=== PATIENT | female | born 1995 | race African-American/Black ===

== ENCOUNTER 2017-06-11 | Emergency (ER) | payer SELFPAY ==
--- NOTE | 2017-06-11 11:08 | ER ---
Nurse's Notes [facility] Name: Shanique Avelar Age: 21 yrs Sex: Female : 1995 Arrival Date: 06/11/2017 Time: 10:45 Bed 13 Private MD: Diagnosis: Acute suppurative otitis media;Otitis externa Presentation: 06/11 10:50 Presenting complaint: Patient states: RIGHT ear pain x 1 week, yellow drainage x 3 hb days. Transition of care: patient was not received from another setting of care. Onset of symptoms is unknown. Care prior to arrival: None. 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 - Social history:: Smoking status: Patient/guardian denies using tobacco. Screenin:55 Abuse screen: Denies threats or abuse. Nutritional screening: No deficits noted. rb1 Tuberculosis screening: No symptoms or risk factors identified. Fall Risk None identified. Assessment: 10:55 General: Appears in no apparent distress. comfortable, obese, Behavior is calm, rb1 cooperative. Pain: Complains of pain in right ear. 10:55 General: Denies fever. Neuro: Level of Consciousness is awake, alert, obeys commands, rb1 Oriented to person, place, time, situation. Cardiovascular: Capillary refill < 3 seconds is brisk in bilateral fingers. Respiratory: Airway is patent Respiratory effort is even, unlabored, Respiratory pattern is regular, symmetrical. GI: No signs and/or symptoms were reported involving the gastrointestinal system. : No signs and/or symptoms were reported regarding the genitourinary system. EENT: Reports pain in right ear since x 1 week. Derm: Skin is dry, Skin is normal, Skin temperature is warm. Vital Signs: 10:50 BP 130 / 99; Pulse 85; Resp 16; Temp 98.9; Pulse Ox 100% on R/A; Weight 104.33 kg; hb Height 5 ft. 7 in. (170.18 cm); Pain 10/; 10:50 Body Mass Index 36.02 (104.33 kg, 170.18 cm) hb ED Course: 10:45 Patient arrived in ED. as 10:50 Triage completed. hb 10:50 Arm band placed on right wrist. hb 10:52 Nitish Red PA is PHCP. jr8 10:53 Gatito Anguiano MD is Attending Physician. jr8 10:53 Mely Licona, RN is Primary Nurse. rb1 10:55 Patient has correct armband on for positive identification. Bed in low position. Call rb1 light in reach. Side rails up X 1. Pulse ox on. NIBP on. 11:23 No provider procedures requiring assistance completed. Patient did not have IV access rb1 during this emergency room visit. Administered Medications: No medications were administered Outcome: 11:08 Discharge ordered by . jr8 11:23 Discharged to home ambulatory, with family. rb1 11:23 Condition: stable 11:23 Discharge instructions given to patient, Instructed on discharge instructions, follow up and referral plans. medication usage, Demonstrated understanding of instructions, follow-up care, medications, Prescriptions given X 2. 11:24 Patient left the ED. rb1 Signatures: Ana Rosa Salas as Nitish Red PA PA jr8 Mely Licona, RN RN rb1 Ting Sims RN RN hb
--- NOTE | 2017-06-11 11:08 | EDPHYS ---
Physician Documentation [facility] Name: Shanique Avelar Age: 21 yrs Sex: Female : 1995 Arrival Date: 06/11/2017 Time: 10:45 Bed 13 Private MD: ED Physician Gatito Anguiano HPI: 06/11 16:31 This 21 yrs old Black Female presents to ER via Ambulatory with complaints of Ear Pain. jr8 16:31 The patient presents with pain. The complaints affect the right ear. Onset: The jr8 symptoms/episode began/occurred acutely, yesterday. Modifying factors: The symptoms are alleviated by nothing, the symptoms are aggravated by touching. Associated signs and symptoms: The patient has no apparent associated signs or symptoms. Severity of symptoms: At their worst the symptoms were moderate in the emergency department the symptoms are unchanged. The patient has not experienced similar symptoms in the past. The patient has not recently seen a physician. 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 - Social history:: Smoking status: Patient/guardian denies using tobacco. ROS: 16:31 Eyes: Negative for injury, pain, redness, and discharge, Neck: Negative for injury, jr8 pain, and swelling, Cardiovascular: Negative for chest pain, palpitations, and edema, Respiratory: Negative for shortness of breath, cough, wheezing, and pleuritic chest pain, Abdomen/GI: Negative for abdominal pain, nausea, vomiting, diarrhea, and constipation, Back: Negative for injury and pain, MS/Extremity: Negative for injury and deformity, Skin: Negative for injury, rash, and discoloration, Neuro: Negative for headache, weakness, numbness, tingling, and seizure. 16:31 ENT: Positive for drainage from ear(s), ear pain, Negative for tinnitus, nasal discharge, rhinorrhea, sinus congestion, sinus pain, sore throat. Exam: 16:31 Eyes: Pupils equal round and reactive to light, extra-ocular motions intact. Lids and jr8 lashes normal. Conjunctiva and sclera are non-icteric and not injected. Cornea within normal limits. Periorbital areas with no swelling, redness, or edema. Neck: Trachea midline, no thyromegaly or masses palpated, and no cervical lymphadenopathy. Supple, full range of motion without nuchal rigidity, or vertebral point tenderness. No Meningismus. Cardiovascular: Regular rate and rhythm with a normal S1 and S2. No gallops, murmurs, or rubs. Normal PMI, no JVD. No pulse deficits. Respiratory: Lungs have equal breath sounds bilaterally, clear to auscultation and percussion. No rales, rhonchi or wheezes noted. No increased work of breathing, no retractions or nasal flaring. Abdomen/GI: Soft, non-tender, with normal bowel sounds. No distension or tympany. No guarding or rebound. No evidence of tenderness throughout. Back: No spinal tenderness. No costovertebral tenderness. Full range of motion. Skin: Warm, dry with normal turgor. Normal color with no rashes, no lesions, and no evidence of cellulitis. MS/ Extremity: Pulses equal, no cyanosis. Neurovascular intact. Full, normal range of motion. Neuro: Awake and alert, GCS 15, oriented to person, place, time, and situation. Cranial nerves II-XII grossly intact. Motor strength 5/5 in all extremities. Sensory grossly intact. Cerebellar exam normal. Normal gait. 16:31 ENT: Exam is negative for nasal discharge, sinus tenderness, enlarged tonsils, peritonsillar abscess pharyngitis, dysphagia, dental infection, abnormal voice, External ear(s): are unremarkable, Ear canal(s): erythema, that is moderate, of the right canal, TM's: dullness, on the right, erythema, that is mild, on the right, fluid levels, on the right. Vital Signs: 10:50 BP 130 / 99; Pulse 85; Resp 16; Temp 98.9; Pulse Ox 100% on R/A; Weight 104.33 kg; hb Height 5 ft. 7 in. (170.18 cm); Pain 10/10; 10:50 Body Mass Index 36.02 (104.33 kg, 170.18 cm) hb MDM: 10:53 Patient medically screened. jr8 11:06 Data reviewed: vital signs, nurses notes, and as a result, I will discharge patient. jr8 Data interpreted: Pulse oximetry: on room air is 100 %. Interpretation: normal. Counseling: I had a detailed discussion with the patient and/or guardian regarding: the historical points, exam findings, and any diagnostic results supporting the discharge/admit diagnosis, the need for outpatient follow up, a family practitioner, to return to the emergency department if symptoms worsen or persist or if there are any questions or concerns that arise at home. Administered Medications: No medications were administered Disposition: 06/11/17 11:08 Discharged to Home. Impression: Acute suppurative otitis media, Otitis externa. - Condition is Stable. - Discharge Instructions: Otitis Media, Adult, Otitis Externa. - Prescriptions for Cortisporin 3.5- 10,000-1 mg/mL-unit/mL-% Otic solution - instill 4 drop by OTIC route every 6 hours for 7 days; 1 bottle. Amoxicillin 875 mg Oral Tablet - take 1 tablet by ORAL route every 12 hours for 10 days; 20 tablet. - Medication Reconciliation Form, Thank You Letter, Antibiotic Education, Prescription Opioid Use form. - Follow up: Private Physician; When: 7 - 10 days; Reason: Recheck today's complaints, Continuance of care, Re-evaluation by your physician. - Problem is new. - Symptoms have improved. Addendum: 06/13/2017 08:05 Co-signature as Attending Physician, Gatito Anguiano MD I agree with the assessment and c pope plan of care. Signatures: Gatito Anguiano MD MD cha Roszak, Josh, PA PA jr8 Mely Licona, RN RN [facility] Ting Sims RN RN
== END 2017-06-11 11:24 | disposition home or self-care (01) ==
CPT/HCPCS: 99283

== ENCOUNTER 2018-08-07 08:59 | Emergency (ER) | payer SELFPAY ==
[2018-08-07] MEDS ORDERED: METOCLOPRAMIDE 10 MG/2mL INJ ONE (09:53)
[2018-08-07] MEDS ORDERED: DEXAMETHASONE 10 MG/ML VIAL ONE (09:53)
[2018-08-07] MEDS ORDERED: DIPHENHYDRAMINE 50 MG/ML VIAL ONE (09:53)
--- NOTE | 2018-08-07 09:56 | RAD REPORT ---
EXAM DESCRIPTION: CT - Head Brain Wo Cont - 08/07/2018 9:51 am CLINICAL HISTORY: Persistent headache COMPARISON: CT head January 2017 TECHNIQUE: Axial 5 mm thick images of the head were obtained without IV contrast. All CT scans are performed using dose optimization technique as appropriate and may include automated exposure control or mA/KV adjustment according to patient size. FINDINGS: No intracranial hemorrhage, mass, edema or shift of mid-line structures. No acute infarcti on changes seen. No abnormal extra-axial fluid collections. Ventricles are normal. Mastoid air cells and visualized portions of the paranasal sinuses are clear. No acute bony findings. No significant change from comparison. IMPRESSION: Negative non-contrast CT head examination.
[2018-08-07 10:34] LABS: Urine Blood NEGATIVE (NEG); Urine Glucose NEGATIVE (NEG); Urine Protein NEGATIVE (NEG)
[2018-08-07 11:20] LABS: Absolute Lymphocytes (CBC) 2.1 K/uL (0.7-4.9); Absolute Monocytes 0.4 K/uL (0.1-1.3); Basophils % 0.3 % (0-1.3); Hematocrit 29.3 % (36.0-45.0); Lymphocytes % 36.3 % (15.3-44.8); MPV 7.8 fL (7.6-11.3); Monocytes % 6.9 % (3.3-12.3); RBC Red Blood Cell Count 3.53 M/uL (3.86-4.86)
[2018-08-07 11:33] LABS: BUN Blood Urea Nitrogen 9 mg/dL (7-18); Bicarbonate 28 mmol/L (21-32); Glucose Level 98 mg/dL (74-106); Potassium 3.8 mmol/L (3.5-5.1); Sodium Level 143 mmol/L (136-145)
--- NOTE | 2018-08-07 11:40 | RAD REPORT ---
EXAM DESCRIPTION: RAD - Abdomen 1 View (KUB) - 08/07/2018 11:27 am CLINICAL HISTORY: Abdomen pain. FINDINGS: The bowel gas pattern is unremarkable. Large amount of stool is present throughout the colon. Calcifications in the pelvis probably represen t phleboliths Opacity overlies the left rectus muscle within the l abdomen. This may be confluence of normal struct ures or a subtle mass. It is recommended that patient have a CT scan of the abdomen with IV and oral contrast for further evaluation
--- NOTE | 2018-08-07 12:26 | EDPHYS ---
Physician Documentation [facility] Name: Shanique Avelar Age: 22 yrs Sex: Female : 1995 Arrival Date: 08/07/2018 Time: 09:01 Bed 8 Private MD: ED Physician Geremias Shepherd HPI: 08/07 09:39 This 22 yrs old Black Female presents to ER via Ambulatory with complaints of Headache, jr8 Back Pain, constipation. 09:39 The patient complains of pain to the left occipital area and right occipital area. The jr8 patient describes the headache as pounding. Onset: The symptoms/episode began/occurred gradually, 2 day(s) ago. Associated signs and symptoms: The patient has no apparent associated signs or symptoms. Severity of symptoms: At its worst the pain was moderate, in the emergency department the pain is unchanged. Headache History: Denies prior headaches. The symptoms are alleviated by nothing. the symptoms are aggravated by movement, noise, stress. It is unknown whether or not the patient has had similar symptoms in the past. The patient has not recently seen a physician. Patient stated that she has had headache for past couple of days with back pain and also has been constipated. Stated that she has not had a bowel movement in two and a half months. Taking laxatives over the counter. Has had one other headache before and had meningitis ruled out. Historical: - Allergies: 09:10 No Known Allergies; sg - PMHx: 09:10 Anemia; Asthma; Heart Murmur; Hypertension; sg - PSHx: 09:10 None; sg - Immunization history:: Adult Immunizations up to date. - Social history:: Smoking status: Patient/guardian denies using tobacco. - Ebola Screening: : Patient negative for fever greater than or equal to 101.5 degrees Fahrenheit, and additional compatible Ebola Virus Disease symptoms Patient denies exposure to infectious person Patient denies travel to an Ebola-affected area in the 21 days before illness onset No symptoms or risks identified at this time. ROS: 09:39 Constitutional: Negative for fever, chills, and weight loss. jr8 09:39 Abdomen/GI: Positive for abdominal cramps, Negative for abdominal pain, nausea, vomiting, and diarrhea, abdominal distension, anorexia, dysphagia, hematemesis, black/tarry stool, rectal pain, rectal bleeding, bowel incontinence, flatulence. 09:39 Back: Positive for pain at rest, pain with movement, of the left scapular area, left subscapular area and left mid back. 09:39 Neuro: Positive for headache, Negative for altered mental status, dizziness, gait disturbance, hearing loss, loss of consciousness, numbness, seizure activity, speech changes, syncope, near syncope, tingling, tinnitus, tremor, visual changes, weakness. 09:39 All other systems are negative. Exam: 09:39 Eyes: Pupils equal round and reactive to light, extra-ocular motions intact. Lids and jr8 lashes normal. Conjunctiva and sclera are non-icteric and not injected. Cornea within normal limits. Periorbital areas with no swelling, redness, or edema. ENT: Nares patent. No nasal discharge, no septal abnormalities noted. Tympanic membranes are normal and external auditory canals are clear. Oropharynx with no redness, swelling, or masses, exudates, or evidence of obstruction, uvula midline. Mucous membranes moist. Neck: Trachea midline, no thyromegaly or masses palpated, and no cervical lymphadenopathy. Supple, full range of motion without nuchal rigidity, or vertebral point tenderness. No Meningismus. Cardiovascular: Regular rate and rhythm with a normal S1 and S2. No gallops, murmurs, or rubs. Normal PMI, no JVD. No pulse deficits. Respiratory: Lungs have equal breath sounds bilaterally, clear to auscultation and percussion. No rales, rhonchi or wheezes noted. No increased work of breathing, no retractions or nasal flaring. Abdomen/GI: Soft, non-tender, with normal bowel sounds. No distension or tympany. No guarding or rebound. No evidence of tenderness throughout. Back: No spinal tenderness. No costovertebral tenderness. Full range of motion. Skin: Warm, dry with normal turgor. Normal color with no rashes, no lesions, and no evidence of cellulitis. MS/ Extremity: Pulses equal, no cyanosis. Neurovascular intact. Full, normal range of motion. Neuro: Awake and alert, GCS 15, oriented to person, place, time, and situation. Cranial nerves II-XII grossly intact. Motor strength 5/5 in all extremities. Sensory grossly intact. Cerebellar exam normal. Normal gait. Vital Signs: 09:11 BP 128 / 89; Pulse 73; Resp 17; Pulse Ox 100% ; sg 09:15 Temp 97.2; sg 09:44 BP 114 / 72; Pulse 77; Resp 16; Pulse Ox 100% on R/A; sg 10:40 BP 118 / 70; Pulse 74; Resp 16; Pulse Ox 100% on R/A; sg 12:00 BP 125 / 77; Pulse 78; Resp 18; Pulse Ox 100% on R/A; sg MDM: 09:16 Patient medically screened. [facility] 12:22 Data reviewed: vital signs, nurses notes, lab test result(s), radiologic studies, CT [facility] scan, plain films. Data interpreted: Pulse oximetry: on room air is 100 %. Interpretation: normal. Counseling: I had a detailed discussion with the patient and/or guardian regarding: the historical points, exam findings, and any diagnostic results supporting the discharge/admit diagnosis, lab results, radiology results, the need for outpatient follow up, a family practitioner, a education adviser, to return to the emergency department if symptoms worsen or persist or if there are any questions or concerns that arise at home. Response to treatment: the patient's symptoms have markedly improved after treatment. ED course: Discussed with patient that she has moderate constipation present throughout colon. 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 Needs to f/u with GI. If worse to come back . 08/07 09:36 Order name: CBC with Diff; Complete Time: 11:38 [facility] 08/07 09:36 Order name: Basic Metabolic Panel; Complete Time: 11:38 [facility] 08/07 09:36 Order name: CT Head Brain wo Cont 08/07 09:36 Order name: XRAY KUB [facility] 08/07 10:17 Order name: Urine Dipstick--Ancillary (enter results); Complete Time: 10:48 08/07 10:17 Order name: Urine --Ancillary (enter results); Complete Time: 10:48 08/07 09:35 Order name: IV; Complete Time: 11:09 [facility] 08/07 09:36 Order name: Urine Test (obtain specimen); Complete Time: 11:07 [facility] 08/07 09:36 Order name: Urine Dipstick-Ancillary (obtain specimen); Complete Time: 11: [facility] Administered Medications: 10:55 Drug: Benadryl 25 mg Route: IVP; Site: right antecubital; sg 11:45 Follow up: Response: No adverse reaction sg 10:58 Drug: Reglan 10 mg Route: IVP; Site: right antecubital; sg 11:30 Follow up: Response: No adverse reaction sg 11:00 Drug: Decadron - Dexamethasone 10 mg Route: IVP; Site: right antecubital; sg 12:30 Follow up: Response: No adverse reaction; Pain is decreased sg Disposition: 17:20 Co-signature as Attending Physician, Geremias Shepherd MD. rn Disposition: 08/07/18 12:25 Discharged to Home. Impression: Migraine, Constipation. - Condition is Stable. - Discharge Instructions: Constipation, Adult, Migraine Headache. - Prescriptions for Lactulose 10 gram/15 mL Oral Solution - take 30 milliliters by ORAL route 2 times per day for 2 days; 120 milliliter. - Work release form, Medication Reconciliation Form, Thank You Letter, Antibiotic Education, Prescription Opioid Use form. - Follow up: Jorge Richardson MD; When: 2 - 3 days; Reason: Recheck today's complaints, Continuance of care, Re-evaluation by your physician. - Problem is new. - Symptoms have improved. Signatures: Dispatcher [employer] EDNoah Gonzalez RN RN sg Nieto, Roman, MD MD rn Roszak, Josh, PA PA jr8 Corrections: (The following items were deleted from the chart) 12:38 12:25 08/07/2018 12:25 Discharged to Home. Impression: Migraine; Constipation. sg Condition is Stable. Forms are Work release form, Medication Reconciliation Form, Thank You Letter, Antibiotic Education, Prescription Opioid Use. Follow up: Jorge Richardson; When: 2 - 3 days; Reason: Recheck today's complaints, Continuance of care, Re-evaluation by your physician. Problem is new. Symptoms have improved. jr8
--- NOTE | 2018-08-07 12:26 | ER ---
Nurse's Notes [facility] Name: Shanique Avelar Age: 22 yrs Sex: Female : 1995 Arrival Date: 08/07/2018 Time: 09:01 Bed 8 Private MD: Diagnosis: Migraine;Constipation Presentation: 08/07 09:12 Presenting complaint: Headache and back pain x 2 days, constipation x 3 months. Pt hb stated "I have not pooped at all in two months.". Transition of care: patient was not received from another setting of care. Onset of symptoms is unknown. Risk Assessment: Do you want to hurt yourself or someone else? Patient reports no desire to harm self or others. Care prior to arrival: None. 09:12 Method Of Arrival: Ambulatory hb 09:12 Acuity: KYLEE 3 hb 09:30 Initial Sepsis Screen: Does the patient meet any 2 criteria? No. Patient's initial sg sepsis screen is negative. Does the patient have a suspected source of infection? No. Patient's initial sepsis screen is negative. Historical: - Allergies: 09:10 No Known Allergies; sg - PMHx: 09:10 Anemia; Asthma; Heart Murmur; Hypertension; sg - PSHx: 09:10 None; sg - Immunization history:: Adult Immunizations up to date. - Social history:: Smoking status: Patient/guardian denies using tobacco. - Ebola Screening: : Patient negative for fever greater than or equal to 101.5 degrees Fahrenheit, and additional compatible Ebola Virus Disease symptoms Patient denies exposure to infectious person Patient denies travel to an Ebola-affected area in the 21 days before illness onset No symptoms or risks identified at this time. Screenin:14 Abuse screen: Denies threats or abuse. Denies injuries from another. Nutritional hb screening: No deficits noted. Tuberculosis screening: No symptoms or risk factors identified. Fall Risk None identified. Assessment: 09:20 General: Appears in no apparent distress. uncomfortable, well groomed, well developed, sg well nourished, Behavior is calm, cooperative, appropriate for age. Pain: Complains of pain in left mid back and right occipital area and left occipital area Quality of pain is described as aching, throbbing. Neuro: Level of Consciousness is awake, alert, obeys commands, Oriented to person, place, time, situation, Gas Worker are equal bilaterally Moves all extremities. Full function Gait is steady, Speech is normal, Facial symmetry appears normal, Reports headache in entire occipital area. Cardiovascular: Capillary refill is brisk in bilateral fingers Patient's skin is warm and dry. Chest pain is denied. Respiratory: Airway is patent Respiratory effort is even, unlabored, Respiratory pattern is regular, symmetrical. GI: Abdomen is round non-distended. : No signs and/or symptoms were reported regarding the genitourinary system. EENT: No signs and/or symptoms were reported regarding the EENT system. Derm: Skin is pink, warm \\T\\ dry. Musculoskeletal: No signs and/or symptoms reported regarding the musculoskeletal system. Vital Signs: 09:11 BP 128 / 89; Pulse 73; Resp 17; Pulse Ox 100% ; sg 09:15 Temp 97.2; sg 09:44 BP 114 / 72; Pulse 77; Resp 16; Pulse Ox 100% on R/A; sg 10:40 BP 118 / 70; Pulse 74; Resp 16; Pulse Ox 100% on R/A; sg 12:00 BP 125 / 77; Pulse 78; Resp 18; Pulse Ox 100% on R/A; sg ED Course: 09:01 Patient arrived in ED. as 09:09 Noah Freire, RN is Primary Nurse. sg 09:09 Arm band placed on. sg 09:14 Triage completed. hb 09:15 Patient has correct armband on for positive identification. Bed in low position. Call sg light in reach. Side rails up X2. weekend caregiver on. Pulse ox on. NIBP on. Warm blanket given. Head of bed. 09:16 Nitish Red PA is PHCP. jr8 09:16 Geremias Shepherd MD is Attending Physician. jr8 09:[address] via wheelchair. Patient moved to radiology. sg 09:46 CT completed. Patient tolerated procedure well. Patient moved to CT via wheelchair. kw1 09:47 No provider procedures requiring assistance completed. sg 09:50 CT Head Brain wo Cont In Process Unspecified. EDMS 10:31 Missed attempt(s): 24 gauge in right wrist. Bleeding controlled, band aid applied, hb catheter tip intact. 10:34 Missed attempt(s): 22 gauge in left antecubital area. Bleeding controlled, band aid hb applied, catheter tip intact. 10:45 Radiology exam delayed due to IV insertion attempt and/or patient not having mh1 appropriate IV at this time. 10:50 Accessed peripheral vein via ultrasound, utilizing dynamic ultrasound technique using sg 18G Sureflo IV catheter ,sterile technique, per hospital protocol. Clean \\T\\ dry. Dressing intact. Good blood return. 11:15 X-ray completed. Patient tolerated procedure well. Patient moved back from radiology. 11:27 XRAY KUB In Process Unspecified. EDMS 12:25 Jorge Richardson MD is Referral Physician. jr8 12:30 IV discontinued, intact, bleeding controlled, No redness/swelling at site. sg Administered Medications: 10:55 Drug: Benadryl 25 mg Route: IVP; Site: right antecubital; sg 11:45 Follow up: Response: No adverse reaction sg 10:58 Drug: Reglan 10 mg Route: IVP; Site: right antecubital; sg 11:30 Follow up: Response: No adverse reaction sg 11:00 Drug: Decadron - Dexamethasone 10 mg Route: IVP; Site: right antecubital; sg 12:30 Follow up: Response: No adverse reaction; Pain is decreased sg Outcome: 12:25 Discharge ordered by . jr8 12:30 Discharged to home ambulatory. sg 12:30 Condition: stable 12:30 Discharge instructions given to patient, Instructed on discharge instructions, follow up and referral plans. medication usage, Demonstrated understanding of instructions, follow-up care, medications. 12:38 Patient left the ED. sg Signatures: Dispatcher [employer] EDMS Noah Freire RN RN Christina Barrow [facility] Ana Rosa Salas Josh, PA PA jrDiana Kowalski Ting Sims RN RN Blanca Reynaga kw1 Corrections: (The following items were deleted from the chart) 09:14 09:12 Acuity: KYLEE 3 hb hb 10:18 09:44 BP 114 / 7; Pulse 77bpm; Resp 16bpm; Pulse Ox 100% RA; sg sg 10:47 09:12 Acuity: KYLEE 4 hb hb
[2018-08-07 12:46] VITALS: O2SAT 100
[2018-08-07 12:47] VITALS: TEMP 97.2
[2018-08-07 12:51] VITALS: BP 125/77
== END 2018-08-07 12:38 | disposition home or self-care (01) ==
LOC: ER 08:59
DX: G43.909 Migraine, unspecified, not intractable, without status migrainosus (principal); K59.00 Constipation, unspecified; D64.9 Anemia, unspecified; J45.909 Unspecified asthma, uncomplicated; I10 Essential (primary) hypertension
CPT/HCPCS: 36415; 70450; 74018; 80048; 81003; 81025; 85025; 96374; 96375; 99285; J1100; J2765

== ENCOUNTER 2018-08-12 21:25 | Emergency (ER) | payer SELFPAY ==
[2018-08-13] MEDS ORDERED: FENTANYL CITR 100 MCG/2 ML ONE (00:41)
[2018-08-13] MEDS ORDERED: ONDANSETRON 4 MG/2 ML VIAL ONE (00:41)
[2018-08-13] MEDS ORDERED: NA CHLORIDE 0.9% 1,000 ML ONE (00:41)
[2018-08-13 00:50] LABS: Absolute Lymphocytes (CBC) 3.6 K/uL (0.7-4.9); Absolute Monocytes 0.7 K/uL (0.1-1.3); Absolute Neutrophil 6.3 K/uL (1.8-8.0); Basophils % 0.9 % (0-1.3); Eosinophils % 2.3 % (0-4.4); Hematocrit 33.2 % (36.0-45.0); Lymphocytes % 32.5 % (15.3-44.8); Monocytes % 6.9 % (3.3-12.3); RBC Red Blood Cell Count 4.04 M/uL (3.86-4.86)
[2018-08-13 01:25] LABS: ALT/SGPT 17 U/L (12-78); AST/SGOT 22 U/L (15-37); Albumin 3.8 g/dL (3.4-5.0); Alkaline Phosphatase 75 U/L (45-117); BUN Blood Urea Nitrogen 11 mg/dL (7-18); Bicarbonate 25 mmol/L (21-32); Bilirubin Direct < 0.1 mg/dL (0-0.2); Bilirubin Total 0.3 mg/dL (0.2-1.0); Glucose Level 97 mg/dL (74-106); Lipase 138 U/L (73-393); Potassium 4.2 mmol/L (3.5-5.1); Protein, Total 8.3 g/dL (6.4-8.2); Sodium Level 140 mmol/L (136-145)
[2018-08-13 03:10] LABS: Urine Blood NEGATIVE (NEG); Urine Glucose NEGATIVE (NEG); Urine Protein NEGATIVE (NEG); Urine pH 6.5 (5.0-7.0)
--- NOTE | 2018-08-13 03:37 | ER ---
Nurse's Notes [facility] Name: Shanique Avelar Age: 22 yrs Sex: Female : 1995 Arrival Date: 08/12/2018 Time: 21:36 Bed 14 Private MD: Diagnosis: Unspecified abdominal pain Presentation: 08/12 21:54 Presenting complaint: Patient states: I have not had a BM for 2.5 months, was here a la1 while back and they gave me some stuff and its not helping. Transition of care: patient was not received from another setting of care. Onset of symptoms was August 12, 2018. Risk Assessment: Do you want to hurt yourself or someone else? Patient reports no desire to harm self or others. Initial Sepsis Screen: Does the patient meet any 2 criteria? No. Patient's initial sepsis screen is negative. Does the patient have a suspected source of infection? No. Patient's initial sepsis screen is negative. Care prior to arrival: None. 21:54 Method Of Arrival: Ambulatory la1 21:54 Acuity: KYLEE 3 la1 Historical: - Allergies: 21:55 No Known Allergies; la1 - PMHx: 21:55 Anemia; Asthma; Heart Murmur; Hypertension; la1 - Immunization history:: Adult Immunizations up to date. - Social history:: Smoking status: Patient/guardian denies using tobacco. - Ebola Screening: : No symptoms or risks identified at this time. Screenin:14 Abuse screen: Denies threats or abuse. Nutritional screening: No deficits noted. tl2 Tuberculosis screening: No symptoms or risk factors identified. Fall Risk None identified. Assessment: 23:14 Reassessment: pt reports being seen here 2 days ago, blood work was negative but xray tl2 revealed constipation. Given laxatives and magnesium drink but did not relieve constipation. Pt reports using enema without relief. General: Appears in no apparent distress. uncomfortable, Behavior is cooperative, appropriate for age, anxious, restless. Pain: Complains of pain in back and abdomen. Neuro: Level of Consciousness is awake, alert, obeys commands, Oriented to person, place, time, situation. Cardiovascular: Denies chest pain. Respiratory: Airway is patent Respiratory effort is even, unlabored, Respiratory pattern is regular, symmetrical. GI: Abdomen is non-distended, Abd is soft and non tender Reports lower abdominal pain, upper abdominal pain, constipation. : No signs and/or symptoms were reported regarding the genitourinary system. Derm: Skin is pink, warm \T\ dry. 08/13 00:56 Reassessment: Charge nurse at bedside to place midline. tl2 01:27 Reassessment: Patient appears in no apparent distress at this time. Patient and/or tl2 family updated on plan of care and expected duration. Pain level reassessed. Patient is alert, oriented x 3, equal unlabored respirations, skin warm/dry/pink. Patient is alert/active/playful, equal unlabored respirations, skin warm/dry/pink. awaiting lab results and CT scan. 02:38 Reassessment: Patient appears in no apparent distress at this time. Patient and/or tl2 family updated on plan of care and expected duration. Pain level reassessed. Patient is alert, oriented x 3, equal unlabored respirations, skin warm/dry/pink. Patient states feeling better. 04:24 Reassessment: Patient appears in no apparent distress at this time. Patient and/or tl2 family updated on plan of care and expected duration. Pain level reassessed. Patient is alert, oriented x 3, equal unlabored respirations, skin warm/dry/pink. pt verbalized understanding of discharge instructions, need for follow up and prescription usage. Vital Signs: 08/12 21:55 BP 116 / 78; Pulse 101; Resp 19; Temp 98.4; Pulse Ox 98% on R/A; Weight 108.86 kg; la1 Height 5 ft. 7 in. (170.18 cm); 23:14 BP 124 / 108; Pulse 105; Resp 22; Pulse Ox 97% on R/A; tl2 08/13 01:27 BP 101 / 75; Pulse 84; Resp 18; Pulse Ox 97% on R/A; tl2 02:38 BP 111 / 68; Pulse 75; Resp 20; Pulse Ox 99% on R/A; tl2 04:02 BP 145 / 55; Pulse 77; Resp 18; Pulse Ox 100% on R/A; tl2 08/12 21:55 Body Mass Index 37.59 (108.86 kg, 170.18 cm) la1 ED Course: 08/12 21:36 Patient arrived in ED. es 21:55 Triage completed. la1 21:55 Arm band placed on left wrist. la1 23:14 Patient has correct armband on for positive identification. Bed in low position. Call tl2 light in reach. Side rails up X 1. 23:56 Gatito Courtney PA is PHCP. cp 23:56 Sandro Song MD is Attending Physician. cp 08/13 00:46 Missed attempt(s): 18 gauge in right antecubital area. US guided, Pt C/O pain in middle la1 of procedure so IV D/Cd. . 01:27 Gabrielle Merino, RN is Primary Nurse. tl2 02:32 CT Abd/Pelvis - W/Contrast: give oral contrast In Process Unspecified. EDMS 03:35 Mau Soto MD is Referral Physician. cp 04:24 No provider procedures requiring assistance completed. IV discontinued, intact, tl2 bleeding controlled, No redness/swelling at site. Pressure dressing applied. Administered Medications: 01:28 Drug: NS 0.9% 1000 ml Route: IV; Rate: 1 bolus; Site: right upper arm; tl2 03:00 Follow up: IV Status: Completed infusion; IV Intake: 1000ml tl2 01:29 Drug: Zofran 4 mg Route: IVP; Site: right upper arm; tl2 02:00 Follow up: Response: No adverse reaction tl2 01:29 Drug: fentaNYL (PF) 25 mcg Route: IVP; Site: right upper arm; tl2 02:00 Follow up: Response: No adverse reaction; Pain is decreased tl2 03:40 Drug: TORadol - Ketorolac 15 mg Route: IVP; Site: right upper arm; tl2 04:15 Follow up: Response: No adverse reaction; Medication administered at discharge. tl2 04:14 Drug: Bentyl 20 mg Route: PO; tl2 04:27 Follow up: Response: No adverse reaction; Medication administered at discharge. tl2 Intake: 03:00 IV: 1000ml; Total: 1000ml. tl2 Outcome: 03:36 Discharge ordered by . cp 04:24 Discharged to home ambulatory, with family. tl2 04:24 Condition: stable 04:24 Discharge instructions given to patient, Instructed on discharge instructions, follow up and referral plans. medication usage, Demonstrated understanding of instructions, follow-up care, medications, Prescriptions given X 3. 04:28 Patient left the ED. tl2 Signatures: Dispatcher [employer] Maria Elena Monaco Lee RN RN la1 Gatito Courtney PA PA cp Knox, Taylor, JEANNIE RN tl2 Corrections: (The following items were deleted from the chart) 04:02 02:38 Pulse 75bpm; Resp 20bpm; Pulse Ox 99% RA; tl2 tl2
--- NOTE | 2018-08-13 03:37 | EDPHYS ---
Physician Documentation [facility] Name: Shanique Avelar Age: 22 yrs Sex: Female : 1995 Arrival Date: 08/12/2018 Time: 21:36 Bed 14 Private MD: ED Physician Sandro Song HPI: 08/13 00:26 This 22 yrs old Black Female presents to ER via Ambulatory with complaints of cp Constipation. 00:30 The patient presents with abdominal pain that is diffuse, constipation. cp 00:30 Onset: The symptoms/episode began/occurred 2.5 month(s) ago. Associated signs and cp symptoms: Pertinent negatives: blood in stools, chest pain, diarrhea, dysuria, fever, shortness of breath, vomiting. Severity of pain: in the emergency department the pain is unchanged despite home interventions. 00:30 The patient has been recently seen at the [facility] Emergency cp Department, for similar complaints labs were performed, X-rays were performed. Historical: - Allergies: 08/12 21:55 No Known Allergies; la1 - PMHx: 21:55 Anemia; Asthma; Heart Murmur; Hypertension; la1 - Immunization history:: Adult Immunizations up to date. - Social history:: Smoking status: Patient/guardian denies using tobacco. - Ebola Screening: : No symptoms or risks identified at this time. ROS: 08/13 00:35 Constitutional: Negative for body aches, chills, fever, poor PO intake. cp 00:35 Eyes: Negative for injury, pain, redness, and discharge. cp 00:35 ENT: Negative for drainage from ear(s), ear pain, sore throat, difficulty swallowing, difficulty handling secretions. 00:35 Cardiovascular: Negative for chest pain, edema, palpitations. 00:35 Respiratory: Negative for cough, shortness of breath, wheezing. 00:35 Abdomen/GI: Positive for abdominal pain, constipation, Negative for vomiting, diarrhea, anorexia, black/tarry stool, rectal bleeding. 00:35 Back: Negative for pain at rest, pain with movement. 00:35 : Negative for urinary symptoms, vaginal bleeding, vaginal discharge. 00:35 Skin: Negative for rash. 00:35 Neuro: Negative for altered mental status, headache, weakness. 00:35 All other systems are negative. Exam: 00:42 Constitutional: The patient appears in no acute distress, alert, awake, non-toxic, well cp developed, well nourished. 00:42 Head/Face: Normocephalic, atraumatic. cp 00:42 Eyes: Periorbital structures: appear normal, Conjunctiva: normal, no exudate, no injection, Sclera: no appreciated abnormality, Lids and lashes: appear normal, bilaterally. 00:42 ENT: External ear(s): are unremarkable, Nose: is normal, Mouth: Lips: moist, Oral mucosa: moist, Posterior pharynx: is normal, airway is patent, no erythema, no exudate. 00:42 Chest/axilla: Inspection: normal, Palpation: is normal, no crepitus, no tenderness. 00:42 Cardiovascular: Rate: tachycardic, Rhythm: regular. 00:42 Respiratory: the patient does not display signs of respiratory distress, Respirations: normal, no use of accessory muscles, no retractions, no splinting, no tachypnea, labored breathing, is not present, Breath sounds: are clear throughout, no decreased breath sounds, no stridor, no wheezing. 00:42 Abdomen/GI: Inspection: abdomen appears normal, Bowel sounds: active, all quadrants, Palpation: soft, in all quadrants, moderate abdominal tenderness, in all quadrants, rebound tenderness, is not appreciated, voluntary guarding, is elicited in all quadrants, involuntary guarding, is not appreciated. 00:42 Back: pain, is absent, ROM is normal. 00:42 Skin: no rash present. Vital Signs: 08/12 21:55 BP 116 / 78; Pulse 101; Resp 19; Temp 98.4; Pulse Ox 98% on R/A; Weight 108.86 kg; la1 Height 5 ft. 7 in. (170.18 cm); 23:14 BP 124 / 108; Pulse 105; Resp 22; Pulse Ox 97% on R/A; tl2 08/13 01:27 BP 101 / 75; Pulse 84; Resp 18; Pulse Ox 97% on R/A; tl2 02:38 BP 111 / 68; Pulse 75; Resp 20; Pulse Ox 99% on R/A; tl2 04:02 BP 145 / 55; Pulse 77; Resp 18; Pulse Ox 100% on R/A; tl2 05/25 21:55 Body Mass Index 37.59 (108.86 kg, 170.18 cm) la1 MDM: 00:01 Patient medically screened. 03:35 Data reviewed: vital signs, nurses notes, old medical records, lab test result(s), cp radiologic studies, CT scan. 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 Special discussion: Based on the patient's Hx, exam, and Dx evaluation, there is no indication for emergent surgery or inpatient Tx. It is understood by the patient/guardian that if the Sx's persist or worsen they need to return immediately for re-evaluation. ED course: VSS. CT abdomen negative for obstruction. Will discharge to home for continued monitoring. 08/13 00:14 Order name: Basic Metabolic Panel 08/13 00:14 Order name: CBC with Diff; Complete Time: 03:25 cp 08/13 03:25 Interpretation: Normal except: HGB 10.4; HCT 33.2; MCH 25.8; MCHC 31.5; PLT 111; RDW cp 16.4; MPV 9.0. 08/13 00:14 Order name: Creatinine for Radiology; Complete Time: 03:25 cp 08/13 00:14 Order name: Hepatic Function; Complete Time: 03:25 08/13 03:26 Interpretation: TP 8.3; GLOB 4.5; A/G 0.8. cp 08/13 00:14 Order name: Lipase; Complete Time: 03:25 cp 08/13 00:16 Order name: Basic Metabolic Panel; Complete Time: 03:25 EDMS 08/13 03:26 Interpretation: Normal except: CL 108; GFR 84. 08/13 00:14 Order name: CT Abd/Pelvis - W/Contrast: give oral contrast 08/13 02:45 Order name: Urine Dipstick--Ancillary (enter results) ag4 08/13 02:45 Order name: Urine --Ancillary (enter results) ag4 08/13 00:14 Order name: IV Saline Lock; Complete Time: 01:28 cp 08/13 00:14 Order name: Labs collected and sent; Complete Time: : cp 08/13 00:14 Order name: Urine Dipstick-Ancillary (obtain specimen); Complete Time: cp 08/13 00:14 Order name: Urine Test (obtain specimen); Complete Time: : cp Administered Medications: Drug: NS 0.9% 1000 ml Route: IV; Rate: 1 bolus; Site: right upper arm; tl2 03:00 Follow up: IV Status: Completed infusion; IV Intake: 1000ml tl2 :29 Drug: Zofran 4 mg Route: IVP; Site: right upper arm; tl2 02:00 Follow up: Response: No adverse reaction tl2 :29 Drug: fentaNYL (PF) 25 mcg Route: IVP; Site: right upper arm; tl2 02:00 Follow up: Response: No adverse reaction; Pain is decreased tl2 03:40 Drug: TORadol - Ketorolac 15 mg Route: IVP; Site: right upper arm; tl2 04:15 Follow up: Response: No adverse reaction; Medication administered at discharge. tl2 04:14 Drug: Bentyl 20 mg Route: PO; tl2 04:27 Follow up: Response: No adverse reaction; Medication administered at discharge. tl2 Disposition: 06:30 Co-signature as Attending Physician, Sandro Song MD. [email or web address] Disposition: 08/13/18 03:36 Discharged to Home. Impression: Unspecified abdominal pain. - Condition is Stable. - Discharge Instructions: Abdominal Pain, Adult, Constipation, Adult. - Prescriptions for Bentyl 20 mg Oral Tablet - take 2 tablet by ORAL route every 6 hours As needed; 40 tablet. Zofran 4 mg Oral Tablet - take 1 tablet by ORAL route every 12 hours As needed; 20 tablet. Miralax 17 gram/dose Oral - take 1 packet by ORAL route once daily As needed dilute powder in 8 ounces of water or juice; 20 packet. - Medication Reconciliation Form, Thank You Letter, Antibiotic Education, Prescription Opioid Use form. - Follow up: Mau Soto MD; When: 2 - 3 days; Reason: Recheck today's complaints. - Problem is an ongoing problem. - Symptoms have improved. Signatures: Dispatcher [employer] EDMS Song, Pin, MD Oscar Norman RN RN la1 Gatito Courtney PA PA cp Knox, Taylor, RN RN tl2 Corrections: (The following items were deleted from the chart) 08/12 00:40 Constitutional: The patient appears in no acute distress, alert, awake, cp non-toxic, well developed, well nourished, cp 08/13 02:08/12 00:40 Head/Face: Normocephalic, atraumatic. cp cp 08/13 02:08/12 00:40 Eyes: Periorbital structures: appear normal, Conjunctiva: normal, Sclera: cp no appreciated abnormality, Lids and lashes: appear normal, bilaterally, cp 08/13 02:08/12 00:40 ENT: External ear(s): are unremarkable, Nose: is normal, Mouth: Lips: cp moist, Oral mucosa: moist, Posterior pharynx: is normal, airway is patent, no erythema, no exudate, cp 08/13 03:08/12 00:40 Chest/axilla: Inspection: normal, Palpation: is normal, no crepitus, no cp tenderness, cp 08/13 02:08/12 00:40 Cardiovascular: Rate: tachycardic, Rhythm: regular, Edema: is not cp appreciated, JVD: is not appreciated, cp 08/13 02:08/12 00:40 Respiratory: the patient does not display signs of respiratory distress, cp Respirations: normal, no use of accessory muscles, no retractions, no splinting, no tachypnea, labored breathing, is not present, Breath sounds: are clear throughout, no decreased breath sounds, no stridor, no wheezing, cp 08/13 02:08/12 00:40 Abdomen/GI: Inspection: abdomen appears normal, Bowel sounds: active, all cp quadrants, Palpation: soft, in all quadrants, moderate abdominal tenderness, in all quadrants, rebound tenderness, is not appreciated, involuntary guarding, is not appreciated, cp 08/13 02:08/12 00:40 Back: pain, is absent, ROM is normal, cp 08/13 04:28 03:36 08/13/2018 03:36 Discharged to Home. Impression: Unspecified abdominal pain. tl2 Condition is Stable. Forms are Medication Reconciliation Form, Thank You Letter, Antibiotic Education, Prescription Opioid Use. Follow up: Mau Soto; When: 2 - 3 days; Reason: Recheck today's complaints. Problem is an ongoing problem. Symptoms have improved. cp
[2018-08-13] MEDS ORDERED: KETOROLAC 30 MG/ML INJ ONE (03:41)
[2018-08-13] MEDS ORDERED: DICYCLOMINE HCL 10 MG CAP ONE (04:20)
[2018-08-13 04:40] VITALS: TEMP 98.4
[2018-08-13 04:45] VITALS: BP 145/55; O2SAT 100
--- NOTE | 2018-08-15 10:58 | RAD REPORT ---
EXAM DESCRIPTION: CT - Abdomen Pelvis W Contrast - 08/13/2018 2:31 am CLINICAL HISTORY: Abd pain;Constipation COMPARISON: None. TECHNIQUE: CT ABDOMEN PELVIS WITH IV CONTRAST on 08/13/2018 12:14 AM CDT This exam was performed according to our departmental dose-optimization program, which includes autom ated exposure control, adjustment of the mA and/or kV according to patient size and/or use of iterati ve reconstruction technique. FINDINGS: Lower lungs are clear. Abdomen: The liver is normal in appearance. There is no biliary dilatation. Gallbladder is decompress ed. The pancreas and spleen are normal in appearance. The adrenal glands and kidneys are unremarkable . Abdominal aorta is normal in course and caliber without aneurysm. There is no free air. There is no r etroperitoneal adenopathy. Pelvis: There is no bowel obstruction. Urinary bladder is unremarkable. There is no free fluid. Uteru s is normal in size. Appendix is normal. Skeleton: There are no acute osseous findings. No suspicious bony lesions. IMPRESSION: Inflammatory process. No renal or ureteral calculi. Electronically signed by: Irineo Winters MD 08/13/2018 2:41 AM CDT Due to temporary technical issues with the PACS/Fluency reporting system, reports are being signed by the in house radiologist as a courtesy to ensure prompt reporting. The interpreting radiologist is jae lieberman responsible for the content of the report.
== END 2018-08-13 04:28 | disposition home or self-care (01) ==
LOC: ER 21:25
DX: R10.9 Unspecified abdominal pain (principal); K59.00 Constipation, unspecified; I10 Essential (primary) hypertension
CPT/HCPCS: 36415; 74177; 80048; 80076; 81003; 81025; 83690; 85025; 96361; 96374; 96375; 99283; J2405; J3010; J7030; Q9967

== ENCOUNTER 2018-09-06 12:06 | Emergency (ER) | payer SELFPAY ==
[2018-09-06] MEDS ORDERED: HYDROCODONE/APAP 5/325 MG TAB ONE (12:51)
--- NOTE | 2018-09-06 13:06 | RAD REPORT ---
EXAM DESCRIPTION: RAD - Foot Left 3 View - 09/06/2018 12:58 pm CLINICAL HISTORY: PAIN COMPARISON: <Comparisons> FINDINGS: Soft tissue swelling is seen affecting the great toe. No acute fractures demonstrated.
[2018-09-06] MEDS ORDERED: LIDOCAINE 1% MPF 30 ML VIAL ONE (14:21)
--- NOTE | 2018-09-06 15:57 | ER ---
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 Transition of care: patient was not received from another setting of care. Onset of symptoms was September 06, 2018. Risk Assessment: Do you want to hurt yourself or someone else? Patient reports no desire to harm self or others. Initial Sepsis Screen: Does the patient meet any 2 criteria? No. Patient's initial sepsis screen is negative. Does the patient have a suspected source of infection? No. Patient's initial sepsis screen is negative. Care prior to arrival: None. 12:14 Method Of Arrival: Ambulatory ss 12:14 Acuity: KYLEE 4 ss Triage Assessment: 12:15 General: Appears uncomfortable. Pain: Complains of pain in left first toe Pain ls4 currently is 10 out of 10 on a pain scale. Quality of pain is described as tender, throbbing, Pain began suddenly, Is continuous. Neuro: No deficits noted. Cardiovascular: No deficits noted. Respiratory: No deficits noted. GI: No deficits noted. : No deficits noted. Derm: Wound noted left first toe Wound is 1st toe nail detached from nail bed. no bleeding. Musculoskeletal: Circulation, motion, and sensation intact. Capillary refill < 3 seconds, Range of motion: intact in all extremities. 14:07 General: Behavior is calm, cooperative. ls4 FLAG SIGNALER: 14:01 LMP N/A - control method ls4 Historical: - Allergies: 12:16 No Known Allergies; ss - Home Meds: 12:16 None [Active]; ss - PMHx: 12:16 Anemia; Asthma; Heart Murmur; Hypertension; ss - PSHx: 12:16 Tonsillectomy; ss - Immunization history:: Adult Immunizations up to date. - Social history:: Smoking status: Patient/guardian denies using tobacco. - Ebola Screening: : Patient denies exposure to infectious person Patient denies travel to an Ebola-affected area in the 21 days before illness onset. Screenin:16 Abuse screen: Denies threats or abuse. Denies injuries from another. Nutritional ls4 screening: No deficits noted. Tuberculosis screening: No symptoms or risk factors identified. Fall Risk None identified. Assessment: 13:00 Reassessment: Patient and/or family updated on plan of care and expected duration. Pain ls4 level reassessed. Patient is alert, oriented x 3, equal unlabored respirations, skin warm/dry/pink. Vital Signs: 12:16 Pulse 89; Resp 16; Temp 97.8(TE); Pulse Ox 99% on R/A; Weight 104.33 kg; Height 5 ft. 7 ss in. (170.18 cm); Pain 10/10; 13:02 BP 100 / 66; Pulse 72; Resp 14; Temp 98.2(O); Pulse Ox 100% on R/A; Pain 5/10; ls4 13:02 BP 106 / 78; Pulse 77; Resp 14; Pulse Ox 99% on R/A; Pain 5/10; ls4 14:00 BP 112 / 78; Pulse 74; Resp 14; Pulse Ox 99% on R/A; Pain 5/10; ls4 15:00 BP 108 / 74; Pulse 74; Resp 14; Pulse Ox 99% on R/A; Pain 5/10; ls4 12:16 Body Mass Index 36.02 (104.33 kg, 170.18 cm) ss ED Course: 12:08 Patient arrived in ED. as 12:11 Tristen Rene NP is PHCP. pm1 12:11 Ori Rodrigez MD is Attending Physician. pm1 12:15 Triage completed. ss 12:16 Arm band placed on right wrist. ss 12:16 Patient has correct armband on for positive identification. Bed in low position. Call ls4 light in reach. Side rails up X 1. Pulse ox on. NIBP on. Verbal reassurance given. 12:16 Patient did not have IV access during this emergency room visit. ls4 12:20 No provider procedures requiring assistance completed. ls4 12:30 Kaila Feldman RN is Primary Nurse. ls4 13:00 Foot Left 3 View XRAY In Process Unspecified. EDMS Administered Medications: 12:40 Drug: [place] 5 mg-325 mg 1 tabs Route: PO; ls4 13:10 Follow up: Response: No adverse reaction; Marked relief of symptoms ls4 15:59 CANCELLED (error order ): TORadol - Ketorolac 15 mg IVP once ls4 Outcome: 16:14 Eloped from patient exam room, after seeing physician Time discovered patient gone: ls4 September 06, 2018 at 15:45 Pt stated she had a court date. I told her I would give her an excuse and also speak with them over the phone if she wished. left pat and when I went back she was no longer in room 16:14 Condition: stable 16:14 Discharge instructions given to eloped 16:15 Patient left the ED. ls4 Signatures: Dispatcher [employer] EDMS Ana Rosa Salas Shelby, RN RN ss Tristen Rene, JULIÁN GRAFFITI CLEANER pm1 Kaila Feldman RN RN ls4 Corrections: (The following items were deleted from the chart) 15:59 15:05 TORadol - Ketorolac 15 mg IVP in left antecubital ls4 ls4
--- NOTE | 2018-09-06 15:57 | EDPHYS ---
Physician Documentation [facility] Name: Shanique Avelar Age: 22 yrs Sex: Female : 1995 Arrival Date: 09/06/2018 Time: 12:08 Bed 13 Private MD: ED Physician Ori Rodrigez HPI: 09/06 12:31 This 22 yrs old Black Female presents to ER via Ambulatory with complaints of Toenail pm1 Problem. 12:31 The patient presents with pain, that is acute. Context: resulted from toe was run over pm1 by wheelchair and left great toe nail almost removed, the patient can fully bear weight, the patient is able to ambulate. Onset: The symptoms/episode began/occurred today. Associated signs and symptoms: Pertinent negatives: calf tenderness, fever, nausea, vomiting. Severity of symptoms: in the emergency department the symptoms are unchanged. The patient has not experienced similar symptoms in the past. The patient has not recently seen a physician. Patient's left great toe nail was run over by wheelchair and her left great toe nail almost fell off. She attempted to pull off her nail but she was not able to do it. HEALTHCARE INTERPRETER: 14:01 LMP N/A - control method ls4 Historical: - Allergies: 12:16 No Known Allergies; ss - Home Meds: 12:16 None [Active]; ss - PMHx: 12:16 Anemia; Asthma; Heart Murmur; Hypertension; ss - PSHx: 12:16 Tonsillectomy; ss - Immunization history:: Adult Immunizations up to date. - Social history:: Smoking status: Patient/guardian denies using tobacco. - Ebola Screening: : Patient denies exposure to infectious person Patient denies travel to an Ebola-affected area in the 21 days before illness onset. ROS: 12:31 MS/extremity: Positive for pain, of the left first toe, Negative for decreased range of pm1 motion. 12:31 Constitutional: Negative for fever, chills, and weight loss, Eyes: Negative for injury, pain, redness, and discharge, ENT: Negative for injury, pain, and discharge, Neck: Negative for injury, pain, and swelling, Cardiovascular: Negative for chest pain, palpitations, and edema, Respiratory: Negative for shortness of breath, cough, wheezing, and pleuritic chest pain, Abdomen/GI: Negative for abdominal pain, nausea, vomiting, diarrhea, and constipation, Back: Negative for injury and pain, Skin: Negative for injury, rash, and discoloration, Neuro: Negative for headache, weakness, numbness, tingling, and seizure. Exam: 12:31 Constitutional: This is a well developed, well nourished patient who is awake, alert, pm1 and in no acute distress. Head/Face: Normocephalic, atraumatic. Eyes: Pupils equal round and reactive to light, extra-ocular motions intact. Lids and lashes normal. Conjunctiva and sclera are non-icteric and not injected. Cornea within normal limits. Periorbital areas with no swelling, redness, or edema. ENT: Nares patent. No nasal discharge, no septal abnormalities noted. Tympanic membranes are normal and external auditory canals are clear. Oropharynx with no redness, swelling, or masses, exudates, or evidence of obstruction, uvula midline. Mucous membranes moist. Neck: Trachea midline, no thyromegaly or masses palpated, and no cervical lymphadenopathy. Supple, full range of motion without nuchal rigidity, or vertebral point tenderness. No Meningismus. Chest/axilla: Normal chest wall appearance and motion. Nontender with no deformity. No lesions are appreciated. Cardiovascular: Regular rate and rhythm with a normal S1 and S2. No gallops, murmurs, or rubs. Normal PMI, no JVD. No pulse deficits. Respiratory: Lungs have equal breath sounds bilaterally, clear to auscultation and percussion. No rales, rhonchi or wheezes noted. No increased work of breathing, no retractions or nasal flaring. Abdomen/GI: Soft, non-tender, with normal bowel sounds. No distension or tympany. No guarding or rebound. No evidence of tenderness throughout. Back: No spinal tenderness. No costovertebral tenderness. Full range of motion. Skin: Warm, dry with normal turgor. Normal color with no rashes, no lesions, and no evidence of cellulitis. 12:31 Musculoskeletal/extremity: Extremities: grossly normal except: left first toenail avulsion, nail bed laceration. 12:31 Neuro: Orientation: is normal, Motor: is normal, moves all fours. Vital Signs: 12:16 Pulse 89; Resp 16; Temp 97.8(TE); Pulse Ox 99% on R/A; Weight 104.33 kg; Height 5 ft. 7 ss in. (170.18 cm); Pain 10/10; 13:02 BP 100 / 66; Pulse 72; Resp 14; Temp 98.2(O); Pulse Ox 100% on R/A; Pain 5/10; ls4 13:02 BP 106 / 78; Pulse 77; Resp 14; Pulse Ox 99% on R/A; Pain 5/10; ls4 14:00 BP 112 / 78; Pulse 74; Resp 14; Pulse Ox 99% on R/A; Pain 5/10; ls4 15:00 BP 108 / 74; Pulse 74; Resp 14; Pulse Ox 99% on R/A; Pain 5/10; ls4 12:16 Body Mass Index 36.02 (104.33 kg, 170.18 cm) ss MDM: 12:16 Patient medically screened. pm1 15:52 Data reviewed: vital signs. Data interpreted: Pulse oximetry: on room air is 99 %. pm1 Interpretation: normal. 09/06 12:19 Order name: Foot Left 3 View XRAY; Complete Time: 13:26 pm1 Administered Medications: 12:40 Drug: [place] 5 mg-325 mg 1 tabs Route: PO; ls4 13:10 Follow up: Response: No adverse reaction; Marked relief of symptoms ls4 15:59 CANCELLED (error order ): TORadol - Ketorolac 15 mg IVP once ls4 Disposition: 16:18 Co-signature as Attending Physician, Kaila Feldman RN I agree with the assessment and kdr plan of care. Disposition: 09/06/18 15:57 Patient left the facility after being seen by provider. Preliminary diagnosis are Avulsion injury of left great toe nail, Contusion of great toe with damage to nail. - Patient left due to unknown. - Condition is Undetermined. - Problem is new. - Symptoms are unchanged. Signatures: Dispatcher [employer] EDMS Ori Rodrigez MD MD [facility] Simran Stone RN RN Tristen Rene, JULIÁN RETAIL [employer]S PROFESSIONAL pm1 Kaila Feldman RN RN ls4 Corrections: (The following items were deleted from the chart) 15:59 15:07 TORadol - Ketorolac 15 mg IVP once ordered. ls4 ls4 15:59 15:07 TORadol - Ketorolac 15 mg IVP once given. ls4 ls4 15:59 15:59 TORadol - Ketorolac 15 mg IVP once ordered. ls4 ls4 16:15 15:57 09/06/2018 15:57 Patient left the facility after being seen by provider. ls4 Preliminary diagnosis is Avulsion injury of left great toe nail; Contusion of great toe with damage to nail. Reason stated they are leaving due to unknown. Condition is Undetermined. Problem is new. Symptoms are unchanged. pm1
[2018-09-06 18:01] VITALS: O2SAT 99
[2018-09-06 18:04] VITALS: TEMP 98.2
[2018-09-06 18:07] VITALS: BP 108/74
== END 2018-09-06 16:15 | disposition left against medical advice (07) ==
LOC: ER 12:06
DX: S91.202A Unspecified open wound of left great toe with damage to nail, initial encounter (principal); S90.212A Contusion of left great toe with damage to nail, initial encounter; W23.0XXA Caught, crushed, jammed, or pinched between moving objects, initial encounter; D64.9 Anemia, unspecified; I10 Essential (primary) hypertension; J45.909 Unspecified asthma, uncomplicated
CPT/HCPCS: 99284

== ENCOUNTER 2018-09-06 16:58 | Emergency (ER) | payer SELFPAY ==
[2018-09-06] MEDS ORDERED: LIDOCAINE 1% MPF 5 ML VIAL ONE (17:53)
--- NOTE | 2018-09-06 18:01 | ER ---
Nurse's Notes [facility] Name: Shanique Avelar Age: 22 yrs Sex: Female : 1995 Arrival Date: 09/06/2018 Time: 17:01 Bed 6 Private MD: Diagnosis: Contusion of left great toe with damage to nail;Nail avulsion injury to left great toe Presentation: 09/06 17:05 Presenting complaint: Patient states: Partial removal of left great toenail this AM aj after being run over by a wheelchair. Care prior to arrival: None. 17:05 Method Of Arrival: Ambulatory aj 17:05 Acuity: KYLEE 4 aj 17:30 Transition of care: patient was not received from another setting of care. Onset of ph symptoms was September 06, 2018. Risk Assessment: Do you want to hurt yourself or someone else? Patient reports no desire to harm self or others. Initial Sepsis Screen: Does the patient meet any 2 criteria? No. Patient's initial sepsis screen is negative. Does the patient have a suspected source of infection? No. Patient's initial sepsis screen is negative. Triage Assessment: 17:06 General: Appears in no apparent distress. comfortable, Behavior is calm, cooperative, aj appropriate for age. Pain: Complains of pain in Left first toenail. Neuro: Level of Consciousness is awake, alert, obeys commands, Oriented to person, place, time, situation, Appropriate for age. Respiratory: Airway is patent Respiratory effort is even, unlabored, Respiratory pattern is regular, symmetrical. Derm: Skin is intact, is healthy with good turgor, Skin is pink, warm \T\ dry. normal. Historical: - Allergies: 17:06 No Known Allergies; aj - Immunization history:: Adult Immunizations unknown. - Social history:: Smoking status: unknown. - Ebola Screening: : No symptoms or risks identified at this time. Screenin:30 Abuse screen: Denies threats or abuse. Denies injuries from another. Nutritional ph screening: No deficits noted. Tuberculosis screening: No symptoms or risk factors identified. Fall Risk None identified. Assessment: 17:30 General: Appears in no apparent distress. comfortable, Behavior is calm, cooperative, ph appropriate for age. Pain: Complains of pain in Left first toenail. Neuro: Level of Consciousness is awake, alert, obeys commands, Oriented to person, place, time, situation. Cardiovascular: Capillary refill < 3 seconds in bilateral fingers Patient's skin is warm and dry. Respiratory: Airway is patent Respiratory effort is even, unlabored. Derm: Skin is healthy with good turgor, Skin is pink, warm \T\ dry. Musculoskeletal: Circulation, motion, and sensation intact. Range of motion: intact in all extremities. Injury Description: Avulsion sustained to Left first toenail is partial. Vital Signs: 17:06 BP 102 / 59; Pulse 75; Resp 16; Temp 97.4; Pulse Ox 100% on R/A; Weight 104.33 kg; aj Height 5 ft. 7 in. (170.18 cm); 17:06 Body Mass Index 36.02 (104.33 kg, 170.18 cm) aj ED Course: 17:01 Patient arrived in ED. as 17:05 Triage completed. aj 17:06 Arm band placed on left wrist. Patient placed in waiting room, Patient notified of wait aj time. 17:24 Tristen Rene NP is PHCP. pm1 17:24 Ori Rodrigez MD is Attending Physician. pm1 17:30 Patient has correct armband on for positive identification. Bed in low position. Call ph light in reach. 18:15 Assist provider with nail repair of avulsion of left great toe using nail sutured back ph to nail bed Set up for procedure. Performed by Tristen Rene LABOR ECONOMICS PROFESSOR Dressed with band aid, Patient tolerated well. Patient did not have IV access during this emergency room visit. Administered Medications: 17:45 Drug: Lidocaine (1 %) 5 ml Volume: 5 ml; Route: Infiltration; ph 18:15 Follow up: Response: No adverse reaction ph Outcome: 18:00 Discharge ordered by . pm1 18:44 Patient left the ED. ph 18:44 Discharged to home ambulatory. ph 18:44 Condition: improved 18:44 Discharge instructions given to patient, Instructed on discharge instructions, follow up and referral plans. medication usage, wound care, Demonstrated understanding of instructions, follow-up care, medications, wound care, Prescriptions given X 2. Signatures: Antionette Tolentino RN RN aj Martinez, Amelia as Hall, Patricia, RN RN ph Marinas, Patrick, NP LABOR ECONOMICS PROFESSOR pm1
--- NOTE | 2018-09-06 18:01 | EDPHYS ---
Physician Documentation [facility] Name: Shanique Avelar Age: 22 yrs Sex: Female : 1995 Arrival Date: 09/06/2018 Time: 17:01 Bed 6 Private MD: ED Physician Ori Rodrigez HPI: 09/06 18:03 This 22 yrs old Black Female presents to ER via Ambulatory with complaints of Toenail pm1 Problem. 18:03 Onset: The symptoms/episode began/occurred today. Associated signs and symptoms: The pm1 patient has no apparent associated signs or symptoms, Pertinent negatives: fever. 18:03 The patient presents with pain, that is acute, toe was run over by wheelchair and left pm1 great toe nail almost removed. Associated signs and symptoms: Pertinent negatives: calf tenderness, fever, nausea, vomiting. Severity of symptoms: in the emergency department the symptoms are unchanged. The patient has not experienced similar symptoms in the past. The patient has been recently seen at the [facility] Emergency Department, for similar complaints by me but eloped because she had to appear at court. Patient's left great toe was run over by wheelchair and her left great toe nail almost fell off. She attempted to pull off her nail but she was not able to do it . Historical: - Allergies: 17:06 No Known Allergies; aj - Immunization history:: Adult Immunizations unknown. - Social history:: Smoking status: unknown. - Ebola Screening: : No symptoms or risks identified at this time. ROS: 18:03 MS/extremity: Positive for pain, of the Left first toenail, Negative for decreased pm1 range of motion. 18:03 Constitutional: Negative for fever, chills, and weight loss, Eyes: Negative for injury, pain, redness, and discharge, ENT: Negative for injury, pain, and discharge, Neck: Negative for injury, pain, and swelling, Cardiovascular: Negative for chest pain, palpitations, and edema, Respiratory: Negative for shortness of breath, cough, wheezing, and pleuritic chest pain, Abdomen/GI: Negative for abdominal pain, nausea, vomiting, diarrhea, and constipation, Back: Negative for injury and pain, Skin: Negative for injury, rash, and discoloration, Neuro: Negative for headache, weakness, numbness, tingling, and seizure. Exam: 18:03 Constitutional: This is a well developed, well nourished patient who is awake, alert, pm1 and in no acute distress. Head/Face: Normocephalic, atraumatic. Eyes: Pupils equal round and reactive to light, extra-ocular motions intact. Lids and lashes normal. Conjunctiva and sclera are non-icteric and not injected. Cornea within normal limits. Periorbital areas with no swelling, redness, or edema. ENT: Nares patent. No nasal discharge, no septal abnormalities noted. Tympanic membranes are normal and external auditory canals are clear. Oropharynx with no redness, swelling, or masses, exudates, or evidence of obstruction, uvula midline. Mucous membranes moist. Neck: Trachea midline, no thyromegaly or masses palpated, and no cervical lymphadenopathy. Supple, full range of motion without nuchal rigidity, or vertebral point tenderness. No Meningismus. Chest/axilla: Normal chest wall appearance and motion. Nontender with no deformity. No lesions are appreciated. Cardiovascular: Regular rate and rhythm with a normal S1 and S2. No gallops, murmurs, or rubs. Normal PMI, no JVD. No pulse deficits. Respiratory: Lungs have equal breath sounds bilaterally, clear to auscultation and percussion. No rales, rhonchi or wheezes noted. No increased work of breathing, no retractions or nasal flaring. Abdomen/GI: Soft, non-tender, with normal bowel sounds. No distension or tympany. No guarding or rebound. No evidence of tenderness throughout. Back: No spinal tenderness. No costovertebral tenderness. Full range of motion. Skin: Warm, dry with normal turgor. Normal color with no rashes, no lesions, and no evidence of cellulitis. 18:03 Musculoskeletal/extremity: Extremities: grossly normal except: noted in the Left first toenail: avulsion, nail bed laceration. 18:03 Neuro: Orientation: is normal, Motor: is normal, moves all fours, Sensation: is normal, no obvious gross deficits. Vital Signs: 17:06 BP 102 / 59; Pulse 75; Resp 16; Temp 97.4; Pulse Ox 100% on R/A; Weight 104.33 kg; aj Height 5 ft. 7 in. (170.18 cm); 17:06 Body Mass Index 36.02 (104.33 kg, 170.18 cm) aj Laceration: 18:03 Wound Repair of 2cm ( 0.8in ) subcutaneous laceration to Left first toenail. Left great pm1 toe nail almost completely removed from great toe. Distal neuro/vascular/tendon intact. Anesthesia: Digital block administered with 3 mls of 1% lidocaine. Wound prep: Extensive cleansing with betadine by me, Wound irrigation with saline by me, Wound explored extensively, Copious irrigation. Skin closed with 1 4-0 Prolene using medial aspect of nail bed reduced under the cuticle and a figure 8 suture placed to secure in place. Dressed with 4x4's. Patient tolerated well. MDM: 17:24 Patient medically screened. pm1 17:59 Data reviewed: vital signs. Data interpreted: Pulse oximetry: on room air is 100 %. pm1 Interpretation: normal. Counseling: I had a detailed discussion with the patient and/or guardian regarding: the historical points, exam findings, and any diagnostic results supporting the discharge/admit diagnosis, the need for outpatient follow up, to return to the emergency department if symptoms worsen or persist or if there are any questions or concerns that arise at home. 09/06 17:29 Order name: Prolene, Sutures; Complete Time: 17:42 pm1 09/06 17:29 Order name: Dressing - Wound; Complete Time: 17:42 pm1 09/06 17:29 Order name: Gloves, Sterile; Complete Time: 17:42 pm1 09/06 17:29 Order name: Setup Suture Tray; Complete Time: 17:42 pm1 09/06 18:06 Order name: Post-op Orthopedic Shoe; Complete Time: 18:30 pm1 Administered Medications: 17:45 Drug: Lidocaine (1 %) 5 ml Volume: 5 ml; Route: Infiltration; ph 18:15 Follow up: Response: No adverse reaction ph Disposition: 09/07 07:25 Co-signature as Attending Physician, Ori Rodrigez MD I agree with the assessment and kdr plan of care. Disposition: 09/06/18 18:00 Discharged to Home. Impression: Nail avulsion injury to left great toe, Contusion of left great toe with damage to nail. - Condition is Stable. - Discharge Instructions: Nail Bed Injury, Nail Bed Laceration. - Prescriptions for Keflex 500 mg Oral Capsule - take 1 capsule by ORAL route every 12 hours for 10 days; 20 capsule. Tylenol- Codeine #3 300-30 mg Oral Tablet - take 2 tablets by ORAL route every 6 hours As needed; 20 tablet. - Work release form, Medication Reconciliation Form, Thank You Letter, Antibiotic Education, Prescription Opioid Use form. - Follow up: Emergency Department; When: As needed; Reason: Worsening of condition. Follow up: Private Physician; When: 2 - 3 days; Reason: Wound Recheck, Recheck today's complaints, Continuance of care, Re-evaluation by your physician. - Problem is new. - Symptoms have improved. Signatures: Antionette Tolentino RN RN Ori Gama MD MD kdr Hall, Patricia, RN RN ph Tristen Rene NP CONTRACT NEGOTIATION MANAGER pm1 Corrections: (The following items were deleted from the chart) 09/06 18:02 18:00 09/06/2018 18:00 Discharged to Home. Impression: Laceration with foreign body of pm1 left great toe with damage to nail. Condition is Stable. Forms are Medication Reconciliation Form, Thank You Letter, Antibiotic Education, Prescription Opioid Use. Follow up: Emergency Department; When: As needed; Reason: Worsening of condition. Follow up: Private Physician; When: 2 - 3 days; Reason: Wound Recheck, Recheck today's complaints, Continuance of care, Re-evaluation by your physician. Problem is new. Symptoms have improved. pm1 18:44 18:02 09/06/2018 18:00 Discharged to Home. Impression: Nail avulsion injury to left ph great toe; Contusion of left great toe with damage to nail. Condition is Stable. Forms are Medication Reconciliation Form, Thank You Letter, Antibiotic Education, Prescription Opioid Use. Follow up: Emergency Department; When: As needed; Reason: Worsening of condition. Follow up: Private Physician; When: 2 - 3 days; Reason: Wound Recheck, Recheck today's complaints, Continuance of care, Re-evaluation by your physician. Problem is new. Symptoms have improved. pm1
[2018-09-06 20:33] VITALS: BP 102/59; TEMP 97.4; O2SAT 100
== END 2018-09-06 18:44 | disposition home or self-care (01) ==
LOC: ER 16:58
PROC: 0JQR0ZZ Repair Left Foot Subcutaneous Tissue and Fascia, Open Approach (ICD-10-PCS; principal; 2018-09-06)
DX: S91.202A Unspecified open wound of left great toe with damage to nail, initial encounter (principal); S90.212A Contusion of left great toe with damage to nail, initial encounter; W23.0XXA Caught, crushed, jammed, or pinched between moving objects, initial encounter
CPT/HCPCS: 99283

== ENCOUNTER 2018-12-24 11:25 | Emergency (ER) | payer SELFPAY ==
--- NOTE | 2018-12-24 12:49 | RAD REPORT ---
EXAM DESCRIPTION: CT - Head C Spine Cap Wo Con - 12/24/2018 12:21 pm CLINICAL HISTORY: Fall down a flight of stairs, head, neck, chest and abdomen pain COMPARISON: None. TECHNIQUE: Axial [address] head images were obtained. Axial [address] cervical spine images were obtain ed with sagittal and coronal reconstruction images reviewed. Axial 5 mm images of the chest, abdomen and pelvis were obtained. All CT scans are performed using dose optimization technique as appropriate and may include automated exposure control or mA/KV adjustment according to patient size. FINDINGS: No intracranial hemorrhage, mass or edema. No midline shift or abnormal fluid collection. Mastoid air cells and paranasal sinuses are clear. No skull fracture. Cervical bodies are normal in height and alignment. No fracture or acute bone finding.No disk space n arrowing.No prevertebral soft tissue thickening or paraspinal mass.Central canal detail is inherently limited on CT imaging. CT chest shows no pneumothorax, pulmonary contusion or pleural fluid collection. No mediastinal hem atoma and the aorta and pulmonary arteries are unremarkable. No chest will mass or abnormal axillary finding. No displaced rib fracture or other significant bony finding. CT abdomen and pelvis show no injury to solid abdominal viscera. Gallbladder and biliary tree are unr emarkable. No bowel injury or significant finding. No free air, free fluid or abnormal stranding. No hernia, mass or bulky lymphadenopathy. No urinary bladder abnormality. No significant bony finding. IMPRESSION: No significant CT Head finding. No significant CT cervical spine finding. No significant CT Chest finding. No significant CT Abdomen and Pelvis finding.
--- NOTE | 2018-12-24 12:58 | ER ---
Nurse's Notes [facility] Name: Shanique Avelar Age: 23 yrs Sex: Female : 1995 Arrival Date: 12/24/2018 Time: 11:36 Bed 2 Private MD: Diagnosis: Superficial injury of head;Contusion of back wall of thorax;Contusion of lower back and pelvis Presentation: 12/24 11:46 Presenting complaint: Patient states: Patient states she fell down about 15 steps of ae4 stairs the previous day, denies LOC, c/o back pain "all over", posterior neck pain, abd pain. Care prior to arrival: v/s 110s over 70s. Mechanism of Injury: Fall. 11:46 Acuity: KYLEE 3 ae4 11:46 Method Of Arrival: EMS: [facility] ae4 13:10 Transition of care: patient was not received from another setting of care. Onset of ae4 symptoms was December 23, 2018 at 09:00. Risk Assessment: Do you want to hurt yourself or someone else? Patient reports no desire to harm self or others. Initial Sepsis Screen: Does the patient meet any 2 criteria? No. Patient's initial sepsis screen is negative. Does the patient have a suspected source of infection? No. Patient's initial sepsis screen is negative. 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 - Social history:: Smoking status: Patient/guardian denies using tobacco. - Family history:: not pertinent. - Ebola Screening: : Patient negative for fever greater than or equal to 101.5 degrees Fahrenheit, and additional compatible Ebola Virus Disease symptoms Patient denies exposure to infectious person Patient denies travel to an Ebola-affected area in the 21 days before illness onset No symptoms or risks identified at this time. - Hospitalizations: : No recent hospitalization is reported. Screenin:48 Abuse screen: Denies threats or abuse. Nutritional screening: No deficits noted. ae4 Tuberculosis screening: No symptoms or risk factors identified. Fall Risk Fall in past 12 months (25 points). No secondary diagnosis (0 pts). IV access (20 points). Ambulatory Aid- None/Bed Rest/Nurse Assist (0 pts). Gait- Normal/Bed Rest/Wheelchair (0 pts) Mental Status- Oriented to own ability (0 pts). Primary Survey: 11:49 NO uncontrolled hemorrhage observed. Breathing/Chest: Respiratory pattern: regular, ae4 Respiratory effort: spontaneous. Circulation:. 11:59 Disability Alert. Exposure/Environment: There is no evidence of uncontrolled external ae4 bleeding. No obvious injuries are noted at this time. A warming method has been applied: A warm blanket has been provided to the patient. Reassessment Breathing/Chest Respiratory pattern Regular Respiratory effort Spontaneous Unlabored Disability Alert. Assessment: 11:48 General: Appears uncomfortable, Behavior is cooperative, anxious, crying. Pain: ae4 Complains of pain in back, abdomen, right posterior aspect of neck and left posterior aspect of neck Pain currently is 10 out of 10 on a pain scale. Neuro: Level of Consciousness is awake, alert, obeys commands, Oriented to person, place, time, situation, Appropriate for age. Respiratory: Airway is patent Respiratory effort is even, unlabored, Respiratory pattern is regular, symmetrical. 12:07 Reassessment: Patient appears in no apparent distress at this time. Patient and/or ae4 family updated on plan of care and expected duration. Pain level reassessed. Cardiovascular: Heart tones S1 S2 present Patient's skin is warm and dry. GI: Abdomen is round obese. EENT: No signs and/or symptoms were reported regarding the EENT system. 12:30 Reassessment: Patient appears in no apparent distress at this time. Patient and/or ae4 family updated on plan of care and expected duration. Pain level reassessed. Vital Signs: 11:45 BP 108 / 75; Pulse 79; Resp 18; Temp 98.1; Pulse Ox 98% on R/A; Weight 122.47 kg (R); ae4 Pain 10/10; 12:05 BP 106 / 66; Pulse 85; Resp 18; Pulse Ox 98% on R/A; ae4 Victoria Coma Score: 11:45 Eye Response: spontaneous(4). Verbal Response: oriented(5). Motor Response: obeys ae4 commands(6). Total: 15. Trauma Score (Adult): 11:45 Eye Response: spontaneous(1); Verbal Response: oriented(1); Motor Response: obeys ae4 commands(2); Systolic BP: > 89 mm Hg(4); Respiratory Rate: 10 to 29 per min(4); [place] Score: 15; Trauma Score: 12 ED Course: 11:36 Patient arrived in ED. ae4 11:42 Geremias Shepherd MD is Attending Physician. rn 11:45 Kevin Parra RN is Primary Nurse. ae4 11:48 Triage completed. ae4 11:54 Radiology exam delayed due to test not completed at this time. mw3 12:00 Placed in gown. Bed in low position. Call light in reach. Side rails up X2. Cardiac ae4 monitor on. Pulse ox on. NIBP on. Warm blanket given. 12:00 Patient maintains SpO2 saturation greater than 95% on room air. ae4 12:20 CT completed. Patient tolerated procedure well. Patient moved back from CT. mw3 12:20 Arm band placed on right wrist. ae4 12:22 CT Traumagram (Head C Spine CAP wo con) In Process Unspecified. EDMS 13:10 Thermoregulation: warm blanket given to patient. ae4 13:11 Patient did not have IV access during this emergency room visit. ae4 13:11 No provider procedures requiring assistance completed. ae4 Administered Medications: No medications were administered Output: 11:45 Urine: 100ml (Voided); Total: 100ml. ae4 Outcome: 12:00 Patient's length of stay was not longer than 2 hours. ae4 12:58 Discharge ordered by . rn 13:09 Discharged to home ambulatory. ae4 13:09 Condition: stable 13:09 Discharge instructions given to patient, Instructed on discharge instructions, follow up and referral plans. medication usage, Demonstrated understanding of instructions, Prescriptions given X 1. 13:11 Patient left the ED. ae4 Signatures: Dispatcher [employer] EDMS Shepherd, Geremias, MD MD rn Mathew, Amy mw3 Kevin Parra RN RN ae4
--- NOTE | 2018-12-24 12:58 | EDPHYS ---
Physician Documentation [facility] Name: Shanique Avelar Age: 23 yrs Sex: Female : 1995 Arrival Date: 12/24/2018 Time: 11:36 Bed 2 Private MD: ED Physician Geremias Shepherd HPI: 12/24 11:55 This 23 yrs old Black Female presents to ER via EMS with complaints of Fall Injury. rn 11:55 Details of fall: The patient fell from a height, down approximately 15 stairs. Onset: rn The symptoms/episode began/occurred yesterday. Associated injuries: The patient sustained injury to the head, neck injury, upper back injury, injury to the low back, injury to the abdomen. Severity of symptoms: At their worst the symptoms were mild, in the emergency department the symptoms are unchanged. The patient has not experienced similar symptoms in the past. The patient has not recently seen a physician. Reports was feeling dizzy, fell down stairs yesterday morning, denies LOC, not on blood thinners. Reports hurt head/neck/"entire spine"/abdomen. No vomiting/blood in stool/hematuria. NO sob. . 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 - Social history:: Smoking status: Patient/guardian denies using tobacco. - Family history:: not pertinent. - Ebola Screening: : Patient negative for fever greater than or equal to 101.5 degrees Fahrenheit, and additional compatible Ebola Virus Disease symptoms Patient denies exposure to infectious person Patient denies travel to an Ebola-affected area in the 21 days before illness onset No symptoms or risks identified at this time. - Hospitalizations: : No recent hospitalization is reported. ROS: 11:55 Constitutional: Negative for fever, chills, and weight loss, Eyes: Negative for injury, rn pain, redness, and discharge, ENT: Negative for injury, pain, and discharge, Neck: + neck pain Cardiovascular: Negative for chest pain, palpitations, and edema, Respiratory: Negative for shortness of breath, cough, wheezing, and pleuritic chest pain, Abdomen/GI: + abdominal pain Back: + spinal pain MS/Extremity: Negative for injury and deformity, Skin: Negative for injury, rash, and discoloration, Neuro: Negative for weakness, numbness, tingling, and seizure. Exam: 11:55 Constitutional: This is a well developed, well nourished patient who is awake, alert, rn and in no acute distress. Using speakerphone function and seems comfortable laying in bed partially reclined. Head/Face: Normocephalic, atraumatic. Eyes: Pupils equal round and reactive to light, extra-ocular motions intact. Lids and lashes normal. Conjunctiva and sclera are non-icteric and not injected. Cornea within normal limits. Periorbital areas with no swelling, redness, or edema. ENT: No oral trauma Neck: Trachea midline, no thyromegaly or masses palpated, and no cervical lymphadenopathy. Supple, full range of motion without nuchal rigidity, or vertebral point tenderness. No Meningismus. Chest/axilla: Nontender with no deformity. Cardiovascular: Regular rate and rhythm. No pulse deficits. Respiratory: Lungs have equal breath sounds bilaterally, clear to auscultation. No increased work of breathing, no retractions or nasal flaring. Abdomen/GI: soft, mild right sided abd tenderness without ecchymosis. Back: Reports tenderness along entire length of spine MS/ Extremity: Pulses equal, no cyanosis. Neurovascular intact. Full, normal range of motion. Equal circumference. Neuro: Awake and alert, GCS 15, oriented to person, place, time, and situation. Cranial nerves II-XII grossly intact. Motor strength 5/5 in all extremities. Sensory grossly intact. Cerebellar exam normal. Vital Signs: 11:45 BP 108 / 75; Pulse 79; Resp 18; Temp 98.1; Pulse Ox 98% on R/A; Weight 122.47 kg (R); ae4 Pain 10/10; 12:05 BP 106 / 66; Pulse 85; Resp 18; Pulse Ox 98% on R/A; ae4 [place] Coma Score: 11:45 Eye Response: spontaneous(4). Verbal Response: oriented(5). Motor Response: obeys ae4 commands(6). Total: 15. Trauma Score (Adult): 11:45 Eye Response: spontaneous(1); Verbal Response: oriented(1); Motor Response: obeys ae4 commands(2); Systolic BP: > 89 mm Hg(4); Respiratory Rate: 10 to 29 per min(4); [place] Score: 15; Trauma Score: 12 MDM: 11:42 Patient medically screened. rn 12:57 Differential diagnosis: closed head injury, contusion, fracture, multiple trauma, rn sprain, strain. Data reviewed: vital signs, nurses notes, lab test result(s), radiologic studies, CT scan, and as a result, I will discharge patient. Counseling: I had a detailed discussion with the patient and/or guardian regarding: the historical points, exam findings, and any diagnostic results supporting the discharge/admit diagnosis, radiology results, the need for outpatient follow up, to return to the emergency department if symptoms worsen or persist or if there are any questions or concerns that arise at home. Special discussion: Based on the patient's history, exam and DX evaluation, there is no indication for emergent intervention or inpatient TX. It is understood by the patient/guardian that if the SXs persist or worsen they need to return immediately for re-evaluation. I discussed with the patient/guardian in detail that at this point there is no indication for admission to the hospital. It is understood, however, that if the symptoms persist or worsen the patient needs to return immediately for re-evaluation. 12/24 11:59 Order name: Urine Dipstick--Ancillary (enter results) 12/24 11:59 Order name: Urine --Ancillary (enter results) 12/24 11:49 Order name: CT Traumagram (Head C Spine CAP wo con); Complete Time: 12:57 rn 12/24 11:49 Order name: Urine Test (obtain specimen); Complete Time: 11:54 rn 12/24 11:49 Order name: Urine Dipstick-Ancillary (obtain specimen); Complete Time: 11:54 rn Administered Medications: No medications were administered Disposition: 12/24/18 12:58 Discharged to Home. Impression: Superficial injury of head, Contusion of back wall of thorax, Contusion of lower back and pelvis. - Condition is Stable. - Discharge Instructions: Contusion, Head Injury, Adult. - Prescriptions for Cyclobenzaprine 10 mg Oral Tablet - take 1 tablet by ORAL route every 8 hours As needed; 15 tablet. - Medication Reconciliation Form, Thank You Letter, Antibiotic Education, Prescription Opioid Use, Work release form form. - Follow up: Private Physician; When: As needed; Reason: Recheck today's complaints, Re-evaluation by your physician. - Problem is new. - Symptoms have improved. Signatures: Dispatcher [employer] EDMS Geremias Shepherd MD MD rn Elliott, Andrea, RN RN ae4 Corrections: (The following items were deleted from the chart) 13:11 12:58 12/24/2018 12:58 Discharged to Home. Impression: Superficial injury of head; ae4 Contusion of back wall of thorax; Contusion of lower back and pelvis. Condition is Stable. Forms are Medication Reconciliation Form, Thank You Letter, Antibiotic Education, Prescription Opioid Use. Follow up: Private Physician; When: As needed; Reason: Recheck today's complaints, Re-evaluation by your physician. Problem is new. Symptoms have improved. rn
[2018-12-24 13:07] LABS: Urine Blood NEGATIVE (NEG); Urine Glucose NEGATIVE (NEG); Urine Protein NEGATIVE (NEG); Urine Specific Gravity 1.025 (1.005-1.030)
[2018-12-24 13:46] VITALS: BP 106/66; O2SAT 98
[2018-12-24 13:48] VITALS: TEMP 98.1
== END 2018-12-24 13:11 | disposition home or self-care (01) ==
LOC: ER 11:25
DX: S00.90XA Unspecified superficial injury of unspecified part of head, initial encounter (principal); S20.229A Contusion of unspecified back wall of thorax, initial encounter; S30.0XXA Contusion of lower back and pelvis, initial encounter; W10.9XXA Fall (on) (from) unspecified stairs and steps, initial encounter; Y93.89 Activity, other specified; Y92.9 Unspecified place or not applicable; I10 Essential (primary) hypertension
CPT/HCPCS: 70450; 71250; 72125; 81003; 81025; 99285

== ENCOUNTER 2019-04-27 13:05 | Emergency (ER) | payer SELFPAY ==
--- OUTSIDE RECORDS SUMMARY | 2019-04-27 13:06 | XMS REPORT ---
:1995 Author Organization [facility] Address [address] [place] [address] Care Team Providers Name Role Phone Unavailable Unavailable Unavailable Problems This patient has no known problems. Allergies, Adverse Reactions, Alerts This patient has no known allergies or adverse reactions. Medications This patient has no known medications.
[2019-04-27] MEDS ORDERED: KETOROLAC 30 MG/ML INJ ONE (13:40)
[2019-04-27 14:03] LABS: Absolute Lymphocytes (CBC) 1.8 K/uL (0.7-4.9); Basophils % 0.9 % (0-1.3); Hematocrit 29.9 % (36.0-45.0); Lymphocytes % 22.3 % (15.3-44.8); MPV 7.8 fL (7.6-11.3); RBC Red Blood Cell Count 3.86 M/uL (3.86-4.86)
[2019-04-27 14:09] LABS: Protime INR 1.16
--- NOTE | 2019-04-27 14:18 | RAD REPORT ---
EXAM DESCRIPTION: RAD - Chest Single View - 04/27/2019 2:04 pm CLINICAL HISTORY: CONGESTION COMPARISON: Chest Single View dated 05/09/2017 TECHNIQUE: AP portable chest image was obtained 04/27/2019 2:04 pm . FINDINGS: Lungs are clear. Heart and vasculature are normal. No measurable pleural effusion and no p neumothorax. No acute bony abnormality seen. No acute aortic findings suspected. IMPRESSION: No acute cardiopulmonary process.
[2019-04-27 14:25] LABS: ALT/SGPT 13 U/L (12-78); AST/SGOT 10 U/L (15-37); Albumin 3.2 g/dL (3.4-5.0); Alkaline Phosphatase 76 U/L (45-117); BUN Blood Urea Nitrogen 8 mg/dL (7-18); Bicarbonate 27 mmol/L (21-32); Bilirubin Direct < 0.1 mg/dL (0-0.2); Bilirubin Total 0.2 mg/dL (0.2-1.0); Glucose Level 89 mg/dL (74-106); Magnesium 1.9 mg/dL (1.8-2.4); NT PRO-BNP 20 pg/mL (<125); Potassium 3.9 mmol/L (3.5-5.1); Protein, Total 7.1 g/dL (6.4-8.2); Sodium Level 141 mmol/L (136-145); Troponin (Emerg Dept Use Only) < 0.02 ng/mL (0.0-0.045)
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
--- NOTE | 2019-04-27 14:33 | EDPHYS ---
Physician Documentation [facility] Name: Shanique Avelar Age: 23 yrs Sex: Female : 1995 Arrival Date: 04/27/2019 Time: 13:06 Bed 8 Private MD: ED Physician Aylin Delarosa HPI: 04/27 14:30 This 23 yrs old Black Female presents to ER via EMS with complaints of Chest Pain. ma2 14:30 The patient or guardian reports chest pain that is located primarily in the substernal ma2 area. Associated signs and symptoms: Pertinent negatives: cough, dizziness, lower extremity swelling, lightheadedness, shortness of breath. Associated signs and symptoms: Pertinent positives: cough, shortness of breath. The chest pain is described as aching. Duration: The patient or guardian reports a single episode, that is now resolved. Severity of pain: At its worst the pain was very mild in the emergency department the pain is unchanged has resolved. The patient has experienced similar episodes in the past. CHANNEL DIRECTOR: 13:12 LMP N/A - . tw2 Historical: - Allergies: 13:14 No Known Allergies; tw2 - Home Meds: 13:14 None [Active]; tw2 - PMHx: 13:11 Anemia; Asthma; Heart Murmur; Hypertension; tw2 15:02 cervical cancer; tw2 - Immunization history:: Adult Immunizations. - Coronavirus screen:: The patient has NOT traveled to [place], [place], or [place] in the past 14 days. - Social history:: Patient/guardian denies using alcohol, street drugs, The patient lives with family, Smoking status: . - Family history:: not pertinent. - Ebola Screening: : Patient denies travel to an Ebola-affected area in the 21 days before illness onset. ROS: 14:30 Constitutional: Negative for fever, chills, and weight loss. ma2 14:30 All other systems are negative. Exam: 14:30 Constitutional: This is a well developed, well nourished patient who is awake, alert, ma2 and in no acute distress. Head/Face: Normocephalic, atraumatic. Eyes: Pupils equal round and reactive to light, extra-ocular motions intact. Lids and lashes normal. Conjunctiva and sclera are non-icteric and not injected. Cornea within normal limits. Periorbital areas with no swelling, redness, or edema. ENT: Nares patent. No nasal discharge, no septal abnormalities noted. Tympanic membranes are normal and external auditory canals are clear. Oropharynx with no redness, swelling, or masses, exudates, or evidence of obstruction, uvula midline. Mucous membranes moist. Neck: Trachea midline, no thyromegaly or masses palpated, and no cervical lymphadenopathy. Supple, full range of motion without nuchal rigidity, or vertebral point tenderness. No Meningismus. Chest/axilla: Normal chest wall appearance and motion. Nontender with no deformity. No lesions are appreciated. Cardiovascular: Regular rate and rhythm with a normal S1 and S2. No gallops, murmurs, or rubs. Normal PMI, no JVD. No pulse deficits. Respiratory: Lungs have equal breath sounds bilaterally, clear to auscultation and percussion. No rales, rhonchi or wheezes noted. No increased work of breathing, no retractions or nasal flaring. Abdomen/GI: Soft, non-tender, with normal bowel sounds. No distension or tympany. No guarding or rebound. No evidence of tenderness throughout. Back: No spinal tenderness. No costovertebral tenderness. Full range of motion. Skin: Warm, dry with normal turgor. Normal color with no rashes, no lesions, and no evidence of cellulitis. MS/ Extremity: Pulses equal, no cyanosis. Neurovascular intact. Full, normal range of motion. Neuro: Awake and alert, GCS 15, oriented to person, place, time, and situation. Cranial nerves II-XII grossly intact. Motor strength 5/5 in all extremities. Sensory grossly intact. Cerebellar exam normal. Normal gait. Vital Signs: 13:09 BP 108 / 78; Pulse 95; Resp 18; Temp 97.9(TE); Pulse Ox 98% ; tw2 13:15 Weight 113.4 kg (R); Height 5 ft. 7 in. (170.18 cm); Pain 10/10; tw2 14:10 BP 93 / 66; Pulse 77; Resp 19; Pulse Ox 99% ; sv 14:41 BP 97 / 65; Pulse 73; Resp 14; Pulse Ox 99% on R/A; Pain 6/10; tw2 13:15 Body Mass Index 39.16 (113.40 kg, 170.18 cm) tw2 MDM: 13:14 Patient medically screened. ma2 14:30 Differential diagnosis: gastroesophageal reflux disease (GERD), pericarditis, pleurisy, ma2 pneumonia. REED Risk Score: not applicable. Data reviewed: vital signs, nurses notes. Counseling: I had a detailed discussion with the patient and/or guardian regarding: the historical points, exam findings, and any diagnostic results supporting the discharge/admit diagnosis, the presence of at least one elevated blood pressure reading (>120/80) during this emergency department visit, the need for outpatient follow up. 04/27 13:30 Order name: Basic Metabolic Panel; Complete Time: 14:30 ma2 04/27 13:30 Order name: CBC with Diff; Complete Time: 14:10 ma2 04/27 13:30 Order name: LFT's; Complete Time: 14:30 ma2 04/27 13:30 Order name: Magnesium; Complete Time: 14:30 ma2 04/27 13:30 Order name: NT PRO-BNP; Complete Time: 14:30 ma2 04/27 13:30 Order name: PT-INR ms2 04/27 13:17 Order name: EKG - Nurse/Tech; Complete Time: 13:20 ma2 04/27 13:20 Order name: EKG; Complete Time: 13:22 1 04/27 13:30 Order name: Chest Single View XRAY; Complete Time: 14:30 ma2 04/27 13:30 Order name: Troponin (emerg Dept Use Only); Complete Time: 14:30 ma2 04/27 13:30 Order name: Cardiac monitoring; Complete Time: 13:30 ma2 04/27 13:30 Order name: IV Saline Lock; Complete Time: 13:55 ma2 04/27 13:30 Order name: Labs collected and sent; Complete Time: 13:55 ma2 04/27 13:30 Order name: O2 Per Protocol; Complete Time: 13:30 ma2 04/27 13:30 Order name: O2 Sat Monitoring; Complete Time: 13:30 ma2 Administered Medications: 13:41 Drug: TORadol 60 mg Route: IM; Site: right deltoid; tw2 14:42 Follow up: Response: No adverse reaction; Pain is decreased tw2 Disposition: 04/27/19 14:31 Discharged to Home. Impression: Acute bronchitis. - Condition is Stable. - Discharge Instructions: Acute Bronchitis, Adult. - Prescriptions for Tessalon Perles 100 mg Oral Capsule - take 1 capsule by ORAL route every 8 hours As needed; 15 capsule. Zithromax Z- Malcolm 250 mg Oral Tablet - take 1 tablet by ORAL route as directed for 5 days Day 1 - take two (2) tablets one time. Day 2, 3, 4 , 5 take one (1) tablet once daily.; 6 tablet. Medrol (Malcolm) 4 mg Oral Tablets, Dose Pack - take 1 tablet by ORAL route as directed - follow package instructions; 1 packet. - Medication Reconciliation Form, Thank You Letter, Antibiotic Education, Prescription Opioid Use form. - Follow up: Private Physician; When: Tomorrow; Reason: Recheck today's complaints, Continuance of care. Signatures: Dispatcher [employer] Kirstie Maldonado RN RN tw2 Aylin Delarosa MD MD ma2 Corrections: (The following items were deleted from the chart) 15:03 14:31 04/27/2019 14:31 Discharged to Home. Impression: Acute bronchitis. Condition is tw2 Stable. Discharge Instructions: Acute Bronchitis, Adult. Prescriptions for Tessalon Perles 100 mg Oral Capsule - take 1 capsule by ORAL route every 8 hours As needed; 15 capsule, Zithromax Z-Malcolm 250 mg Oral Tablet - take 1 tablet by ORAL route as directed for 5 days Day 1 - take two (2) tablets one time. Day 2, 3, 4 , 5 take one (1) tablet once daily.; 6 tablet, Medrol (Malcolm) 4 mg Oral Tablets, Dose Pack - take 1 tablet by ORAL route as directed - follow package instructions; 1 packet. and Forms are Medication Reconciliation Form, Thank You Letter, Antibiotic Education, Prescription Opioid Use. Follow up: Private Physician; When: Tomorrow; Reason: Recheck today's complaints, Continuance of care. ma2
--- NOTE | 2019-04-27 15:07 | EKG ---
Test Date: 2019-04-27 Test Time: 13:20:04 Equities Trader: BRYCE MEASUREMENT RESULTS: Intervals: Rate: 91 MD: 196 QRSD: 88 QT: 344 QTc: 423 [place]: P: 37 MD: 196 QRS: 10 T: 16 INTERPRETIVE STATEMENTS: Normal sinus rhythm Nonspecific T wave abnormality Abnormal ECG Compared to ECG 05/09/2017 20:31:50 T-wave abnormality now present Electronically Signed On 04-27-19 15:06:32 ZOOLOGY PROFESSOR by Cooper Andres
[2019-04-27 15:09] VITALS: TEMP 97.9
[2019-04-27 15:12] VITALS: O2SAT 99
[2019-04-27 15:13] VITALS: BP 97/65
== END 2019-04-27 15:03 | disposition home or self-care (01) ==
LOC: ER 13:05
DX: J20.9 Acute bronchitis, unspecified (principal)
CPT/HCPCS: 36415; 71045; 80048; 80076; 83735; 83880; 84484; 85025; 85610; 93005; 96372; 99285

== ENCOUNTER 2020-05-16 10:16 | Emergency (ER) | payer OTHER, SELFPAY ==
--- OUTSIDE RECORDS SUMMARY | 2020-05-16 10:19 | XMS REPORT | Continuity of Care Document ---
:1995 Author Organization [facility] t Address [address] [place] [address] Care Team Providers Name Role Phone Manny Giraldo Attending Clinician Problems This patient has no known problems. Allergies, Adverse Reactions, Alerts This patient has no known allergies or adverse reactions. Medications This patient has no known medications. Procedures This patient has no known procedures. Encounters Start End Encounter Admission Attending Care Care Encounter Source Date/Time Date/Time Type Type Clinicians Facility Department ID 2019-05-01 2019-05-01 Emergency Robert, TRAUMA [id number] 11:18:37 12:17:00 [facility] [id number] Manny [id number] Results This patient has no known results.
[2020-05-16] MEDS ORDERED: ONDANSETRON 4 MG (ODT) TAB ONE (11:32)
[2020-05-16] MEDS ORDERED: MORPHINE 4 MG/ML SYR ONE ×3 (11:32→15:04)
[2020-05-16 11:45] LABS: Absolute Lymphocytes (CBC) 1.8 K/uL (0.7-4.9); Basophils % 0.9 % (0-1.3); Hematocrit 40.4 % (36.0-45.0); Lymphocytes % 28.2 % (15.3-44.8); MPV 7.9 fL (7.6-11.3); RBC Red Blood Cell Count 4.54 M/uL (3.86-4.86)
[2020-05-16 11:46] LABS: Protime INR 1.21
--- NOTE | 2020-05-16 11:56 | RAD REPORT ---
EXAM DESCRIPTION: RAD - Chest Single View - 05/16/2020 11:11 am CLINICAL HISTORY: CHEST PAIN COMPARISON: Portable April 2019 TECHNIQUE: AP portable chest image was obtained 05/16/2020 11:11 am . FINDINGS: Lung volumes are low. No peripheral mass or consolidation. No failure or volume overload f indings. Heart and vasculature are normal. No measurable pleural effusion and no pneumothorax. No acu te bony abnormality seen. No acute aortic findings suspected. IMPRESSION: No acute cardiopulmonary process. No significant change from comparison.
[2020-05-16 11:57] LABS: ALT/SGPT 27 U/L (12-78); AST/SGOT 10 U/L (15-37); Albumin 3.9 g/dL (3.4-5.0); Alkaline Phosphatase 92 U/L (45-117); BUN Blood Urea Nitrogen 8 mg/dL (7-18); Bicarbonate 25 mmol/L (21-32); Bilirubin Direct < 0.1 mg/dL (0-0.2); Bilirubin Total 0.3 mg/dL (0.2-1.0); Glucose Level 91 mg/dL (74-106); Magnesium 2.2 mg/dL (1.8-2.4); Potassium 3.8 mmol/L (3.5-5.1); Sodium Level 141 mmol/L (136-145); Troponin (Emerg Dept Use Only) < 0.02 ng/mL (0.0-0.045)
[2020-05-16 12:02] LABS: NT PRO-BNP < 5 pg/mL (<125)
[2020-05-16] MEDS ORDERED: ONDANSETRON 4 MG/2 ML VIAL ONE (13:35)
[2020-05-16] MEDS ORDERED: NA CHLORIDE 0.9% 1,000 ML ONE (14:11)
--- NOTE | 2020-05-16 14:24 | RAD REPORT ---
EXAM DESCRIPTION: CT - Chest Abd Pelvis Wo Con - 05/16/2020 2:14 pm CLINICAL HISTORY: Chest and abdomen pain. chest, abdomen and pelvis COMPARISON: Chest For Pe Angio dated 05/09/2017; Chest Single View dated 05/16/2020 TECHNIQUE: A limited noncontrast study was submitted. All CT scans are performed using dose optimization technique as appropriate and may include automated exposure control or mA/KV adjustment according to patient size. FINDINGS: The lungs are clear.No pleural or pericardial effusion.No intrathoracic adenopathy. The liver, spleen, pancreas, adrenal glands and kidneys are within normal limits for limited noncontr ast assessment. No bowel obstruction, free air, free fluid or abscess. Normal appendix. No pathologic lymphadenopath y in the abdomen or pelvis. No worrisome osseous finding. IMPRESSION: No acute abnormality is detected.
--- NOTE | 2020-05-16 15:22 | EDPHYS ---
Physician Documentation [facility] Name: Shanique Avelar Age: 24 yrs Sex: Female : 1995 Arrival Date: 05/16/2020 Time: 10:17 Bed 23 Private MD: ED Physician Ori Rodrigez HPI: 05/16 10:31 This 24 yrs old Black Female presents to ER via EMS with complaints of pain all over kdr including Chest Pain. 10:32 The patient states that she has been hurting all over since the of this month. kdr States her initial pain started in her chest and back but now she hurts all over and is writhing in pain. Onset: The symptoms/episode began/occurred gradually, 05/05, and became worse and became persistent. Severity of symptoms: At their worst the symptoms were moderate severe incapacitating in the emergency department the symptoms are unchanged. The patient has not experienced similar symptoms in the past. The patient has not recently seen a physician. Historical: - Allergies: 10:22 No Known Allergies; ec1 - PMHx: 10:22 Anemia; Asthma; cervical cancer; Hypertension; Heart Murmur; ec1 - Immunization history:: Adult Immunizations unknown. - Social history:: Smoking status: Patient denies any tobacco usage or history of. ROS: 10:32 Constitutional: Negative for weight loss - she did have fever to 102 two days ago Eyes: kdr Negative for injury, pain, redness, and discharge, ENT: Negative for injury, pain, and discharge, Neck: Negative for injury, pain, and swelling, Respiratory: Negative for shortness of breath, cough, wheezing, and pleuritic chest pain, Abdomen/GI: Negative for abdominal pain, nausea, vomiting, diarrhea, and constipation, Back: Negative for injury and pain, : Negative for injury, bleeding, discharge, and swelling, MS/Extremity: Negative for injury and deformity, Skin: Negative for injury, rash, and discoloration, Neuro: Negative for headache, weakness, numbness, tingling, and seizure activity. Psych: Negative for depression, anxiety, suicide ideation, homicidal ideation, and hallucinations, Allergy/Immunology: Negative for hives, rash, and allergies, Endocrine: Negative for neck swelling, polydipsia, polyuria, polyphagia, and marked weight changes, Hematologic/Lymphatic: Negative for swollen nodes, abnormal bleeding, and unusual bruising. 10:32 Cardiovascular: Positive for chest pain, Negative for edema, orthopnea, palpitations, paroxysmal nocturnal dyspnea, acute changes. Exam: 10:32 Constitutional: This is a well developed, well nourished patient who is awake, alert, kdr and in moderate distress. Head/Face: Normocephalic, atraumatic. Eyes: Pupils equal round and reactive to light, extra-ocular motions intact. Lids and lashes normal. Conjunctiva and sclera are non-icteric and not injected. Cornea within normal limits. Periorbital areas with no swelling, redness, or edema. Neck: Trachea midline, no thyromegaly or masses palpated, and no cervical lymphadenopathy. Supple, full range of motion without nuchal rigidity, or vertebral point tenderness. No Meningismus. Chest/axilla: Normal chest wall appearance and motion. Nontender with no deformity. No lesions are appreciated. Cardiovascular: Regular rate and rhythm with a normal S1 and S2. No gallops, murmurs, or rubs. Normal PMI, no JVD. No pulse deficits. Respiratory: Lungs have equal breath sounds bilaterally, clear to auscultation and percussion. No rales, rhonchi or wheezes noted. No increased work of breathing, no retractions or nasal flaring. Abdomen/GI: Soft, non-tender, with normal bowel sounds. No distension or tympany. No guarding or rebound. No evidence of tenderness throughout. Back: No spinal tenderness. No costovertebral tenderness. Full range of motion. Skin: Warm, dry with normal turgor. Normal color with no rashes, no lesions, and no evidence of cellulitis. MS/ Extremity: Pulses equal, no cyanosis. Neurovascular intact. Full, normal range of motion. Neuro: Awake and alert, GCS 15, oriented to person, place, time, and situation. Cranial nerves II-XII grossly intact. Motor strength 5/5 in all extremities. Sensory grossly intact. Cerebellar exam normal. Normal gait. Psych: Awake, alert, with orientation to person, place and time. Behavior, mood, and affect are within normal limits. 18:58 ECG was reviewed by the Attending Physician. kdr Vital Signs: 10:17 BP 117 / 84; Pulse 88; Resp 18 S; Temp 98.8(O); Pulse Ox 99% on R/A; Pain 10/10; ec1 11:30 BP 120 / 94; Pulse 80; Resp 16 S; Pulse Ox 97% on R/A; ec1 12:45 BP 118 / 75; Pulse 78; Resp 16; Pulse Ox 98% on R/A; vg1 14:48 BP 121 / 83; Pulse 74; Resp 16 S; Pulse Ox 97% on R/A; ec1 15:57 BP 101 / 65; Pulse 86; Resp 16 S; Pulse Ox 99% on R/A; Pain 7/10; ec1 MDM: 10:32 Data reviewed: vital signs, nurses notes, lab test result(s), EKG, radiologic studies. kdr Counseling: I had a detailed discussion with the patient and/or guardian regarding: the historical points, exam findings, and any diagnostic results supporting the discharge/admit diagnosis, lab results, radiology results. 15:22 Patient medically screened. [facility] 05/16 10:21 Order name: Basic Metabolic Panel; Complete Time: 13: [facility] 05/16 10:21 Order name: CBC with Diff; Complete Time: [facility] 05/16 10:21 Order name: LFT's; Complete Time: : [facility] 05/16 10:21 Order name: Magnesium; Complete Time: : [facility] 05/16 10:21 Order name: NT PRO-BNP; Complete Time: [facility] 05/16 10:21 Order name: PT-INR; Complete Time: : [facility] 05/16 10:21 Order name: Troponin (emerg Dept Use Only); Complete Time: : [facility] 05/16 10:21 Order name: XRAY Chest (1 view); Complete Time: 13: [facility] 05/16 11:21 Order name: COVID-19 : Document "Date of Symptom Onset" if Symptomatic. [facility] 05/16 12:17 Order name: SARS-COV-2 RT PCR; Complete Time: 13:31 EDMS 05/16 14:13 Order name: Chest Abd Pelvis Wo Con; Complete Time: 15:20 EDMS 05/16 10:21 Order name: EKG; Complete Time: 10:21 [facility] 05/16 10:21 Order name: Cardiac monitoring; Complete Time: 10:38 [facility] 05/16 10:21 Order name: EKG - Nurse/Tech; Complete Time: 10:49 kdr 05/16 10:21 Order name: IV Saline Lock; Complete Time: 11:39 kdr 05/16 10:21 Order name: Labs collected and sent; Complete Time: 11:39 kdr 05/16 10:21 Order name: O2 Per Protocol; Complete Time: 10:38 kdr 05/16 10:21 Order name: O2 Sat Monitoring; Complete Time: 10:38 kdr EC:58 Rate is 78 beats/min. Rhythm is regular, Normal Sinus Rhythm with No ectopy. QRS [place] kdr is Normal. AL interval is normal. QRS interval is normal. QT interval is normal. Clinical impression: Normal ECG. Administered Medications: 11:17 Drug: morphine 4 mg Route: IM; Site: right deltoid; ec1 13:16 Follow up: Response: No adverse reaction; Pain is decreased vg1 11:17 Drug: Ondansetron (Zofran) 4 mg Route: PO; ec1 13:16 Follow up: Response: No adverse reaction vg1 13:22 Drug: Zofran (Ondansetron) 4 mg Route: IVP; Site: Other; vg1 14:28 Follow up: Response: No adverse reaction ec1 13:23 Drug: morphine 4 mg {Note: rass1.} Route: IVP; Site: Other; vg1 14:28 Follow up: Response: Pain is unchanged, physician notified ec1 14:55 Drug: morphine 4 mg Route: IVP; Site: Other; ec1 16:01 Follow up: Response: Pain is decreased ec1 Disposition: 05/16/20 15:22 Discharged to Home. Impression: Chest pain, unspecified, Abdominal and pelvic pain. - Condition is Stable. - Discharge Instructions: Pain Without a Known Cause, Abdominal Pain, Adult, [id number], Nonspecific Chest Pain, [id number], Generalized Anxiety Disorder. - Prescriptions for Zofran 4 mg Oral Tablet - take 1 tablet by ORAL route every 12 hours As needed; 6 tablet. Tramadol 50 mg Oral Tablet - take 1 tablet by ORAL route every 8 hours as needed; 16 tablet. Pepcid 20 mg Oral Tablet - take 1 tablet by ORAL route once daily; 20 tablet. - Medication Reconciliation Form, Thank You Letter, Prescription Opioid Use form. - Follow up: Private Physician; When: 2 - 3 days; Reason: If symptoms return, Further diagnostic work-up, Recheck today's complaints, Continuance of care, Re-evaluation by your physician. - Problem is new. - Symptoms have improved. Signatures: Dispatcher [employer] [facility] Ori Rodrigez MD MD kdr Keily Chavez, RN RN vg1 Ceci Funez, RN RN ec1 Corrections: (The following items were deleted from the chart) 11:39 11:21 CORONAVIRUS ordered. [facility] 14:13 13:44 Chest Abdomen Pelvis W Con+CT.RAD.BRZ ordered. [facility] 16:02 15:22 05/16/2020 15:22 Discharged to Home. Impression: Chest pain, unspecified; ec1 Abdominal and pelvic pain. Condition is Stable. Forms are Medication Reconciliation Form, Thank You Letter, Antibiotic Education, Prescription Opioid Use. Follow up: Private Physician; When: 2 - 3 days; Reason: If symptoms return, Further diagnostic work-up, Recheck today's complaints, Continuance of care, Re-evaluation by your physician. Problem is new. Symptoms have improved. kdr
--- NOTE | 2020-05-16 15:22 | ER ---
Nurse's Notes [facility] Name: Shanique Avelar Age: 24 yrs Sex: Female : 1995 Arrival Date: 05/16/2020 Time: 10:17 Bed 23 Private MD: Diagnosis: Chest pain, unspecified;Abdominal and pelvic pain Presentation: 05/16 10:17 Chief complaint: EMS states: Pt has been feeling ill since may 05. She reports ec1 nausea, vomiting, diarreha, and chest pain. She has a history of HTN and a heart murmur. Her EKG was normal. We were unable to get an IV. Coronavirus screen: Client denies travel out of the [place] in the last 14 days. At this time, the client does not indicate any symptoms associated with coronavirus-19. Ebola Screen: Patient negative for fever greater than or equal to 101.5 degrees Fahrenheit, and additional compatible Ebola Virus Disease symptoms Patient denies exposure to infectious person. Patient denies travel to an Ebola-affected area in the 21 days before illness onset. Initial Sepsis Screen: Does the patient meet any 2 criteria? No. Patient's initial sepsis screen is negative. Does the patient have a suspected source of infection? No. Patient's initial sepsis screen is negative. Risk Assessment: Do you want to hurt yourself or someone else? Patient reports no desire to harm self or others. Onset of symptoms was May 05, 2020. 10:17 Method Of Arrival: EMS: [facility] ec1 10:17 Acuity: KYLEE 3 ec1 Triage Assessment: 10:22 General: Appears uncomfortable, ill, Behavior is cooperative. Pain: Complains of pain ec1 in whole body, chest. Historical: - Allergies: 10:22 No Known Allergies; ec1 - PMHx: 10:22 Anemia; Asthma; cervical cancer; Hypertension; Heart Murmur; ec1 - Immunization history:: Adult Immunizations unknown. - Social history:: Smoking status: Patient denies any tobacco usage or history of. Screenin:49 Abuse screen: Denies threats or abuse. Denies injuries from another. Nutritional ec1 screening: No deficits noted. Tuberculosis screening: No symptoms or risk factors identified. Fall Risk None identified. Assessment: 10:49 General: Appears uncomfortable, Behavior is cooperative. Pain: Complains of pain in ec1 chest, whole body Pain does not radiate. Pain began 11 days ago. Neuro: Level of Consciousness is awake, alert, obeys commands. Cardiovascular: Heart tones S1 S2 Rhythm is sinus rhythm. Respiratory: Airway is patent Respiratory effort is even, unlabored, Breath sounds are diminished bilaterally. GI: Abdomen is round obese, Reports diarrhea, vomiting. : No signs and/or symptoms were reported regarding the genitourinary system. EENT: No signs and/or symptoms were reported regarding the EENT system. Derm: No signs and/or symptoms reported regarding the dermatologic system. 13:05 Reassessment: Patient appears in no apparent distress at this time. Patient and/or vg1 family updated on plan of care and expected duration. Pain level reassessed. Patient is alert, oriented x 3, equal unlabored respirations, skin warm/dry/pink. Patient states have all over body pain. Rates pain 10/10. Provider notified. 13:13 Reassessment: Received VO from Dr Sanders to administer Zofran 4mg IVP x1 and Morphine vg1 4mg IVP x1. 14:55 Reassessment: Patient appears in no apparent distress at this time. No changes from ec1 previously documented assessment. Patient and/or family updated on plan of care and expected duration. Pain level reassessed. Patient is alert, oriented x 3, equal unlabored respirations, skin warm/dry/pink. Vital Signs: 10:17 BP 117 / 84; Pulse 88; Resp 18 S; Temp 98.8(O); Pulse Ox 99% on R/A; Pain 10/10; ec1 11:30 BP 120 / 94; Pulse 80; Resp 16 S; Pulse Ox 97% on R/A; ec1 12:45 BP 118 / 75; Pulse 78; Resp 16; Pulse Ox 98% on R/A; vg1 14:48 BP 121 / 83; Pulse 74; Resp 16 S; Pulse Ox 97% on R/A; ec1 15:57 BP 101 / 65; Pulse 86; Resp 16 S; Pulse Ox 99% on R/A; Pain 7/10; ec1 ED Course: 10:17 Patient arrived in ED. ec1 10:20 Ori Rodrigez MD is Attending Physician. kdr 10:21 Triage completed. ec1 10:27 Ceci Funez, RN is Primary Nurse. ec1 10:49 Bed in low position. Side rails up X2. stewarding supervisor on. Pulse ox on. NIBP on. ec1 10:49 Missed attempt(s): 20 gauge in left antecubital area. ec1 11:11 XRAY Chest (1 view) In Process Unspecified. EDMS 11:26 Arm band placed on right wrist. ec1 11:26 Inserted saline lock: 24 gauge in left ,using aseptic technique. foot, Blood collected. ec1 11:26 Patient maintains SpO2 saturation greater than 95% on room air. ec1 14:14 Chest Abd Pelvis Wo Con In Process Unspecified. EDMS 14:18 Patient taken to an exam room. ec1 15:58 IV discontinued, intact, bleeding controlled. ec1 16:00 No provider procedures requiring assistance completed. ec1 Administered Medications: 11:17 Drug: morphine 4 mg Route: IM; Site: right deltoid; ec1 13:16 Follow up: Response: No adverse reaction; Pain is decreased vg1 11:17 Drug: Ondansetron (Zofran) 4 mg Route: PO; ec1 13:16 Follow up: Response: No adverse reaction vg1 13:22 Drug: Zofran (Ondansetron) 4 mg Route: IVP; Site: Other; vg1 14:28 Follow up: Response: No adverse reaction ec1 13:23 Drug: morphine 4 mg {Note: rass1.} Route: IVP; Site: Other; vg1 14:28 Follow up: Response: Pain is unchanged, physician notified ec1 14:55 Drug: morphine 4 mg Route: IVP; Site: Other; ec1 16:01 Follow up: Response: Pain is decreased ec1 Outcome: 15:22 Discharge ordered by . kdr 16:00 Discharged to home ambulatory. ec1 16:00 Condition: good 16:00 Discharge instructions given to patient, Instructed on discharge instructions, follow up and referral plans. Demonstrated understanding of instructions, follow-up care, medications, Prescriptions given X 3. 16:02 Patient left the ED. ec1 Signatures: Dispatcher [employer] EDMS Ori Rodrigez MD MD kdr Garcia, Victoria, RN RN vg1 Ceci Funez, RN RN ec1 Corrections: (The following items were deleted from the chart) 10:37 10:17 BP 117 / 84; Pulse 88bpm; Resp 18bpm; Spontaneous; Temp 98.8F Oral; Pain 12/28; ec1 ec1
[2020-05-16 16:34] VITALS: TEMP 98.8
[2020-05-16 16:40] VITALS: BP 101/65; O2SAT 99
--- NOTE | 2020-05-19 17:16 | EKG ---
Test Date: 2020-05-16 Test Time: 10:46:02 Cloth Bleaching Range Back Tender: JA MEASUREMENT RESULTS: Intervals: Rate: 78 AL: 186 QRSD: 94 QT: 380 QTc: 433 [place]: P: 64 AL: 186 QRS: 13 T: 36 INTERPRETIVE STATEMENTS: Normal sinus rhythm Normal ECG Compared to ECG 04/27/2019 13:20:04 T-wave abnormality no longer present Electronically Signed On 05-19-20 17:07:04 WOOD MODEL [employer]KER by Michele Seaman
== END 2020-05-16 16:02 | disposition home or self-care (01) ==
LOC: ER 10:16
DX: R07.9 Chest pain, unspecified (principal); R10.2 Pelvic and perineal pain; Z20.822 Contact with and (suspected) exposure to COVID-19
CPT/HCPCS: 36415; 71045; 71250; 74176; 80048; 80076; 83735; 83880; 84484; 85025; 85610; 93005; 96372; 96374; 96375; 99285; J2405; J7030; U0003

== ENCOUNTER 2020-05-28 03:05 | Emergency (ER) | payer SELFPAY ==
--- OUTSIDE RECORDS SUMMARY | 2020-05-28 03:08 | XMS REPORT | Continuity of Care Document ---
:1995 Author Organization [facility] t Address [address] [place] [address] Care Team Providers Name Role Phone Manny [...] Department ID 2019-05-01 2019-05-01 Emergency Robert, TRAUMA [id number] 1992 11:18:37 12:17:00 [facility] [id number] Manny [id number] [id number] Results This patient has no known results.
[2020-05-28] MEDS ORDERED: ONDANSETRON 4 MG/2 ML VIAL ONE (04:08)
[2020-05-28] MEDS ORDERED: MORPHINE 4 MG/ML SYR ONE (04:08)
[2020-05-28 04:23] LABS: Absolute Lymphocytes (CBC) 1.6 K/uL (0.7-4.9); Basophils % 0.6 % (0-1.3); Hematocrit 42.9 % (36.0-45.0); Lymphocytes % 22.6 % (15.3-44.8); MPV 7.9 fL (7.6-11.3)
[2020-05-28 04:27] LABS: Protime INR 1.21
[2020-05-28 04:35] LABS: ALT/SGPT 18 U/L (12-78); AST/SGOT 10 U/L (15-37); Alkaline Phosphatase 95 U/L (45-117); BUN Blood Urea Nitrogen 9 mg/dL (7-18); Bicarbonate 25 mmol/L (21-32); Bilirubin Direct 0.1 mg/dL (0-0.2); Bilirubin Total 0.3 mg/dL (0.2-1.0); Glucose Level 106 mg/dL (74-106); Magnesium 2.2 mg/dL (1.8-2.4); NT PRO-BNP 6 pg/mL (<125); Protein, Total 8.3 g/dL (6.4-8.2); Sodium Level 141 mmol/L (136-145); Troponin (Emerg Dept Use Only) < 0.02 ng/mL (0.0-0.045)
[2020-05-28 05:37] LABS: Urine Blood 3+ (NEG); Urine Glucose NEGATIVE (NEG); Urine Protein 2+ (NEG); Urine Specific Gravity >1.030 (1.005-1.030)
[2020-05-28 05:38] LABS: Barbiturates NEGATIVE (NEGATIVE); Benzodiazepines NEGATIVE (NEGATIVE); Cocaine NEGATIVE (NEGATIVE); METHAMPHETAM NEGATIVE (NEGATIVE); Methadone NEGATIVE (NEGATIVE); Opiates POSITIVE (NEGATIVE); Phencyclidine NEGATIVE (NEGATIVE); THC Cannibis NEGATIVE (NEGATIVE)
[2020-05-28 05:54] LABS: Urine Specific Gravity >1.030 (1.005-1.030)
[2020-05-28] MEDS ORDERED: KETOROLAC 30 MG/ML INJ ONE (06:43)
--- NOTE | 2020-05-28 09:06 | RAD REPORT ---
EXAM DESCRIPTION: CT - Chest Abd Pelvis Wo Con - 05/28/2020 8:50 am CLINICAL HISTORY: Chest and abdomen pain. abd pain;Chest pain COMPARISON: Chest Abd Pelvis Wo Con dated 05/16/2020 TECHNIQUE: A limited noncontrast study was performed. All CT scans are performed using dose optimization technique as appropriate and may include automated exposure control or mA/KV adjustment according to patient size. FINDINGS: The lungs are clear.No pleural or pericardial effusion.No intrathoracic adenopathy. The liver, spleen, pancreas, adrenal glands are within normal limits. No acute or aggressive renal ab normality suspected. No hydronephrosis. No bowel obstruction, free air, free fluid or abscess. Normal appendix. No pathologic lymphadenopath y in the abdomen or pelvis. No worrisome osseous finding. IMPRESSION: No acute process is identified.
[2020-05-28] MEDS ORDERED: MORPHINE 2 MG/ML SYR ONE (09:14)
--- NOTE | 2020-05-28 09:14 | EDPHYS ---
Physician Documentation [facility] Name: Shanique Avelar Age: 24 yrs Sex: Female : 1995 Arrival Date: 05/28/2020 Time: 03:09 Bed 8 Private MD: ED Physician Geremias Shepherd HPI: 05/28 04:06 This 24 yrs old Black Female presents to ER via EMS with complaints of Chest Pain. mh7 04:06 The patient or guardian reports chest pain that is located primarily in the anterior mh7 chest wall, bilaterally. The pain does not radiate. 04:06 Associated signs and symptoms: Pertinent positives: abdominal pain, Pertinent mh7 negatives: cough, diaphoresis, dizziness, headache, lower extremity pain, lower extremity swelling, lightheadedness, nausea, near syncope, palpitations, recent travel, shortness of breath, syncope, vomiting. 04:07 The chest pain is described as sharp. Duration: The patient or guardian reports mh7 multiple episodes, that are intermittent, that wax and wane, with no pattern. Modifying factors: The symptoms are alleviated by nothing. the symptoms are aggravated by nothing. Severity of pain: At its worst the pain was moderate today, in the emergency department the pain is unchanged. EMS care prior to arrival includes: aspirin. 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 - Social history:: Smoking status: Patient denies any tobacco usage or history of. ROS: 04:07 Constitutional: Negative for fever, chills, and weight loss, Eyes: Negative for injury, mh7 pain, redness, and discharge, ENT: Negative for injury, pain, and discharge, Neck: Negative for injury, pain, and swelling, Respiratory: Negative for shortness of breath, cough, wheezing, and pleuritic chest pain, Back: Negative for injury and pain, : Negative for injury, bleeding, discharge, and swelling, MS/Extremity: Negative for injury and deformity, Skin: Negative for injury, rash, and discoloration, Neuro: Negative for headache, weakness, numbness, tingling, and seizure, Psych: Negative for depression, anxiety, suicide ideation, homicidal ideation, and hallucinations, Allergy/Immunology: Negative for hives, rash, and allergies, Endocrine: Negative for neck swelling, polydipsia, polyuria, polyphagia, and marked weight changes, Hematologic/Lymphatic: Negative for swollen nodes, abnormal bleeding, and unusual bruising. Exam: 04:07 Constitutional: This is a well developed, well nourished patient who is awake, alert, mh7 and in no acute distress. Head/Face: Normocephalic, atraumatic. Eyes: Pupils equal round and reactive to light, extra-ocular motions intact. Lids and lashes normal. Conjunctiva and sclera are non-icteric and not injected. Cornea within normal limits. Periorbital areas with no swelling, redness, or edema. Neck: Trachea midline, no thyromegaly or masses palpated, and no cervical lymphadenopathy. Supple, full range of motion without nuchal rigidity, or vertebral point tenderness. No Meningismus. Chest/axilla: Normal chest wall appearance and motion. Nontender with no deformity. No lesions are appreciated. Cardiovascular: Regular rate and rhythm with a normal S1 and S2. No gallops, murmurs, or rubs. Normal PMI, no JVD. No pulse deficits. Respiratory: Lungs have equal breath sounds bilaterally, clear to auscultation and percussion. No rales, rhonchi or wheezes noted. No increased work of breathing, no retractions or nasal flaring. Abdomen/GI: Soft, non-tender, with normal bowel sounds. No distension or tympany. No guarding or rebound. No evidence of tenderness throughout. Back: No spinal tenderness. No costovertebral tenderness. Full range of motion. Skin: Warm, dry with normal turgor. Normal color with no rashes, no lesions, and no evidence of cellulitis. MS/ Extremity: Pulses equal, no cyanosis. Neurovascular intact. Full, normal range of motion. Neuro: Awake and alert, GCS 15, oriented to person, place, time, and situation. Cranial nerves II-XII grossly intact. Motor strength 5/5 in all extremities. Sensory grossly intact. Cerebellar exam normal. Normal gait. Psych: Awake, alert, with orientation to person, place and time. Behavior, mood, and affect are within normal limits. Vital Signs: 03:09 Weight 104.33 kg; Height 5 ft. 7 in. (170.18 cm); mg2 03:10 BP 105 / 69; Pulse 94; Resp 15; Temp 97.5; Pulse Ox 100% on R/A; ms1 06:22 Pulse 90; Resp 18; Pulse Ox 100% on R/A; mg2 08:09 BP 125 / 64; Pulse 93; Resp 18 S; Pulse Ox 95% on R/A; jd3 09:04 BP 127 / 67; Pulse 80; Resp 18 S; Pulse Ox 97% on R/A; jd3 03:09 Body Mass Index 36.02 (104.33 kg, 170.18 cm) mg2 MDM: 07:07 Patient medically screened. rn 07:07 ED course: Signed out to me by Dr. Talley, pending CT angio and abdomen, reports plan rn to dc home if negative.. 09:11 Differential diagnosis: acute pericarditis, anxiety, chest wall pain, costochondritis, rn esophagitis, gastritis, gastroesophageal reflux disease (GERD), pleurisy, pneumothorax. Data reviewed: vital signs, nurses notes, lab test result(s), EKG, radiologic studies, CT scan, plain films. Data interpreted: staff development coordinator rn: rate is 80 beats/min, rhythm is normal sinus rhythm, regular, with no ectopy, Interpretation: normal rate, normal rhythm, Pulse oximetry: on room air is 97 %. Interpretation: normal. Counseling: I had a detailed discussion with the patient and/or guardian regarding: the historical points, exam findings, and any diagnostic results supporting the discharge/admit diagnosis, lab results. Special discussion: Based on the patient's history, exam, and Dx evaluation, there is no indication for emergent intervention or inpatient Tx. It is understood by the patient/guardian that if the Sx's persist or worsen they need to return immediately for re-evaluation. Based on the patient's Hx, exam, and Dx evaluation, there is no indication for emergent surgery or inpatient Tx. It is understood by the patient/guardian that if the Sx's persist or worsen they need to return immediately for re-evaluation. I discussed with the patient/guardian in detail that at this point there is no indication for admission to the hospital. It is understood, however, that if the symptoms persist or worsen the patient needs to return immediately for re-evaluation. 05/28 03:16 Order name: Basic Metabolic Panel; Complete Time: 05:01 mg2 05/28 03:16 Order name: CBC with Diff; Complete Time: 05:01 mg2 05/28 03:16 Order name: LFT's; Complete Time: 05:01 mg2 05/28 03:16 Order name: Magnesium; Complete Time: 05:01 mg2 05/28 03:16 Order name: NT PRO-BNP; Complete Time: 05:01 mg2 05/28 03:16 Order name: PT-INR; Complete Time: 05:01 mg2 05/28 03:16 Order name: Troponin (emerg Dept Use Only); Complete Time: 05:01 mg2 05/28 03:16 Order name: XRAY Chest (1 view) mg2 05/28 03:40 Order name: UDS; Complete Time: 08:37 mh7 05/28 05:35 Order name: Urine Dipstick--Ancillary (enter results); Complete Time: 08:37 mw2 05/28 05:37 Order name: Urine --Ancillary (enter results) mw2 05/28 05:38 Order name: Urine --Ancillary; Complete Time: 08:37 EDMS 05/28 03:16 Order name: EKG; Complete Time: 03:17 mg2 05/28 03:16 Order name: Cardiac monitoring; Complete Time: 03:45 mg2 05/28 03:16 Order name: EKG - Nurse/Tech; Complete Time: 03:46 mg2 05/28 03:16 Order name: IV Saline Lock; Complete Time: 03:46 mg2 05/28 03:16 Order name: Labs collected and sent; Complete Time: 04:09 mg2 05/28 03:16 Order name: O2 Per Protocol; Complete Time: 03:46 mg2 05/28 03:16 Order name: O2 Sat Monitoring; Complete Time: 03:46 mg2 05/28 03:40 Order name: Urine Dipstick-Ancillary (obtain specimen); Complete Time: 05:33 mh7 05/28 03:40 Order name: Urine Test (obtain specimen); Complete Time: 05:33 mh7 05/28 08:42 Order name: CT Chest Abdomen Pelvis W/O Contrast; Complete Time: 09:13 rn Administered Medications: 06:58 Drug: TORadol 30 mg Route: IVP; Site: right antecubital; mg2 07:50 Follow up: Response: No adverse reaction jd3 09:03 Drug: morphine 2 mg Route: IVP; Site: right wrist; jd3 09:48 Follow up: Response: No adverse reaction; RASS: Alert and Calm (0) jd3 Disposition: 05/28/20 09:13 Discharged to Home. Impression: Chest pain, unspecified, Unspecified abdominal pain. - Condition is Stable. - Discharge Instructions: Abdominal Pain, Adult, Nonspecific Chest Pain, Pain Without a Known Cause. - Medication Reconciliation Form, Thank You Letter, Antibiotic Education, Prescription Opioid Use form. - Follow up: Private Physician; When: As needed; Reason: Recheck today's complaints, Re-evaluation by your physician. - Problem is an ongoing problem. - Symptoms have improved. Signatures: Dispatcher [employer] EDMS Geremias Shepherd MD MD rn Davies, Jonathon, RN RN jd3 Zbigniew Deleon RN RN mg2 Carlos Talley MD MD mh7 Corrections: (The following items were deleted from the chart) 08:47 05:27 Chest For PE Angio+CT.RAD.BRZ ordered. EDTX EDMS 08:48 05:27 Abdomen Pelvis W Con+CT.RAD.BRZ ordered. EDTX EDMS 09:48 09:13 05/28/2020 09:13 Discharged to Home. Impression: Chest pain, unspecified; jd3 Unspecified abdominal pain. Condition is Stable. Forms are Medication Reconciliation Form, Thank You Letter, Antibiotic Education, Prescription Opioid Use. Follow up: Private Physician; When: As needed; Reason: Recheck today's complaints, Re-evaluation by your physician. Problem is an ongoing problem. Symptoms have improved. rn
--- NOTE | 2020-05-28 09:14 | ER ---
Nurse's Notes [facility] Name: Shanique Avelar Age: 24 yrs Sex: Female : 1995 Arrival Date: 05/28/2020 Time: 03:09 Bed 8 Private MD: Diagnosis: Chest pain, unspecified;Unspecified abdominal pain Presentation: 05/28 03:09 Chief complaint: EMS states: she was having chest pain and upper abdominal pain with mg2 n/v, constipation. she was here last week for chest pain. she is 4 months post . Aspirin 324 mg enroute. Coronavirus screen: Client denies travel out of the [place] in the last 14 days. Ebola Screen: No symptoms or risks identified at this time. Initial Sepsis Screen: Does the patient meet any 2 criteria? No. Patient's initial sepsis screen is negative. Does the patient have a suspected source of infection? No. Patient's initial sepsis screen is negative. Risk Assessment: Do you want to hurt yourself or someone else? Patient reports no desire to harm self or others. 03:09 Method Of Arrival: EMS: [facility] mg2 03:09 Acuity: KYLEE 3 mg2 09:47 Onset of symptoms is unknown. 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 - Social history:: Smoking status: Patient denies any tobacco usage or history of. Screenin:11 Abuse screen: Denies threats or abuse. Denies injuries from another. Nutritional mg2 screening: No deficits noted. Tuberculosis screening: No symptoms or risk factors identified. Fall Risk IV access (20 points). Assessment: 04:10 General: Appears in no apparent distress. comfortable, Behavior is calm, cooperative. mg2 Pain: Complains of pain in chest and abdomen Pain currently is 8 out of 10 on a pain scale. Quality of pain is described as aching, Pain began gradually. Neuro: Level of Consciousness is awake, alert, obeys commands, Oriented to person, place, time, situation. Cardiovascular: Capillary refill < 3 seconds Patient's skin is warm and dry. Respiratory: Airway is patent Respiratory effort is even, unlabored, Respiratory pattern is regular, symmetrical. GI: Reports constipation, nausea, vomiting. : No signs and/or symptoms were reported regarding the genitourinary system. EENT: No signs and/or symptoms were reported regarding the EENT system. Derm: Skin is intact, is healthy with good turgor, Skin is pink, warm \T\ dry. normal. Musculoskeletal: Circulation, motion, and sensation intact. Capillary refill < 3 seconds. 05:17 Reassessment: Patient appears in no apparent distress at this time. Patient and/or mg2 family updated on plan of care and expected duration. Pain level reassessed. Patient is alert, oriented x 3, equal unlabored respirations, skin warm/dry/pink. 06:28 General: Appears in no apparent distress. in pain, provioder informed and ordered for [facility] pain medicine. 07:20 General: Appears in no apparent distress. uncomfortable, Behavior is calm, cooperative, jd3 appropriate for age. Pain: Complains of pain in chest and abdomen Quality of pain is described as aching, Pain began gradually, Is intermittent. Neuro: Level of Consciousness is awake, alert, obeys commands, Oriented to person, place, time, situation. Cardiovascular: Denies chest pain, Capillary refill < 3 seconds Patient's skin is warm and dry. Respiratory: Airway is patent Respiratory effort is even, unlabored, Respiratory pattern is regular, symmetrical, Denies cough, shortness of breath. GI: Reports upper abdominal pain, constipation, nausea. : No signs and/or symptoms were reported regarding the genitourinary system. EENT: No signs and/or symptoms were reported regarding the EENT system. Derm: Skin is intact, Skin is dry, Skin is normal, Skin temperature is warm. Musculoskeletal: Circulation, motion, and sensation intact. Range of motion: intact in all extremities. 08:09 Reassessment: No changes from previously documented assessment. Patient and/or family jd3 updated on plan of care and expected duration. Pain level reassessed. Patient is alert, oriented x 3, equal unlabored respirations, skin warm/dry/pink. 09:04 Reassessment: Patient appears in no apparent distress at this time. No changes from jd3 previously documented assessment. Patient and/or family updated on plan of care and expected duration. Pain level reassessed. Patient is alert, oriented x 3, equal unlabored respirations, skin warm/dry/pink. continues to report pain, provider notified. 09:45 Reassessment: Patient appears in no apparent distress at this time. Patient and/or jd3 family updated on plan of care and expected duration. Pain level reassessed. Patient is alert, oriented x 3, equal unlabored respirations, skin warm/dry/pink. reported understanding of discharge instructions. even and steady gait to front of ER to call ride. Vital Signs: 03:09 Weight 104.33 kg; Height 5 ft. 7 in. (170.18 cm); mg2 03:10 BP 105 / 69; Pulse 94; Resp 15; Temp 97.5; Pulse Ox 100% on R/A; ms1 06:22 Pulse 90; Resp 18; Pulse Ox 100% on R/A; mg2 08:09 BP 125 / 64; Pulse 93; Resp 18 S; Pulse Ox 95% on R/A; jd3 09:04 BP 127 / 67; Pulse 80; Resp 18 S; Pulse Ox 97% on R/A; jd3 03:09 Body Mass Index 36.02 (104.33 kg, 170.18 cm) mg2 ED Course: 03:09 Patient arrived in ED. mg2 03:09 Carlos Talley MD is Attending Physician. [facility] 03:15 Triage completed. mg2 03:16 Arm band placed on. mg2 03:45 Zbigniew Deleon, JEANNIE is Primary Nurse. mg2 03:46 No provider procedures requiring assistance completed. mg2 04:04 XRAY Chest (1 view) In Process Unspecified. EDMS 04:11 Patient has correct armband on for positive identification. mg2 04:11 Door closed. Warm blanket given. mg2 04:12 Inserted saline lock: 22 gauge in right antecubital area, using aseptic technique. mg2 Blood collected. 06:00 IV discontinued, intact, bleeding controlled, No redness/swelling at site. Pressure mg2 dressing applied. 06:23 Inserted saline lock: 24 gauge in right wrist, using aseptic technique. mg2 07:07 Attending Physician role handed off by Carlos Talley MD rn 07:07 Geremias Shepherd MD is Attending Physician. rn 07:25 Missed attempt(s): 20 gauge in left antecubital area. Bleeding controlled, band aid jd3 applied, catheter tip intact. 07:35 Missed attempt(s): 20 gauge in left antecubital area. Bleeding controlled, band aid jd3 applied, catheter tip intact. 08:10 Primary Nurse role handed off by Zbigniew Deleon RN bd 08:50 Dwaine Brown, RN is Primary Nurse. jd3 08:50 CT Chest Abdomen Pelvis W/O Contrast In Process Unspecified. EDMS Administered Medications: 06:58 Drug: TORadol 30 mg Route: IVP; Site: right antecubital; mg2 07:50 Follow up: Response: No adverse reaction jd3 09:03 Drug: morphine 2 mg Route: IVP; Site: right wrist; jd3 09:48 Follow up: Response: No adverse reaction; RASS: Alert and Calm (0) jd3 Outcome: 09:13 Discharge ordered by . rn 09:46 Discharged to home ambulatory, with family. jd3 09:46 Condition: stable 09:46 Discharge instructions given to patient, Instructed on discharge instructions, follow up and referral plans. Demonstrated understanding of instructions, follow-up care. 09:48 Patient left the ED. jd3 Signatures: Dispatcher [employer] EDMS Talya Walker Roman, MD MD rn Davies, Jonathon, RN RN jZbigniew Dias RN RN mg2 Ronald Rizzo ms1 Carlos Talley MD MD mh7 Corrections: (The following items were deleted from the chart) 04:12 03:46 Inserted saline lock: 22 gauge in right antecubital area, using aseptic mg2 technique. Blood collected. mg2 09:48 09:30 Response: No adverse reaction jd3 jd3
--- NOTE | 2020-05-28 10:12 | RAD REPORT ---
EXAM DESCRIPTION: Chest Radiography COMPARISON: None. CLINICAL HISTORY: [facility] MAIN CHEST PAIN FINDINGS: A single AP view of the chest demonstrates a normal cardiomediastinal silhouette. No pneumothorax or pleural effusion. Faint bilateral opacities are present. Osseous structures are intact. IMPRESSION: Faint bilateral opacities are favored to be due to tissue superimposition artifact and l ess likely pulmonary edema or multifocal infection. Electronically signed by: Isaac Houston MD 05/28/2020 4:18 AM TICKET WORKER Due to temporary technical issues with the PACS/Fluency reporting system, reports are being signed by the in house radiologist without review as a courtesy to ensure prompt reporting. The interpreting r adiologist is fully responsible for the content of the report.
--- NOTE | 2020-05-29 05:14 | EKG ---
Test Date: 2020-05-28 Test Time: 03:28:04 Breaker Operator: THIAGO MEASUREMENT RESULTS: Intervals: Rate: 85 HI: 182 QRSD: 92 QT: 366 QTc: 435 [place]: P: 41 HI: 182 QRS: 27 T: 1 INTERPRETIVE STATEMENTS: Normal sinus rhythm Nonspecific T wave abnormality Abnormal ECG Compared to ECG 05/16/2020 10:46:02 T-wave abnormality now present Electronically Signed On 05-29-20 05:11:32 CONTRACT NEGOTIATOR by Michele Seaman
== END 2020-05-28 09:48 | disposition home or self-care (01) ==
LOC: ER 03:05
DX: R10.9 Unspecified abdominal pain (principal); I10 Essential (primary) hypertension
CPT/HCPCS: 36415; 71045; 71250; 74176; 80048; 80076; 80307; 81003; 81025; 83735; 83880; 84484; 85025; 85610; 93005; 99284; J2270; J2405

== ENCOUNTER 2020-09-08 17:09 | Emergency (ER) | payer OTHER, SELFPAY ==
--- OUTSIDE RECORDS SUMMARY | 2020-09-08 17:13 | XMS REPORT | Continuity of Care Document ---
:[address] [facility] t Address [address] [place] [address] Care Team Providers Name Role Phone Monica Fried Attending Clinician Manny Giraldo Attending Clinician Problems This patient has no known problems. Allergies, Adverse Reactions, Alerts This patient has no known allergies or adverse reactions. Medications This patient has no known medications. Procedures This patient has no known procedures. Encounters Start End Encounter Admission Attending Care Care Encounter Source Date/Time Date/Time Type Type Clinicians Facility Department ID 2020-05-28 2020-05-28 Emergency FranciscoEnedelia [facility] [id number] 15:59:00 20:37:00 Monica Laurent [id number] [place] [id number] [place] [id number] 2019-05-01 2019-05-01 Emergency Robert, TRAUMA [id number] 11:18:37 12:17:00 [facility] [id number] Manny [id number] Results This patient has no known results.
[2020-09-08 20:38] LABS: Urine Blood 3+ (Negative); Urine Glucose Negative (Negative); Urine Protein Negative (Negative); Urine Specific Gravity >=1.030 (1.005-1.030); Urine pH 6.5 (5.0-7.0)
[2020-09-08 21:11] LABS: Urine Specific Gravity/Preg >1.030 (1.005-1.030)
[2020-09-08 21:17] LABS: Absolute Lymphocytes (CBC) 2.7 K/uL (0.7-4.9); Basophils % 0.9 % (0-1.3); Lymphocytes % 38.1 % (15.3-44.8); RBC Red Blood Cell Count 3.62 M/uL (3.86-4.86)
[2020-09-08 21:28] LABS: BUN Blood Urea Nitrogen 9 mg/dL (7-18); Bicarbonate 26 mmol/L (21-32); Glucose Level 82 mg/dL (74-106); Potassium 3.7 mmol/L (3.5-5.1); Sodium Level 142 mmol/L (136-145)
--- NOTE | 2020-09-08 22:21 | ER ---
Nurse's Notes [facility] Name: Shanique Avelar Age: 24 yrs Sex: Female : 1995 Arrival Date: 09/08/2020 Time: 17:25 Bed 5 Private MD: Diagnosis: Irregular menstruation, unspecified Presentation: 09/08 17:49 Chief complaint: Patient states: Abdominal and pelvic pain for 3 days. No fever. ll1 Coronavirus screen: Client denies travel out of the [place] in the last 14 days. At this time, the client does not indicate any symptoms associated with coronavirus-19. Ebola Screen: Patient denies travel to an Ebola-affected area in the 21 days before illness onset. Initial Sepsis Screen: Does the patient meet any 2 criteria? No. Patient's initial sepsis screen is negative. Does the patient have a suspected source of infection? Yes: Acute abdominal pain. Risk Assessment: Do you want to hurt yourself or someone else? Patient reports no desire to harm self or others. Onset of symptoms was September 06, 2020. 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 - Social history:: Smoking status: Patient denies any tobacco usage or history of. Screenin:07 Abuse screen: Denies threats or abuse. Denies injuries from another. Nutritional ad5 screening: No deficits noted. Tuberculosis screening: No symptoms or risk factors identified. Fall Risk None identified. Assessment: 20:06 General: Appears in no apparent distress. Behavior is calm, cooperative, appropriate ad5 for age. Neuro: Level of Consciousness is awake, alert, obeys commands, Oriented to person, place, time, situation, Appropriate for age. Cardiovascular: No deficits noted. Capillary refill < 3 seconds Patient's skin is warm and dry. Respiratory: No deficits noted. Airway is patent Respiratory effort is even, unlabored, Respiratory pattern is regular, symmetrical. GI: Bowel sounds present X 4 quads. Abd is soft and non tender Reports lower abdominal pain. : No deficits noted. No signs and/or symptoms were reported regarding the genitourinary system. Derm: Skin is pink, warm \T\ dry. 20:50 Reassessment: lab at bedside for lab draw. ea 22:25 Reassessment: Patient and/or family updated on plan of care and expected duration. Pain ea level reassessed. Patient is alert, oriented x 3, equal unlabored respirations, skin warm/dry/pink. Pt refused CT. Reported she was ready to go home. 22:33 Reassessment: Patient and/or family updated on plan of care and expected duration. Pain ea level reassessed. Patient is alert, oriented x 3, equal unlabored respirations, skin warm/dry/pink. Discharge instruction given to patient verbalized the understanding of instruction. Pt left ED ambulatory tolerating well. Vital Signs: 17:49 Pulse 86; Resp 18; Temp 97.9; Pulse Ox 100% ; Height 5 ft. 7 in. (170.18 cm); Pain ll1 10/10; 17:51 BP 122 / 89; ll1 17:51 BP 122 / 89; Weight 122.92 kg; ll1 20:42 BP 128 / 96; Pulse 78; Resp 18; Pulse Ox 99% ; ea 22:15 BP 121 / 78; Pulse 70; Resp 18; Temp 98; Pulse Ox 98% ; ea 17:51 Body Mass Index 42.44 (122.92 kg, 170.18 cm) ll1 ED Course: 17:25 Patient arrived in ED. as 17:50 Triage completed. ll1 17:51 Arm band placed on. ll1 19:18 [facility]C [facility]. kb 19:18 Sandro Song MD is Attending Physician. kb 19:31 Mariah Gibbs RN is Primary Nurse. ea 20:07 Patient has correct armband on for positive identification. Bed in low position. Call ad5 light in reach. Side rails up X 1. 20:44 Missed attempt(s): 20 gauge in right antecubital area. Bleeding controlled, band aid ea applied, catheter tip intact. 21:55 US Transvaginal Study (Probe) Sent. ea 22:07 US Transvaginal Study (Probe) In Process Unspecified. EDMS 22:34 No provider procedures requiring assistance completed. Patient did not have IV access ea during this emergency room visit. Administered Medications: 22:18 CANCELLED (Physician Discretion): TORadol - (ketorolac) 15 mg IVP once kb 22:29 Drug: [place] (HYDROcodone-acetaminophen) 10 mg-325 mg 1 tabs Route: PO; ea Outcome: 22:21 Discharge ordered by . felton 22:34 Discharged to home ambulatory, with family. ea 22:34 Condition: stable 22:34 Discharge instructions given to patient, Instructed on discharge instructions, follow up and referral plans. Demonstrated understanding of instructions, follow-up care. 22:35 Patient left the ED. ea Signatures: Dispatcher [employer] EDMS Wendie Carpio, JADON JAIMES-Ana Rosa Diaz Elena, RN RN Milton Cervantes RN RN ll1 Kevin Christian ad5
--- NOTE | 2020-09-08 22:22 | EDPHYS ---
Physician Documentation [facility] Name: Shanique Avelar Age: 24 yrs Sex: Female : 1995 Arrival Date: 09/08/2020 Time: 17:25 Bed 5 Private MD: ED Physician Sandro Song HPI: 09/09 00:36 This 24 yrs old Black Female presents to ER via Ambulatory with complaints of Abdominal kb Pain, Back Pain. 00:36 The patient has not recently seen a physician. kb 00:36 The patient presents with abdominal pain right lower quadrant. Onset: The kb symptoms/episode began/occurred 3 day(s) ago. The symptoms do not radiate. Associated signs and symptoms: Pertinent positives: nausea, vaginal bleeding, Pertinent negatives: fever. The symptoms are described as constant. Modifying factors: The symptoms are alleviated by nothing, the symptoms are aggravated by nothing. Severity of pain: At its worst the pain was moderate in the emergency department the pain is unchanged. The patient has not experienced similar symptoms in the past. Pt reports RLQ/pelvic pain that started 3 days ago with vaginal bleeding. States she had the nexplanon removed about 2.5 months ago, had a normal period the month after then missed her period last month. . 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 - Social history:: Smoking status: Patient denies any tobacco usage or history of. ROS: 09/09 00:34 Constitutional: Negative for fever, chills, and weight loss. kb Abdomen/GI: Positive for abdominal pain, nausea, Negative for vomiting, diarrhea. : Positive for vaginal bleeding. All other systems are negative. Exam: 00:34 Constitutional: This is a well developed, well nourished patient who is awake, alert, kb and in no acute distress. Head/Face: Normocephalic, atraumatic. ENT: Moist Mucous membranes Cardiovascular: Regular rate and rhythm with a normal S1 and S2. No gallops, murmurs, or rubs. No pulse deficits. Respiratory: Respirations even and unlabored. No increased work of breathing, no retractions or nasal flaring. Skin: Warm, dry with normal turgor. Normal color. MS/ Extremity: Pulses equal, no cyanosis. Neurovascular intact. Full, normal range of motion. Neuro: Awake and alert, GCS 15, oriented to person, place, time, and situation. Moves all extremities. Normal gait. Psych: Awake, alert, with orientation to person, place and time. Behavior, mood, and affect are within normal limits. 00:34 Abdomen/GI: Inspection: abdomen appears normal, Bowel sounds: normal, in all quadrants, Palpation: soft, in all quadrants, mild abdominal tenderness, in the right lower quadrant. Vital Signs: 09/08 17:49 Pulse 86; Resp 18; Temp 97.9; Pulse Ox 100% ; Height 5 ft. 7 in. (170.18 cm); Pain ll1 10/10; 17:51 BP 122 / 89; ll1 17:51 BP 122 / 89; Weight 122.92 kg; ll1 20:42 BP 128 / 96; Pulse 78; Resp 18; Pulse Ox 99% ; ea 22:15 BP 121 / 78; Pulse 70; Resp 18; Temp 98; Pulse Ox 98% ; ea 17:51 Body Mass Index 42.44 (122.92 kg, 170.18 cm) ll1 MDM: 19:28 Patient medically screened. kb 22:19 Data reviewed: vital signs, nurses notes. Data interpreted: Pulse oximetry: on room air kb is 99 %. Interpretation: normal. Counseling: I had a detailed discussion with the patient and/or guardian regarding: the historical points, exam findings, and any diagnostic results supporting the discharge/admit diagnosis, lab results, radiology results, the need for outpatient follow up, an OB/Gyne specialist, to return to the emergency department if symptoms worsen or persist or if there are any questions or concerns that arise at home. ED course: Pt does not want CT at this time and wants to go home now. States her brother is waiting for her and she just wants to leave. Preliminary US results from biomedical instrument technician shows flow to both ovaries and no abnormal findings. Pt does not want to wait for radiologist report. . 09/08 20:26 Order name: Basic Metabolic Panel kb 09/08 20:26 Order name: CBC with Diff kb 09/08 20:27 Order name: Basic Metabolic Panel; Complete Time: 21:28 EDMS 09/08 20:27 Order name: CBC with Automated Diff; Complete Time: 21:18 EDMS 09/08 20:37 Order name: Urine Dipstick-Ancillary; Complete Time: 20:39 EDMS 09/08 20:38 Order name: Urine --Ancillary (enter results); Complete Time: 21:18 mw2 09/08 19:18 Order name: Urine Dipstick-Ancillary (obtain specimen); Complete Time: 20:38 kb 09/08 19:18 Order name: Urine Test (obtain specimen); Complete Time: 20:38 kb 09/08 20:26 Order name: Labs collected and sent; Complete Time: 20:58 kb 09/08 20:40 Order name: US Transvaginal Study (Probe) kb Administered Medications: 22:18 CANCELLED (Physician Discretion): TORadol - (ketorolac) 15 mg IVP once kb 22:29 Drug: [place] (HYDROcodone-acetaminophen) 10 mg-325 mg 1 tabs Route: PO; ea Disposition: 09/09 02:02 Co-signature as Attending Physician, Sandro Song MD. pklev Disposition: 09/08/20 22:21 Discharged to Home. Impression: Irregular menstruation, unspecified. - Condition is Stable. - Discharge Instructions: Abnormal Uterine Bleeding, [id number]. - Work release form, Medication Reconciliation Form, Thank You Letter, Antibiotic Education, Prescription Opioid Use form. - Follow up: Emergency Department; When: As needed; Reason: Worsening of condition. Follow up: Private Physician; When: 2 - 3 days; Reason: Recheck today's complaints, Continuance of care, Re-evaluation by your physician. Signatures: Dispatcher [employer] [facility] Wendie Carpio, Sandro Gonzalez MD MD pkl Mariah Gibbs RN RN ea Lewis, Lynsay, RN RN ll1 Corrections: (The following items were deleted from the chart) 09/08 22:18 22:16 TORadol - (ketorolac) 15 mg IVP once ordered. kb kb 22:35 22:21 09/08/2020 22:21 Discharged to Home. Impression: Irregular menstruation, ea unspecified. Condition is Stable. Forms are Medication Reconciliation Form, Thank You Letter, Antibiotic Education, Prescription Opioid Use. Follow up: Emergency Department; When: As needed; Reason: Worsening of condition. Follow up: Private Physician; When: 2 - 3 days; Reason: Recheck today's complaints, Continuance of care, Re-evaluation by your physician. kb
[2020-09-08] MEDS ORDERED: HYDROCODONE/APAP 10/325 TAB ONE (22:48)
[2020-09-08 23:23] VITALS: TEMP 97.9
[2020-09-08 23:25] VITALS: BP 128/96; O2SAT 99
--- NOTE | 2020-09-09 07:15 | RAD REPORT ---
EXAM DESCRIPTION: US - Transvaginal Study Probe - 09/08/2020 10:07 pm CLINICAL HISTORY: Pelvic pain COMPARISON: none FINDINGS: The uterus measures 8 x 5 x 5cm. A fibroid is not seen. Endometrial stripe measures 3 mill imeters The ovaries are normal in size and echotexture. Right and left adnexa unremarkable No significant free fluid is seen. IMPRESSION: Unremarkable pelvic ultrasound
== END 2020-09-08 22:35 | disposition home or self-care (01) ==
LOC: ER 17:09
DX: N92.6 Irregular menstruation, unspecified (principal); I10 Essential (primary) hypertension; Z85.41 Personal history of malignant neoplasm of cervix uteri; J45.909 Unspecified asthma, uncomplicated; D64.9 Anemia, unspecified
CPT/HCPCS: 36415; 76830; 80048; 81003; 81025; 85025; 99283

== ENCOUNTER 2020-09-24 15:03 | Emergency (ER) | payer SELFPAY ==
--- OUTSIDE RECORDS SUMMARY | 2020-09-24 15:31 | XMS REPORT | Continuity of Care Document ---
:1995 Author Organization [facility] t Address [address] [place] [address] Care Team Providers Name Role Phone Monica [...] Facility Department ID 2020-05-28 2020-05-28 Emergency FranciscoEnedelia [facility] [id number] 15:59:00 20:37:00 Monica Laurent [id number] [place] [id number] [place] [id number] [id number] 2019-05-01 2019-05-01 Emergency Robert, TRAUMA [id number] 1991 11:18:37 12:17:00 [facility] [id number] Manny [id number] [id number] Results This patient has no known results.
[2020-09-24] MEDS ORDERED: HYDROCODONE/APAP 10/325 TAB ONE (16:46)
[2020-09-24 17:00] LABS: Absolute Lymphocytes (CBC) 2.3 K/uL (0.7-4.9); Basophils % 0.7 % (0-1.3); Hematocrit 32.7 % (36.0-45.0); Lymphocytes % 34.4 % (15.3-44.8); MPV 7.8 fL (7.6-11.3); RBC Red Blood Cell Count 3.91 M/uL (3.86-4.86)
[2020-09-24 17:08] LABS: BUN Blood Urea Nitrogen 8 mg/dL (7-18); Bicarbonate 31 mmol/L (21-32); Glucose Level 86 mg/dL (74-106); Potassium 3.4 mmol/L (3.5-5.1); Sodium Level 143 mmol/L (136-145)
--- NOTE | 2020-09-24 17:50 | RAD REPORT ---
EXAM DESCRIPTION: CT - Head Brain Wo Cont - 09/24/2020 5:40 pm CLINICAL HISTORY: Alteration of awareness/confusion COMPARISON: None TECHNIQUE: Computed axial tomography of the head was obtained. IV contrast was not requested. All CT scans are performed using dose optimization technique as appropriate and may include automated exposure control or mA/KV adjustment according to patient size. FINDINGS: An intracranial bleed is not seen . The ventricles are normal in caliber. No extra-axial fluid collection is noted. Fluid within the sinuses/ mastoids is not seen. IMPRESSION: No acute intracranial abnormality is seen. If patient's symptoms persist MRI of the bra in would be recommended.
--- NOTE | 2020-09-24 17:58 | RAD REPORT ---
EXAM DESCRIPTION: CT - Soft Tissue Neck W/Contr - 09/24/2020 5:40 pm CLINICAL HISTORY: Neck pain/right neck swelling COMPARISON: None. TECHNIQUE: Computed axial tomography of the neck was obtained. 50 cc Isovue 300 was administered in travenously. Coronal and sagittal reconstruction was performed. All CT scans are performed using dose optimization technique as appropriate and may include automated exposure control or mA/KV adjustment according to patient size. FINDINGS: The pharynx, tongue base, larynx and subglottic trachea appear unremarkable The parotid, submandibular and thyroid glands appear unremarkable. Several 1 centimeter lymph nodes are present within the neck bilaterally. Tongue ring in place IMPRESSION: Several 1 centimeter lymph nodes within the neck bilaterally are nonspecific but most li raul reactive in nature. Follow up ultrasound in 3 months recommended to assess stability/resolution
--- NOTE | 2020-09-24 18:03 | RAD REPORT ---
EXAM DESCRIPTION: CTFacial Bones W Con Mpr09/24/2020 5:40 pm CLINICAL HISTORY: facial pain and swelling COMPARISON: None. TECHNIQUE: Computed axial tomography of the face obtained with coronal and sagittal reconstruction. 50 cc Isovue-[address] scans are performed using dose optimization technique as appropriate and may include automated exposure control or mA/KV adjustment according to patient size. FINDINGS: Globes are intact. Periorbital fat is clear. The parotid and submandibular glands appear unremarkable. The parapharyngeal fat is clear. Fluid within the sinuses is not noted. Mild mucoperiosteal thickening right maxillary sinus Several 1 centimeter lymph nodes within the neck IMPRESSION: Several 1 centimeter lymph nodes within the neck are nonspecific but probably reactive i n nature. Follow up ultrasound 3 months recommended to assess stability/resolution nodes
--- NOTE | 2020-09-24 19:26 | ER ---
Nurse's Notes [facility] Name: Shanique Avelar Age: 24 yrs Sex: Female : 1995 Arrival Date: 09/24/2020 Time: 15:06 Bed 2 Private MD: Diagnosis: Acute maxillary sinusitis Presentation: 09/24 15:25 Chief complaint: Patient states: Feels like R side of face is numb, painful behind R ll1 eye. R sided tingling feeling also. No fever. No N/V/D. Coronavirus screen: Client denies travel out of the [place] in the last 14 days. At this time, the client does not indicate any symptoms associated with coronavirus-19. Ebola Screen: Patient denies travel to an Ebola-affected area in the 21 days before illness onset. Initial Sepsis Screen: Does the patient meet any 2 criteria? No. Patient's initial sepsis screen is negative. Does the patient have a suspected source of infection? No. Patient's initial sepsis screen is negative. Risk Assessment: Do you want to hurt yourself or someone else? Patient reports no desire to harm self or others. Onset of symptoms was September 23, 2020. 15:25 Method Of Arrival: Ambulatory ll1 15:25 Acuity: KYLEE 3 ll1 Historical: - Allergies: 15:28 No Known Allergies; ll1 - PMHx: 15:28 Anemia; Asthma; cervical cancer; Heart Murmur; Hypertension; ll1 - PSHx: 15:28 Tonsillectomy; ll1 - Immunization history:: Flu vaccine is not up to date. - Social history:: Smoking status: Patient denies any tobacco usage or history of. Screenin:32 Abuse screen: Denies threats or abuse. Nutritional screening: No deficits noted. jd3 Tuberculosis screening: No symptoms or risk factors identified. VAN Screening: Arm Drift: Patient shows no arm weakness. Patient is VAN negative. Fall Risk Ambulatory Aid- None/Bed Rest/Nurse Assist (0 pts). Gait- Normal/Bed Rest/Wheelchair (0 pts) Mental Status- Oriented to own ability (0 pts). Total Figueroa Fall Scale indicates No Risk (0-24 pts). Assessment: 15:48 General: Appears in no apparent distress. uncomfortable, Behavior is calm, cooperative, jd3 appropriate for age. Pain: Complains of pain in left side of face Quality of pain is described as sharp, numb. Neuro: Level of Consciousness is awake, alert, obeys commands, Oriented to person, place, time, situation, Reports numbness in left side of face since last night. Cardiovascular: Denies chest pain, Capillary refill < 3 seconds Patient's skin is warm and dry. Respiratory: Airway is patent Respiratory effort is even, unlabored, Respiratory pattern is regular, symmetrical, Denies cough, shortness of breath. GI: No signs and/or symptoms were reported involving the gastrointestinal system. : No signs and/or symptoms were reported regarding the genitourinary system. EENT: No signs and/or symptoms were reported regarding the EENT system. Derm: Skin is intact, Skin is dry, Skin is normal, Skin temperature is warm. Musculoskeletal: Circulation, motion, and sensation intact. Range of motion: intact in all extremities. 16:30 Reassessment: Patient appears in no apparent distress at this time. No changes from jd3 previously documented assessment. Patient and/or family updated on plan of care and expected duration. Pain level reassessed. Patient is alert, oriented x 3, equal unlabored respirations, skin warm/dry/pink. 17:30 Reassessment: Patient appears in no apparent distress at this time. No changes from jd3 previously documented assessment. Patient and/or family updated on plan of care and expected duration. Pain level reassessed. Patient is alert, oriented x 3, equal unlabored respirations, skin warm/dry/pink. 18:30 Reassessment: Patient appears in no apparent distress at this time. No changes from jd3 previously documented assessment. Patient and/or family updated on plan of care and expected duration. Pain level reassessed. Patient is alert, oriented x 3, equal unlabored respirations, skin warm/dry/pink. 19:30 Reassessment: Patient appears in no apparent distress at this time. Patient and/or ad5 family updated on plan of care and expected duration. Pain level reassessed. Pt reports continued dental pain. Denies new or worsening s/s. Request for work note, to be provided with discharge instructions. Vital Signs: 15:25 BP 132 / 89; Pulse 89; Resp 17; Temp 98.0; Pulse Ox 100% ; Weight 122.02 kg; Height 5 ll1 ft. 7 in. (170.18 cm); Pain 10/10; 19:35 Pulse 84; Resp 16 S; Pulse Ox 100% on R/A; ad5 15:25 Body Mass Index 42.13 (122.02 kg, 170.18 cm) ll1 ED Course: 15:06 Patient arrived in ED. wm 15:28 Triage completed. ll1 15:29 Arm band placed on Patient placed in an exam room, on a stretcher. ll1 15:31 Dawine Brown RN is Primary Nurse. jd3 15:32 Patient has correct armband on for positive identification. Bed in low position. Call jd3 light in reach. Side rails up X 1. Pulse ox on. NIBP on. 15:55 Ori Rodrigez MD is Attending Physician. kdr 16:57 Accessed peripheral vein via ultrasound, utilizing dynamic ultrasound technique using jd3 20G Nexia IV catheter ,sterile technique, per hospital protocol. Clean \T\ dry. Dressing intact. Good blood return. Flushes easily. 17:40 CT Soft Tissue Neck W/contr In Process Unspecified. EDMS 17:40 CT Facial Bones W/ Con \T\ Mpr In Process Unspecified. EDMS 17:40 CT Head Brain wo Cont In Process Unspecified. EDMS 19:11 Primary Nurse role handed off by Dwaine Brown RN eb 19:24 Kevin Christian is Primary Nurse. ad5 19:35 No provider procedures requiring assistance completed. IV discontinued, intact, ad5 bleeding controlled, No redness/swelling at site. Pressure dressing applied. Administered Medications: 16:57 Drug: [place] (HYDROcodone-acetaminophen) 10 mg-325 mg 1 tabs Route: PO; jd3 17:50 Follow up: Response: No adverse reaction jd3 19:30 Drug: Augmentin (Amoxicillin-Clavulanate) 875 mg Route: PO; ad5 19:35 Follow up: Response: No adverse reaction ad5 Outcome: 19:25 Discharge ordered by . kdr 19:36 Discharged to home ambulatory, with family. ad5 19:36 Condition: stable 19:36 Discharge instructions given to patient, Instructed on discharge instructions, follow up and referral plans. medication usage, Demonstrated understanding of instructions, follow-up care, medications, Prescriptions given X 2. 19:36 Patient left the ED. ad5 Signatures: Dispatcher [employer] EDMS Ori Rodrigez MD MD kdr Davies, Jonathon, RN RN jd3 Jyoti Falcon Lynsay, RN RN ll1 Kevin Christian ad5 Maxine Rivas Corrections: (The following items were deleted from the chart) 19:31 19:30 Reassessment: Patient appears in no apparent distress at this time. Patient ad5 and/or family updated on plan of care and expected duration. Pain level reassessed. Patient is alert, oriented x 3, equal unlabored respirations, skin warm/dry/pink. ad5
--- NOTE | 2020-09-24 19:26 | EDPHYS ---
Physician Documentation [facility] Name: Shanique Avelar Age: 24 yrs Sex: Female : 1995 Arrival Date: 09/24/2020 Time: 15:06 Bed 2 Private MD: ED Physician Ori Rodrigez HPI: 09/25 11:43 This 24 yrs old Black Female presents to ER via Ambulatory with complaints of Numbness kdr Of Face. 11:43 The patient's problem is reported as Pain to right face. kdr 11:45 Onset: The symptoms/episode began/occurred acutely, 2 day(s) ago. Duration: The episode kdr is continuous, the symptoms became persistent. Context: occurred at home, occurred while the patient was at rest. The symptoms are alleviated by nothing. The symptoms are aggravated by moving head, Touching the area. Associated signs and symptoms: The patient has no apparent associated signs or symptoms. Severity of symptoms: At their worst the symptoms were moderate severe just prior to arrival, in the emergency department the symptoms are unchanged. Patient's baseline: Neuro: alert and fully oriented, Motor: no deficits, Ambulation: walks without assistance, Speech: normal. The patient has not experienced similar symptoms in the past. Historical: - Allergies: 09/24 15:28 No Known Allergies; ll1 - PMHx: 15:28 Anemia; Asthma; cervical cancer; Heart Murmur; Hypertension; ll1 - PSHx: 15:28 Tonsillectomy; ll1 - Immunization history:: Flu vaccine is not up to date. - Social history:: Smoking status: Patient denies any tobacco usage or history of. ROS: 09/25 11:45 Constitutional: Negative for fever, chills, and weight loss, Eyes: Negative for injury, kdr pain, redness, and discharge, Neck: Negative for injury, pain, and swelling, Cardiovascular: Negative for chest pain, palpitations, and edema, Respiratory: Negative for shortness of breath, cough, wheezing, and pleuritic chest pain, Abdomen/GI: Negative for abdominal pain, nausea, vomiting, diarrhea, and constipation, Back: Negative for injury and pain, MS/Extremity: Negative for injury and deformity, Skin: Negative for injury, rash, and discoloration, Psych: Negative for depression, anxiety, suicide ideation, homicidal ideation, and hallucinations, Allergy/Immunology: Negative for hives, rash, and allergies, Endocrine: Negative for neck swelling, polydipsia, polyuria, polyphagia, and marked weight changes, Hematologic/Lymphatic: Negative for swollen nodes, abnormal bleeding, and unusual bruising. Neuro: Positive for pain to right face, head and neck - seems to be worse around/under her right eye. No change in vision and no orbit pain.. Exam: 11:45 Radiologist reports: Negative head, face and neck kdr 11:45 Constitutional: This is a well developed, well nourished patient who is awake, alert, and in no acute distress. Head/Face: Normocephalic, atraumatic. Eyes: Pupils equal round and reactive to light, extra-ocular motions intact. Lids and lashes normal. Conjunctiva and sclera are non-icteric and not injected. Cornea within normal limits. Periorbital areas with no swelling, redness, or edema. Neck: Trachea midline, no thyromegaly or masses palpated, and no cervical lymphadenopathy. Supple, full range of motion without nuchal rigidity, or vertebral point tenderness. No Meningismus. Chest/axilla: Normal chest wall appearance and motion. Nontender with no deformity. No lesions are appreciated. Cardiovascular: Regular rate and rhythm with a normal S1 and S2. No gallops, murmurs, or rubs. Normal PMI, no JVD. No pulse deficits. Respiratory: Lungs have equal breath sounds bilaterally, clear to auscultation and percussion. No rales, rhonchi or wheezes noted. No increased work of breathing, no retractions or nasal flaring. Abdomen/GI: Soft, non-tender, with normal bowel sounds. No distension or tympany. No guarding or rebound. No evidence of tenderness throughout. Back: No spinal tenderness. No costovertebral tenderness. Full range of motion. Skin: Warm, dry with normal turgor. Normal color with no rashes, no lesions, and no evidence of cellulitis. MS/ Extremity: Pulses equal, no cyanosis. Neurovascular intact. Full, normal range of motion. Neuro: Awake and alert, GCS 15, oriented to person, place, time, and situation. Cranial nerves II-XII grossly intact. Motor strength 5/5 in all extremities. Sensory grossly intact. Cerebellar exam normal. Normal gait. Psych: Awake, alert, with orientation to person, place and time. Behavior, mood, and affect are within normal limits. 11:45 Eyes: Periorbital structures: appear normal, Pupils: equal, round, and reactive to light and accomodation, Extraocular movements: intact throughout, Lids and lashes: appear normal. Vital Signs: 09/24 15:25 BP 132 / 89; Pulse 89; Resp 17; Temp 98.0; Pulse Ox 100% ; Weight 122.02 kg; Height 5 ll1 ft. 7 in. (170.18 cm); Pain 10/10; 19:35 Pulse 84; Resp 16 S; Pulse Ox 100% on R/A; ad5 15:25 Body Mass Index 42.13 (122.02 kg, 170.18 cm) ll1 MDM: 19:25 Patient medically screened. kdr 09/25 11:51 Data reviewed: vital signs, nurses notes, lab test result(s), radiologic studies. kdr Counseling: I had a detailed discussion with the patient and/or guardian regarding: the historical points, exam findings, and any diagnostic results supporting the discharge/admit diagnosis, lab results, radiology results, the need for outpatient follow up. Response to treatment: the patient's symptoms have mildly improved after treatment, While the patient's pain had improved there was still mild to moderate discomfort. Special discussion: I discussed with the patient/guardian in detail that at this point there is no indication for admission to the hospital. It is understood, however, that if the symptoms persist or worsen the patient needs to return immediately for re-evaluation. 11:53 ED course: Made follow-up call at this time but the number left was not kdr valid/non-working. 09/24 16:20 Order name: CBC with Diff kdr 09/24 16:20 Order name: Chem 7 kdr 09/24 16:20 Order name: CT Head Brain wo Cont; Complete Time: 18:30 kdr 09/24 16:20 Order name: CT Soft Tissue Neck W/contr; Complete Time: 18:30 kdr 09/24 16:21 Order name: CBC with Automated Diff; Complete Time: 18:30 EDMS 09/24 16:21 Order name: Basic Metabolic Panel; Complete Time: 17:17 EDMS 09/24 16:20 Order name: CT Facial Bones W/ Con \T\ Mpr; Complete Time: 18:30 kdr Administered Medications: 09/24 16:57 Drug: Aneta (HYDROcodone-acetaminophen) 10 mg-325 mg 1 tabs Route: PO; jd3 17:50 Follow up: Response: No adverse reaction jd3 19:30 Drug: Augmentin (Amoxicillin-Clavulanate) 875 mg Route: PO; ad5 19:35 Follow up: Response: No adverse reaction ad5 Disposition Summary: 09/24/20 19:25 Discharge Ordered Location: Home kdr Problem: new kdr Symptoms: have improved kdr Condition: Stable kdr Diagnosis - Acute maxillary sinusitis kdr Followup: kdr - With: Private Physician - When: 2 - 3 days - Reason: If symptoms return, Further diagnostic work-up, Recheck today's complaints, Continuance of care, Re-evaluation by your physician Discharge Instructions: - Discharge Summary Sheet kdr - Sinusitis, Adult, [id number] kdr - Sinus Headache, [id number] kdr Forms: - Medication Reconciliation Form kdr - Thank You Letter kdr - Antibiotic Education kdr - Prescription Opioid Use kdr - Work release form ad5 Prescriptions: - Augmentin 500-125 mg Oral Tablet - take 1 tablet by ORAL route every 8 hours for 10 days; 30 tablet; Refills: 0, kdr Product Selection Permitted - Tramadol 50 mg Oral Tablet - take 1 tablet by ORAL route every 8 hours as needed; 12 tablet; Refills: 0, kdr Product Selection Permitted Signatures: Dispatcher [employer] Ori Correia MD MD kdr Davies, Jonathon, RN RN jd3 Milton Giang RN RN ll1 Kevin Christian ad5
[2020-09-24 19:43] VITALS: BP 132/89; TEMP 98; O2SAT 100
[2020-09-24] MEDS ORDERED: AMOX/K CLAV 875 MG TAB ONE (19:48)
== END 2020-09-24 19:36 | disposition home or self-care (01) ==
LOC: ER 15:03
DX: J01.00 Acute maxillary sinusitis, unspecified (principal); I10 Essential (primary) hypertension
CPT/HCPCS: 36415; 70450; 70487; 70491; 76377; 80048; 85025; 99284; Q9967

== ENCOUNTER 2021-02-02 13:39 | Emergency (ER) | payer SELFPAY ==
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
[2021-02-02 16:06] LABS: SARS-COV-2 RT PCR NEGATIVE (NEGATIVE)
--- NOTE | 2021-02-02 16:18 | EDPHYS ---
Physician Documentation [facility] Name: Shanique Avelar Age: 25 yrs Sex: Female : 1995 Arrival Date: 02/02/2021 Time: 13:41 Bed 10 Private MD: ED Physician Geremias Shepherd HPI: 02/02 13:56 This 25 yrs old Black Female presents to ER via Ambulatory with complaints of Cough. [facility] 13:56 The patient or guardian reports cough. Onset: The symptoms/episode began/occurred jmm gradually, 3 day(s) ago. Modifying factors: The symptoms are alleviated by nothing, the symptoms are aggravated by nothing. Associated signs and symptoms: Pertinent positives: sore throat. This is a 25-year-old female with history of hypertension, asthma the presents emerged part with complaints of cough, sore throat, congestion beginning 3 days. . RN CLINICAL: 13:57 LMP N/A - tw2 Historical: - Allergies: 13:56 No Known Allergies; tw2 - Home Meds: 13:56 None [Active]; tw2 - PMHx: 13:56 Hypertension; Heart Murmur; cervical cancer; Asthma; Anemia; tw2 - PSHx: 13:56 Tonsillectomy; tw2 - Social history:: Smoking status: . ROS: 13:56 Abdomen/GI: Negative for abdominal pain, nausea, vomiting, diarrhea, and constipation, jmm Back: Negative for injury and pain, Neuro: Negative for headache, weakness, numbness, tingling, and seizure. 13:56 Constitutional: Positive for body aches, chills. 13:56 ENT: Positive for sore throat. 13:56 Respiratory: Positive for cough. 13:56 All other systems are negative. Exam: 13:56 Constitutional: This is a well developed, well nourished patient who is awake, alert, jmm and in no acute distress. Head/Face: atraumatic. Eyes: EOMI, no conjunctival erythema appreciated ENT: Moist Mucus Membranes Neck: Trachea midline, Supple Chest/axilla: Normal chest wall appearance and motion. Cardiovascular: Regular rate and rhythm. No edema appreciated Respiratory: Normal respirations, no respiratory distress appreciated Abdomen/GI: Non distended, soft Back: Normal ROM Skin: General appearance color normal MS/ Extremity: Moves all extremities, no obvious deformities appreciated, no edema noted to the lower extremities Neuro: Awake and alert, normal gait Psych: Behavior is normal, Mood is normal, Patient is cooperative and pleasant Vital Signs: 13:50 BP 129 / 103; Pulse 97; Resp 17; Temp 97.5(TE); Pulse Ox 100% on R/A; tw2 16:26 BP 106 / 88; Pulse 94; Resp 18; Pulse Ox 99% on R/A; tw2 MDM: 16:12 Patient medically screened. [facility] 16:16 Data reviewed: vital signs, nurses notes. Counseling: I had a detailed discussion with gerry the patient and/or guardian regarding: the historical points, exam findings, and any diagnostic results supporting the discharge/admit diagnosis, lab results, the need for outpatient follow up, to return to the emergency department if symptoms worsen or persist or if there are any questions or concerns that arise at home. 02/02 13:55 Order name: Flu [facility] 02/02 13:55 Order name: Strep [facility] 02/02 13:55 Order name: SARS-COV-2 RT PCR (Document "Date of Onset" if Symptomatic) [facility] 02/02 13:56 Order name: Group A Streptococcus Rapid Sc; Complete Time: 15:50 EDAZ 02/02 14:31 Order name: Throat Culture [facility] 02/02 15:22 Order name: COVID-19/FLU A+B; Complete Time: 16:12 EDMS Administered Medications: No medications were administered Disposition: 17:14 Co-signature as Attending Physician, Geremias Shepherd MD I agree with the assessment and rn plan of care. Attestation: The patient's history, exam findings, diagnostics, and a summary of any interventions or procedures was reviewed in detail with Ash HULL. Disposition Summary: 02/02/21 16:17 Discharge Ordered Location: Home [facility] Condition: Stable [facility] Diagnosis - Acute pharyngitis, unspecified jmm - Acute upper respiratory infection, unspecified [facility] Followup: [facility] - With: Private Physician - When: 2 - 3 days - Reason: Recheck today's complaints, Continuance of care, Re-evaluation by your physician Discharge Instructions: - Pharyngitis jmm - Upper Respiratory Infection, Adult [facility] - Discharge Summary Sheet tw2 Forms: - Medication Reconciliation Form [facility] - Work release form tw2 - Thank You Letter jmm - Antibiotic Education jmm - Prescription Opioid Use [facility] Prescriptions: - Zithromax Z-Malcolm 250 mg Oral Tablet - take 1 tablet by ORAL route as directed for 5 days Day 1 - take two (2) tablets jmm one time. 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 EDMS EDMS 15:23 13:56 Influenza Screen (A ordered. EDAZ EDMS
--- NOTE | 2021-02-02 16:18 | ER ---
Nurse's Notes [facility] Name: Shanique Avelar Age: 25 yrs Sex: Female : 1995 Arrival Date: 02/02/2021 Time: 13:41 Bed 10 Private MD: Diagnosis: Acute pharyngitis, unspecified;Acute upper respiratory infection, unspecified Presentation: 02/02 13:50 Chief complaint: Patient states: i have been coughing and my nose was running. and my tw2 boss wanted me to get tested. it started like 3 or 4 days ago. my throat hurts now. Coronavirus screen: congestion, cough unrelated to allergies, sore throat, Client presents with at least one sign or symptom that may indicate coronavirus-19. Standard/surgical mask placed on the client. Provider contacted for isolation considerations. Ebola Screen: Patient denies travel to an Ebola-affected area in the 21 days before illness onset. Initial Sepsis Screen: Does the patient meet any 2 criteria? No. Patient's initial sepsis screen is negative. Does the patient have a suspected source of infection? No. Patient's initial sepsis screen is negative. Risk Assessment: Do you want to hurt yourself or someone else? Patient reports no desire to harm self or others. Note provider DELLA Hopkins in triage room performing assessment. Onset of symptoms was February 02, 2021. 13:50 Method Of Arrival: Ambulatory tw2 13:50 Acuity: KYLEE 4 tw2 Triage Assessment: 13:50 General: Appears in no apparent distress. obese, well groomed, Behavior is calm, tw2 cooperative, appropriate for age. Pain: Complains of pain in uvula, left aspect of posterior pharynx and right aspect of posterior pharynx. Respiratory: Reports cough that is non-productive, persistent. 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 Screenin:57 Abuse screen: Denies threats or abuse. Nutritional screening: No deficits noted. tw2 Tuberculosis screening: No symptoms or risk factors identified. Fall Risk None identified. Assessment: 13:56 Reassessment: pt swabbed in triage. Pain: Complains of pain in uvula, left aspect of tw2 posterior pharynx and right aspect of posterior pharynx. 13:57 Reassessment: pt to wait in main lobby for results. tw2 16:26 Reassessment: Patient appears in no apparent distress at this time. No changes from tw2 previously documented assessment. Patient and/or family updated on plan of care and expected duration. Pain level reassessed. Patient is alert, oriented x 3, equal unlabored respirations, skin warm/dry/pink. Vital Signs: 13:50 BP 129 / 103; Pulse 97; Resp 17; Temp 97.5(TE); Pulse Ox 100% on R/A; tw2 16:26 BP 106 / 88; Pulse 94; Resp 18; Pulse Ox 99% on R/A; tw2 ED Course: 13:41 Patient arrived in ED. as 13:48 Ash Marcum [facility] 13:48 Geremias Shepherd MD is Attending Physician. [facility] 13:56 Triage completed. tw2 13:56 Arm band placed on. tw2 13:57 pt returned to main lobby with a mask to wait for results. tw2 14:21 SARS-COV-2 RT PCR (Document "Date of Onset" if Symptomatic) Sent. 5 14:21 Strep Sent. 5 14:21 Flu Sent. [facility] 16:26 Kirstie Black RN is Primary Nurse. tw2 16:26 No provider procedures requiring assistance completed. Patient did not have IV access tw2 during this emergency room visit. Administered Medications: No medications were administered Outcome: 16:17 Discharge ordered by . [facility] 16:26 Discharged to home ambulatory. tw2 16:26 Condition: stable 16:26 Discharge instructions given to patient, Instructed on discharge instructions, follow up and referral plans. medication usage, Demonstrated understanding of instructions, follow-up care, medications, Prescriptions given X 2. 16:27 Patient left the ED. tw2 Signatures: Ash Marcum PA PA Ana Rosa Ball Tara, RN RN tw2 Carolyn Salas [place]
[2021-02-02 16:54] VITALS: TEMP 97.5
[2021-02-02 16:56] VITALS: BP 106/88; O2SAT 99
== END 2021-02-02 16:27 | disposition home or self-care (01) ==
LOC: ER 13:39
DX: J06.9 Acute upper respiratory infection, unspecified (principal); I10 Essential (primary) hypertension; Z20.822 Contact with and (suspected) exposure to COVID-19
CPT/HCPCS: 0240U; 87070; 87081; 99283

== ENCOUNTER 2021-03-19 11:57 | Emergency (ER) | payer SELFPAY ==
--- OUTSIDE RECORDS SUMMARY | 2021-03-19 12:01 | XMS REPORT | Continuity of Care Document ---
:1995 Author Organization [facility] t Address 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 CC: chest pain, vomiting, and dehydrati on. Dx: Hyperemes is Gravidaru m ECG- sinus rhythm with frequent PVC complexes . Otherwise normal ECG. Rx given Zofran 4mg. H/H- 12.1/37.2 . Beta hcg- 024921. B positive. Potassium - 3.3 (low)Ches t X-ray: Impressio n: no acute or new cardiopul monary abnormali ties. 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 Excess Excess Disease Active Univers weight weight 6-11 ity of gain in gain in 00:00: [place] 00 [facility] Placenta Placenta Disease Active Overview: Un ivelisse previa previa -18 16 weeks ity of 00:00: [place]-07/27/19 [place] 00 14 usg: [facility] Previa Branch resolved Maternal Maternal Disease Active Unive rs varicella, varicella, 06-25 it y of non-immune [place]immune [place] [facility] Rubella Rubella Disease Active Univers immune immune 06-25 ity of 00:00: [place] [address] [facility] Maternal Maternal Disease Active Overview: Un ivelisse syphilis, syphilis, 06-25 RPR= it y of antepartum antepartum 00:[place]16. [place] [facility] Branch Constipati Constipati Disease Active U nivers on on 06-22 ity of 00:00: [place] 00 [facility] Branch Uterine Uterine Disease Active Overview: Univ [...] Univers obesity obesity 4-04 ity of 00:00: [place] 00 [facility] Branch Allergies, Adverse Reactions, Alerts Allergy Allergy Status Severity Reaction(s) Onset Inactive Treating Comm ents Source Name Type Date Date Clinician NO KNOWN Drug Active Univers ALLERGIE Class ity of S [facility] Social History Social Habit Start Date Stop Date Quantity Comments Source Exposure to Yes [facility] SARS-CoV-2 [facility] (event) Branch Alcohol intake 2018-12-29 2018-12-29 Current University of 00:00:00 00:00:00 non-drinker of [facility] alcohol [place] (finding) Tobacco use and 2018-12-29 2018-12-29 Never used Universit y of exposure 00:00:00 00:00:00 [facility] Sex Ass[birth year] Universit y of 00:00:00 00:00:00 [facility] Smoking Status Start Date Stop Date Source Never smoker [facility] Medications Ordered Filled Start Stop Current Ordering Indication Dosage Frequency Signature Comments Components Source Medication Medication Date Date Medication? Clinician (SIG) Name Name ondansetron 2020- No 4mg 4 mg, Slow Univers (ZOFRAN 05-29 IV Push, ity of (PF)) 03:15: 02:08 ONCE, 1 [place] injection 4 00 :00 dose, Wed Med ical mg 05/28/20 at Branch 2115, JADA morpHINE 2020- No 4mg 4 mg, Slow Un ivelisse injection 4 05-29 IV Push, ity of mg 03:15: 02:08 ONCE, 1 [place] 00 :00 dose, Wed Medical 05/28/20 at Branch 2115, STAT iohexol 2020- No [id number] 100mL 100 mL, U nivers (OMNIPAQUE 05-29 [...] Restricted medication : Enedelia NAIK ibuprofen Yes [id number] 600mg Take 1 Univers 600 mg 3-10 tablet by ity of tablet 00:00: mouth [place] 00 every 6 Medical (six) Branch hours as needed for Pain (scale 4-6). traMADol 2018-03 Yes [id number] 50mg Take 1 Uni vers (ULTRAM) 50 0-11 tablet by ity of mg tablet 00:00: mouth [place] 00 every 8 Medical (eight) Branch hours as needed for Pain (scale 4-6). cyclobenzap 2018-03 Yes [id number] 5mg Take 1 Univers rine 5 mg 0-11 tablet by ity o f tablet 00:00: mouth 3 [place] 00 (three) Medical times Branch daily. traMADol 2018-03 Yes [id number] 50mg Take 1 Uni vers (ULTRAM) 50 0-11 tablet by ity of mg tablet 00:00: mouth [place] 00 every 8 Medical (eight) Branch hours as needed for Pain (scale 4-6). cyclobenzap 2018-03 Yes [id number] 5mg Take 1 Univers rine 5 mg 0-11 tablet by ity o f tablet 00:00: mouth 3 [place] 00 (three) Medical times Branch daily. ONDANSETRON Yes Take by Un ivelisse HCL (ZOFRAN 5-02 mouth. ity of ORAL) 18:36: [address] ONDANSETRON Yes Take by Un ivelisse HCL (ZOFRAN 5-02 mouth. ity of ORAL) 18:36: [address] Immunizations Ordered Filled Immunization Date Status Comments [facility] e Immunization Name Name Td 2013-09-26 Completed [facility] 00:00:00 [facility] TD 2013-09-26 Completed [facility] 00:00:00 [facility] Tdap 2009-10-22 Completed University 00:00:00 [place] [facility] TDAP 2009-10-22 Completed University 00:00:00 [facility] Vital Signs Vital Name Observation Time Observation Value Comments Source Systolic blood 2020-05-29 01:00:00 139 mm[Hg] Univer sity of pressure [place] [facility] Diastolic blood 2020-05-29 01:00:00 89 mm[Hg] Unive rsity of pressure [place] [facility] Heart rate 2020-05-29 01:00:00 94 /min Universi ty of [place] [facility] Body temperature 2020-05-29 01:00:00 37 Mayra Univ ersity of [place] [facility] Respiratory rate 2020-05-29 01:00:00 11 /min Univ ersity of [place] [facility] Oxygen saturation in 2020-05-29 01:00:00 98 /min University of Arterial blood by [facility] Pulse oximetry Branch Body weight 2020-05-28 22:05:00 104.327 kg Universi ty of [place] [facility] BMI 2020-05-28 22:05:00 36.02 kg/m2 Universi ty of [place] [facility] Systolic blood 2020-05-29 01:00:00 139 mm[Hg] Univer sity of pressure [place] [facility] Diastolic blood 2020-05-29 01:00:00 89 mm[Hg] Unive rsity of pressure [place] [facility] Heart rate 2020-05-29 01:00:00 94 /min Universi ty of [place] [facility] Body temperature 2020-05-29 01:00:00 37 Mayra Univ ersity of [place] [facility] Respiratory rate 2020-05-29 01:00:00 11 /min Univ ersity of [place] [facility] Oxygen saturation in 2020-05-29 01:00:00 98 /min University of Arterial blood by [facility] klarissa Pulse oximetry Branch Body weight 2020-05-28 22:05:00 104.327 kg Universi ty of [place] [facility] BMI 2020-05-28 22:05:00 36.02 kg/m2 Universi ty of [place] [facility] Systolic blood 2019-05-01 17:18:00 122 mm[Hg] Univer sity of pressure [place] [facility] Diastolic blood 2019-05-01 17:18:00 86 mm[Hg] Unive rsity of pressure [place] [facility] Heart rate 2019-05-01 17:18:00 87 /min Universi ty of [place] [facility] [place] Body temperature 2019-05-01 17:18:00 36.39 Mayra Univ ersity of [place] [facility] [place] Respiratory rate 2019-05-01 17:18:00 18 /min Univ ersity of [place] [facility] [place] Body weight 2019-05-01 17:18:00 107.1 kg Universi ty of [place] [facility] [place] BMI 2019-05-01 17:18:00 36.98 kg/m2 Universi ty of [facility] Oxygen saturation in 2019-05-01 17:18:00 99 /min University of Arterial blood by [facility] Pulse oximetry Branch Systolic blood 2019-05-01 17:18:00 122 mm[Hg] Univer sity of [facility] Diastolic blood 2019-05-01 17:18:00 86 mm[Hg] [facility] Heart rate 2019-05-01 17:18:00 87 /min Universi ty of [facility] Body temperature 2019-05-01 17:18:00 36.39 Mayra [facility] ersity [facility] [place] [facility] Respiratory rate 2019-05-01 17:18:00 18 /min [facility] ersity [facility] [place] [facility] Body weight 2019-05-01 17:18:00 107.1 kg Universi ty of [facility] BMI 2019-05-01 17:18:00 36.98 kg/m2 Universi ty of [place] [facility] [place] Oxygen saturation in 2019-05-01 17:18:00 99 /min University of Arterial blood by [facility] Pulse oximetry Branch Procedures Procedure Date / Time Performed Performing Clinician [facility] e CT CHEST PULMONARY 2020-05-29 02:01:37 Enedelia Naik [facility] ANGIOGRAM Medical Branch LIPASE 2020-05-28 23:29:00 Enedelia Naik [facility] MAGNESIUM 2020-05-28 23:29:00 Enedelia Naik [facility] TROPONIN I 2020-05-28 23:29:00 Enedelia Naik [facility] COMP. METABOLIC PANEL 2020-05-28 23:29:00 Enedelia Naik [facility] ([id number]) [facility] CBC WITH DIFF 2020-05-28 23:29:00 Enedelia Naik [facility] D-DIMER 2020-05-28 23:29:00 Enedelia Naik Monica [facility] N-TERMINAL PRO-BNP 2020-05-28 23:29:[address] [facility] y [facility] [place] [facility] COVID-19 (ID NOW RAPID 2020-05-28 23:07:00 Enedelia Naik [facility] TESTING) Medical Branch POCT GLUCOSE(AGE 2020-05-28 22:43:00 Enedelia Naik Monica [facility] >30DAYS) Medical Branch POCT GLUCOSE 2020-05-28 22:39:00 Enedelia Naik Monica [facility] (AUTOMATED) Medical Branch URINALYSIS 2020-05-28 22:26:00 Enedelia Naik Monica [facility] POCT TEST 2020-05-28 22:26:[address] [facility] ADC / LCC - DRUG 2020-05-28 22:26:00 Enedelia Naik Monica [facility] SCREEN TRIAGE [facility] NOTICE OF PRIVACY 2020-05-28 21:56:54 Doctor Unassigned, No Univ [facility] PRACTICES Name [facility] CONSENT/REFUSAL FOR 2020-05-28 21:56:35 [facility], [facility] Name [facility] TREATMENT Encounters Start End Encounter Admission Attending Care Care Encounter Source Date/Time Date/Time Type Type Clinicians Facility Department ID 2020-05-28 2020-05-28 Emergency Francisco Enedelia [facility] [id number] 15:59:00 20:37:00 Monica Laurent [id number] [place] [id number] [place] [id number] 2020-05-28 2020-05-28 Emergency Francisco Enedelia [facility] [id number] [facility] 15:59:00 20:37:00 Monica Laurent [id number] i ty of [place] 4.2.7.2.686 [facility] [id number] [place] [address] Branch 2020-05-28 2020-05-28 Emergency X [facility] ERT [id number] Univers 15:59:00 15:59:00 ity of [facility] 2019-05-01 2019-05-01 Emergency Christine, TRAU[place] [id number] 1991 11:18:37 12:17:00 [facility] [id number] [place] 4.2.7.2.686 [id number] 2019-05-01 2019-05-01 Emergency X CHRISTINE [facility] ERT [id number] Univers 11:18:37 12:17:00 [facility] millicent o f [facility] 2019-05-01 2019-05-01 Emergency Christine, TRAUMA [id number] 1992 Univers 11:18:37 12:17:00 [facility] [id number] i ty of [place] 4.2.7.2.686 Mica stallworth [id number] [address] Results Test Description Test Time Test Comments Results Result Comments Source TROPONIN I 2020-05-28 23:58:52 Test Item Value Reference Range Interpretation Comme nts TROPONIN I (test code = <0.012 See_Comment [Au tomated message] The 0881415397) system which ge nerated this result tra [...] ? Lab Interpretation (test Normal code = 52601-3) [facility] [id number] 23:56:28 Test Item Value Reference Range Interpretation Comments NT-proBNP (test code <11 See_Comment [Autom ated = 5322940616) message] The system which generated this result transmitted reference range : <=125 pg/mL. Th e reference range was not used to interpret this result as normal/abnormal . BRENDA (test code = BRENDA) Biotin has been reported to cause a negative bias, interpret results relative to patient's use of biotin. Lab Interpretation Normal (test code = 84919-5) [facility] ([id number])2020-05-28 23:47:53 Test Item Value Reference Range Interpretation Comments NA (test code = 138 mmol/L 135-145 2080434897) K (test code = 4.0 mmol/L 3.5-5.0 6222750843) CL (test code = 103 mmol/L 98-108 2406557571) CO2 TOTAL (test code = 26 mmol/L 23-31 5771108979) AGAP (test code = 2-16 7380955243) BUN (test code = 11 mg/dL 7-23 5013651907) GLUCOSE (test code = 106 mg/dL 70-110 7142558563) CREATININE (test code 0.90 mg/dL 0.50-1.04 = 1663175190) TOTAL BILI (test code 0.5 mg/dL 0.1-1.1 = 0623128482) CALCIUM (test code = 9.5 mg/dL 8.6-10.6 3884526458) T PROTEIN (test code = 7.9 g/dL 6.3-8.2 3725232853) ALBUMIN (test code = 4.6 g/dL 3.5-5.0 1307543023) ALK PHOS (test code = 92 U/L 34-122 8788545344) ALTv (test code = 11 U/L 5-35 1742-6) AST(SGOT) (test code = 16 U/L 13-40 4156270876) eGFR Calculation mL/min/1.73m2 (Non-) (test code = 7940257762) eGFR Calculation mL/min/1.73m2 () (test code = 9017471340) BRENDA (test code = BRENDA) Association of [...] or urine or abnormalities in imaging tests). [facility]2021-[facility]-10 23:47:53 Test Item Value Reference Range Interpretation Comments MAGNESIUM (test code = 9870077987) 1.9 mg/dL 1.7-2.4 Lab Interpretation (test code = Normal 68474-3) [facility]21-[facility]10 23:47:32 Test Item Value Reference Range Interpretation Comments LIPASE (test code = 2175804557) 74 U/L 0-220 Lab Interpretation (test code = Normal 98270-5) [id number] 23:44:49 Test Item Value Reference Interpretation Comments Range D-DIMER (test code = See_Comment H [Autom ated 0837173489) message] The system which generated this result [...] diagnosis. Lab Interpretation Abnormal (test code = 11550-5) [facility] WITH [id number] 23:37:15 Test Item Value Reference Range Interpretation Comments WBC (test code = See_Comment [Automated 3390-2) message] The sy stem which generated this result transmitted reference range : 4.30 - 11.10 10*3/?L. The reference range was not used to interpret this result as normal/abnormal . RBC (test code = See_Comment [Automated 029-8) message] The sy stem which generated this [...] (test code = 38.7 fL 39.0-49.9 L 92335-4) RDW-CV (test code = 11.9 % 12.0-15.5 L 788-0) PLT (test code = See_Comment [Automated 777-3) message] The sy stem which generated this result transmitted reference range : 166 - 358 10*3/ ?L. The reference r daryl was not used to interpret this result as normal/abnormal . MPV (test code = 9.2 fL 9.5-12.9 L 75744-9) NRBC/100 WBC (test See_Comment [Automat ed code = 5760318369) message] The system which generated this result transmitted reference range : 0.0 - 10.0 /100 WBCs. The refer ence range was not u sed to interpret th is result as normal/abnormal . NRBC x10^3 (test code <0.01 See_Comment [Auto mated = 6144056087) message] The s ystem which generated this result transmitted reference range : 10*3/?L. The reference range was not used to interpret this result as normal/abnormal . GRAN MAT (NEUT) % 74.8 % (test code = 770-8) IMM GRAN % (test code 0.40 % = 6120341316) LYMPH % (test code = 17.2 % 736-9) MONO % (test code = 6.4 % 5905-5) EOS % (test code = 0.9 % 713-8) BASO % (test code = 0.3 % 706-2) GRAN MAT x10^3(ANC) 7.12 10*3/uL 1.88-7.09 H (test code = 6711162747) IMM GRAN x10^3 (test 0.04 10*3/uL 0.00-0.06 code = 8079001508) LYMPH x10^3 (test code 1.64 10*3/uL 1.32-3.29 = 731-0) MONO x10^3 (test code 0.61 10*3/uL 0.33-0.92 = 742-7) EOS x10^3 (test code = 0.09 10*3/uL 0.03-0.39 711-2) BASO x10^3 (test code 0.03 10*3/uL 0.01-0.07 = 704-7) Lab Interpretation Abnormal (test code = 11058-3) [facility]OVID[facility] (ID NOW RAPID TESTING)2020-05-28 23:34:26 Test Item Value Reference Range Interpretation Comments SARS-CoV-2 Rapid ID NOW Not Detected Not Detected (test code = 96553-6) BRENDA (test code = BRENDA) ID NOW COVID-19 Assay is an isothermal nucleic acid amplification test intended for the qualitative detection of nucleic acid from SARS-CoV-2 viral RNA in nasopharyngeal (BASTING PULLER) specimens. It is used under Emergency Use [...] indicated. Lab Interpretation Normal (test code = 98559-0) [facility]IS2021-03-10 23:01:22 Test Item Value Reference Range Interpretation Comments APPEARANCE (test code = Cloudy Clear A 1886781601) COLOR (test code = Yellow Yellow 6559088405) PH (test code = 4.8-8.0 0648567620) SP GRAVITY (test code = 1.003-1.030 9280350989) GLU U QUAL (test code = Negative Negative 2067772867) BLOOD (test code = Large Negative A 5523806611) KETONES (test code = Trace Negative A 5099478569) PROTEIN (test code = 100 mg/dL Negative A 2887-8) UROBILIN (test code = 0.2 mg/dL See_Comment [Auto mated message] 4750982476) The system [employer] generated this result transmit ciara reference range : 0-1.0 mg/dL. Th e reference range was not used to interpret this result as normal/abnormal . BILIRUBIN (test code = Small Negative A 5221017564) NITRITE (test code = Negative Negative 7931914904) LEUK CARMENZA (test code = Negative Negative 2357975761) RBC/HPF (test code = >182 See_Comment H [Autom ated message] 8064130525) The system [employer] generated this result transmit ciara reference range : 0 - 3 HPF. The refe rence range was not u sed to interpret th is result as normal/abnormal . WBC/HPF (test code = See_Comment [Autom ated message] 8920679247) The system [employer] generated this result transmit ciara reference range : 0 - 5 HPF. The refe rence range was not u sed to interpret th is result as normal/abnormal . BACTERIA (test code = Few Negative A 7060436015) AMORPHOUS (test code = Moderate Rare HPF A 9948696368) Ictotest (test code = Negative 4987963759) Lab Interpretation (test Abnormal code = 54483-9) [facility] - DRUG SCREEN [id number] 22:58:05 Test Item Value Reference Range Interpretation Comments BENZO U (test code = Negative Negative 0722996530) STEVE U (test code = Negative Negative 3902860302) AMPHET (test code = Negative Negative 5251379583) THC (test code = Negative Negative 9927018559) METHADONE (test code = Negative Negative 8868873579) Meth U (test code = Negative Negative 8124722482) OPIATES (test code = Presumptive Positive Negative A 3392824481) Cocaine Metabolite (test Negative Negative code = 3644675025) PROPOXY (test code = Negative Negative 7609795052) Tric U (test code = Negative Negative 5193838158) PCP (test code = Negative Negative 9427581304) OXYCOD (test code = Negative Negative 8185448362) BRENDA (test code = BRENDA) Urine Drug [...] testing). Lab Interpretation (test Abnormal code = 03387-9) [facility] GLUCOSE (AUTOMATED)2020-05-28 22:43:55 Test Item Value Reference Range Interpretation Comments POCT GLU (test code = 8918788662) 96 mg/dL 70-110 Lab Interpretation (test code = Normal 80707-2) [facility] GLUCOSE(AGE >30DAYS)2020-05-28 22:43:00 Test Item Value Reference Range Interpretation Comments POCT Glu (age>30days) (test code = 96 mg/dL 70-110 3342) Lab Interpretation (test code = Normal 81295-8) [facility] [id number] 22:26:00 Test Item Value Reference Range Interpretation Comments POCT PREG (test code = 1605) negative On board controls acceptable with present C Line (test code = 3574) POCT PREG LOT # (test code = [id number]) POCT PREG TEST DATE (test 12-18-2021 code = 3576) Lab Interpretation (test code = Normal 69403-8) [facility]
--- NOTE | 2021-03-19 18:12 | ER ---
Nurse's Notes [facility] Name: Shanique Avelar Age: 25 yrs Sex: Female : 1995 Arrival Date: 03/19/2021 Time: 11:58 Bed Waiting Private MD: Diagnosis: Presentation: 03/19 12:16 Chief complaint: Patient states: generalize body aches x5 days N/V. Coronavirus screen: pope Vaccine status: Patient reports being unvaccinated. Ebola Screen: Patient denies travel to an Ebola-affected area in the 21 days before illness onset. Initial Sepsis Screen: Does the patient meet any 2 criteria? No. Patient's initial sepsis screen is negative. Does the patient have a suspected source of infection? No. Patient's initial sepsis screen is negative. Risk Assessment: Do you want to hurt yourself or someone else? Patient reports no desire to harm self or others. Onset of symptoms was March 14, 2021. 12:16 Method Of Arrival: EMS: [facility] pope 12:16 Acuity: KYLEE 3 pope Triage Assessment: 12:19 General: Appears uncomfortable, Behavior is cooperative. pope Historical: - Allergies: 12:19 No Known Allergies; pope - Home Meds: 12:19 lisinopril 1 mg/mL Oral soln 10 mL once daily [Active]; pope - Immunization history:: Adult Immunizations up to date. - Social history:: Smoking status: Patient denies any tobacco usage or history of. Vital Signs: 12:16 BP 125 / 87; Pulse 88; Resp 18; Temp 98.3(O); Pulse Ox 98% ; Weight 113.4 kg; Height 5 pope ft. 7 in. (170.18 cm); 12:16 Body Mass Index 39.16 (113.40 kg, 170.18 cm) pope ED Course: 11:58 Patient arrived in ED. am2 12:17 Gatito Courtney PA is PHCP. cp 12:17 Gatito Anguiano MD is Attending Physician. cp 12:19 Triage completed. pope 12:19 Arm band placed on right wrist. pope Administered Medications: No medications were administered Outcome: 18:11 Patient left the ED. pope Signatures: Gatito Courtney PA PA cp Moreno, Amanda am2 Au-Stager, Ting, RN RN pope Corrections: (The following items were deleted from the chart) 12: 12:19 PMHx: Anemia; pope pope 12: PMHx: Asthma; pope pope 12: PMHx: Hypertension; pope pope 12: PMHx: Heart Murmur; pope pope 12:19 PMHx: cervical cancer; pope pope 12:19 PSHx: Tonsillectomy; pope pope 14:31 12:16 BP 125 / 87; Pulse 88bpm; Resp 98bpm; Pulse Ox 98%; Temp 98.3F Oral; 113.4 kg; pope Height 5 ft. 7 in.; BMI: 39.1; pope
--- NOTE | 2021-03-19 18:12 | EDPHYS ---
Physician Documentation [facility] Name: Shanique Avelar Age: 25 yrs Sex: Female : 1995 Arrival Date: 03/19/2021 Time: 11:58 Bed Waiting Private MD: ED Physician Gatito Anguiano HPI: 03/19 12:25 This 25 yrs old Black Female presents to ER via EMS with complaints of bodyaches. cp 12:25 The patient presents to the emergency department with nausea, that is moderate, cp vomiting, that is intermittent, abdominal pain. Onset: The symptoms/episode began/occurred 5 day(s) ago. Associated signs and symptoms: Pertinent positives: body aches, Pertinent negatives: constipation, diarrhea, fever. 12:25 Severity of symptoms: in the emergency department the symptoms are unchanged despite cp home interventions. Historical: - Allergies: 12:19 No Known Allergies; pope - Home Meds: 12:19 lisinopril 1 mg/mL Oral soln 10 mL once daily [Active]; pope - Immunization history:: Adult Immunizations up to date. - Social history:: Smoking status: Patient denies any tobacco usage or history of. ROS: 12:30 Constitutional: Positive for body aches, Negative for fever, poor PO intake. cp 12:30 Eyes: Negative for injury, pain, redness, and discharge. cp 12:30 ENT: Negative for drainage from ear(s), ear pain, sore throat, difficulty swallowing, difficulty handling secretions. 12:30 Cardiovascular: Negative for chest pain, palpitations. 12:30 Respiratory: Negative for cough, shortness of breath, wheezing. 12:30 Abdomen/GI: Positive for abdominal pain, nausea and vomiting, Negative for diarrhea, hematemesis, black/tarry stool, rectal bleeding. 12:30 Back: Positive for pain at rest, pain with movement. 12:30 Neuro: Negative for altered mental status, headache, weakness. 12:30 All other systems are negative. Exam: 12:33 Constitutional: The patient appears in no acute distress, alert, awake, non-toxic, well cp developed, well nourished, uncomfortable. 12:33 Head/Face: Normocephalic, atraumatic. cp 12:33 Eyes: Periorbital structures: appear normal, Conjunctiva: normal, no exudate, no injection, Sclera: no appreciated abnormality. 12:33 ENT: External ear(s): are unremarkable, Nose: is normal, Mouth: Lips: moist, Oral mucosa: moist, Posterior pharynx: Airway: no evidence of obstruction, patent, swelling, is not appreciated, erythema, is not appreciated, exudate, is not appreciated. 12:33 Chest/axilla: Inspection: normal. 12:33 Cardiovascular: Rate: normal. 12:33 Respiratory: the patient does not display signs of respiratory distress, Respirations: normal, no use of accessory muscles, no retractions, labored breathing, is not present, Breath sounds: are clear throughout, no decreased breath sounds, no stridor, no wheezing. 12:33 Abdomen/GI: Inspection: abdomen appears normal, Palpation: abdomen is soft and non-tender, in all quadrants, rebound tenderness, is not appreciated, voluntary guarding, is not appreciated, involuntary guarding, is not appreciated. 12:33 Back: pain, that is moderate, diffuse. 12:33 Neuro: Orientation: to person, place \\T\\ time. Mentation: is normal, Motor: moves all fours, strength is normal, Sensation: is normal. Vital Signs: 12:16 BP 125 / 87; Pulse 88; Resp 18; Temp 98.3(O); Pulse Ox 98% ; Weight 113.4 kg; Height 5 pope ft. 7 in. (170.18 cm); 12:16 Body Mass Index 39.16 (113.40 kg, 170.18 cm) pope MDM: 12:25 Differential diagnosis: Nonspecific abd pain, gastritis, cholecystitis, pancreatitis, cp appendicitis, viral gastroenteritis, gastroenteritis. 12:30 Data reviewed: vital signs, nurses notes. 03/19 12:19 Order name: COVID-19 (Coronavirus) Document "Date of Onset" if Symptomatic cp 03/19 12:19 Order name: IV Saline Lock cp 03/19 12:19 Order name: Labs collected and sent 03/19 12:19 Order name: Urine Dipstick-Ancillary (obtain specimen) cp 03/19 12:19 Order name: Urine Test (obtain specimen) cp Administered Medications: No medications were administered Disposition Summary: 03/19/21 18:11 Eloped Disposition: post triage evaluation and consult pope Reason: wait time pope Addendum: 03/21/2021 09:05 Co-signature as Attending Physician, Gatito Anguiano MD I agree with the assessment and c poep plan of care. Signatures: Dispatcher [employer] Gatito Tabares MD MD cha Page, Corey, PA Ting Duncan cp, RN RN pope Corrections: (The following items were deleted from the chart) 03/19 12:20 12:19 PMHx: Anemia; pope pope 12: 12:19 PMHx: Asthma; pope pope : 12:19 PMHx: Hypertension; pope pope 12: 12:19 PMHx: Heart Murmur; pope pope 12: 12:19 PMHx: cervical cancer; pope pope 12: 12:19 PSHx: Tonsillectomy; pope pope
[2021-03-19 18:28] VITALS: BP 125/87; TEMP 98.3; O2SAT 98
== END 2021-03-19 18:11 | disposition left against medical advice (07) ==
LOC: ER 11:57
DX: Z53.21 Procedure and treatment not carried out due to patient leaving prior to being seen by health care provider (principal)
CPT/HCPCS: 99282

== ENCOUNTER 2021-03-21 10:57 | Emergency (ER) | payer SELFPAY ==
[2021-03-21 12:23] LABS: SARS-COV-2 RT PCR NEGATIVE (NEGATIVE)
[2021-03-21] MEDS ORDERED: AZITHROMYCIN 250 MG TAB ONE (13:08)
--- NOTE | 2021-03-21 13:13 | ER ---
Nurse's Notes [facility] Name: Shanique Avelar Age: 25 yrs Sex: Female : 1995 Arrival Date: 03/21/2021 Time: 11:03 Bed 10 Private MD: Diagnosis: Acute upper respiratory infection, unspecified;Cough Presentation: 03/21 11:14 Acuity: KYLEE 4 iw 11:27 Chief complaint: Patient states: mild cough, vomiting, diarrhea, body aches, chest iw pressure when she exerts herself, was possibly exposed to COVID. Coronavirus screen: Ebola Screen: Patient negative for fever greater than or equal to 101.5 degrees Fahrenheit, and additional compatible Ebola Virus Disease symptoms Patient denies exposure to infectious person. Patient denies travel to an Ebola-affected area in the 21 days before illness onset. No symptoms or risks identified at this time. Risk Assessment: Do you want to hurt yourself or someone else? Patient reports no desire to harm self or others. Onset of symptoms was March 19, 2021. 11:27 Method Of Arrival: Ambulatory iw 11:30 Initial Sepsis Screen: Does the patient meet any 2 criteria? No. Patient's initial iw sepsis screen is negative. Does the patient have a suspected source of infection? No. Patient's initial sepsis screen is negative. Historical: - Allergies: 12:52 No Known Allergies; iw Screenin:52 Abuse screen: Denies threats or abuse. Denies injuries from another. Nutritional iw screening: No deficits noted. Tuberculosis screening: No symptoms or risk factors identified. Fall Risk None identified. Assessment: 12:52 General: Appears in no apparent distress. Behavior is calm, cooperative. Pain:. Neuro: iw Level of Consciousness is awake, alert, obeys commands, Oriented to person, place, time, situation, Moves all extremities. Full function. Vital Signs: 12:56 BP 116 / 95 LA Sitting (auto/reg); Pulse 70; Resp 16 S; Temp 98.2(O); Pulse Ox 100% on mb4 R/A; ED Course: 11:03 Patient arrived in ED. mr 11:14 Triage completed. iw 11:54 X-ray completed. Portable x-ray completed in exam room. ls3 11:58 Chest Single View XRAY In Process Unspecified. EDMS 12:41 Loyda Ashton, RN is Primary Nurse. iw 12:43 Gatito Anguiano MD is Attending Physician. [facility] 12:52 Patient has correct armband on for positive identification. iw 13:00 Arm band placed on. iw 13:38 No provider procedures requiring assistance completed. Patient did not have IV access iw during this emergency room visit. Administered Medications: 13:10 Drug: Zithromax (azithromycin) 500 mg Route: PO; iw 13:15 Follow up: Response: No adverse reaction iw Outcome: 13:13 Discharge ordered by . [facility] 13:38 Discharged to home ambulatory, with family. iw 13:38 Condition: good 13:38 Discharge instructions given to patient, Instructed on discharge instructions, follow up and referral plans. medication usage, Demonstrated understanding of instructions, follow-up care, medications, Prescriptions given X 1. 13:39 Patient left the ED. iw Signatures: Dispatcher [employer] EDAZ Gatito Anguiano MD MD cha Rivera, Mary mr Loyda Ashton, JEANNIE RN Lisa Sims mb4 Murali Gooden ls3
--- NOTE | 2021-03-21 13:13 | EDPHYS ---
Physician Documentation [facility] Name: Shanique Avelar Age: 25 yrs Sex: Female : 1995 Arrival Date: 03/21/2021 Time: 11:03 Bed 10 Private MD: ED Physician Gatito Anguiano HPI: 03/21 13:07 This 25 yrs old Black Female presents to ER via Ambulatory with complaints of Covid keith Symptoms. 13:07 The patient or guardian reports airway noise, cough, flu symptoms, arthralgias, keith low-grade fever, myalgias. Onset: The symptoms/episode began/occurred 3 day(s) ago. Modifying factors: The symptoms are alleviated by nothing. the symptoms are aggravated by nothing. Associated signs and symptoms: The patient has no apparent associated signs or symptoms. Severity of symptoms: At their worst the symptoms were mild in the emergency department the symptoms are unchanged. The patient has not experienced similar symptoms in the past. Historical: - Allergies: 12:52 No Known Allergies; iw ROS: 13:07 Constitutional: Negative for fever, chills, and weight loss, Eyes: Negative for injury, keith pain, redness, and discharge, ENT: Negative for injury, pain, and discharge, Neck: Negative for injury, pain, and swelling, Respiratory: Negative for shortness of breath, cough, wheezing, and pleuritic chest pain, Abdomen/GI: Negative for abdominal pain, nausea, vomiting, diarrhea, and constipation, Back: Negative for injury and pain, : Negative for injury, bleeding, discharge, and swelling, MS/Extremity: Negative for injury and deformity, Skin: Negative for injury, rash, and discoloration, Neuro: Negative for headache, weakness, numbness, tingling, and seizure, Psych: Negative for depression, anxiety, suicide ideation, homicidal ideation, and hallucinations, Allergy/Immunology: Negative for hives, rash, and allergies, Endocrine: Negative for neck swelling, polydipsia, polyuria, polyphagia, and marked weight changes, Hematologic/Lymphatic: Negative for swollen nodes, abnormal bleeding, and unusual bruising. 13:07 Cardiovascular: Positive for palpitations. Exam: 13:07 Constitutional: This is a well developed, well nourished patient who is awake, alert, keith and in no acute distress. Head/Face: Normocephalic, atraumatic. Eyes: Pupils equal round and reactive to light, extra-ocular motions intact. Lids and lashes normal. Conjunctiva and sclera are non-icteric and not injected. Cornea within normal limits. Periorbital areas with no swelling, redness, or edema. ENT: Nares patent. No nasal discharge, no septal abnormalities noted. Tympanic membranes are normal and external auditory canals are clear. Oropharynx with no redness, swelling, or masses, exudates, or evidence of obstruction, uvula midline. Mucous membranes moist. Neck: Trachea midline, no thyromegaly or masses palpated, and no cervical lymphadenopathy. Supple, full range of motion without nuchal rigidity, or vertebral point tenderness. No Meningismus. Chest/axilla: Normal chest wall appearance and motion. Nontender with no deformity. No lesions are appreciated. Cardiovascular: Regular rate and rhythm with a normal S1 and S2. No gallops, murmurs, or rubs. Normal PMI, no JVD. No pulse deficits. Abdomen/GI: Soft, non-tender, with normal bowel sounds. No distension or tympany. No guarding or rebound. No evidence of tenderness throughout. Back: No spinal tenderness. No costovertebral tenderness. Full range of motion. Skin: Warm, dry with normal turgor. Normal color with no rashes, no lesions, and no evidence of cellulitis. MS/ Extremity: Pulses equal, no cyanosis. Neurovascular intact. Full, normal range of motion. Neuro: Awake and alert, GCS 15, oriented to person, place, time, and situation. Cranial nerves II-XII grossly intact. Motor strength 5/5 in all extremities. Sensory grossly intact. Cerebellar exam normal. Normal gait. Psych: Awake, alert, with orientation to person, place and time. Behavior, mood, and affect are within normal limits. 13:07 Respiratory: mild respiratory distress is noted, Respirations: normal, no acute changes, is not noted, Breath sounds: bronchial sounds, that are mild, are scattered, rhonchi, that are mild, are scattered, stridor, is not appreciated, + upper airway congestion. Respiratory rate: 16 Vital Signs: 12:56 BP 116 / 95 LA Sitting (auto/reg); Pulse 70; Resp 16 S; Temp 98.2(O); Pulse Ox 100% on mb4 R/A; MDM: 12:43 Patient medically screened. [facility] 13:09 Differential diagnosis: bronchitis, flu, URI, viral Infection, bacterial infection, keith URI, bronchitis, pneumonia UTI, gastroenteritis. Antibiotic administration: The patient is discharged and will get outpatient antibiotics, Zithromax. Data reviewed: vital signs, nurses notes, lab test result(s), Flu:. 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 Counseling: I had a detailed discussion with the patient and/or guardian regarding: the historical points, exam findings, and any diagnostic results supporting the discharge/admit diagnosis, lab results, radiology results. 03/21 11:10 Order name: COVID-19/FLU A+B (Document "Date of Onset" if Symptomatic); Complete Time: iw 12:44 03/21 11:13 Order name: Chest Single View XRAY iw Administered Medications: 13:10 Drug: Zithromax (azithromycin) 500 mg Route: PO; iw 13:15 Follow up: Response: No adverse reaction iw Disposition Summary: 03/21/21 13:13 Discharge Ordered Location: Home keith Problem: new keith Symptoms: have improved keith Condition: Stable keith Diagnosis - Acute upper respiratory infection, unspecified keith - Cough keith Followup: keith - With: Private Physician - When: 2 - 3 days - Reason: Recheck today's complaints, Continuance of care, Re-evaluation by your physician Discharge Instructions: - Discharge Summary Sheet keith - Upper Respiratory Infection, Adult keith - Cool Mist Vaporizer keith - Upper Respiratory Infection, Adult, [id number] keith - Cough, Adult, [id number] keith - Cough, Adult keith Forms: - Medication Reconciliation Form keith - Thank You Letter keith - Antibiotic Education keith - Prescription Opioid Use keith - Work release form iw Prescriptions: - Zithromax Z-Malcolm 250 mg Oral Tablet - take 1 tablet by ORAL route as directed for 5 days Day 1 - take two (2) tablets keith one time. Day 2, 3, 4 , 5 take one (1) tablet once daily.; 6 tablet; Refills: 0, Product Selection Permitted Signatures: Dispatcher [employer] Gatito Tabares MD MD cha Williams, Irene, RN RN iw
[2021-03-21 13:43] VITALS: BP 116/95; TEMP 98.2; O2SAT 100
--- NOTE | 2021-03-21 14:05 | RAD REPORT ---
EXAM DESCRIPTION: RAD - Chest Single View - 03/21/2021 11:58 am CLINICAL HISTORY: COUGH COMPARISON: May 28 TECHNIQUE: AP portable chest image was obtained 03/21/2021 11:58 am . FINDINGS: Lung volumes are very low accentuating the interstitial pattern. No peripheral mass or con solidation. Significant failure or volume overload are not suspected. Heart and vasculature are mary anne l. No measurable pleural effusion and no pneumothorax. No acute bony abnormality seen. No acute aorti c findings suspected. IMPRESSION: No acute cardiopulmonary process. Exam is limited by shallow inspiration.
== END 2021-03-21 13:39 | disposition home or self-care (01) ==
LOC: ER 10:57
DX: J06.9 Acute upper respiratory infection, unspecified (principal); Z20.822 Contact with and (suspected) exposure to COVID-19
CPT/HCPCS: 0240U; 71045; 99283

== ENCOUNTER 2021-04-04 13:30 | Emergency (ER) | payer SELFPAY ==
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
[2021-04-04 14:30] LABS: Urine Blood Negative (Negative); Urine Glucose Negative (Negative); Urine Protein Negative (Negative); Urine Specific Gravity 1.025 (1.005-1.030)
[2021-04-04 15:06] LABS: Urine Specific Gravity/Preg 1.025 (1.005-1.030)
--- NOTE | 2021-04-04 15:29 | RAD REPORT ---
EXAM DESCRIPTION: RAD - Abdomen 1 View (KUB) - 04/04/2021 3:09 pm CLINICAL HISTORY: CONSTIPATION COMPARISON: Abdomen 1 View (KUB) dated 08/07/2018 FINDINGS: Nonobstructive bowel gas pattern. No acute osseous abnormality.Visualized lungs are unrema rkable.No abnormal calcifications. IMPRESSION: Nonobstructive bowel gas pattern.
--- NOTE | 2021-04-04 15:41 | EDPHYS ---
Physician Documentation [facility] Name: Shanique Avelar Age: 25 yrs Sex: Female : 1995 Arrival Date: 04/04/2021 Time: 13:41 Bed 16 Private MD: ED Physician Gatito Anguiano HPI: 04/04 15:26 This 25 yrs old Black Female presents to ER via Ambulatory with complaints of pm1 Constipation, Vomiting. 15:26 The patient presents to the emergency department with constipation and vomiting. Onset: pm1 The symptoms/episode began/occurred 6 month(s) ago, patient reports a single pebble of excrement daily. Possible causes: unknown. The symptoms are aggravated by nothing. The symptoms are alleviated by nothing. Associated signs and symptoms: Pertinent positives: abdominal pain, Pertinent negatives: dysuria, fever. Severity of symptoms: in the emergency department the symptoms are unchanged. The patient has not recently seen a physician. 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 - Social history:: Smoking status: Patient denies any tobacco usage or history of. ROS: 15:26 Constitutional: Negative for fever, chills, and weight loss, Cardiovascular: Negative pm1 for chest pain, palpitations, and edema, Respiratory: Negative for shortness of breath, cough, wheezing, and pleuritic chest pain. 15:26 Back: Negative for injury and pain, : Negative for injury, bleeding, discharge, and swelling, MS/Extremity: Negative for injury and deformity, Skin: Negative for injury, rash, and discoloration, Neuro: Negative for headache, weakness, numbness, tingling, and seizure. 15:26 Abdomen/GI: Positive for abdominal pain, vomiting, constipation. 15:26 All other systems are negative. Exam: 15:26 Constitutional: This is a well developed, well nourished patient who is awake, alert, pm1 and in no acute distress. Head/Face: Normocephalic, atraumatic. 15:26 Skin: Warm, dry with normal turgor. Normal color with no rashes, no lesions, and no evidence of cellulitis. MS/ Extremity: Pulses equal, no cyanosis. Neurovascular intact. Full, normal range of motion. 15:26 Eyes: Exam is negative for acute changes, Extraocular movements: no acute changes, Conjunctiva: no acute changes, no injection. 15:26 ENT: Exam is negative for acute changes, Mouth: Lips: normal, Oral mucosa: normal, pink and intact, moist. 15:26 Cardiovascular: Exam negative for acute changes, Rate: normal, Rhythm: regular, Pulses: no pulse deficits are appreciated. 15:26 Respiratory: Exam negative for acute changes, respiratory distress, shortness of breath. 15:26 Abdomen/GI: Inspection: obese Palpation: abdomen is soft and non-tender, in all quadrants. 15:26 Neuro: Exam negative for acute changes, Orientation: is normal, Mentation: is normal, Motor: is normal, moves all fours. Vital Signs: 13:41 BP 152 / 101; Pulse 80; Resp 17; Temp 97.3(TE); Pulse Ox 98% on R/A; Weight 113.4 kg; tw2 Height 5 ft. 7 in. (170.18 cm) (R); Pain 10/10; 13:41 Body Mass Index 39.16 (113.40 kg, 170.18 cm) tw2 MDM: 13:54 Patient medically screened. [facility] 15:40 Data reviewed: vital signs. Data interpreted: Pulse oximetry: on room air is 98 %. pm1 Interpretation: normal. Counseling: I had a detailed discussion with the patient and/or guardian regarding: the historical points, exam findings, and any diagnostic results supporting the discharge/admit diagnosis, radiology results, the need for outpatient follow up, to return to the emergency department if symptoms worsen or persist or if there are any questions or concerns that arise at home. 15:51 ED course: Patient is requesting a CT scan for constipation of 6 months. pm1 04/04 14:30 Order name: Urine Dipstick-Ancillary; Complete Time: 14:33 EDMS 04/04 14:35 Order name: Urine --Ancillary (enter results); Complete Time: 15:22 eb 04/04 15:52 Order name: CBC with Diff; Complete Time: 16:39 pm1 04/04 15:52 Order name: BMP; Complete Time: 16:53 pm1 04/04 15:53 Order name: Hepatic Function; Complete Time: 16:53 pm1 04/04 15:53 Order name: Lipase; Complete Time: 16:53 pm1 04/04 14:10 Order name: XRAY Abdomen 1 View (KUB); Complete Time: 15:33 pm1 04/04 14:10 Order name: Urine Dipstick-Ancillary (obtain specimen); Complete Time: 14:41 pm1 04/04 14:10 Order name: Urine Test (obtain specimen); Complete Time: 14:41 pm1 04/04 15:52 Order name: CT Abd/Pelvis - IV Contrast Only; Complete Time: 17:08 pm1 Administered Medications: 15:45 Drug: Bentyl (dicyclomine) 20 mg Route: PO; jd3 15:45 Drug: Magnesium Citrate Liquid 300 ml Route: PO; jd3 Disposition: 04/05 18:43 Co-signature as Attending Physician, Gatito Anguiano MD I agree with the assessment and keith plan of care. Disposition Summary: 04/04/21 17:10 Discharge Ordered Location: Home(04/04/21 17:10) pm1 Problem: new(04/04/21 17:10) pm1 Symptoms: have improved(04/04/21 17:10) pm1 Condition: Stable(04/04/21 17:10) pm1 Diagnosis - Constipation, unspecified(04/04/21 17:10) pm1 - Abdominal pain, unspecified pm1 Followup: pm1 - With: Emergency Department - When: As needed - Reason: Worsening of condition Followup: pm1 - With: Private Physician - When: 2 - 3 days - Reason: Recheck today's complaints, Continuance of care, Re-evaluation by your physician Discharge Instructions: - Discharge Summary Sheet pm1 - Abdominal Pain, Adult pm1 - Constipation, Adult pm1 Forms: - Medication Reconciliation Form pm1 - Thank You Letter pm1 - Antibiotic Education pm1 - Work release form pm1 - Prescription Opioid Use pm1 Prescriptions: - dicyclomine 20 mg Oral tablet - take 1 tablet by ORAL route every 6 hours As needed; 20 tablet; Refills: 0, pm1 Product Selection Permitted - ondansetron 4 mg Oral tablet,disintegrating - place 1 tablet by TRANSLINGUAL route every 8 hours As needed; 12 tablet; pm1 Refills: 0, Product Selection Permitted - Pepcid 20 mg Oral Tablet - take 1 tablet by ORAL route every 12 hours for 10 days; 20 tablet; Refills: 0, pm1 Product Selection Permitted - Miralax 17 gram/dose Oral powder - take 17 gram by ORAL route once daily As needed; 7 packet; Refills: 0, Product pm1 Selection Permitted Signatures: Dispatcher [employer] EDGatito Marks MD MD cha Marinas, Patrick, NP BUILDING APPRAISER pm1 Kirstie Black RN RN tw2 Dwaine Brown RN RN jd3 Corrections: (The following items were deleted from the chart) 04/04 15:52 15:41 Home pm1 pm1 15:52 15:41 new pm1 pm1 15:52 15:41 have improved pm1 pm1 15:52 15:41 Stable pm1 pm1 15:52 15:41 Constipation, unspecified pm1 pm1
--- NOTE | 2021-04-04 15:41 | ER ---
Nurse's Notes [facility] Name: Shanique Avelar Age: 25 yrs Sex: Female : 1995 Arrival Date: 04/04/2021 Time: 13:41 Bed 16 Private MD: Diagnosis: Constipation, unspecified;Abdominal pain, unspecified Presentation: 04/04 13:41 Chief complaint: Patient states: started yesterday i started with nauseous and tw2 vomiting. i havent had a BM in like 6 months. i took castor oil yesterday trying to be able to go. i am in just so much pain. it comes in waves. last night i took 5 little orange laxatives and nothing happened. Coronavirus screen: nausea, vomiting. Client presents with at least one sign or symptom that may indicate coronavirus-19. Standard/surgical mask placed on the client. Provider contacted for isolation considerations. Ebola Screen: Patient denies travel to an Ebola-affected area in the 21 days before illness onset. Initial Sepsis Screen: Does the patient meet any 2 criteria? No. Patient's initial sepsis screen is negative. Does the patient have a suspected source of infection? No. Patient's initial sepsis screen is negative. Risk Assessment: Do you want to hurt yourself or someone else? Patient reports no desire to harm self or others. Onset of symptoms was April 04, 2021. 13:41 Method Of Arrival: Ambulatory tw2 13:41 Acuity: KYLEE 2 tw2 Triage Assessment: 13:43 General: Appears uncomfortable, Behavior is calm, cooperative, appropriate for age. tw2 Pain: Complains of pain in abdomen. GI: Reports constipation, nausea, vomiting. 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 - Social history:: Smoking status: Patient denies any tobacco usage or history of. Screenin:23 Abuse screen: Denies threats or abuse. Nutritional screening: No deficits noted. jd3 Tuberculosis screening: No symptoms or risk factors identified. Fall Risk Ambulatory Aid- None/Bed Rest/Nurse Assist (0 pts). Gait- Normal/Bed Rest/Wheelchair (0 pts) Mental Status- Oriented to own ability (0 pts). Total Figueroa Fall Scale indicates No Risk (0-24 pts). Assessment: 14:21 General: Appears in no apparent distress. uncomfortable, Behavior is calm, cooperative, jd3 appropriate for age. Pain: Complains of pain in abdomen. Neuro: Level of Consciousness is awake, alert, obeys commands, Oriented to person, place, time, situation. GI: Abdomen is round Abdomen is tender to palpation X 4 quads. Reports lower abdominal pain, upper abdominal pain, constipation. 16:00 Reassessment: Patient appears in no apparent distress at this time. No changes from jd3 previously documented assessment. Patient and/or family updated on plan of care and expected duration. Pain level reassessed. Patient is alert, oriented x 3, equal unlabored respirations, skin warm/dry/pink. provider at bedside discussing plan of care. Vital Signs: 13:41 BP 152 / 101; Pulse 80; Resp 17; Temp 97.3(TE); Pulse Ox 98% on R/A; Weight 113.4 kg; tw2 Height 5 ft. 7 in. (170.18 cm) (R); Pain 10/10; 13:41 Body Mass Index 39.16 (113.40 kg, 170.18 cm) tw2 ED Course: 13:41 Patient arrived in ED. ds1 13:43 Triage completed. tw2 13:45 Arm band placed on. tw2 13:51 Tristen Rene NP is PHCP. pm1 13:51 Gatito Anguiano MD is Attending Physician. pm1 14:21 Anitha Holm, JEANNIE is Primary Nurse. 6 14:24 Placed in gown. Bed in low position. Call light in reach. jh6 14:24 Patient has correct armband on for positive identification. Bed in low position. Call jd3 light in reach. Side rails up X2. Adult w/ patient. Pulse ox on. NIBP on. 14:24 Urine collected: clean catch specimen, clear. jh6 15:09 XRAY Abdomen 1 View (KUB) In Process Unspecified. EDMS 16:07 Missed attempt(s): 20 gauge in left antecubital area. Bleeding controlled, band aid jd3 applied, catheter tip intact. 16:[address] jh6 16:45 CT Abd/Pelvis - IV Contrast Only In Process Unspecified. EDMS 16:[address]. jh6 Administered Medications: 15:45 Drug: Bentyl (dicyclomine) 20 mg Route: PO; jd3 15:45 Drug: Magnesium Citrate Liquid 300 ml Route: PO; jd3 Outcome: 15:41 Discharge ordered by MD. pm1 17:10 Discharge ordered by MD. pm1 20:57 Patient left the ED. lp1 Signatures: Dispatcher [employer] EDMN VillagomezGertrude red ds1 Sabrina Ramos, RN RN lp1 Tristen Rene, JULIÁN FOOT DRILL OPERATOR pm1 Kirstie Black RN RN tw2 Dwaine Brown RN RN jd3 Anitha Holm RN RN jh6
[2021-04-04] MEDS ORDERED: DICYCLOMINE HCL 10 MG CAP ONE (15:42)
[2021-04-04] MEDS ORDERED: MAGNESIUM CITRATE 300 ML BOT ONE (15:42)
[2021-04-04 16:33] LABS: Absolute Lymphocytes (CBC) 2.2 K/uL (0.7-4.9); Hematocrit 35.7 % (36.0-45.0); Lymphocytes % 27.6 % (15.3-44.8); MPV 7.6 fL (7.6-11.3); RBC Red Blood Cell Count 4.34 M/uL (3.86-4.86)
[2021-04-04 16:51] LABS: ALT/SGPT 19 U/L (12-78); AST/SGOT 10 U/L (15-37); Albumin 3.4 g/dL (3.4-5.0); Alkaline Phosphatase 100 U/L (45-117); BUN Blood Urea Nitrogen 8 mg/dL (7-18); Bicarbonate 27 mmol/L (21-32); Bilirubin Direct < 0.1 mg/dL (0-0.2); Bilirubin Total 0.3 mg/dL (0.2-1.0); Glucose Level 89 mg/dL (74-106); Lipase 92 U/L (73-393); Potassium 3.5 mmol/L (3.5-5.1); Protein, Total 7.8 g/dL (6.4-8.2); Sodium Level 141 mmol/L (136-145)
--- NOTE | 2021-04-04 16:56 | RAD REPORT ---
EXAM DESCRIPTION: CTAbdomen Pelvis W Contrast - 04/04/2021 4:46 pm CLINICAL HISTORY: Abd pain;Constipation COMPARISON: Abdomen Pelvis W Contrast dated 08/13/2018 TECHNIQUE: CT of the abdomen and pelvis was performed. All CT scans are performed using dose optimization technique as appropriate and may include automated exposure control or mA/KV adjustment according to patient size. FINDINGS: Lower chest: Circumferential thickening of the distal esophagus suggesting esophagitis. Liver: No acute abnormality or suspicious lesions. Biliary: No biliary ductal dilatation. Stomach: No significant focal abnormality. Duodenum: Stranding is present around the duodenum. Small outpouching noted as seen on image 28, seri es 501. Pancreas: No significant abnormality. Spleen: No significant abnormality. Adrenal: No suspicious lesions. Kidney/ureter: No hydronephrosis. No renal calculi. Retroperitoneum: No retroperitoneal adenopathy. Vascular: No aneurysm. Bowel: No significant focal abnormality. No appendicitis. Peritoneum: No ascites or free air. Ventral abdominal wall laxity. Bladder: Grossly unremarkable. Reproductive: No adnexal masses. Bones: No acute fracture. Other: n/a IMPRESSION: 1. Findings are suspicious for a duodenal ulcer with inflammatory changes but no perfora tion/free air. This could be confirmed with endoscopy. 2. Distal esophageal wall thickening suggesting gastroesophageal reflux disease.
[2021-04-04 23:35] VITALS: BP 152/101; TEMP 97.3; O2SAT 98
== END 2021-04-04 20:57 | disposition home or self-care (01) ==
LOC: ER 13:30
DX: K59.00 Constipation, unspecified (principal); R10.9 Unspecified abdominal pain; I10 Essential (primary) hypertension; J45.909 Unspecified asthma, uncomplicated
CPT/HCPCS: 36415; 74018; 74177; 80048; 80076; 81003; 81025; 82565; 83690; 85025; 99284; Q9967

== ENCOUNTER 2021-04-09 15:30 | Emergency (ER) | payer SELFPAY ==
--- OUTSIDE RECORDS SUMMARY | 2021-04-09 15:34 | XMS REPORT | Continuity of Care Document ---
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 mmol/L 3.5-5.0 6554239485) CL (test code = 103 mmol/L 98-108 1130872019) CO2 TOTAL (test code = 26 mmol/L 23-31 3788790535) AGAP (test code = 2-16 2225967372) BUN (test code = 11 mg/dL 7-23 9632892169) GLUCOSE (test code = 106 mg/dL 70-110 9321171509) CREATININE (test code 0.90 mg/dL 0.50-1.04 = 3538143855) TOTAL BILI (test code 0.5 mg/dL 0.1-1.1 = 7895035871) CALCIUM (test code = 9.5 mg/dL 8.6-10.6 6290847668) T PROTEIN (test code = 7.9 g/dL 6.3-8.2 8942125795) ALBUMIN (test code = 4.6 g/dL 3.5-5.0 6901056002) ALK PHOS (test code = 92 U/L 34-122 2504580467) ALTv (test code = 11 U/L 5-35 1742-6) AST(SGOT) (test code = 16 U/L 13-40 2441874981) eGFR Calculation mL/min/1.73m2 (Non-) (test code = 3041368353) eGFR Calculation mL/min/1.73m2 () (test code = 2577938068) BRENDA (test code = BRENDA) Association of [...] or urine or abnormalities in imaging tests). [facility] Test Item Value Reference Range Interpretation Comments MAGNESIUM (test code = 7851114585) 1.9 mg/dL 1.7-2.4 Lab Interpretation (test code = Normal 08646-8) [facility]21[facility]10 23:47:32 Test Item Value Reference Range Interpretation Comments LIPASE (test code = 7330809934) 74 U/L 0-220 Lab Interpretation (test code = Normal 94964-4) [facility]wallD-[id number] 23:44:49 Test Item Value Reference Interpretation Comments Range D-DIMER (test code = See_Comment H [Autom ated 7775597695) message] The system which generated this result [...] diagnosis. Lab Interpretation Abnormal (test code = 24281-2) [facility] WITH [id number] 23:37:15 Test Item Value Reference Range Interpretation Comments WBC (test code = See_Comment [Automated 7719-2) message] The sy stem which generated this result transmitted reference range : 4.30 - 11.10 10*3/?L. The reference range was not used to interpret this result as normal/abnormal . RBC (test code = See_Comment [Automated 181-8) message] The sy stem which generated this [...] (test code = 38.7 fL 39.0-49.9 L 89342-5) RDW-CV (test code = 11.9 % 12.0-15.5 L 788-0) PLT (test code = See_Comment [Automated 777-3) message] The sy stem which generated this result transmitted reference range : 166 - 358 10*3/ ?L. The reference r daryl was not used to interpret this result as normal/abnormal . MPV (test code = 9.2 fL 9.5-12.9 L 42038-5) NRBC/100 WBC (test See_Comment [Automat ed code = 1541022748) message] The system which generated this result transmitted reference range : 0.0 - 10.0 /100 WBCs. The refer ence range was not u sed to interpret th is result as normal/abnormal . NRBC x10^3 (test code <0.01 See_Comment [Auto mated = 5237267684) message] The s ystem which generated this result transmitted reference range : 10*3/?L. The reference range was not used to interpret this result as normal/abnormal . GRAN MAT (NEUT) % 74.8 % (test code = 770-8) IMM GRAN % (test code 0.40 % = 8751500695) LYMPH % (test code = 17.2 % 736-9) MONO % (test code = 6.4 % 5905-5) EOS % (test code = 0.9 % 713-8) BASO % (test code = 0.3 % 706-2) GRAN MAT x10^3(ANC) 7.12 10*3/uL 1.88-7.09 H (test code = 3172258203) IMM GRAN x10^3 (test 0.04 10*3/uL 0.00-0.06 code = 1389849041) LYMPH x10^3 (test code 1.64 10*3/uL 1.32-3.29 = 731-0) MONO x10^3 (test code 0.61 10*3/uL 0.33-0.92 = 742-7) EOS x10^3 (test code = 0.09 10*3/uL 0.03-0.39 711-2) BASO x10^3 (test code 0.03 10*3/uL 0.01-0.07 = 704-7) Lab Interpretation Abnormal (test code = 25199-5) [facility] (ID NOW RAPID TESTING)2020-05-28 23:34:26 Test Item Value Reference Range Interpretation Comments SARS-CoV-2 Rapid ID NOW Not Detected Not Detected (test code = 16953-3) BRENDA (test code = BRENDA) ID NOW COVID-19 Assay is an isothermal nucleic acid amplification test intended for the qualitative detection of nucleic acid from SARS-CoV-2 viral RNA in nasopharyngeal ([employer]) specimens. It is used under Emergency Use [...] indicated. Lab Interpretation Normal (test code = 85701-9) [facility]-10 23:01:22 Test Item Value Reference Range Interpretation Comments APPEARANCE (test code = Cloudy Clear A 8668332204) COLOR (test code = Yellow Yellow 9919518658) PH (test code = 4.8-8.0 5611598765) SP GRAVITY (test code = 1.003-1.030 1024030593) GLU U QUAL (test code = Negative Negative 8509900274) BLOOD (test code = Large Negative A 0147692484) KETONES (test code = Trace Negative A 1054851305) PROTEIN (test code = 100 mg/dL Negative A 2887-8) UROBILIN (test code = 0.2 mg/dL See_Comment [Auto mated message] 0572919482) The system [email or web address] generated this result transmit ciara reference range : 0-1.0 mg/dL. Th e reference range was not used to interpret this result as normal/abnormal . BILIRUBIN (test code = Small Negative A 8468979439) NITRITE (test code = Negative Negative 7390043735) LEUK CARMENZA (test code = Negative Negative 5166158574) RBC/HPF (test code = >182 See_Comment H [Autom ated message] 6814936072) The system [email or web address] generated this result transmit ciara reference range : 0 - 3 HPF. The refe rence range was not u sed to interpret th is result as normal/abnormal . WBC/HPF (test code = See_Comment [Autom ated message] 9438034611) The system [email or web address] generated this result transmit ciara reference range : 0 - 5 HPF. The refe rence range was not u sed to interpret th is result as normal/abnormal . BACTERIA (test code = Few Negative A 6004754620) AMORPHOUS (test code = Moderate Rare HPF A 8123109623) Ictotest (test code = Negative 5366318787) Lab Interpretation (test Abnormal code = 68625-1) [facility] - DRUG SCREEN [id number] 22:58:05 Test Item Value Reference Range Interpretation Comments BENZO U (test code = Negative Negative 5951714585) STEVE U (test code = Negative Negative 5831998926) AMPHET (test code = Negative Negative 3639229200) THC (test code = Negative Negative 8468539471) METHADONE (test code = Negative Negative 4676791570) Meth U (test code = Negative Negative 8412879505) OPIATES (test code = Presumptive Positive Negative A 8996111799) Cocaine Metabolite (test Negative Negative code = 8635266610) PROPOXY (test code = Negative Negative 8618778484) Tric U (test code = Negative Negative 4343735802) PCP (test code = Negative Negative 6805106502) OXYCOD (test code = Negative Negative 3609382452) BRENDA (test code = BRENDA) Urine Drug [...] testing). Lab Interpretation (test Abnormal code = 12177-3) [facility] GLUCOSE (AUTOMATED)2020-05-28 22:43:55 Test Item Value Reference Range Interpretation Comments POCT GLU (test code = 4374876432) 96 mg/dL 70-110 Lab Interpretation (test code = Normal 77402-1) [facility] GLUCOSE(AGE >30DAYS)2020-05-28 22:43:00 Test Item Value Reference Range Interpretation Comments POCT Glu (age>30days) (test code = 96 mg/dL 70-110 3342) Lab Interpretation (test code = Normal 72108-9) [facility] [id number] 22:26:00 Test Item Value Reference Range Interpretation Comments POCT PREG (test code = 1605) negative On board controls acceptable with present C Line (test code = 3574) POCT PREG LOT # (test code = [id number]) POCT PREG TEST DATE (test 12-18-2021 code = 3576) Lab Interpretation (test code = Normal 52311-9) [facility]
[2021-04-09] MEDS ORDERED: ONDANSETRON 4 MG/2 ML VIAL ONE ×3 (16:11→18:34)
[2021-04-09] MEDS ORDERED: NA CHLORIDE 0.9% 1,000 ML ONE ×2 (16:11→17:55)
[2021-04-09] MEDS ORDERED: MORPHINE 4 MG/ML SYR ONE (16:11)
[2021-04-09 16:17] LABS: Absolute Lymphocytes (CBC) 1.9 K/uL (0.7-4.9); Hematocrit 37.7 % (36.0-45.0); MPV 7.1 fL (7.6-11.3); RBC Red Blood Cell Count 4.56 M/uL (3.86-4.86)
--- NOTE | 2021-04-09 16:23 | RAD REPORT ---
EXAM DESCRIPTION: CT - Head Brain Wo Cont - 04/09/2021 4:18 pm CLINICAL HISTORY: head injury, syncope Syncope, trauma, head injury COMPARISON: Head Brain Wo Cont dated 09/24/2020; Facial Bones W Con Mpr dated 09/24/2020 TECHNIQUE: All CT scans are performed using dose optimization technique as appropriate and may inclu de automated exposure control or mA/KV adjustment according to patient size. FINDINGS: No intracranial hemorrhage, hydrocephalus or extra-axial fluid collection.No areas of brai n edema or evidence of midline shift. The paranasal sinuses and mastoids are clear. The calvarium is intact. IMPRESSION: No acute intracranial abnormality.
[2021-04-09 16:34] LABS: Urine Blood 3+ (Negative); Urine Glucose Negative (Negative); Urine Protein 1+ (Negative); Urine Specific Gravity 1.025 (1.005-1.030)
[2021-04-09 16:35] LABS: ALT/SGPT 20 U/L (12-78); AST/SGOT 12 U/L (15-37); Albumin 3.6 g/dL (3.4-5.0); Alkaline Phosphatase 103 U/L (45-117); BUN Blood Urea Nitrogen 8 mg/dL (7-18); Bicarbonate 27 mmol/L (21-32); Bilirubin Direct < 0.1 mg/dL (0-0.2); Bilirubin Total 0.3 mg/dL (0.2-1.0); Glucose Level 95 mg/dL (74-106); Lipase 89 U/L (73-393); Potassium 3.5 mmol/L (3.5-5.1); Protein, Total 8.3 g/dL (6.4-8.2); Sodium Level 139 mmol/L (136-145)
[2021-04-09 17:07] LABS: Urine Specific Gravity/Preg 1.025 (1.005-1.030)
[2021-04-09 17:38] LABS: SARS-COV-2 RT PCR NEGATIVE (NEGATIVE)
--- NOTE | 2021-04-09 20:53 | RAD REPORT ---
EXAM DESCRIPTION: CT - Abdomen Pelvis Wo Contrast - 04/09/2021 8:33 pm CLINICAL HISTORY: Abdominal pain. ABD PAIN COMPARISON: Abdomen Pelvis W Contrast dated 04/04/2021 TECHNIQUE: CT imaging of the abdomen and pelvis was performed without contrast. Solid organ and vasc ular assessment is limited due to lack of IV contrast. All CT scans are performed using dose optimization technique as appropriate and may include automated exposure control or mA/KV adjustment according to patient size. FINDINGS: The lower lung keith are clear.Small hiatal hernia. Prominent thickening of the soft tissues in the small bowel loops is present with a small a defect pr esent. This is suspicious for a duodenal ulcer disease. Perforation is not seen. The liver, spleen, pancreas, adrenal glands and kidneys are within normal limits for a limited non-co ntrast examination. No bowel obstruction, free air, free fluid or abscess. The appendix is normal. The osseous structures are within normal limits. IMPRESSION: Findings suspicious for a duodenal ulcer disease present. No free air or perforation see n. Upper endoscopy would be recommended for followup assessment. A limited non-contrast examination was performed as detailed.
[2021-04-09] MEDS ORDERED: MAGNES/ALUMIN/SIMET 30ML UCUP ONE (21:57)
[2021-04-09] MEDS ORDERED: PANTOPRAZOLE 40 MG INJ ONE (21:57)
[2021-04-09] MEDS ORDERED: LIDOCAINE VISCOUS 2% SOLN 15 ML UDC ONE (21:57)
--- NOTE | 2021-04-09 22:15 | EDPHYS ---
Physician Documentation [facility] Name: Shanique Avelar Age: 25 yrs Sex: Female : 1995 Arrival Date: 04/09/2021 Time: 15:33 Bed 6 Private MD: ED Physician Gatito Anguiano HPI: 04/09 15:41 This 25 yrs old Black Female presents to ER via Wheelchair with complaints of Passed jmm Out Prior To Arrival, Hit Head. 15:41 The patient has experienced syncope, collapsed. Onset: The symptoms/episode jmm began/occurred acutely. This is a 25-year-old female with history of asthma, hypertension, anemia, that presents emergency department with complaints of 3 and half days of vomiting. Patient states she was recently seen in the ED for constipation given medications but did not fill them. Patient states that over the past 3 and half days she has been unable to keep fluids down by mouth. Patient states that yesterday she became so weak she passed out and hit her head. Patient complains of a left-sided headache since. Patient also complains of worsening generalized abdominal pain.. 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 - Social history:: Smoking status: Patient denies any tobacco usage or history of. ROS: 15:41 Constitutional: Negative for fever, chills, and weight loss, Cardiovascular: Negative jmm for chest pain, palpitations, and edema, Respiratory: Negative for shortness of breath, cough, wheezing, and pleuritic chest pain. 15:41 Abdomen/GI: Positive for abdominal pain. 15:41 Neuro: Positive for syncope. 15:41 All other systems are negative. Exam: 15:41 Constitutional: This is a well developed, well nourished patient who is awake, alert, jmm and in no acute distress. Head/Face: atraumatic. Eyes: EOMI, no conjunctival erythema appreciated ENT: Moist Mucus Membranes Neck: Trachea midline, Supple Chest/axilla: Normal chest wall appearance and motion. Cardiovascular: Regular rate and rhythm. No edema appreciated Respiratory: Normal respirations, no respiratory distress appreciated Abdomen/GI: Non distended, soft Back: Normal ROM Skin: General appearance color normal MS/ Extremity: Moves all extremities, no obvious deformities appreciated, no edema noted to the lower extremities Neuro: Awake and alert, normal gait Psych: Behavior is normal, Mood is normal, Patient is cooperative and pleasant 15:41 Constitutional: The patient appears alert, awake, uncomfortable. Vital Signs: 15:40 Weight 113.4 kg; Height 5 ft. 7 in. (170.18 cm); Pain 10/10; ll1 16:02 BP 130 / 93; Pulse 77; Resp 19; Temp 98.4; Pulse Ox 98% ; vg1 19:35 BP 131 / 91; Pulse 64; Resp 19; Pulse Ox 100% on R/A; sm5 20:30 BP 130 / 89; Pulse 68; Resp 17; Pulse Ox 99% ; sm5 22:30 BP 133 / 90; Pulse 63; Resp 18; Pulse Ox 100% ; sm5 15:40 Body Mass Index 39.16 (113.40 kg, 170.18 cm) ll1 MDM: 15:41 Patient medically screened. keith 17:51 Transition of care: After a detail discussion of the patient's case, care is [facility] transferred to Gatito HULL. 22:13 Data reviewed: vital signs, nurses notes, lab test result(s), radiologic studies, CT cp scan. 22:13 Counseling: I had a detailed discussion with the patient and/or guardian regarding: the cp historical points, exam findings, and any diagnostic results supporting the discharge/admit diagnosis, lab results, radiology results, the need for outpatient follow up, for definitive care, a gun fertilizer. Response to treatment: the patient's symptoms have markedly improved after treatment. ED course: Nausea and pain markedly improved. Discussed results of CT that showed concern for duodenal ulcer. Will discharge to home for continued monitoring and recommend GI f/u to discuss endoscopy and test for h.pylori. RX given for Protonix to take bid. 04/09 15:55 Order name: Basic Metabolic Panel; Complete Time: 16:38 [facility] 04/09 15:55 Order name: CBC with Diff; Complete Time: 16:28 [facility] 04/09 21:47 Interpretation: Normal except: MCH 26.3; MCHC 31.8; RDW 16.5; MPV 7.1. cp 04/09 15:55 Order name: Hepatic Function; Complete Time: 16:38 [facility] 04/09 15:55 Order name: Lipase; Complete Time: 16:38 [facility] 04/09 15:55 Order name: COVID-19/FLU A+B (Document "Date of Onset" if Symptomatic); Complete Time: [facility] 17:39 04/09 16:34 Order name: Urine Dipstick-Ancillary; Complete Time: 16:38 [facility] 04/09 15:55 Order name: CT Head Brain wo Cont; Complete Time: 16:28 [facility] 04/09 16:35 Order name: Urine --Ancillary (enter results); Complete Time: 17:23 bd 04/09 17:36 Order name: Troponin High Sensitivity; Complete Time: 21:47 [facility] 04/09 17:56 Order name: Abdomen ; Complete Time: 21:47 [facility] 04/09 15:55 Order name: IV Saline Lock; Complete Time: 16:07 [facility] 04/09 15:55 Order name: Labs collected and sent; Complete Time: 16:07 [facility] 04/09 15:55 Order name: Urine Test (obtain specimen); Complete Time: 17:18 [facility] Administered Medications: 18:06 Drug: NS 0.9% 1000 ml Route: IV; Rate: 1 bolus; Site: left jugular; 6 18:06 Drug: Zofran (Ondansetron) 4 mg Route: IVP; Site: left jugular; 6 18:31 Follow up: Response: No adverse reaction vg1 18:06 Drug: morphine 4 mg Route: IVP; Site: left jugular; 6 18:31 Follow up: Response: No adverse reaction vg1 18:36 Drug: Zofran (Ondansetron) 4 mg Route: IVP; Site: left jugular; 1 19:21 Follow up: Response: No adverse reaction; Marked relief of symptoms vg1 22:07 Drug: ProTONIX (pantoprazole) 40 mg Route: IVP; Site: left jugular; [facility] 22:07 Drug: GI Cocktail without - (Maalox Suspension 30 ml, Lidocaine Liquid 2 % 15 sm5 ml) Route: PO; Disposition: 04/10 08:32 Co-signature as Attending Physician, Gatito Anguiano MD I agree with the assessment and keith plan of care. Disposition Summary: 04/09/21 22:14 Discharge Ordered Location: Home cp Problem: new cp Symptoms: have improved cp Condition: Stable cp Diagnosis - Duodenal ulcer, unspecified as acute or chronic, without hemorrhage or perforation cp - Nausea with vomiting, unspecified cp - Headache cp Followup: cp - With: Mau Soto MD - When: 1 week - Reason: Recheck today's complaints Discharge Instructions: - Discharge Summary Sheet cp - General Headache Without Cause cp - Nausea and Vomiting, Adult cp - Peptic Ulcer cp - Upper Endoscopy, Adult cp - Peptic Ulcer Eating Plan cp Forms: - Medication Reconciliation Form cp - Thank You Letter cp - Antibiotic Education cp - Prescription Opioid Use cp - Work release form sm5 Prescriptions: - Protonix 40 mg Oral tablet,delayed release (DR/EC) - take 1 tablet by ORAL route every 12 hours; 60 tablet; Refills: 0, Product cp Selection Permitted - Zofran 4 mg Oral Tablet - take 1 tablet by ORAL route every 12 hours As needed; 20 tablet; Refills: 0, cp Product Selection Permitted Signatures: Dispatcher [employer] EDMS Gatito Anguiano MD MD cha Mickail, Joel, PA PA jmm Page, Corey, PA PA cp Garcia, Victoria, RN RN vg1 Milton Giang, RN RN ll1 Anitha Holm RN RN jh6 Erum Espinal RN RN sm5 Corrections: (The following items were deleted from the chart) 04/09 16:56 16:39 Chest For PE Angio+CT.RAD.BRZ ordered. EDMS EDMS 17:56 17:52 Abdomen Pelvis W Con+CT.RAD.BRZ ordered. EDMS EDMS 22:15 22:14 Peptic ulcer, site unspecified, unspecified as acute or chronic, without cp hemorrhage or perforation cp
--- NOTE | 2021-04-09 22:15 | ER ---
Nurse's Notes [facility] Name: Shanqiue Avelar Age: 25 yrs Sex: Female : 1995 Arrival Date: 04/09/2021 Time: 15:33 Bed 6 Private MD: Diagnosis: Duodenal ulcer, unspecified as acute or chronic, without hemorrhage or perforation;Nausea with vomiting, unspecified;Headache Presentation: 04/09 15:40 Chief complaint: Patient states: Has been feeling weak and fatigued for 3 days. Today, ll1 she passed out while getting ready for work around noon. Hit L side of head. Coronavirus screen: Vaccine status: Patient reports receiving the 2nd dose of the covid vaccine. Client denies travel out of the [place] in the last 14 days. At this time, the client does not indicate any symptoms associated with coronavirus-19. Ebola Screen: Patient denies travel to an Ebola-affected area in the 21 days before illness onset. Initial Sepsis Screen: Does the patient meet any 2 criteria? No. Patient's initial sepsis screen is negative. Does the patient have a suspected source of infection? No. Patient's initial sepsis screen is negative. Risk Assessment: Do you want to hurt yourself or someone else? Patient reports no desire to harm self or others. Onset of symptoms was April 07, 2021. 15:40 Method Of Arrival: Wheelchair ll1 15:40 Acuity: KYLEE 3 ll1 RN INTERNSHIP: 16:02 LMP 04/08/2021 vg1 Historical: - Allergies: 15:41 No Known Allergies; ll1 - Home Meds: 22:43 albuterol sulfate inhalation Inhl [Active]; lisinopril Oral [Active]; sm5 - PMHx: 15:41 Asthma; Hypertensive disorder; Anemia; Heart murmur; ll1 - PSHx: 15:41 Tonsillectomy; ll1 - Immunization history:: Client reports receiving the 1st dose of the Covid vaccine. - Social history:: Smoking status: Patient denies any tobacco usage or history of. Screenin:03 Abuse screen: Denies threats or abuse. Nutritional screening: No deficits noted. vg1 Tuberculosis screening: No symptoms or risk factors identified. Fall Risk Fall in past 12 months (25 points). No secondary diagnosis (0 pts). IV access (20 points). Ambulatory Aid- None/Bed Rest/Nurse Assist (0 pts). Gait- Weak (10 pts.). Mental Status- Oriented to own ability (0 pts). Total Figueroa Fall Scale indicates High Risk Score (45 or more points). Fall prevention measures have been instituted. Side Rails Up X 2 Placed Close to Nursing Station Family Present and informed to notify staff if the need to leave the bedside. Assessment: 16:03 General: Appears uncomfortable, Behavior is cooperative, crying. Pain: Complains of vg1 pain in abdomen and head Pain currently is 10 out of 10 on a pain scale. Pain began 2-3 days ago. Neuro: Level of Consciousness is awake, alert, obeys commands, Oriented to person, place, time, situation, Reports dizziness, headache. Cardiovascular: Patient's skin is warm and dry. Respiratory: Airway is patent Respiratory effort is even, unlabored. GI: Abdomen is round non-distended, obese, Reports nausea, vomiting, since 04/06/21 Patient currently denies diarrhea. : Reports vaginal bleeding that is with clots, heavy flow since 04/08/21. EENT: No signs and/or symptoms were reported regarding the EENT system. Derm: Skin is intact, is healthy with good turgor. Musculoskeletal: Circulation, motion, and sensation intact. 17:24 Reassessment: Patient appears in no apparent distress at this time. No changes from vg1 previously documented assessment. Patient and/or family updated on plan of care and expected duration. Pain level reassessed. Patient is alert, oriented x 3, equal unlabored respirations, skin warm/dry/pink. 17:47 General: Appears uncomfortable, attempted multiple time for iv via u/s. unsuccessful. jh6 advised . 19:35 Neuro: Level of Consciousness is awake, alert, Oriented to person, place, time, sm5 situation. GI: Abdomen is round obese, Reports indigestion, nausea. 20:37 Reassessment: No changes from previously documented assessment. sm5 21:30 Reassessment: Patient appears in no apparent distress at this time. No changes from sm5 previously documented assessment. 22:32 Reassessment: No changes from previously documented assessment. sm5 Vital Signs: 15:40 Weight 113.4 kg; Height 5 ft. 7 in. (170.18 cm); Pain 10/10; ll1 16:02 BP 130 / 93; Pulse 77; Resp 19; Temp 98.4; Pulse Ox 98% ; vg1 19:35 BP 131 / 91; Pulse 64; Resp 19; Pulse Ox 100% on R/A; sm5 20:30 BP 130 / 89; Pulse 68; Resp 17; Pulse Ox 99% ; sm5 22:30 BP 133 / 90; Pulse 63; Resp 18; Pulse Ox 100% ; sm5 15:40 Body Mass Index 39.16 (113.40 kg, 170.18 cm) ll1 ED Course: 15:33 Patient arrived in ED. ds1 15:38 Ash Marcum PA is PHCP. jmm 15:38 Gatito Anguiano MD is Attending Physician. m 15:39 Arm band placed on Patient placed in an exam room, on a stretcher. ll1 15:41 Triage completed. ll1 16:02 Keily Chavez RN is Primary Nurse. vg1 16:03 Inserted saline lock: 22 gauge in left antecubital area, using aseptic technique. Blood tp1 collected. 16:04 Bed in low position. Call light in reach. Side rails up X2. tp1 16:04 EKG done, by ED staff. tp1 16:18 CT Head Brain wo Cont In Process Unspecified. EDMS 18:06 Inserted saline lock: 20 gauge in left EJ, using aseptic technique. ,using aseptic jh6 technique. placed by dr guzman. 18:29 PHCP role handed off by Ash Marcum PA cp 18:29 Gatito Courtney PA is PHCP. cp 19:53 Primary Nurse role handed off by Keily Chavez, RN mw2 20:32 Abdomen In Process Unspecified. EDMS 22:14 Mau Soto MD is Referral Physician. cp 22:34 No provider procedures requiring assistance completed. sm5 22:44 IV discontinued, intact, bleeding controlled, No redness/swelling at site. Pressure sm5 dressing applied. Administered Medications: 18:06 Drug: NS 0.9% 1000 ml Route: IV; Rate: 1 bolus; Site: left jugular; jh6 18:06 Drug: Zofran (Ondansetron) 4 mg Route: IVP; Site: left jugular; jh6 18:31 Follow up: Response: No adverse reaction vg1 18:06 Drug: morphine 4 mg Route: IVP; Site: left jugular; jh6 18:31 Follow up: Response: No adverse reaction vg1 18:36 Drug: Zofran (Ondansetron) 4 mg Route: IVP; Site: left jugular; vg1 19:21 Follow up: Response: No adverse reaction; Marked relief of symptoms vg1 22:07 Drug: ProTONIX (pantoprazole) 40 mg Route: IVP; Site: left jugular; 5 22:07 Drug: GI Cocktail without - (Maalox Suspension 30 ml, Lidocaine Liquid 2 % 15 sm5 ml) Route: PO; Outcome: 22:14 Discharge ordered by MD. mario 22:44 Discharged to home ambulatory. [facility] 22:44 Condition: good 22:44 Discharge instructions given to patient, Instructed on discharge instructions, follow up and referral plans. medication usage, Demonstrated understanding of instructions, follow-up care, medications, Prescriptions given X 2. 22:45 Patient left the ED. [facility] Signatures: Dispatcher [employer] EDMS Ash Marcum PA PA jmm Sanford, Demi ds1 Gatito Courtney PA PA cp [place], MyKena mw2 Keily Chavez RN RN vg1 Milton Giang RN RN ll1 Anitha Holm, JEANNIE RN jh6 Fatmata Bojorquez tp1 Erum Espinal RN RN sm5
[2021-04-09 23:41] VITALS: TEMP 98.4
[2021-04-09 23:45] VITALS: BP 133/90; O2SAT 100
--- NOTE | 2021-04-11 15:18 | EKG ---
Test Date: 2021-04-09 Test Time: 15:45:57 Tile Molder Hand: ANJALI MEASUREMENT RESULTS: Intervals: Rate: 71 MI: 210 QRSD: 92 QT: 382 QTc: 415 [place]: P: 58 MI: 210 QRS: 65 T: 24 INTERPRETIVE STATEMENTS: Sinus rhythm with 1st degree AV block Otherwise normal ECG Compared to ECG 05/28/2020 03:28:04 First degree AV block now present T-wave abnormality no longer present Electronically Signed On 04-11-21 15:14:58 SPECIAL EFFECTS TECHNICIAN by Michele Seaman
== END 2021-04-09 22:45 | disposition home or self-care (01) ==
LOC: ER 15:30
DX: K26.9 Duodenal ulcer, unspecified as acute or chronic, without hemorrhage or perforation (principal); R51.9 Headache, unspecified; I10 Essential (primary) hypertension; J45.909 Unspecified asthma, uncomplicated; Z20.822 Contact with and (suspected) exposure to COVID-19
CPT/HCPCS: 0240U; 36415; 70450; 74176; 80048; 80076; 81003; 81025; 83690; 84484; 85025; 93005; 96374; 96375; 99284; C9113; J2405; J7030

== ENCOUNTER 2021-06-15 13:35 | Emergency (ER) | payer SELFPAY ==
--- OUTSIDE RECORDS SUMMARY | 2021-06-15 13:39 | XMS REPORT | Continuity of Care Document ---
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 TEST DATE (test 05/18/2022 code = 3576) Lab Interpretation (test code = Normal 96640-4) [facility]landsTROPONIN [id number] 23:58:52 Test Item Value Reference Range Interpretation Comments TROPONIN I (test <0.012 See_Comment [Automated code = 6573003934) message] The system which generated this result [...] ? Lab Interpretation Normal (test code = 85764-6) [facility]landsN-TERMINAL [id number] 23:56:28 Test Item Value Reference Range Interpretation Comments NT-proBNP (test code <11 See_Comment [Autom ated = 6007577339) message] The system which generated this result transmitted reference range : <=125 pg/mL. Th e reference range was not used to interpret this result as normal/abnormal . BRENDA (test code = BRENDA) Biotin has been reported to cause a negative bias, interpret results relative to patient's use of biotin. Lab Interpretation Normal (test code = 78868-1) [facility]landsCOMP. METABOLIC PANEL (62682)2020-05-28 23:47:53 Test Item Value Reference Range Interpretation Comments NA (test code = 138 mmol/L 135-145 0820520633) K (test code = 4.0 mmol/L 3.5-5.0 3427421247) CL (test code = 103 mmol/L 98-108 3016919152) CO2 TOTAL (test code = 26 mmol/L 23-31 7939186308) AGAP (test code = 2-16 7361761565) BUN (test code = 11 mg/dL 7-23 0429896889) GLUCOSE (test code = 106 mg/dL 70-110 8248452142) CREATININE (test code 0.90 mg/dL 0.50-1.04 = 1018266509) TOTAL BILI (test code 0.5 mg/dL 0.1-1.1 = 8546465641) CALCIUM (test code = 9.5 mg/dL 8.6-10.6 5210696625) T PROTEIN (test code = 7.9 g/dL 6.3-8.2 2153096230) ALBUMIN (test code = 4.6 g/dL 3.5-5.0 7282525242) ALK PHOS (test code = 92 U/L 34-122 2842842919) ALTv (test code = 11 U/L 5-35 1742-6) AST(SGOT) (test code = 16 U/L 13-40 5209337958) eGFR Calculation mL/min/1.73m2 (Non-) (test code = 4293855705) eGFR Calculation mL/min/1.73m2 () (test code = 6187238650) BRENDA (test code = BRENDA) Association of [...] urine or abnormalities in imaging tests). [facility]MAGNESIUM2021-03-10 23:47:53 Test Item Value Reference Range Interpretation Comments MAGNESIUM (test code = 4093186288) 1.9 mg/dL 1.7-2.4 Lab Interpretation (test code = Normal 25969-0) [facility]2021-[facility]-10 23:47:32 Test Item Value Reference Range Interpretation Comments LIPASE (test code = 9545514046) 74 U/L 0-220 Lab Interpretation (test code = Normal 19334-6) [facility]landsD-[id number] 23:44:49 Test Item Value Reference Interpretation Comments Range D-DIMER (test code = See_Comment H [Autom ated 7394259541) message] The system which generated this result [...] diagnosis. Lab Interpretation Abnormal (test code = 67731-6) [facility] WITH [id number] 23:37:15 Test Item Value Reference Range Interpretation [...] (test code = 38.7 fL 39.0-49.9 L 95672-9) RDW-CV (test code = 11.9 % 12.0-15.5 L 788-0) PLT (test code = See_Comment [Automated 777-3) message] The sy stem which generated this result transmitted reference range : 166 - 358 10*3/ ?L. The reference r daryl was not used to interpret this result as normal/abnormal . MPV (test code = 9.2 fL 9.5-12.9 L 12530-3) NRBC/100 WBC (test See_Comment [Automat ed code = 9819638142) message] The system which generated this result transmitted reference range : 0.0 - 10.0 /100 WBCs. The refer ence range was not u sed to interpret th is result as normal/abnormal . NRBC x10^3 (test code <0.01 See_Comment [Auto mated = 2049054159) message] The s ystem which generated this result transmitted reference range : 10*3/?L. The reference range was not used to interpret this result as normal/abnormal . GRAN MAT (NEUT) % 74.8 % (test code = 770-8) IMM GRAN % (test code 0.40 % = 3817411809) LYMPH % (test code = 17.2 % 736-9) MONO % (test code = 6.4 % 5905-5) EOS % (test code = 0.9 % 713-8) BASO % (test code = 0.3 % 706-2) GRAN MAT x10^3(ANC) 7.12 10*3/uL 1.88-7.09 H (test code = 7703041642) IMM GRAN x10^3 (test 0.04 10*3/uL 0.00-0.06 code = 9019313865) LYMPH x10^3 (test code 1.64 10*3/uL 1.32-3.29 = 731-0) MONO x10^3 (test code 0.61 10*3/uL 0.33-0.92 = 742-7) EOS x10^3 (test code = 0.09 10*3/uL 0.03-0.39 711-2) BASO x10^3 (test code 0.03 10*3/uL 0.01-0.07 = 704-7) Lab Interpretation Abnormal (test code = 08218-1) [facility]landsCOVID-19 (ID NOW RAPID TESTING)2020-05-28 23:34:26 Test Item Value Reference Range Interpretation Comments SARS-CoV-2 Rapid ID NOW Not Detected Not Detected (test code = 03078-8) BRENDA (test code = BRENDA) ID NOW COVID-19 Assay is an isothermal nucleic acid amplification test intended for the qualitative detection of nucleic acid from SARS-CoV-2 viral RNA in nasopharyngeal (BIBLE WORKER) specimens. It is used under Emergency [...] indicated. Lab Interpretation Normal (test code = 31511-1) [facility]INALYSIS2021-03-10 23:01:22 Test Item Value Reference Range Interpretation Comments APPEARANCE (test code = Cloudy Clear A 1350323694) COLOR (test code = Yellow Yellow 8040171037) PH (test code = 4.8-8.0 8750991965) SP GRAVITY (test code = 1.003-1.030 8681999392) GLU U QUAL (test code = Negative Negative 4962198168) BLOOD (test code = Large Negative A 5151146190) KETONES (test code = Trace Negative A 9126510940) PROTEIN (test code = 100 mg/dL Negative A 2887-8) UROBILIN (test code = 0.2 mg/dL See_Comment [Auto mated message] 1074212477) The system [employer] generated this result transmit ciara reference range : 0-1.0 mg/dL. Th e reference range was not used to interpret this result as normal/abnormal . BILIRUBIN (test code = Small Negative A 6833084033) NITRITE (test code = Negative Negative 4576108194) LEUK CARMENZA (test code = Negative Negative 1989827387) RBC/HPF (test code = >182 See_Comment H [Autom ated message] 8945745170) The system [employer] generated this result transmit ciara reference range : 0 - 3 HPF. The refe rence range was not u sed to interpret th is result as normal/abnormal . WBC/HPF (test code = See_Comment [Autom ated message] 0253174618) The system [employer] generated this result transmit ciara reference range : 0 - 5 HPF. The refe rence range was not u sed to interpret th is result as normal/abnormal . BACTERIA (test code = Few Negative A 5219473436) AMORPHOUS (test code = Moderate Rare HPF A 2260097624) Ictotest (test code = Negative 8857591235) Lab Interpretation (test Abnormal code = 96322-0) [facility] / [facility] - DRUG SCREEN [id number] 22:58:05 Test Item Value Reference Range Interpretation Comments BENZO U (test code = Negative Negative 1764575950) STEVE U (test code = Negative Negative 7310183449) AMPHET (test code = Negative Negative 5348174996) THC (test code = Negative Negative 5477895774) METHADONE (test code = Negative Negative 7717467595) Meth U (test code = Negative Negative 1522347606) OPIATES (test code = Presumptive Positive Negative A 7387893282) Cocaine Metabolite (test Negative Negative code = 3549444707) PROPOXY (test code = Negative Negative 9760219095) Tric U (test code = Negative Negative 8567940820) PCP (test code = Negative Negative 6789563917) OXYCOD (test code = Negative Negative 1643706513) BRENDA (test code = BRENDA) Urine Drug [...] testing). Lab Interpretation (test Abnormal code = 59279-0) [facility] GLUCOSE (AUTOMATED)2020-05-28 22:43:55 Test Item Value Reference Range Interpretation Comments POCT GLU (test code = 1363250748) 96 mg/dL 70-110 Lab Interpretation (test code = Normal 40312-8) [facility] GLUCOSE(AGE >30DAYS)2020-05-28 22:43:00 Test Item Value Reference Range Interpretation Comments POCT Glu (age>30days) (test code = 96 mg/dL 70-110 3342) Lab Interpretation (test code = Normal 36889-8) [facility] [id number] 22:26:00 Test Item Value Reference Range Interpretation Comments POCT PREG (test code = 1605) negative On board controls acceptable with present C Line (test code = 3574) POCT PREG LOT # (test code = [id number]) POCT PREG TEST DATE (test 12-18-2021 code = 3576) Lab Interpretation (test code = Normal 74460-5) [facility]
[2021-06-15 15:34] LABS: SARS-COV-2 RT PCR NEGATIVE (NEGATIVE)
--- NOTE | 2021-06-15 16:06 | EDPHYS ---
Physician Documentation [facility] Name: Shanique Avelar Age: 25 yrs Sex: Female : 1995 Arrival Date: 06/15/2021 Time: 13:42 Bed Waiting Private MD: ED Physician Gatito Anguiano HPI: 06/15 15:01 This 25 yrs old Black Female presents to ER via Ambulatory with complaints of Fever, kb Cough. 15:01 The patient or guardian reports cough, that is intermittent, described as mild, flu kb symptoms, low-grade fever. Onset: The symptoms/episode began/occurred 1 week(s) ago. Severity of symptoms: At their worst the symptoms were moderate, in the emergency department the symptoms are unchanged. Modifying factors: The symptoms are alleviated by nothing, the symptoms are aggravated by nothing. Associated signs and symptoms: Pertinent positives: diarrhea, fever, vomiting, Pertinent negatives: chest pain, ear ache, nausea, rhinorrhea, sore throat. The patient has not experienced similar symptoms in the past. The patient has not recently seen a physician. Pt reports fever, cough, n/v/d, malaise and weakness. 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 - Social history:: Smoking status: Patient denies any tobacco usage or history of. ROS: 15:01 Cardiovascular: Negative for chest pain, palpitations, and edema. kb 15:01 Constitutional: Positive for fatigue, fever, malaise. 15:01 Respiratory: Positive for cough, Negative for dyspnea on exertion, hemoptysis, orthopnea, pleurisy, shortness of breath, sputum production, wheezing. 15:01 Abdomen/GI: Positive for nausea, vomiting, and diarrhea. 15:01 Neuro: Positive for weakness. 15:01 All other systems are negative. Exam: 15:01 Constitutional: This is a well developed, well nourished patient who is awake, alert, kb and in no acute distress. Head/Face: Normocephalic, atraumatic. ENT: Moist Mucous membranes Cardiovascular: Regular rate and rhythm with a normal S1 and S2. No gallops, murmurs, or rubs. No pulse deficits. Respiratory: Respirations even and unlabored. No increased work of breathing. Talking in full sentences Abdomen/GI: Soft, non-tender. No distention Skin: Warm, dry with normal turgor. Normal color. MS/ Extremity: Pulses equal, no cyanosis. Neurovascular intact. Full, normal range of motion. Neuro: Awake and alert, GCS 15, oriented to person, place, time, and situation. Moves all extremities. Normal gait. Psych: Awake, alert, with orientation to person, place and time. Behavior, mood, and affect are within normal limits. Vital Signs: 14:06 Weight 114.31 kg (M); tw2 14:08 Pulse 91; Resp 17; Temp 97.9(TE); Pulse Ox 100% on R/A; tw2 14:44 BP 103 / 98; tw2 MDM: 14:13 Patient medically screened. kb 15:00 Data reviewed: vital signs, nurses notes. Data interpreted: Pulse oximetry: on room air kb is 100 %. Interpretation: normal. 15:03 Counseling: I had a detailed discussion with the patient and/or guardian regarding: the kb historical points, exam findings, and any diagnostic results supporting the discharge/admit diagnosis, lab results, the need for outpatient follow up, a family practitioner, to return to the emergency department if symptoms worsen or persist or if there are any questions or concerns that arise at home. 06/15 13:47 Order name: COVID-19/FLU A+B/RSV (Document "Date of Onset" if Symptomatic); Complete kb Time: 16:05 Administered Medications: No medications were administered Disposition Summary: 06/15/21 16:06 Discharge Ordered Location: Home kb Condition: Stable kb Diagnosis - Influenza due to identified novel influenza A virus kb Followup: kb - With: Emergency Department - When: As needed - Reason: Worsening of condition Followup: kb - With: Private Physician - When: 2 - 3 days - Reason: Recheck today's complaints, Continuance of care, Re-evaluation by your physician Discharge Instructions: - Influenza, Adult, [id number]-[id number] kb - Discharge Summary Sheet tw2 Forms: - Medication Reconciliation Form kb - Thank You Letter kb - Antibiotic Education kb - Prescription Opioid Use kb - Work release form tw2 Addendum: 06/18/2021 06:30 Co-signature as Attending Physician, Gatito Anguiano MD I agree with the assessment and c pope plan of care. Signatures: Dispatcher [employer] EDWendie Christianson, NEW CAR DRIVER-C NEW CAR DRIVER-Gatito Jaimes MD MD cha Wise, Tara, RN RN tw2
--- NOTE | 2021-06-15 16:06 | ER ---
Nurse's Notes [facility] Name: Shanique Avelar Age: 25 yrs Sex: Female : 1995 Arrival Date: 06/15/2021 Time: 13:42 Bed Waiting Private MD: Diagnosis: Influenza due to identified novel influenza A virus Presentation: 06/15 14:06 Chief complaint: Patient states: + FLU, fever cough, i feel like crap. +VD. Coronavirus tw2 screen: diarrhea, vomiting. Client presents with at least one sign or symptom that may indicate coronavirus-19. Standard/surgical mask placed on the client. Provider contacted for isolation considerations. Ebola Screen: Patient denies travel to an Ebola-affected area in the 21 days before illness onset. Initial Sepsis Screen: Does the patient meet any 2 criteria? No. Patient's initial sepsis screen is negative. Does the patient have a suspected source of infection? No. Patient's initial sepsis screen is negative. Risk Assessment: Do you want to hurt yourself or someone else? Patient reports no desire to harm self or others. Onset of symptoms was June 15, 2021. 14:06 Method Of Arrival: Ambulatory tw2 14:06 Acuity: KYLEE 4 tw2 14:08 Note pt seen \T\ swabbed in triage. tw2 Triage Assessment: 14:07 General: Appears in no apparent distress. obese, Behavior is calm, cooperative, tw2 appropriate for age. Pain: Complains of pain in body aches. 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 - Social history:: Smoking status: Patient denies any tobacco usage or history of. Screenin:09 Abuse screen: Denies threats or abuse. Nutritional screening: No deficits noted. tw2 Tuberculosis screening: No symptoms or risk factors identified. Fall Risk None identified. Assessment: 14:45 Reassessment: pt seen in triage by provider and swabbed. [facility] tw[facility] pending results. 16:37 Reassessment: Patient appears in no apparent distress at this time. Patient and/or tw2 family updated on plan of care and expected duration. Pain level reassessed. Patient is alert, oriented x 3, equal unlabored respirations, skin warm/dry/pink. Vital Signs: 14:06 Weight 114.31 kg (M); tw2 14:08 Pulse 91; Resp 17; Temp 97.9(TE); Pulse Ox 100% on R/A; tw2 14:44 BP 103 / 98; tw2 ED Course: 13:42 Patient arrived in ED. as 13:45 Wendie Carpio FNP-C [facility]. kb 13:45 Gatito Anguiano MD is Attending Physician. kb 14:07 Triage completed. tw2 14:07 Arm band placed on. tw2 14:09 pt [facility] to [facility]. tw2 15:04 No provider procedures requiring assistance completed. Patient did not have IV access tw2 during this emergency room visit. Administered Medications: No medications were administered Outcome: 16:06 Discharge ordered by MD. kb 16:37 Discharged to home ambulatory, with family. tw2 16:37 Condition: stable 16:37 Discharge instructions given to patient, Instructed on discharge instructions, follow up and referral plans. Demonstrated understanding of instructions, follow-up care. 16:37 Patient left the ED. tw2 Signatures: Wendie Carpio FNP-C FNP-Ckb Martinez, Amelia as Wise, Tara, RN RN tw2
[2021-06-15 17:45] VITALS: TEMP 97.9; O2SAT 100
[2021-06-15 17:46] VITALS: BP 103/98
== END 2021-06-15 16:37 | disposition home or self-care (01) ==
LOC: ER 13:35
DX: J10.1 Influenza due to other identified influenza virus with other respiratory manifestations (principal); Z20.822 Contact with and (suspected) exposure to COVID-19; I10 Essential (primary) hypertension
CPT/HCPCS: 0241U; 99281

== ENCOUNTER 2021-07-08 17:43 | Emergency (ER) | payer SELFPAY ==
--- OUTSIDE RECORDS SUMMARY | 2021-07-08 17:47 | XMS REPORT | Continuity of Care Document ---
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 METABOLIC PANEL (70785)2021-04-06 01:09:52 Test Item Value Reference Range Interpretation Comments NA (test code = 135 mmol/L 135-145 5427078916) K (test code = 4.5 mmol/L 3.5-5.0 7984273923) CL (test code = 103 mmol/L 98-108 1848347964) CO2 TOTAL (test code 26 mmol/L 23-31 = 1876253020) AGAP (test code = 2-16 4002741322) BUN (test code = 9 mg/dL 7-23 2199778115) GLUCOSE (test code = 89 mg/dL 70-110 7813179242) CREATININE (test code 0.68 mg/dL 0.50-1.04 = 3024930020) TOTAL BILI (test code 0.6 mg/dL 0.1-1.1 = 9541560234) CALCIUM (test code = 8.8 mg/dL 8.6-10.6 9779846810) T PROTEIN (test code 8.0 g/dL 6.3-8.2 = 9682114176) ALBUMIN (test code = 4.4 g/dL 3.5-5.0 1612622310) ALK PHOS (test code = 99 U/L 34-122 5633981585) ALTv (test code = 14 U/L 5-35 2-6) AST(SGOT) (test code 25 U/L 13-40 = 1966022898) eGFR (test code = mL/min/1.73m2 9878990692) BRENDA (test code = BRENDA) Association of [...] or urine or abnormalities in imaging tests). [facility] 01:09:12 Test Item Value Reference Range Interpretation Comments LIPASE (test code = 4198019621) 113 U/L 0-220 Lab Interpretation (test code = Normal 66387-6) [facility] WITH [id number] 00:57:34 Test Item Value Reference Range Interpretation Comments WBC (test code = See_Comment [Automated 90-2) message] The sy stem which generated this [...] RDW-SD (test code = 46.0 fL 39.0-49.9 11636-2) RDW-CV (test code = 14.8 % 12.0-15.5 788-0) PLT (test code = See_Comment [Automated 777-3) message] The sy stem which generated this result transmitted reference range : 166 - 358 10*3/ ?L. The reference r daryl was not used to interpret this result as normal/abnormal . MPV (test code = 9.9 fL 9.5-12.9 91568-4) NRBC/100 WBC (test See_Comment [Automat ed code = 4027415614) message] The system which generated this result transmitted reference range : 0.0 - 10.0 /100 WBCs. The refer ence range was not u sed to interpret th is result as normal/abnormal . NRBC x10^3 (test code <0.01 See_Comment [Auto mated = 0909578472) message] The s ystem which generated this result transmitted reference range : 10*3/?L. The reference range was not used to interpret this result as normal/abnormal . GRAN MAT (NEUT) % 57.2 % (test code = 770-8) IMM GRAN % (test code 0.20 % = 9286185613) LYMPH % (test code = 33.8 % 736-9) MONO % (test code = 6.2 % 5905-5) EOS % (test code = 2.2 % 713-8) BASO % (test code = 0.4 % 706-2) GRAN MAT x10^3(ANC) 4.57 10*3/uL 1.88-7.09 (test code = 8197304745) IMM GRAN x10^3 (test <0.03 0.00-0.06 code = 4059305005) LYMPH x10^3 (test code 2.71 10*3/uL 1.32-3.29 = 731-0) MONO x10^3 (test code 0.50 10*3/uL 0.33-0.92 = 742-7) EOS x10^3 (test code = 0.18 10*3/uL 0.03-0.39 711-2) BASO x10^3 (test code 0.03 10*3/uL 0.01-0.07 = 704-7) Lab Interpretation Abnormal (test code = 26284-2) [facility] [id number] 00:27:00 Test Item Value Reference Range Interpretation Comments POCT PREG (test code = 1605) NEGATIVE On board controls acceptable with NEGATIVE C Line (test code = 3574) POCT PREG LOT # (test code = 3575) [id number] POCT PREG TEST DATE (test 05/18/2022 code = 3576) Lab Interpretation (test code = Normal 44921-3) [facility] TaylorTROPONIN [id number] 23:58:52 Test Item Value Reference Range Interpretation Comments TROPONIN I (test <0.012 See_Comment [Automated code = 7958070772) message] The system which generated this result [...] ? Lab Interpretation Normal (test code = 71492-0) [facility] TaylorN-TERMINAL [id number] 23:56:28 Test Item Value Reference Range Interpretation Comments NT-proBNP (test code <11 See_Comment [Autom ated = 7132880210) message] The system which generated this result transmitted reference range : <=125 pg/mL. Th e reference range was not used to interpret this result as normal/abnormal . BRENDA (test code = BRENDA) Biotin has been reported to cause a negative bias, interpret results relative to patient's use of biotin. Lab Interpretation Normal (test code = 83774-0) [facility] (60059)2020-05-28 23:47:53 Test Item Value Reference Range Interpretation Comments NA (test code = 138 mmol/L 135-145 7266076949) K (test code = 4.0 mmol/L 3.5-5.0 3691801772) CL (test code = 103 mmol/L 98-108 1308904159) CO2 TOTAL (test code = 26 mmol/L 23-31 9311854134) AGAP (test code = 2-16 8828879381) BUN (test code = 11 mg/dL 7-23 6738196344) GLUCOSE (test code = 106 mg/dL 70-110 1601046972) CREATININE (test code 0.90 mg/dL 0.50-1.04 = 7339554799) TOTAL BILI (test code 0.5 mg/dL 0.1-1.1 = 8978740008) CALCIUM (test code = 9.5 mg/dL 8.6-10.6 9071439342) T PROTEIN (test code = 7.9 g/dL 6.3-8.2 3478612951) ALBUMIN (test code = 4.6 g/dL 3.5-5.0 7700570489) ALK PHOS (test code = 92 U/L 34-122 8578037528) ALTv (test code = 11 U/L 5-35 1742-6) AST(SGOT) (test code = 16 U/L 13-40 7108408113) eGFR Calculation mL/min/1.73m2 (Non-) (test code = 9146561578) eGFR Calculation mL/min/1.73m2 () (test code = 6787820197) BRENDA (test code = BRENDA) Association of [...] or urine or abnormalities in imaging tests). [facility]2021-03-10 23:47:53 Test Item Value Reference Range Interpretation Comments MAGNESIUM (test code = 2678550668) 1.9 mg/dL 1.7-2.4 Lab Interpretation (test code = Normal 47359-6) [facility]2021-03-10 23:47:32 Test Item Value Reference Range Interpretation Comments LIPASE (test code = 2796922364) 74 U/L 0-220 Lab Interpretation (test code = Normal 90848-9) [facility] [id number] 23:44:49 Test Item Value Reference Interpretation Comments Range D-DIMER (test code = See_Comment H [Autom ated 7604842237) message] The system which generated this result [...] diagnosis. Lab Interpretation Abnormal (test code = 93223-8) [facility] WITH [id number] 23:37:15 Test Item Value Reference Range Interpretation [...] (test code = 38.7 fL 39.0-49.9 L 32981-0) RDW-CV (test code = 11.9 % 12.0-15.5 L 788-0) PLT (test code = See_Comment [Automated 777-3) message] The sy stem which generated this result transmitted reference range : 166 - 358 10*3/ ?L. The reference r daryl was not used to interpret this result as normal/abnormal . MPV (test code = 9.2 fL 9.5-12.9 L 30750-3) NRBC/100 WBC (test See_Comment [Automat ed code = 3384561261) message] The system which generated this result transmitted reference range : 0.0 - 10.0 /100 WBCs. The refer ence range was not u sed to interpret th is result as normal/abnormal . NRBC x10^3 (test code <0.01 See_Comment [Auto mated = 0923674569) message] The s ystem which generated this result transmitted reference range : 10*3/?L. The reference range was not used to interpret this result as normal/abnormal . GRAN MAT (NEUT) % 74.8 % (test code = 770-8) IMM GRAN % (test code 0.40 % = 7678332387) LYMPH % (test code = 17.2 % 736-9) MONO % (test code = 6.4 % 5905-5) EOS % (test code = 0.9 % 713-8) BASO % (test code = 0.3 % 706-2) GRAN MAT x10^3(ANC) 7.12 10*3/uL 1.88-7.09 H (test code = 7539245159) IMM GRAN x10^3 (test 0.04 10*3/uL 0.00-0.06 code = 0765904294) LYMPH x10^3 (test code 1.64 10*3/uL 1.32-3.29 = 731-0) MONO x10^3 (test code 0.61 10*3/uL 0.33-0.92 = 742-7) EOS x10^3 (test code = 0.09 10*3/uL 0.03-0.39 711-2) BASO x10^3 (test code 0.03 10*3/uL 0.01-0.07 = 704-7) Lab Interpretation Abnormal (test code = 66747-3) [facility]OVID-[facility] (ID NOW RAPID TESTING)2020-05-28 23:34:26 Test Item Value Reference Range Interpretation Comments SARS-CoV-2 Rapid ID NOW Not Detected Not Detected (test code = 49763-3) BRENDA (test code = BRENDA) ID NOW COVID-19 Assay is an isothermal nucleic acid amplification test intended for the qualitative detection of nucleic acid from SARS-CoV-2 viral RNA in nasopharyngeal (COMMUNICATIONS TOWER TECHNICIAN) specimens. It is used under Emergency Use [...] indicated. Lab Interpretation Normal (test code = 11096-7) [facility] Taylor[facility]IN[facility]YSIS2021-03-10 23:01:22 Test Item Value Reference Range Interpretation Comments APPEARANCE (test code = Cloudy Clear A 3805100562) COLOR (test code = Yellow Yellow 4203563314) PH (test code = 4.8-8.0 2307989040) SP GRAVITY (test code = 1.003-1.030 7200761534) GLU U QUAL (test code = Negative Negative 0310292498) BLOOD (test code = Large Negative A 2773412797) KETONES (test code = Trace Negative A 7448726628) PROTEIN (test code = 100 mg/dL Negative A 2887-8) UROBILIN (test code = 0.2 mg/dL See_Comment [Auto mated message] 8897504945) The system [employer] generated this result transmit ciara reference range : 0-1.0 mg/dL. Th e reference range was not used to interpret this result as normal/abnormal . BILIRUBIN (test code = Small Negative A 3486036056) NITRITE (test code = Negative Negative 6385828450) LEUK CARMENZA (test code = Negative Negative 4575451482) RBC/HPF (test code = >182 See_Comment H [Autom ated message] 2440023610) The system [employer] generated this result transmit ciara reference range : 0 - 3 HPF. The refe rence range was not u sed to interpret th is result as normal/abnormal . WBC/HPF (test code = See_Comment [Autom ated message] 4399428529) The system [employer] generated this result transmit ciara reference range : 0 - 5 HPF. The refe rence range was not u sed to interpret th is result as normal/abnormal . BACTERIA (test code = Few Negative A 6768969371) AMORPHOUS (test code = Moderate Rare HPF A 2360405358) Ictotest (test code = Negative 3571497619) Lab Interpretation (test Abnormal code = 29975-7) [facility] - [facility] S[facility] [id number] 22:58:05 Test Item Value Reference Range Interpretation Comments BENZO U (test code = Negative Negative 9694189960) STEVE U (test code = Negative Negative 0565534574) AMPHET (test code = Negative Negative 2507186752) THC (test code = Negative Negative 8198307971) METHADONE (test code = Negative Negative 3223165902) Meth U (test code = Negative Negative 5325679055) OPIATES (test code = Presumptive Positive Negative A 3743583019) Cocaine Metabolite (test Negative Negative code = 4497655117) PROPOXY (test code = Negative Negative 7058126644) Tric U (test code = Negative Negative 0195739532) PCP (test code = Negative Negative 1677321258) OXYCOD (test code = Negative Negative 3941068831) BRENDA (test code = BRENDA) Urine Drug [...] testing). Lab Interpretation (test Abnormal code = 17028-6) [facility] GLU[facility]SE (AUTOMATED)2020-05-28 22:43:55 Test Item Value Reference Range Interpretation Comments POCT GLU (test code = 7289230396) 96 mg/dL 70-110 Lab Interpretation (test code = Normal 21818-5) [facility] GLUCOSE(AGE >30DAYS)2020-05-28 22:43:00 Test Item Value Reference Range Interpretation Comments POCT Glu (age>30days) (test code = 96 mg/dL 70-110 3342) Lab Interpretation (test code = Normal 71452-9) [facility] [id number] 22:26:00 Test Item Value Reference Range Interpretation Comments POCT PREG (test code = 1605) negative On board controls acceptable with present C Line (test code = 3574) POCT PREG LOT # (test code = [id number]) POCT PREG TEST DATE (test 12-18-2021 code = 3576) Lab Interpretation (test code = Normal 34322-8) [facility]
[2021-07-08] MEDS ORDERED: AMOX/K CLAV 875 MG TAB ONE (18:50)
[2021-07-08] MEDS ORDERED: HYDROCODONE/APAP 7.5/325 MG TAB ONE (18:51)
--- NOTE | 2021-07-08 19:00 | EDPHYS ---
Physician Documentation [facility] Name: Shanique Avelar Age: 25 yrs Sex: Female : 1995 Arrival Date: 07/08/2021 Time: 17:48 Bed 11 Private MD: ED Physician Gatito Anguiano HPI: 07/08 18:56 This 25 yrs old Black Female presents to ER via Ambulatory with complaints of Headache, la1 Toothache, Abscess. 18:56 The patient complains of pain to the forehead. The patient describes the headache as a la1 pressure. Onset: The symptoms/episode began/occurred today. Associated signs and symptoms: The patient has no apparent associated signs or symptoms. Severity of symptoms: At its worst the pain was moderate, in the emergency department the pain is unchanged. Headache History: Denies prior headaches. The patient has not experienced similar symptoms in the past. Patient with complaints of left low jaw/dental pain as well as headache, reports she has no dental issues and is waiting to see a dentist but has not been able to at this time due to financial reasons.. Historical: - Allergies: 18:20 No Known Allergies; iw - PMHx: 18:20 Anemia; Asthma; Heart Murmur; Hypertensive disorder; iw - PSHx: 18:20 Tonsillectomy; iw - Immunization history:: Adult Immunizations up to date. - Social history:: Smoking status: Patient denies any tobacco usage or history of. ROS: 18:57 Constitutional: Negative for fever, chills, and weight loss, Eyes: Negative for injury, la1 pain, redness, and discharge. 18:57 Cardiovascular: Negative for chest pain, palpitations, and edema, Respiratory: Negative for shortness of breath, cough, wheezing, and pleuritic chest pain, Abdomen/GI: Negative for abdominal pain, nausea, vomiting, diarrhea, and constipation, Back: Negative for injury and pain, MS/Extremity: Negative for injury and deformity, Skin: Negative for injury, rash, and discoloration, Neuro: Negative for headache, weakness, numbness, tingling, and seizure. 18:57 ENT: Positive for dental pain, Gum pain Exam: 18:57 Constitutional: This is a well developed, well nourished patient who is awake, alert, la1 and in no acute distress. Head/Face: Normocephalic, atraumatic. Eyes: Pupils equal round and reactive to light, extra-ocular motions intact. 18:57 Chest/axilla: Normal chest wall appearance and motion. Nontender with no deformity. No lesions are appreciated. Cardiovascular: Regular rate and rhythm with a normal S1 and S2. No gallops, murmurs, or rubs. Normal PMI, no JVD. No pulse deficits. Respiratory: Lungs have equal breath sounds bilaterally, Abdomen/GI: Soft, non-tender, with normal bowel sounds. MS/ Extremity: Pulses equal, no cyanosis. Neurovascular intact. Full, normal range of motion. Neuro: Awake and alert, GCS 15, oriented to person, place, time, and situation 18:57 ENT: Mouth: Posterior pharynx: is normal, no acute changes, Airway: patent, Uvula: normal, midline, Dental exam: abscess, that is mild, specifically in the lower left third molar (#17) and lower left second molar (#18), Voice: is normal. Vital Signs: 18:19 BP 111 / 76; Pulse 98; Resp 18; Temp 97.5; Pulse Ox 98% on R/A; Weight 111.13 kg; iw Height 5 ft. 7 in. (170.18 cm); Pain 10/10; 18:19 Body Mass Index 38.37 (111.13 kg, 170.18 cm) iw MDM: 18:19 Patient medically screened. la1 18:58 Data reviewed: vital signs, nurses notes, and as a result, I will discharge patient. la1 Data interpreted: Pulse oximetry: on room air is 98 %. Interpretation: normal. Counseling: I had a detailed discussion with the patient and/or guardian regarding: the historical points, exam findings, and any diagnostic results supporting the discharge/admit diagnosis, the need for outpatient follow up, a dentist, to return to the emergency department if symptoms worsen or persist or if there are any questions or concerns that arise at home. Administered Medications: 18:53 Drug: [place] (HYDROcodone-acetaminophen) (7.5 mg-325 mg) 1 tabs Route: PO; iw 19:52 Follow up: Response: No adverse reaction iw 18:54 Drug: Augmentin (Amoxicillin-Clavulanate) 875 mg Route: PO; iw 19:51 Follow up: Response: No adverse reaction iw Disposition Summary: 07/08/21 19:00 Discharge Ordered Location: Home la1 Problem: new la1 Symptoms: are unchanged la1 Condition: Stable la1 Diagnosis - Dental caries, unspecified la1 - Headache la1 Followup: la1 - With: Private Physician - When: 2 - 3 days - Reason: Recheck today's complaints, Re-evaluation by your physician Followup: la1 - With: Emergency Department - When: As needed - Reason: Fever > 102 F, Worsening of condition Discharge Instructions: - Discharge Summary Sheet la1 - Dental Caries, Adult la1 - Dental Pain la1 - Dental Pain, [id number] la1 Forms: - Medication Reconciliation Form la1 - Thank You Letter la1 - Antibiotic Education la1 - Prescription Opioid Use la1 Prescriptions: - Augmentin 875-125 mg Oral Tablet - take 1 tablet by ORAL route every 12 hours for 10 days; 20 tablet; Refills: 0, la1 Product Selection Permitted - Tylenol-Codeine #3 300 mg-30 mg Oral - take 1 tablet by ORAL route 3-4 times daily; 10 tablet; Refills: 0, Product la1 Selection Permitted Addendum: 07/10/2021 07:50 Co-signature as Attending Physician, Gatito Anguiano MD I agree with the assessment and c pope plan of care. Signatures: Gatito Anguiano MD MD cha Williams, Irene, RN RN iw Oscar Jeffery, PSYCH THERAPIST-C PSYCH THERAPIST-Cla1
--- NOTE | 2021-07-08 19:00 | ER ---
Nurse's Notes [facility] Name: Shanique Avelar Age: 25 yrs Sex: Female : 1995 Arrival Date: 07/08/2021 Time: 17:48 Bed 11 Private MD: Diagnosis: Dental caries, unspecified;Headache Presentation: 07/08 18:19 Chief complaint: Patient states: "I have an infected tooth on the bottom left side of iw my mouth." Pt c/o headache. Coronavirus screen: Vaccine status: Patient reports receiving the 2nd dose of the covid vaccine. Client denies travel out of the [place] in the last 14 days. At this time, the client does not indicate any symptoms associated with coronavirus-19. Ebola Screen: Patient negative for fever greater than or equal to 101.5 degrees Fahrenheit, and additional compatible Ebola Virus Disease symptoms Patient denies exposure to infectious person. Patient denies travel to an Ebola-affected area in the 21 days before illness onset. No symptoms or risks identified at this time. Initial Sepsis Screen: Does the patient meet any 2 criteria? No. Patient's initial sepsis screen is negative. Does the patient have a suspected source of infection? Yes: Bone or joint infection. Risk Assessment: Do you want to hurt yourself or someone else? Patient reports no desire to harm self or others. Onset of symptoms is unknown. 18:19 Method Of Arrival: Ambulatory 18:19 Acuity: KYLEE 4 Triage Assessment: 18:20 Headache History: The patient has had previous headaches and this one is similar to iw previous episodes. General: Appears in no apparent distress. uncomfortable, Behavior is calm, cooperative, appropriate for age. Pain: Complains of pain in mouth Pain currently is 10 out of 10 on a pain scale. Pain began 2-3 days ago. Also complains of decreased appetite. EENT: Parent/caregiver reports the patient having pain in mouth. Neuro: Level of Consciousness is awake, alert, obeys commands, Oriented to person, place, time, situation, Appropriate for age. Cardiovascular: No deficits noted. Denies chest pain, shortness of breath. Respiratory: No deficits noted. Airway is patent Respiratory effort is even, unlabored, Respiratory pattern is regular, symmetrical. GI: No deficits noted. No signs and/or symptoms were reported involving the gastrointestinal system. : No deficits noted. No signs and/or symptoms were reported regarding the genitourinary system. Derm: No deficits noted. No signs and/or symptoms reported regarding the dermatologic system. Skin is intact, is healthy with good turgor, Skin is pink, warm \\T\\ dry. Historical: - Allergies: 18:20 No Known Allergies; iw - PMHx: 18:20 Anemia; Asthma; Heart Murmur; Hypertensive disorder; iw - PSHx: 18:20 Tonsillectomy; iw - Immunization history:: Adult Immunizations up to date. - Social history:: Smoking status: Patient denies any tobacco usage or history of. Vital Signs: 18:19 BP 111 / 76; Pulse 98; Resp 18; Temp 97.5; Pulse Ox 98% on R/A; Weight 111.13 kg; iw Height 5 ft. 7 in. (170.18 cm); Pain 10/10; 18:19 Body Mass Index 38.37 (111.13 kg, 170.18 cm) iw ED Course: 17:48 Patient arrived in ED. am2 17:53 Oscar Jeffery [facility]C [facility] la1 17:53 Gatito Anguiano MD is Attending Physician. la1 18:16 Loyda Ashton RN is Primary Nurse. iw 18:16 Oscar Jeffery F[facility]-C [facility] la[facility] 18:16 Gatito Anguiano MD is Attending Physician. la1 18:20 Triage completed. iw 18:21 Arm band placed on right wrist. iw Administered Medications: 18:53 Drug: [place] (HYDROcodone-acetaminophen) (7.5 mg-325 mg) 1 tabs Route: PO; iw 19:52 Follow up: Response: No adverse reaction iw 18:54 Drug: Augmentin (Amoxicillin-Clavulanate) 875 mg Route: PO; iw 19:51 Follow up: Response: No adverse reaction iw Outcome: 19:00 Discharge ordered by . la1 19:14 Patient left the ED. iw Signatures: Loyda Ashton RN RN iw Oscar Jeffery FNP-C LEGAL ACTIVITY ADJUDICATOR-[facility] Antionette Lobo am2
[2021-07-09 00:52] VITALS: BP 111/76; TEMP 97.5; O2SAT 98
== END 2021-07-08 19:14 | disposition home or self-care (01) ==
LOC: ER 17:43
DX: R51.9 Headache, unspecified (principal); K02.9 Dental caries, unspecified; J45.909 Unspecified asthma, uncomplicated; I10 Essential (primary) hypertension; R01.1 Cardiac murmur, unspecified; D64.9 Anemia, unspecified
CPT/HCPCS: 99282

== ENCOUNTER 2021-08-05 00:21 | Emergency (ER) | payer SELFPAY ==
--- OUTSIDE RECORDS SUMMARY | 2021-08-05 00:25 | XMS REPORT | Continuity of Care Document ---
:1995 Author Organization [facility] t Address [address] [place] [address] Care Team Providers Name Role Phone PCP, DOES NOT HAVE A Primary Care Physician Unavailable KLINE Attending Clinician Unavailable Kline DO Attending Clinician EBRAHIM Attending Clinician Unavailable Ebrahim COMMERCIAL DECORATOR Attending Clinician Monica Fried Attending Clinician Kiran Giraldo Attending Clinician KIRAN KING Attending Clinician Unavailable EBRAHIM Admitting Clinician Unavailable Payers Payer Name Policy Type Policy Number Effective Date Expiration Date S [facility] MEDICAID PENDING PENDING 2021 00:00:00 Problems Condition Condition Condition Status Onset Resolution Last Treating Co mments Source Name Details Category Date Date Treatment Clinician Date Antepartum Antepartum Disease Active Overview : Univers anemia anemia 09-27 Formattin ity of 00:00: g of this [place] 00 note Medical might be Branch different from the original. Started on BID [id number] Diagnosis Term Education Dean Utility Supervisio Supervisio Disease Active Overview : Univers n of other n of other 09-26 Formattin ity of high-risk high-risk 00:00: g of this [place] 00 note Medi klarissa might be Branch different from the original. Medical records from [facility]: 4. CC: chest pain, vomiting, and dehydrati on. Dx: Hyperemes is Gravidaru m ECG- sinus rhythm with frequent PVC complexes . Otherwise normal ECG. Rx given Zofran 4mg. H/H- 12.1/37.2 . Beta hcg- 429624. B positive. Potassium - 3.3 (low)Ches t X-ray: Impressio n: no acute or new cardiopul monary abnormali ties. ICD10 Diagnosis Term Education Dean Utility Blunt Blunt Disease Active Overview: [facility] trauma to trauma to 09-26 Formattin i [...] index normal. Motor Motor Disease [facility] Formattin ity [...] in gain in 00:00: [place] 00 [facility] Branch Placenta Placenta Disease Active Overview: Un [...] Active Univers ALLERGIE Class ity of S [facility] [place] Social History Social Habit Start Date Stop Date Quantity Comments Source Exposure to Not sure [facility] SARS-CoV-2 [facility] (event) Branch Alcohol intake 2018-12-29 2018-12-29 Current University of 00:00:00 00:00:00 non-drinker of [facility] alcohol Branch (finding) Tobacco use and 2013-06-22 2013-06-22 Never used Universit y of exposure 00:00:00 00:00:00 [facility] [place] Sex Assigned At [birth year] Universit y of 00:00:00 00:00:00 [facility] [place] Smoking Status Start Date Stop Date Source [...] 00 :00 dose, On Medi klarissa 1:1:1 [facility] (FIRST-MOUT 04/05/21 at [facility]) 2044, oral Routine suspension 15 mL famotidine No 40mg 40 mg, Univ ers (PEPCID 04-06 Slow IV ity of (PF)) 02:45: 01:55 Push, [place] injection 00 :00 ONCE, 1 Medical 40 mg dose, On Branch [place] 04/05/21 at 2044, JADA dicyclomine Yes 20mg 20 mg, Univ ers (BENTYL) 04-06 Intramuscu ity o f injection 02:00: lar, QID, [place] as 20 mg 00 First dose Medical on [place] Branch 04/05/21 at 1999, Until Discontinu ed, Routine iohexol 2021- No [id number] 120mL 120 mL, Univers (OMNIPAQUE 04-06 Intravenou it y of 350 02:00: 01:49 s, ONCE, 1 [place] BULK-100 00 :00 dose, On Medical mL) [facility] injection 04/05/21 at 120 mL 1999, Routine ondansetron No 4mg 4 mg, Slow Univers (ZOFRAN 04-06 IV Push, ity of (PF)) 01:15: 01:53 ONCE, 1 [place] injection 4 00 :00 dose, On Medi klarissa mg [place] Branch 04/05/21 at 191, JADA ketorolac No 30mg 30 mg, Unive rs (TORADOL) 04-06 Slow IV ity of injection 01:15: 01:15 Push, [place] 30 mg 00 :00 ONCE, 1 Medical dose, On Branch [place] 04/05/21 at 191, JADA morpHINE No 4mg [...] 04/05/21 at 1915, JADA dicyclomine 2021- No [id number] 10mg Take 1 Univers 10 mg 04-05 capsule by ity of capsule 00:00: 05:59 mouth 4 [place] 00 :00 (four) Medical times Branch daily for 10 days. dicyclomine 2021- No [id number] 10mg Take 1 Univers 10 mg 04-05 capsule by ity of capsule 00:00: 05:59 mouth 4 [place] 00 :00 (four) Medical times Branch daily for 10 days. famotidine 2021- No [id number] 20mg Take 1 Univers (PEPCID) 20 04-05 tablet by it y of mg tablet 00:00: 05:59 mouth 2 [place] 00 :[place] (two) Medical times Branch daily for 7 days. famotidine 2021- No [id number] 20mg Take 1 Univers (PEPCID) 20 04-05 tablet by it y of mg tablet 00:00: 05:59 mouth 2 [place] 00 :[place] (two) Medical times Branch daily for 7 days. proMETHazin 2021- No [id number] 25mg Insert 1 Univers e 25 mg 04-05 Suppositor ity o f suppository 00:00: 05:59 y into [place] as 00 :00 rectum Medical every 6 Branch (six) hours for 5 days. proMETHazin 2021- No [id number] 25mg Insert 1 Univers e 25 mg [...] at Branch 2115, STAT iohexol 2020- No [id number] 100mL 100 mL, U nivers (OMNIPAQUE 05-29 [...] Restricted medication : Enedelia NAIK ibuprofen Yes [id number] 600mg Take 1 Univers 600 mg 3-10 tablet by ity of tablet 00:00: mouth [place] 00 every 6 Medical (six) Branch hours as needed for Pain (scale 4-6). ibuprofen Yes [id number] 600mg Take 1 Univers 600 mg 3-10 tablet by ity of tablet 00:00: mouth [place] 00 every 6 Medical (six) Branch hours as needed for Pain (scale 4-6). ibuprofen Yes [id number] 600mg Take 1 Univers 600 mg 3-10 tablet by ity of tablet 00:00: mouth [place] 00 every 6 Medical (six) Branch hours as needed for Pain (scale 4-6). traMADol 2018-03 Yes [id number] 50mg Take 1 Uni vers (ULTRAM) 50 0-11 tablet by ity of mg tablet 00:00: mouth [place] 00 every 8 Medical (eight) Branch hours as needed for Pain (scale 4-6). cyclobenzap 2018-03 Yes [id number] 5mg Take 1 Univers rine 5 mg 0-11 tablet by ity o f tablet 00:00: mouth 3 [place] 00 (three) Medical times Branch daily. traMADol 2018-03 Yes [id number] 50mg Take 1 Uni vers (ULTRAM) 50 0-11 tablet by ity of mg tablet 00:00: mouth [place] 00 every 8 Medical (eight) Branch hours as needed for Pain (scale 4-6). cyclobenzap 2018-03 Yes [id number] 5mg Take 1 Univers rine 5 mg 0-11 tablet by ity o f tablet 00:00: mouth 3 [place] 00 (three) Medical times Branch daily. traMADol 2018-03 Yes [id number] 50mg Take 1 Uni vers (ULTRAM) 50 0-11 tablet by ity of mg tablet 00:00: mouth [place] 00 every 8 Medical (eight) Branch hours as needed for Pain (scale 4-6). cyclobenzap 2018-03 Yes [id number] 5mg Take 1 Univers rine 5 mg 0-11 tablet by ity o f tablet 00:00: mouth 3 [place] 00 (three) Medical times Branch daily. traMADol 2018-03 Yes [id number] 50mg Take 1 Uni vers (ULTRAM) 50 0-11 tablet by ity of mg tablet 00:00: mouth [place] 00 every 8 Medical (eight) Branch hours as needed for Pain (scale 4-6). cyclobenzap 2018-03 Yes [id number] 5mg Take 1 Univers rine 5 mg 0-11 tablet by ity o f tablet 00:00: mouth 3 [place] 00 (three) Medical times Branch daily. ONDANSETRON 2013-0 Yes Take by Un ivelisse HCL (ZOFRAN 5-02 mouth. ity of ORAL) 18:36: [address] Branch ONDANSETRON 2013-0 Yes Take by Un ivelisse HCL (ZOFRAN 5-02 mouth. ity of ORAL) 18:36: [address] Branch ONDANSETRON 2013-0 Yes Take by Un ivelisse HCL (ZOFRAN 5-02 mouth. ity of ORAL) 13:36: [address] Branch ONDANSETRON 2013-0 Yes Take by Un ivelisse HCL (ZOFRAN 5-02 mouth. ity of ORAL) 13:36: [address] Immunizations Ordered Filled Immunization Date Status Comments Sourc e Immunization Name Name [facility] 2013-09-26 Completed University 00:00:00 [facility] 2013-09-26 Completed University 00:00:00 [facility] 2013-09-26 Completed University 00:00:00 [facility] 2013-09-26 Completed University 00:00:00 [facility] 2009-10-22 Completed University of 00:00:00 [facility] 2009-10-22 Completed University of 00:00:00 [facility] 2009-10-22 Completed University 00:00:00 [facility] 2009-10-22 Completed [facility] 00:00:00 [facility] [place] Vital Signs Vital Name Observation Time Observation Value Comments Source Systolic blood 2021-04-09 20:09:00 127 mm[Hg] Univer sity of pressure [facility] [place] Diastolic blood 2021-04-09 20:09:00 97 mm[Hg] Unive rsity of [facility] Heart rate 2021-04-09 20:09:00 73 /min [facility] Body temperature 2021-04-09 20:09:00 36.83 Mayra [facility] Respiratory rate 2021-04-09 20:09:00 14 /min [facility] Body height 2021-04-09 20:09:00 170.2 cm [facility] Body weight 2021-04-09 20:09:00 115.667 kg [facility] BMI 2021-04-09 20:09:00 39.94 kg/m2 [facility] Oxygen saturation in 2021-04-09 20:09:00 100 /min [facility] Arterial blood by [facility] Pulse oximetry Branch Systolic blood 2021-04-06 03:21:00 125 mm[Hg] Univer sity of pressure [facility] [place] Diastolic blood 2021-04-06 03:21:00 89 mm[Hg] Unive rsity of pressure [facility] [place] Heart rate 2021-04-06 03:21:00 68 /min [facility] Respiratory rate 2021-04-06 03:21:00 14 /min Univ ersity of [place] [facility] Oxygen saturation in 2021-04-06 03:21:00 98 /min University of Arterial blood by [facility] Pulse oximetry Branch Body weight 2021-04-06 00:00:00 113.399 kg Universi ty of [place] [facility] BMI 2021-04-06 00:00:00 39.16 kg/m2 [...] 98 /min University of Arterial blood by [facility] Pulse oximetry Branch Body weight 2020-05-28 [...] 2020-05-29 01:00:00 11 /min Univ ersity of [place] [facility] Oxygen saturation in 2020-05-29 01:00:00 98 /min University of Arterial blood by [facility] Pulse oximetry Branch Body weight 2020-05-28 22:05:00 104.327 kg Universi ty of [place] [facility] BMI 2020-05-28 22:05:00 36.02 kg/m2 Universi ty of [place] [facility] Systolic blood 2019-05-01 17:18:00 122 mm[Hg] Univer sity of pressure [facility] Branch Diastolic blood 2019-05-01 17:18:00 86 mm[Hg] Unive rsity of pressure [facility] [place] Heart rate 2019-05-01 17:18:00 87 /min Universi ty of [facility] [place] Body temperature 2019-05-01 17:18:00 36.39 Mayra Univ ersity of [facility] [place] Respiratory rate 2019-05-01 17:18:00 18 /min Univ ersity of [facility] [place] Body weight 2019-05-01 17:18:00 107.1 kg Universi ty of [facility] [place] BMI 2019-05-01 17:18:00 36.98 kg/m2 Universi ty of [facility] [place] Oxygen saturation in 2019-05-01 17:18:00 99 /min University of Arterial blood by [facility] Pulse oximetry Branch Systolic blood 2019-05-01 17:18:00 122 mm[Hg] Univer sity of pressure [facility] [place] Diastolic blood 2019-05-01 17:18:00 86 mm[Hg] Unive rsity of pressure [facility] [place] Heart rate 2019-05-01 17:18:00 87 /min Universi ty of [facility] [place] Body temperature 2019-05-01 17:18:00 36.39 Mayra Univ ersity of [facility] [place] Respiratory rate 2019-05-01 17:18:00 18 /min Univ ersity of [facility] [place] Body weight 2019-05-01 17:18:00 107.1 kg Universi ty of [facility] [place] BMI 2019-05-01 17:18:00 36.98 kg/m2 Universi ty of [facility] [place] Oxygen saturation in 2019-05-01 17:18:00 99 /min University of Arterial blood by [facility] Pulse oximetry Branch Procedures Procedure Date / Time Performed Performing Clinician [facility] e NOTICE OF PRIVACY 2021-04-09 20:01:57 Doctor Unassigned, No Univ [facility] Name Medical Branch CT ABDOMEN PELVIS W 2021-04-06 01:54:18 Jessy Daley [facility] ty [facility] Branch POCT TEST 2021-04-06 00:27:00 Jessy Daley [facility] Medical Branch LIPASE 2021-04-06 00:25:00 Ebrahim, Rania [facility] COMP. METABOLIC PANEL 2021-04-06 00:25:[address] [facility] ([id number]) Medical Branch CBC WITH DIFF 2021-04-06 00:25:00 Thuy [facility] URINALYSIS 2021-04-06 00:25:00 Thuy [facility] CONSENT/REFUSAL FOR 2021-04-05 23:54:58 Doctor Unassigned, No Un [facility] DIAGNOSIS AND Name Medical Branch TREATMENT CT CHEST PULMONARY 2020-05-29 02:01:37 Enedelia Naik [facility] ANGIOGRAM Medical Branch LIPASE 2020-05-28 23:29:00 Enedelia Naik [facility] MAGNESIUM 2020-05-28 23:29:00 Enedelia Naik Monica [facility] TROPONIN I 2020-05-28 23:29:00 Enedelia Naik Monica [facility] COMP. METABOLIC PANEL 2020-05-28 23:29:[address] [facility] ([id number]) Medical Branch CBC WITH DIFF 2020-05-28 23:29:00 Enedelia Naik [facility] D-DIMER 2020-05-28 23:29:00 Enedelia Naik [facility] N-TERMINAL PRO-BNP 2020-05-28 23:29:00 Enedelia Naik [facility] COVID-19 (ID NOW RAPID 2020-05-28 23:07:00 Enedelia Naik [facility] TESTING) Medical Branch POCT GLUCOSE(AGE 2020-05-28 22:43:00 Enedelia Naik [facility] >30DAYS) Medical Branch POCT GLUCOSE 2020-05-28 22:39:00 Enedelia Naik [facility] (AUTOMATED) [facility] Branch URINALYSIS 2020-05-28 22:26:00 Enedelia Naik Monica [facility] POCT TEST 2020-05-28 22:26:00 Enedelia Naik Universi ty [facility] ADC / [facility] - DRUG 2020-05-28 22:26:00 Enedelia Naik [facility] SCREEN TRIAGE [facility] NOTICE OF PRIVACY 2020-05-28 21:56:54 Doctor Unassigned, No Univ [facility] Name [facility] CONSENT/REFUSAL FOR 2020-05-28 21:56:35 Doctor Unassigned, No [facility] AND Name [facility] Branch TREATMENT Encounters Start End Encounter Admission Attending Care Care Encounter Source Date/Time Date/Time Type Type Clinicians Facility Department ID 2021-04-09 2021-04-09 [id number] Univers 14:10:00 14:49:00 JORY ricks [facility] 2021-04-09 2021-04-09 [facility] [id number] Univers 14:10:00 14:49:00 Jory LAURENT [id number] i ty of JAY 4.2.7.2.686 [facility] [id number] [address] 2021-04-05 2021-04-05 Emergency X THUY, [facility] ERT [id number] Univers 18:04:00 21:35:00 JESSY ricks [facility] 2021-04-05 2021-04-05 Emergency Ebheide, [facility] [id number] Univers 18:04:00 21:35:00 Jessy LAURENT [id number] i ty of JAY [id number] [facility] [id number] [address] 2020-05-28 2020-05-28 Emergency Enedelia Naik [facility] [id number] 15:59:00 20:37:00 Monica Laurent [id number] [place] [id number] [place] [address] [id number] [facility] 2020-05-28 2020-05-28 Emergency Enedelia Naik [facility] [id number] Univers 15:59:00 20:37:00 Monica Laurent [id number] i ty of Chastity 4.2.7.2.686 [facility] [id number] [facility] 084 Branch 2020-05-28 2020-05-28 Emergency X [facility] ERT [id number] Univers 15:59:00 15:59:00 ity [facility] 2019-05-01 2019-05-01 Emergency Christine, TRAUMA [id number] 1991 11:18:37 12:17:00 [facility] [id number] Kiran [id number] [id number] 2019-05-01 2019-05-01 Emergency X CHRISTINE, [facility] ERT [id number] Univers 11:18:37 12:17:00 [facility] 2019-05-01 2019-05-01 Emergency Christine, TRAUMA [id number] Univers 11:18:37 12:17:00 [facility] 350.1.13.10 i ty of Kiran 4.2.7.2.686 [facility] [id number] [address] Results Test Description Test Time Test Comments Results Result Comments Source MICROSCOPIC URINALYSIS 2021-07-17 02:14:14 Test Item Value Reference Range Interpretation Comme nts WHITE BLOOD CELLS (test code = 0-5 /HPF 0-5 1513) RED BLOOD CELLS (test code = 0-2 /HPF 0-5 1514) EPITHELIAL CELLS (test code = 0-5 /HPF 0-10 83929) BACTERIA (test code = 1515) NONE SEEN NONE SEEN CASTS, HYALINE (test code = NONE SEEN NONE-TRACE UNLESS OTHERWISE 1517) INDICATED, ALL TESTING PERFORMED ATCLINICAL PATH [employer], I [place] [address] LABORATORY DIRE CTOR: NILDA GORDILLO M.D. CLIA NUMBER [id number] [place]. [id number] CULTURE, [id number] 11:52:32SPECIMEN NUMBER: [id number] CULTURE, URINE SPECIMEN NUMBER: [id number] SPECIMEN COMMENT: URINE SOURCE: URINE REPORT STATUS: FINAL FINAL REPORT: 07/15/2021 50- 100,000 CFU/ML MIXED UROGENITAL FREDY UNLESS OTHERWISE INDICATED, ALL TESTING PERFORMED [facility] [address] [place] [address] FLIGHT OPERATIONS ENGINEER: NILDA GORDILLO M.D. CLIA NUMBER [id number] [place]. [id number] W/AUTO DIFF WITH PLATELETS 2021-07-09 02:16:29 Test Item Value Reference Range Interpretation Comments WBC (test code = 5.9 K/UL 3.5-11.0 1001) RBC (test code = 4.27 M/UL 3.80-5.40 1002) HEMOGLOBIN (test 11.6 G/DL 11.5-15.5 code = 1003) HEMATOCRIT (test 35.2 % 34.0-45.0 code = 1004) MCV (test code = 82.4 fL 80.0-99.0 1005) MCH (test code = 27.2 PG 25.0-33.0 1006) MCHC (test code = 33.0 G/DL 31.0-36.0 1007) RDW (test code = 14.5 % 11.5-15.0 1038) NEUTROPHILS (test 55.6 % code = 1008) LYMPHOCYTES (test 34.5 % code = 1010) MONOCYTES (test code 6.3 % = 1011) EOSINOPHILS (test 3.1 % code = 1012) BASOPHILS (test code 0.3 % = 1013) IMMATURE 0.2 % GRANULOCYTES (test code = 1036) NUCLEATED RBCS (test 0.0 /100 See_Comment [Autom ated message] code = 1065) WBC'S The system [employer] generated this result transmitted ref erence range: 0.0. The reference range was not used to int erpret this result as normal/abnormal . PLATELET COUNT (test 265 K/UL 130-400 code = 1015) ABSOLUTE NEUTROPHILS 3.25 K/UL 1.50-7.50 (test code = 1066) ABSOLUTE LYMPHOCYTES 2.02 K/UL 1.00-4.00 (test code = 1067) ABSOLUTE MONOCYTES 0.37 K/UL 0.20-1.00 (test code = 1068) ABSOLUTE EOSINOPHILS 0.18 K/UL 0.00-0.50 (test code = 1040) ABSOLUTE BASOPHILS 0.02 K/UL 0.00-0.20 (test code = 1069) ABS IMMATURE 0.01 K/UL 0.00-0.10 GRANULOCYTES (test code = 1020) ABS NUCLEATED RBCS 0.00 K/UL 0.00-0.11 UN LESS (test code = 93632) OTHERWIS E INDICATED, ALL TESTING PER FORMED ATCLINICAL PATH [facility] [place]. [address] [place] [address] LABORATORY DIRE CTOR: NILDA FOSTER M.D. CLIA NUMBER [id number] [place] N O. [id number] CBC W/AUTO DIFF WITH [id number] 09:30:01 Test Item Value Reference Range Interpretation Comments WBC (test code = TEST NOT 3.5-11.0 Unable to p erform 1001) PERFORMED K/UL testing due t o a laboratory error.Charges adjusted as applicable. RBC (test code = TEST NOT 3.80-5.40 1002) PERFORMED M/UL HEMOGLOBIN (test code TEST NOT 11.5-15.5 = 1003) PERFORMED G/DL HEMATOCRIT (test code TEST NOT 34.0-45.0 = 1004) PERFORMED % MCV (test code = TEST NOT 80.0-99.0 1005) PERFORMED fL MCH (test code = TEST NOT 25.0-33.0 1006) PERFORMED PG MCHC (test code = TEST NOT 31.0-36.0 1007) PERFORMED G/DL RDW (test code = TEST NOT 11.5-15.0 1038) PERFORMED % NEUTROPHILS (test TEST NOT code = 1008) PERFORMED % BANDS (test code = TEST NOT 0.0-8.0 1009) PERFORMED % LYMPHOCYTES (test TEST NOT code = 1010) PERFORMED % MONOCYTES (test code TEST NOT = 1011) PERFORMED % EOSINOPHILS (test TEST NOT code = 1012) PERFORMED % BASOPHILS (test code TEST NOT = 1013) PERFORMED % IMMATURE GRANULOCYTES TEST NOT (test code = 1036) PERFORMED % METAMYELOCYTES (test TEST NOT See_Comment [Autom ated code = 1061) PERFORMED % message] The system which generated this result transmitted reference range : 0.0. The reference range was not used to interpret this result as normal/abnormal . MYELOCYTES (test code TEST NOT See_Comment [Auto mated = 1062) PERFORMED % message] The system which generated this result transmitted reference range : 0.0. The reference range was not used to interpret this result as normal/abnormal . PROMYELOCYTES (test TEST NOT See_Comment [Automa ciara code = 1063) PERFORMED % message] The system which generated this result transmitted reference range : 0.0. The reference range was not used to interpret this result as normal/abnormal . BLASTS (test code = TEST NOT See_Comment [Automa ciara 1064) PERFORMED % message] The system which generated this result transmitted reference range : 0.0. The reference range was not used to interpret this result as normal/abnormal . NUCLEATED RBCS (test TEST NOT See_Comment [Autom ated code = 1065) PERFORMED /100 message] The WBC'S system which generated this result transmitted reference range : 0.0. The reference range was not used to interpret this result as normal/abnormal . PLATELET COUNT (test TEST NOT 130-400 code = 1015) PERFORMED K/UL ABSOLUTE NEUTROPHILS TEST NOT 1.50-7.50 (test code = 1066) PERFORMED K/UL ABSOLUTE LYMPHOCYTES TEST NOT 1.00-4.00 (test code = 1067) PERFORMED K/UL ABSOLUTE MONOCYTES TEST NOT 0.20-1.00 (test code = 1068) PERFORMED K/UL ABSOLUTE EOSINOPHILS TEST NOT 0.00-0.50 (test code = 1040) PERFORMED K/UL ABSOLUTE BASOPHILS TEST NOT 0.00-0.20 (test code = 1069) PERFORMED K/UL ABS IMMATURE TEST NOT 0.00-0.10 GRANULOCYTES (test PERFORMED K/UL code = 1020) ABS NUCLEATED RBCS TEST NOT 0.00-0.11 (test code = 97684) PERFORMED K/UL COMMENTS (test code = TEST NOT 1016) PERFORMED CULTURE, [id number] 09:41:58SPECIMEN NUMBER: [id number] CULTURE, URINE SPECIMEN NUMBER: [id number] SPECIMEN COMMENT: URINE SOURCE: URINE REPORT STATUS: FINAL FINAL REPORT: 07/03/2021 50- 100,000 CFU/ML MIXED UROGENITAL FLORAHCG, [id number] 05:48:47 Test Item Value Reference Range Interpretation Comments HCG, QUALITATIVE (test code = 2507) NEGATIVE NEGATIVE COMPREHENSIVE METABOLIC [id number] 03:43:13 Test Item Value Reference Range Interpretation Comments GLUCOSE (test code = 96 MG/DL 70-99 2216) BUN (test code = 12 MG/DL 6-20 2207) CREATININE (test 0.79 MG/DL 0.60-1.30 code = 221) eGFR (2020 CKD-EPI) 106 >60 (test code = 50887) ML/MIN/1.73 CALC BUN/CREAT (test 15 RATIO 6-28 code = 2235) SODIUM (test code = 141 MEQ/L 740-635 0552) POTASSIUM (test code 3.8 MEQ/L 3.5-5.4 = 2227) CHLORIDE (test code 105 MEQ/L 95-107 = 2214) CARBON DIOXIDE (test 22 MEQ/L 19-31 code = 2205) CALCIUM (test code = 9.9 MG/DL 8.5-10.5 2208) PROTEIN, TOTAL (test 8.3 G/DL 6.1-8.3 code = 2228) ALBUMIN (test code = 4.9 G/DL 3.5-5.2 2200) CALC GLOBULIN (test 3.4 G/DL 1.9-3.7 code = 2239) CALC A/G RATIO (test 1.4 RATIO 1.0-2.6 code = 2233) BILIRUBIN, TOTAL 0.3 MG/DL See_Comment [Automated message] (test code = 220) The syste m which generated this result transmit ciara reference range : <=1.2. The refe rence range was not u sed to interpret th is result as normal/abnormal . ALKALINE PHOSPHATASE 117 U/L 40-112 H (test code = 2203) AST (test code = 10 U/L 9-40 2217) ALT (test code = 7 U/L 5-40 2218) HIV 1/2 4TH GEN, RFLX [id number] 03:40:40 Test Item Value Reference Range Interpretation Comments HIV 1/2 4TH GEN, RFLX CONF (test NON-REACTIVE NON-REACTIVE code = 3514) [id number] 03:12:37 Test Item Value Reference Range Interpretation Comments PTT (test code = 1403) 29.7 SECONDS 25.2-40.0 PROTHROMBIN TIME (PT)2021-07-02 03:12:37 Test Item Value Reference Range Interpretation Comments PROTHROMBIN TIME 14.1 SECONDS 12.5-14.7 (PT) (test code = 1402) INR (test code = 1.0 SEE BELOW CURRENT 44928) RECOMMENDATIONS ARE FOR AN INR OF 2 .0-3.0 FOR A LL PATIENTS ON VIT ABAD K ANTAGONISTS, EX CEPT THOSE WITH PROSTHETIC HEAR T VALVES, FOR WHO M INR OF 2.5-3.5 IS RECOMMENDED. UNLESS OTHERWIS E INDICATED, ALL TESTING PERFORMED [facility], [place]. [address] [place] [address] LABORATORY DIRE CTOR: NILDA FOSTER M.D. CLIA NUMBER [id number] CAP ACCREDITATION N O. [id number] 04:05:52 Test Item Value Reference Range Interpretation Comments PTT (test code = 29.3 SECONDS 25.2-40.0 UNLE SS OTHERWISE 1403) INDICATED, ALL TESTING PERFORMED [facility] [address] [place], [place] [address] LABORATORY DIRE CTOR: NILDA FOSTER M.D. CLIA NUMBER [id number] [place]. [id number] HIV 1/2 4TH GEN, RFLX [id number] 04:37:11 Test Item Value Reference Range Interpretation Comments HIV 1/2 4TH GEN, RFLX CONF (test NON-REACTIVE NON-REACTIVE code = 3514) CULTURE, [id number] 10:12:10SPECIMEN NUMBER: [id number] CULTURE, URINE SPECIMEN NUMBER: [id number] SPECIMEN COMMENT: URINE SOURCE: URINE REPORT STATUS: FINAL FINAL REPORT: 05/11/2021 10- 50,000 CFU/ML MIXED UROGENITAL FLORAHCG, [id number] 04:18:17 Test Item Value Reference Range Interpretation [...] . . . . . . MIU/ML 1-1RPSN-GHNVYS USAL FEMALES . . . . . . . . . . . . MIU/M L <=7 UNLESS OT HERWISE INDICATED, ALL TESTING PERFORMED [facility], [facility]. [address] [place] [address] LABORATORY DIRE CTOR: NILDA FOSTER M.D. CLIA NUMBER [id number] CAP ACCREDITATION N O. [id number] COMPREHENSIVE METABOLIC [id number] 00:35:57 Test Item Value Reference Range Interpretation Comments GLUCOSE (test code = 108 MG/DL 70-99 H 2216) BUN (test code = 9 MG/DL 6-20 2207) CREATININE (test 0.88 MG/DL 0.60-1.30 code = 221) eGFR (2020 CKD-EPI) 93 ML/MIN/1.73 >60 (test code = 54148) CALC BUN/CREAT (test 10 RATIO 6-28 code = 2235) SODIUM (test code = 142 MEQ/L 988-883 9985) POTASSIUM (test code 3.7 MEQ/L 3.5-5.4 = 2227) CHLORIDE (test code 105 MEQ/L 95-107 = 221) CARBON DIOXIDE (test 23 MEQ/L 19-31 code = 2206) CALCIUM (test code = 9.2 MG/DL 8.5-10.5 [...] PHOSPHATASE 89 U/L 40-112 (test code = 4) AST (test code = 11 U/L 9-40 8) ALT (test code = 9 U/L 5-40 9) PROTHROMBIN TIME (PT)2021-05-10 10:34:07 Test Item Value Reference Range Interpretation Comments PROTHROMBIN TIME 14.1 SECONDS 12.5-14.7 (PT) (test code = 1402) INR (test code = 1.1 SEE BELOW CURRENT 98032) RECOMMENDATIONS ARE FOR AN INR OF 2 .0-3.0 FOR A LL PATIENTS ON VIT ABAD K ANTAGONISTS, EX CEPT THOSE WITH PROSTHETIC HEAR T VALVES, FOR WHO M INR OF 2.5-3.5 IS RECOMMENDED. CBC W/AUTO DIFF WITH [id number] 02:45:06 Test Item Value Reference Range Interpretation [...] RBCS 0.00 K/UL 0.00-0.11 (test code = 75934) COMP. METABOLIC PANEL (83732)2021-04-06 01:09:52 Test Item Value Reference Range Interpretation Comments NA (test code = 135 mmol/L 135-145 9161245040) K (test code = 4.5 mmol/L 3.5-5.0 3660137272) CL (test code = 103 mmol/L 98-108 7103637199) CO2 TOTAL (test code 26 mmol/L 23-31 = 1288066688) AGAP (test code = 2-16 0476094506) BUN (test code = 9 mg/dL 7-23 2021551167) GLUCOSE (test code = 89 mg/dL 70-110 8454399077) CREATININE (test code 0.68 mg/dL 0.50-1.04 = 8422462982) TOTAL BILI (test code 0.6 mg/dL 0.1-1.1 = 7540998219) CALCIUM (test code = 8.8 mg/dL 8.6-10.6 2885340626) T PROTEIN (test code 8.0 g/dL 6.3-8.2 = 5566174235) ALBUMIN (test code = 4.4 g/dL 3.5-5.0 7336905554) ALK PHOS (test code = 99 U/L 34-122 0706772950) ALTv (test code = 14 U/L 5-35 1742-6) AST(SGOT) (test code 25 U/L 13-40 = 1493202250) eGFR (test code = mL/min/1.73m2 0359490220) BRENDA (test code = BRENDA) Association of [...] [facility] 01[facility]09:12 Test Item Value Reference Range Interpretation Comments LIPASE (test code = 8941917544) 113 U/L 0-220 Lab Interpretation (test code = Normal 41087-9) [facility] WITH [id number] 00:57:34 Test Item Value Reference Range Interpretation Comments WBC (test code = See_Comment [Automated 3096-2) message] The sy stem which generated this [...] RDW-SD (test code = 46.0 fL 39.0-49.9 40579-6) RDW-CV (test code = 14.8 % 12.0-15.5 788-0) PLT (test code = See_Comment [Automated 777-3) message] The sy stem which generated this result transmitted reference range : 166 - 358 10*3/ ?L. The reference r daryl was not used to interpret this result as normal/abnormal . MPV (test code = 9.9 fL 9.5-12.9 96617-6) NRBC/100 WBC (test See_Comment [Automat ed code = 7901727521) message] The system which generated this result transmitted reference range : 0.0 - 10.0 /100 WBCs. The refer ence range was not u sed to interpret th is result as normal/abnormal . NRBC x10^3 (test code <0.01 See_Comment [Auto mated = 3767398305) message] The s ystem which generated this result transmitted reference range : 10*3/?L. The reference range was not used to interpret this result as normal/abnormal . GRAN MAT (NEUT) % 57.2 % (test code = 770-8) IMM GRAN % (test code 0.20 % = 9110895021) LYMPH % (test code = 33.8 % 736-9) MONO % (test code = 6.2 % 5905-5) EOS % (test code = 2.2 % 713-8) BASO % (test code = 0.4 % 706-2) GRAN MAT x10^3(ANC) 4.57 10*3/uL 1.88-7.09 (test code = 0904871645) IMM GRAN x10^3 (test <0.03 0.00-0.06 code = 3821297251) LYMPH x10^3 (test code 2.71 10*3/uL 1.32-3.29 = 731-0) MONO x10^3 (test code 0.50 10*3/uL 0.33-0.92 = 742-7) EOS x10^3 (test code = 0.18 10*3/uL 0.03-0.39 711-2) BASO x10^3 (test code 0.03 10*3/uL 0.01-0.07 = 704-7) Lab Interpretation Abnormal (test code = 08962-1) [facility] [id number] 00:27:00 Test Item Value Reference Range Interpretation Comments POCT PREG (test code = 1605) NEGATIVE On board controls acceptable with NEGATIVE C Line (test code = 3574) POCT PREG LOT # (test code = 3575) [id number] POCT PREG TEST DATE (test 05/18/2022 code = 3576) Lab Interpretation (test code = Normal 73555-9) [facility]udaTROPONIN [id number] 23:58:52 Test Item Value Reference Range Interpretation Comments TROPONIN I (test <0.012 See_Comment [Automated code = 9816243128) message] The system which generated this result [...] ? Lab Interpretation Normal (test code = 54449-1) [facility]uda[facility]-TERMINAL [id number] 23:56:28 Test Item Value Reference Range Interpretation Comments NT-proBNP (test code <11 See_Comment [Autom ated = 9881248341) message] The system which generated this result transmitted reference range : <=125 pg/mL. Th e reference range was not used to interpret this result as normal/abnormal . BRENDA (test code = BRENDA) Biotin has been reported to cause a negative bias, interpret results relative to patient's use of biotin. Lab Interpretation Normal (test code = 00372-7) [facility]udaMAGNESIUM2021-03-10 23:47:53 Test Item Value Reference Range Interpretation Comments MAGNESIUM (test code = 0138281136) 1.9 mg/dL 1.7-2.4 Lab Interpretation (test code = Normal 79773-8) [facility]udaCOMP. METABOLIC PANEL (36042)2020-05-28 23:47:53 Test Item Value Reference Range Interpretation Comments NA (test code = 138 mmol/L 135-145 5137733936) K (test code = 4.0 mmol/L 3.5-5.0 0152138802) CL (test code = 103 mmol/L 98-108 9453964427) CO2 TOTAL (test code = 26 mmol/L 23-31 2652217492) AGAP (test code = 2-16 6597817756) BUN (test code = 11 mg/dL 7-23 0627624011) GLUCOSE (test code = 106 mg/dL 70-110 9490602394) CREATININE (test code 0.90 mg/dL 0.50-1.04 = 3718257722) TOTAL BILI (test code 0.5 mg/dL 0.1-1.1 = 8112270438) CALCIUM (test code = 9.5 mg/dL 8.6-10.6 1442089206) T PROTEIN (test code = 7.9 g/dL 6.3-8.2 5222502901) ALBUMIN (test code = 4.6 g/dL 3.5-5.0 8183892599) ALK PHOS (test code = 92 U/L 34-122 2201910885) ALTv (test code = 11 U/L 5-35 1742-6) AST(SGOT) (test code = 16 U/L 13-40 9607928541) eGFR Calculation mL/min/1.73m2 (Non-) (test code = 0431358418) eGFR Calculation mL/min/1.73m2 () (test code = 9644786477) BRENDA (test code = BRENDA) Association of [...] [facility]udaLIPASE2021-03-10 23:47:32 Test Item Value Reference Range Interpretation Comments LIPASE (test code = 2980856642) 74 U/L 0-220 Lab Interpretation (test code = Normal 95540-9) [facility] [id number] 23:44:49 Test Item Value Reference Interpretation Comments Range D-DIMER (test code = See_Comment H [Autom ated 4642898673) message] The system which generated this result transmitted reference range : <0.41 ?g/mL (FEU). The reference range was not used to interpret this result as normal/abnormal . BREDNA (test code = This test may be [...] diagnosis. Lab Interpretation Abnormal (test code = 76894-6) [facility] WITH [id number] 23:37:15 Test Item Value Reference Range Interpretation Comments WBC (test code = See_Comment [Automated 5998-2) message] The sy stem which generated this result transmitted reference range : 4.30 - 11.10 10*3/?L. The reference range was not used to interpret this result as normal/abnormal . RBC (test code = See_Comment [Automated 256-8) message] The sy stem which generated this [...] (test code = 38.7 fL 39.0-49.9 L 82653-1) RDW-CV (test code = 11.9 % 12.0-15.5 L 788-0) PLT (test code = See_Comment [Automated 777-3) message] The sy stem which generated this result transmitted reference range : 166 - 358 10*3/ ?L. The reference r daryl was not used to interpret this result as normal/abnormal . MPV (test code = 9.2 fL 9.5-12.9 L 23983-6) NRBC/100 WBC (test See_Comment [Automat ed code = 3443467755) message] The system which generated this result transmitted reference range : 0.0 - 10.0 /100 WBCs. The refer ence range was not u sed to interpret th is result as normal/abnormal . NRBC x10^3 (test code <0.01 See_Comment [Auto mated = 8228966983) message] The s ystem which generated this result transmitted reference range : 10*3/?L. The reference range was not used to interpret this result as normal/abnormal . GRAN MAT (NEUT) % 74.8 % (test code = 770-8) IMM GRAN % (test code 0.40 % = 5866273733) LYMPH % (test code = 17.2 % 736-9) MONO % (test code = 6.4 % 5905-5) EOS % (test code = 0.9 % 713-8) BASO % (test code = 0.3 % 706-2) GRAN MAT x10^3(ANC) 7.12 10*3/uL 1.88-7.09 H (test code = 1006804661) IMM GRAN x10^3 (test 0.04 10*3/uL 0.00-0.06 code = 7183000249) LYMPH x10^3 (test code 1.64 10*3/uL 1.32-3.29 = 731-0) MONO x10^3 (test code 0.61 10*3/uL 0.33-0.92 = 742-7) EOS x10^3 (test code = 0.09 10*3/uL 0.03-0.39 711-2) BASO x10^3 (test code 0.03 10*3/uL 0.01-0.07 = 704-7) Lab Interpretation Abnormal (test code = 16636-7) [facility]udaCOVID-19 (ID NOW RAPID TESTING)2020-05-28 23:34:26 Test Item Value Reference Range Interpretation Comments SARS-CoV-2 Rapid ID NOW Not Detected Not Detected (test code = 89096-9) BRENDA (test code = BRENDA) ID NOW COVID-19 Assay is an isothermal nucleic acid amplification test intended for the qualitative detection of nucleic acid from SARS-CoV-2 viral RNA in nasopharyngeal (CONTENT DEVELOPMENT SPECIALIST) specimens. It is used under Emergency Use [...] indicated. Lab Interpretation Normal (test code = 13333-9) [facility]udaURINALYSIS2021-03-10 23:01:22 Test Item Value Reference Range Interpretation Comments APPEARANCE (test code = Cloudy Clear A 5635083069) COLOR (test code = Yellow Yellow 9882102566) PH (test code = 4.8-8.0 1737546919) SP GRAVITY (test code = 1.003-1.030 5736433159) GLU U QUAL (test code = Negative Negative 6338762510) BLOOD (test code = Large Negative A 5943344546) KETONES (test code = Trace Negative A 7342278850) PROTEIN (test code = 100 mg/dL Negative A 2887-8) UROBILIN (test code = 0.2 mg/dL See_Comment [Auto mated message] 2168394782) The system Liquid X generated this result transmit ciara reference range : 0-1.0 mg/dL. Th e reference range was not used to interpret this result as normal/abnormal . BILIRUBIN (test code = Small Negative A 8637152173) NITRITE (test code = Negative Negative 9809009022) LEUK CARMENZA (test code = Negative Negative 0975563009) RBC/HPF (test code = >182 See_Comment H [Autom ated message] 7888795228) The system Liquid X generated this result transmit ciara reference range : 0 - 3 HPF. The refe rence range was not u sed to interpret th is result as normal/abnormal . WBC/HPF (test code = See_Comment [Autom ated message] 9991952574) The system Liquid X generated this result transmit ciara reference range : 0 - 5 HPF. The refe rence range was not u sed to interpret th is result as normal/abnormal . BACTERIA (test code = Few Negative A 7385947557) AMORPHOUS (test code = Moderate Rare HPF A 5423549085) Ictotest (test code = Negative 8739392424) Lab Interpretation (test Abnormal code = 18447-1) [facility] - DRUG SCREEN [id number] 22:58:05 Test Item Value Reference Range Interpretation Comments BENZO U (test code = Negative Negative 9546696457) STEVE U (test code = Negative Negative 5992288311) AMPHET (test code = Negative Negative 9071650840) THC (test code = Negative Negative 3645719704) METHADONE (test code = Negative Negative 4352113111) Meth U (test code = Negative Negative 6089997488) OPIATES (test code = Presumptive Positive Negative A 9553654563) Cocaine Metabolite (test Negative Negative code = 8955503052) PROPOXY (test code = Negative Negative 6225507845) Tric U (test code = Negative Negative 6626421668) PCP (test code = Negative Negative 4308381167) OXYCOD (test code = Negative Negative 4172254545) BRENDA (test code = BRENDA) Urine Drug [...] testing). Lab Interpretation (test Abnormal code = 85290-1) [facility] GLUCOSE (AUTOMATED)2020-05-28 22:43:55 Test Item Value Reference Range Interpretation Comments POCT GLU (test code = 8802050199) 96 mg/dL 70-110 Lab Interpretation (test code = Normal 05680-5) [facility] GLUCOSE(AGE >30DAYS)2020-05-28 22:43:00 Test Item Value Reference Range Interpretation Comments POCT Glu (age>30days) (test code = 96 mg/dL 70-110 3342) Lab Interpretation (test code = Normal 52361-7) [facility] [id number] 22:26:00 Test Item Value Reference Range Interpretation Comments POCT PREG (test code = 1605) negative On board controls acceptable with present C Line (test code = 3574) POCT PREG LOT # (test code = [id number]) POCT PREG TEST DATE (test 12-18-2021 code = 3576) Lab Interpretation (test code = Normal 02071-2) [facility]
--- NOTE | 2021-08-05 02:05 | ER ---
Nurse's Notes [facility] Name: Shanique Avelar Age: 25 yrs Sex: Female : 1995 Arrival Date: 08/05/2021 Time: 00:25 Bed 18 Private MD: Diagnosis: Post-operative Pain, s/p liposuction Presentation: 08/05 01:00 Chief complaint: Patient states: she had surgery 7 days ago in [place], [place] for lipo with bb a BBL she has been draining fluid from her incisions but now they won't drain anymore and the "fluid pocket is getting bigger" and she is in a lot of pain. Coronavirus screen: At this time, the client does not indicate any symptoms associated with coronavirus-19. Ebola Screen: No symptoms or risks identified at this time. Initial Sepsis Screen: Does the patient meet any 2 criteria? No. Patient's initial sepsis screen is negative. Does the patient have a suspected source of infection? Yes: Acute abdominal pain. Risk Assessment: Do you want to hurt yourself or someone else? Patient reports no desire to harm self or others. Onset of symptoms was August 05, 2021. 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 - Social history:: Smoking status: Patient denies any tobacco usage or history of. Screenin:01 Abuse screen: Denies threats or abuse. Denies injuries from another. Nutritional kd3 screening: No deficits noted. Tuberculosis screening: No symptoms or risk factors identified. Fall Risk None identified. Assessment: 01:00 General: Appears uncomfortable, Behavior is calm, cooperative. Pain:. Neuro: Level of kd3 Consciousness is awake, alert, obeys commands, Oriented to person, place, time, situation. Cardiovascular: Patient's skin is warm and dry. Respiratory: Airway is patent Trachea midline Respiratory effort is even, unlabored, Respiratory pattern is regular, symmetrical. GI: No signs and/or symptoms were reported involving the gastrointestinal system. : No signs and/or symptoms were reported regarding the genitourinary system. EENT: No signs and/or symptoms were reported regarding the EENT system. Derm: No signs and/or symptoms reported regarding the dermatologic system. 02:04 Reassessment: notified by Joanne DENNIS that pt left the ED. bb Vital Signs: 01:00 BP 101 / 64; Pulse 96; Resp 18 S; Temp 98(O); Pulse Ox 98% on R/A; Weight 106.59 kg bb (R); Height 5 ft. 9 in. (175.26 cm) (R); Pain 10/10; 01:00 Body Mass Index 34.70 (106.59 kg, 175.26 cm) bb ED Course: 00:25 Patient arrived in ED. barbie2 00:47 Joanne Kulkarni, RN is Primary Nurse. kd3 01:02 Triage completed. bb 01:02 Arm band placed on Patient placed in an exam room, on a stretcher. Family accompanied bb patient. 01:11 Carlos Talley MD is Attending Physician. [facility] 01:12 Patient has correct armband on for positive identification. kd3 Administered Medications: No medications were administered Medication: 01:12 VIS not applicable for this client. kd3 Outcome: 02:05 Patient left the ED. bb 03:14 Patient left the ED. bb Signatures: Zara Lindsay RN RN bb Carlos Talley MD MD [facility] Gail Romero Kyli, RN RN kd3
[2021-08-05 02:09] VITALS: BP 101/64; TEMP 98; O2SAT 98
--- NOTE | 2021-08-05 03:14 | EDPHYS ---
Physician Documentation [facility] Name: Shanique Avelar Age: 25 yrs Sex: Female : 1995 Arrival Date: 08/05/2021 Time: 00:25 Bed 18 Private MD: SHARMAINE Physician Carlos Talley HPI: 08/05 01:30 This 25 yrs old Black Female presents to ER via Wheelchair with complaints of Post mh7 Surgical Pain. 01:30 The patient presents with abdominal pain that is diffuse. mh7 01:30 Onset: The symptoms/episode began/occurred 5 day(s) ago. mh7 01:30 The symptoms do not radiate. mh7 01:30 Associated signs and symptoms: Pertinent positives: nausea, vomiting, Pertinent mh7 negatives: anorexia, blood in stools, chest pain, constipation, diarrhea, dysuria, fever, headache, hematuria, palpitations, shortness of breath, vaginal discharge, vomiting blood. The symptoms are described as intermittent, vague, waxing/waning. Modifying factors: The symptoms are alleviated by nothing, the symptoms are aggravated by movement. Severity of pain: At its worst the pain was moderate 3 day(s) ago, in the emergency department the pain is unchanged. States that she had liposuction and BBL surgery in [place] on 07/27/21 and was told to remain in that area for 2 weeks, but she decided to leave 4 days after surgery. She now complains of fluid build up to abdominal area that is seen when she stands up. She also complains of pain in surgical areas. She was prescribed pain medication but does not want to to take it.. 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 - Social history:: Smoking status: Patient denies any tobacco usage or history of. ROS: 01:30 Constitutional: Negative for fever, chills, and weight loss, Eyes: Negative for injury, mh7 pain, redness, and discharge, ENT: Negative for injury, pain, and discharge, Neck: Negative for injury, pain, and swelling, Cardiovascular: Negative for chest pain, palpitations, and edema, Respiratory: Negative for shortness of breath, cough, wheezing, and pleuritic chest pain, Back: Negative for injury and pain, : Negative for injury, bleeding, discharge, and swelling, MS/Extremity: Negative for injury and deformity, Skin: Negative for injury, rash, and discoloration, Neuro: Negative for headache, weakness, numbness, tingling, and seizure, Psych: Negative for depression, anxiety, suicide ideation, homicidal ideation, and hallucinations, Allergy/Immunology: Negative for hives, rash, and allergies, Endocrine: Negative for neck swelling, polydipsia, polyuria, polyphagia, and marked weight changes, Hematologic/Lymphatic: Negative for swollen nodes, abnormal bleeding, and unusual bruising. Exam: 01:30 Head/Face: Normocephalic, atraumatic. Eyes: Pupils equal round and reactive to light, mh7 extra-ocular motions intact. Lids and lashes normal. Conjunctiva and sclera are non-icteric and not injected. Cornea within normal limits. Periorbital areas with no swelling, redness, or edema. Neck: Trachea midline, no thyromegaly or masses palpated, and no cervical lymphadenopathy. Supple, full range of motion without nuchal rigidity, or vertebral point tenderness. No Meningismus. Chest/axilla: Normal chest wall appearance and motion. Nontender with no deformity. No lesions are appreciated. Cardiovascular: Regular rate and rhythm with a normal S1 and S2. No gallops, murmurs, or rubs. Normal PMI, no JVD. No pulse deficits. Respiratory: Lungs have equal breath sounds bilaterally, clear to auscultation and percussion. No rales, rhonchi or wheezes noted. No increased work of breathing, no retractions or nasal flaring. 01:30 Back: No spinal tenderness. No costovertebral tenderness. Full range of motion. Skin: Warm, dry with normal turgor. Normal color with no rashes, no lesions, and no evidence of cellulitis. MS/ Extremity: Pulses equal, no cyanosis. Neurovascular intact. Full, normal range of motion. Neuro: Awake and alert, GCS 15, oriented to person, place, time, and situation. Cranial nerves II-XII grossly intact. Motor strength 5/5 in all extremities. Sensory grossly intact. Cerebellar exam normal. Normal gait. Psych: Awake, alert, with orientation to person, place and time. Behavior, mood, and affect are within normal limits. 01:30 Constitutional: The patient appears in no acute distress, alert, awake, uncomfortable. 01:30 Abdomen/GI: Inspection: obese Bowel sounds: normal, in all quadrants, Palpation: moderate abdominal tenderness, in all quadrants, mass, is not appreciated, rebound tenderness, is not appreciated, voluntary guarding, is not appreciated, involuntary guarding, is not appreciated, no appreciated organomegaly, Indicators: McBurney's point is not tender, Prado's sign is negative, Rovsing's sign is negative, Obturator sign is negative, Psoas sign is negative, Liver: no appreciated palpable abnormalities, Hernia: not appreciated. Vital Signs: 01:00 BP 101 / 64; Pulse 96; Resp 18 S; Temp 98(O); Pulse Ox 98% on R/A; Weight 106.59 kg bb (R); Height 5 ft. 9 in. (175.26 cm) (R); Pain 10/10; 01:00 Body Mass Index 34.70 (106.59 kg, 175.26 cm) bb MDM: 02:26 Refusal of service: The patient/guardian displays adequate decision making capability [facility] and despite a detailed discussion of alternatives, benefits, risks, and consequences refuses: CT Scan, all lab tests, Medications. ED course: Patient eloped from ED after refusing all tests and evaluation.. 02:28 Patient medically screened. [facility] 02:28 Differential diagnosis: non-specific abd pain, Pelvic Inflammatory Disease, post mh7 operative infection or complication. Data reviewed: vital signs, nurses notes, old medical records. 08/05 01:28 Order name: Saline Lock [facility] Administered Medications: No medications were administered Disposition Summary: 08/05/21 02:05 Eloped Disposition: after being seen by provider bb Reason: (see nurse's notes) bb Problem: an ongoing problem [facility] Symptoms: are unchanged [facility] Condition: Stable [facility] Diagnosis - Post-operative Pain, s/p liposuction [facility] Followup: [facility] - With: Private Physician - When: 1 - 2 days - Reason: If symptoms return, Recheck today's complaints, Continuance of care, Re-evaluation by your physician Signatures: Dispatcher [employer] Zara Goddard, JEANNIE RN Carlos Dotson MD MD [facility]
== END 2021-08-05 03:14 | disposition left against medical advice (07) ==
LOC: ER 00:21
DX: G89.18 Other acute postprocedural pain (principal); Z98.890 Other specified postprocedural states; I10 Essential (primary) hypertension
CPT/HCPCS: 99281

== ENCOUNTER 2021-08-08 09:35 | Emergency (ER) | payer SELFPAY ==
--- OUTSIDE RECORDS SUMMARY | 2021-08-08 09:39 | XMS REPORT | Continuity of Care Document ---
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 message] The system which generated this result [...] ? Lab Interpretation Normal (test code = 63473-2) [facility]MINAL [id number] 23:56:28 Test Item Value Reference Range Interpretation Comments NT-proBNP (test code <11 See_Comment [Autom ated = 4162823583) message] The system which generated this result transmitted reference range : <=125 pg/mL. Th e reference range was not used to interpret this result as normal/abnormal . BRENDA (test code = BRENDA) Biotin has been reported to cause a negative bias, interpret results relative to patient's use of biotin. Lab Interpretation Normal (test code = 23511-0) [facility]2021-[facility]-10 23:47:53 Test Item Value Reference Range Interpretation Comments MAGNESIUM (test code = 8063529723) 1.9 mg/dL 1.7-2.4 Lab Interpretation (test code = Normal 42403-2) [facility] METABOLIC PANEL (52209)2020-05-28 23:47:53 Test Item Value Reference Range Interpretation Comments NA (test code = 138 mmol/L 135-145 1102202559) K (test code = 4.0 mmol/L 3.5-5.0 5188582265) CL (test code = 103 mmol/L 98-108 2092561263) CO2 TOTAL (test code = 26 mmol/L 23-31 3832305038) AGAP (test code = 2-16 8374198214) BUN (test code = 11 mg/dL 7-23 9843950095) GLUCOSE (test code = 106 mg/dL 70-110 0279803424) CREATININE (test code 0.90 mg/dL 0.50-1.04 = 6898901603) TOTAL BILI (test code 0.5 mg/dL 0.1-1.1 = 0859587370) CALCIUM (test code = 9.5 mg/dL 8.6-10.6 1477303820) T PROTEIN (test code = 7.9 g/dL 6.3-8.2 5574239922) ALBUMIN (test code = 4.6 g/dL 3.5-5.0 3821444007) ALK PHOS (test code = 92 U/L 34-122 4907863723) ALTv (test code = 11 U/L 5-35 1742-6) AST(SGOT) (test code = 16 U/L 13-40 4375130485) eGFR Calculation mL/min/1.73m2 (Non-) (test code = 0232814342) eGFR Calculation mL/min/1.73m2 () (test code = 0765803068) BRENDA (test code = BRENDA) Association of [...] or urine or abnormalities in imaging tests). [facility] 23:47:32 Test Item Value Reference Range Interpretation Comments LIPASE (test code = 2782365678) 74 U/L 0-220 Lab Interpretation (test code = Normal 01873-3) [facility] HospitalD-[id number] 23:44:49 Test Item Value Reference Interpretation Comments Range D-DIMER (test code = See_Comment H [Autom ated 7112418280) message] The system which generated this result [...] diagnosis. Lab Interpretation Abnormal (test code = 96000-0) [facility] WITH [id number] 23:37:15 Test Item Value Reference Range Interpretation Comments WBC (test code = See_Comment [Automated 6171-2) message] The sy stem which generated this result transmitted reference range : 4.30 - 11.10 10*3/?L. The reference range was not used to interpret this result as normal/abnormal . RBC (test code = See_Comment [Automated 603-8) message] The sy stem which generated this [...] (test code = 38.7 fL 39.0-49.9 L 22174-3) RDW-CV (test code = 11.9 % 12.0-15.5 L 788-0) PLT (test code = See_Comment [Automated 777-3) message] The sy stem which generated this result transmitted reference range : 166 - 358 10*3/ ?L. The reference r daryl was not used to interpret this result as normal/abnormal . MPV (test code = 9.2 fL 9.5-12.9 L 58811-3) NRBC/100 WBC (test See_Comment [Automat ed code = 5579444961) message] The system which generated this result transmitted reference range : 0.0 - 10.0 /100 WBCs. The refer ence range was not u sed to interpret th is result as normal/abnormal . NRBC x10^3 (test code <0.01 See_Comment [Auto mated = 0061518508) message] The s ystem which generated this result transmitted reference range : 10*3/?L. The reference range was not used to interpret this result as normal/abnormal . GRAN MAT (NEUT) % 74.8 % (test code = 770-8) IMM GRAN % (test code 0.40 % = 4057695657) LYMPH % (test code = 17.2 % 736-9) MONO % (test code = 6.4 % 5905-5) EOS % (test code = 0.9 % 713-8) BASO % (test code = 0.3 % 706-2) GRAN MAT x10^3(ANC) 7.12 10*3/uL 1.88-7.09 H (test code = 9330597759) IMM GRAN x10^3 (test 0.04 10*3/uL 0.00-0.06 code = 1636069836) LYMPH x10^3 (test code 1.64 10*3/uL 1.32-3.29 = 731-0) MONO x10^3 (test code 0.61 10*3/uL 0.33-0.92 = 742-7) EOS x10^3 (test code = 0.09 10*3/uL 0.03-0.39 711-2) BASO x10^3 (test code 0.03 10*3/uL 0.01-0.07 = 704-7) Lab Interpretation Abnormal (test code = 03580-8) [facility]COVID[facility] (ID NOW RAPID TESTING)2020-05-28 23:34:26 Test Item Value Reference Range Interpretation Comments SARS-CoV-2 Rapid ID NOW Not Detected Not Detected (test code = 25207-4) BRENDA (test code = BRENDA) ID NOW COVID-19 Assay is an isothermal nucleic acid amplification test intended for the qualitative detection of nucleic acid from SARS-CoV-2 viral RNA in nasopharyngeal ([employer]) specimens. It is used under Emergency Use [...] indicated. Lab Interpretation Normal (test code = 28130-3) [facility]2021-[facility]-10 23:01:22 Test Item Value Reference Range Interpretation Comments APPEARANCE (test code = Cloudy Clear A 0459320475) COLOR (test code = Yellow Yellow 5613027759) PH (test code = 4.8-8.0 2174538198) SP GRAVITY (test code = 1.003-1.030 8541612463) GLU U QUAL (test code = Negative Negative 2011374503) BLOOD (test code = Large Negative A 0816277056) KETONES (test code = Trace Negative A 1218151833) PROTEIN (test code = 100 mg/dL Negative A 2887-8) UROBILIN (test code = 0.2 mg/dL See_Comment [Auto mated message] 7581860460) The system [employer] generated this result transmit ciara reference range : 0-1.0 mg/dL. Th e reference range was not used to interpret this result as normal/abnormal . BILIRUBIN (test code = Small Negative A 3435980463) NITRITE (test code = Negative Negative 0635684592) LEUK CARMENZA (test code = Negative Negative 6244839781) RBC/HPF (test code = >182 See_Comment H [Autom ated message] 1712647381) The system [employer] generated this result transmit ciara reference range : 0 - 3 HPF. The refe rence range was not u sed to interpret th is result as normal/abnormal . WBC/HPF (test code = See_Comment [Autom ated message] 9280048708) The system [employer] generated this result transmit ciara reference range : 0 - 5 HPF. The refe rence range was not u sed to interpret th is result as normal/abnormal . BACTERIA (test code = Few Negative A 0680948662) AMORPHOUS (test code = Moderate Rare HPF A 0158751460) Ictotest (test code = Negative 9339834545) Lab Interpretation (test Abnormal code = 57066-5) [facility] / [facility] - DRUG SCREEN [id number] 22:58:05 Test Item Value Reference Range Interpretation Comments BENZO U (test code = Negative Negative 2181906890) STEVE U (test code = Negative Negative 8640669114) AMPHET (test code = Negative Negative 3066021708) THC (test code = Negative Negative 0805265201) METHADONE (test code = Negative Negative 8082783632) Meth U (test code = Negative Negative 9237616527) OPIATES (test code = Presumptive Positive Negative A 6336701154) Cocaine Metabolite (test Negative Negative code = 3614070751) PROPOXY (test code = Negative Negative 4391008935) Tric U (test code = Negative Negative 7067409600) PCP (test code = Negative Negative 5074501296) OXYCOD (test code = Negative Negative 8414512639) BRENDA (test code = BRENDA) Urine Drug [...] testing). Lab Interpretation (test Abnormal code = 51658-2) [facility] GLUCOSE (AUTOMATED)2020-05-28 22:43:55 Test Item Value Reference Range Interpretation Comments POCT GLU (test code = 4683126458) 96 mg/dL 70-110 Lab Interpretation (test code = Normal 72424-0) [facility] GLUCOSE(AGE >30DAYS)2020-05-28 22:43:00 Test Item Value Reference Range Interpretation Comments POCT Glu (age>30days) (test code = 96 mg/dL 70-110 3342) Lab Interpretation (test code = Normal 67496-2) [facility] [id number] 22:26:00 Test Item Value Reference Range Interpretation Comments POCT PREG (test code = 1605) negative On board controls acceptable with present C Line (test code = 3574) POCT PREG LOT # (test code = [id number]) POCT PREG TEST DATE (test 12-18-2021 code = 3576) Lab Interpretation (test code = Normal 39716-8) [facility]
[2021-08-08] MEDS ORDERED: FAMOTIDINE 20 MG/2 ML VIAL IV ONE (10:17)
[2021-08-08] MEDS ORDERED: NA CHLORIDE 0.9% 1,000 ML ONE (10:17)
[2021-08-08] MEDS ORDERED: ONDANSETRON 4 MG/2 ML VIAL ONE (10:17)
[2021-08-08 10:24] LABS: Urine Blood Negative (Negative); Urine Glucose Negative (Negative); Urine Protein Negative (Negative); Urine Specific Gravity 1.025 (1.005-1.030)
[2021-08-08 10:39] LABS: Absolute Lymphocytes (CBC) 2.2 K/uL (0.7-4.9); Hematocrit 26.2 % (36.0-45.0); Lymphocytes % 32.4 % (15.3-44.8); MPV 7.1 fL (7.6-11.3); RBC Red Blood Cell Count 3.09 M/uL (3.86-4.86)
[2021-08-08 10:48] LABS: Urine Specific Gravity/Preg 1.025 (1.005-1.030)
[2021-08-08 10:58] LABS: Albumin 2.6 g/dL (3.4-5.0); Bilirubin Total 0.3 mg/dL (0.2-1.0); Potassium 3.4 mmol/L (3.5-5.1); Protein, Total 6.1 g/dL (6.4-8.2)
--- NOTE | 2021-08-08 12:06 | RAD REPORT ---
EXAM DESCRIPTION: CTAbdomen Pelvis W Contrast - 08/08/2021 11:55 am CLINICAL HISTORY: Abdominal pain. Abdominal pain, acute, nonlocalized, neutropenic COMPARISON: Abdomen Pelvis W Contrast dated 04/04/2021; Abdomen Pelvis W Contrast dated 08/13/2018 TECHNIQUE: Biphasic CT imaging of the abdomen and pelvis was performed with 100 ml non-ionic IV cont rast. All CT scans are performed using dose optimization technique as appropriate and may include automated exposure control or mA/KV adjustment according to patient size. FINDINGS: The lung bases are clear. The liver, spleen, pancreas, adrenal glands and kidneys are within normal limits. No bowel obstruction, free air, free fluid or abscess. The appendix is normal. No evidence of signi ficant lymphadenopathy. Significant edema fat stranding is seen the abdominal soft tissues. Focal right-sided with localized fluid collection is present 5 cm in thickness and approximately 16 cm in transverse dimension extendi ng to the left. This is presumably postoperative fluid collection. No suspicious bony findings. IMPRESSION: Large subcutaneous abdominal presumed postop fluid collection along the right. Moderate edematous appearance to the subcutaneous abdominal fat diffusely.
--- NOTE | 2021-08-08 12:18 | EDPHYS ---
Physician Documentation [facility] Name: Shanique Avelar Age: 25 yrs Sex: Female : 1995 Arrival Date: 08/08/2021 Time: 09:36 Bed 6 Private MD: ED Physician Aylin Delarosa HPI: 08/08 10:01 This 25 yrs old Black Female presents to ER via Ambulatory with complaints of Abdominal ma2 Pain, Nausea, Dizziness. 10:01 Associated signs and symptoms: Pertinent negatives: anorexia, constipation, dysuria, ma2 fever, GI bleeding, hematuria, nausea. Severity of symptoms: At their worst the symptoms were mild in the emergency department the symptoms are unchanged. The patient has not experienced similar symptoms in the past. Historical: - Allergies: 09:55 No Known Allergies; iw - Home Meds: 10:06 Keflex Oral [Active]; Tramadol Oral [Active]; Zofran Oral [Active]; pope - PMHx: 09:55 Anemia; Asthma; Heart Murmur; Hypertensive disorder; iw - PSHx: 09:55 dental surgery; Tonsillectomy; lipo with a BBL; iw - Immunization history:: Adult Immunizations. - Family history:: No immediate family members are acutely ill. - Social history:: Smoking status: Patient reports the use of cigarette tobacco products, smokes one-half pack cigarettes per day. ROS: 10:01 Constitutional: Negative for fever, chills, and weight loss. ma2 10:01 All other systems are negative. Exam: 10:01 Constitutional: This is a well developed, well nourished patient who is awake, alert, ma2 and in no acute distress. Head/Face: Normocephalic, atraumatic. ENT: Nares patent. No nasal discharge, no septal abnormalities noted. Tympanic membranes are normal and external auditory canals are clear. Oropharynx with no redness, swelling, or masses, exudates, or evidence of obstruction, uvula midline. Mucous membranes moist. Neck: Trachea midline, no thyromegaly or masses palpated, and no cervical lymphadenopathy. Supple, full range of motion without nuchal rigidity, or vertebral point tenderness. No Meningismus. Chest/axilla: Normal chest wall appearance and motion. Nontender with no deformity. No lesions are appreciated. Cardiovascular: Regular rate and rhythm with a normal S1 and S2. No gallops, murmurs, or rubs. Normal PMI, no JVD. No pulse deficits. Respiratory: Lungs have equal breath sounds bilaterally, clear to auscultation and percussion. No rales, rhonchi or wheezes noted. No increased work of breathing, no retractions or nasal flaring. Abdomen/GI: Soft, non-tender, with normal bowel sounds. No distension or tympany. No guarding or rebound. No evidence of tenderness throughout. Skin: Warm, dry with normal turgor. Normal color with no rashes, no lesions, and no evidence of cellulitis. MS/ Extremity: Pulses equal, no cyanosis. Neurovascular intact. Full, normal range of motion. Neuro: Awake and alert, GCS 15, oriented to person, place, time, and situation. Cranial nerves II-XII grossly intact. Motor strength 5/5 in all extremities. Sensory grossly intact. Cerebellar exam normal. Normal gait. Vital Signs: 09:51 BP 110 / 74; Pulse 93; Resp 16; Temp 97.9; Pulse Ox 98% on R/A; Weight 108.86 kg; iw Height 5 ft. 7 in. (170.18 cm); 09:51 Body Mass Index 37.59 (108.86 kg, 170.18 cm) iw MDM: 10:13 Patient medically screened. ma2 12:14 Differential diagnosis: gastritis, diverticulitis, viral gastroenteritis, ma2 gastroenteritis. Data reviewed: vital signs, nurses notes. Counseling: I had a detailed discussion with the patient and/or guardian regarding: the historical points, exam findings, and any diagnostic results supporting the discharge/admit diagnosis, the presence of at least one elevated blood pressure reading (>120/80) during this emergency department visit, the need for outpatient follow up. Response to treatment: There is no appreciated change of the patient's symptoms at this time. ED course: CT shows fluid pocket under abdominal pain, I went back and reexamined the patient, unable to palpate anything, area is nontender, there is no warmth swelling or fluctuance, no signs of cellulitis or abscess, patient need to have consult with general surgery on an emergent basis as her white count and vital signs are all within normal limits and the symptom has been chronic for few weeks. I gave patient's strict return precaution for any fever or any worsening of symptoms.. 12:39 ED course: CT findings discussed with Dr. Blanco, at 1230 He will come and see the ma2 patient in the ER.. 13:31 ED course: Seen and evaluated by Dr. Blanco, he advised to follow-up in the office. [facility] 08/08 10:01 Order name: CBC with Diff; Complete Time: 11:04 [facility] 08/08 10:01 Order name: CMP; Complete Time: 11:04 [facility] 08/08 10:01 Order name: Lipase; Complete Time: 11:04 [facility] 08/08 10:24 Order name: Urine Dipstick-Ancillary; Complete Time: 11:04 EDMS 08/08 10:24 Order name: Urine --Ancillary (enter results); Complete Time: 11:04 [facility] 08/08 11:32 Order name: CT Abd/Pelvis - IV Contrast Only; Complete Time: 12:14 [facility] 08/08 10:01 Order name: IV Saline Lock; Complete Time: 10:33 [facility] 08/08 10:01 Order name: Labs collected and sent; Complete Time: 10:33 [facility] 08/08 10:01 Order name: Urine Dipstick-Ancillary (obtain specimen); Complete Time: 10:24 [facility] 08/08 10:01 Order name: Urine Test (obtain specimen); Complete Time: 10:24 [facility] Administered Medications: 10:58 Drug: Zofran (Ondansetron) 4 mg Route: IVP; Site: Other; pope 10:59 Follow up: Response: No adverse reaction pope 10:59 Drug: NS 0.9% 1000 ml Route: IV; Rate: 1 bolus; Site: Other; pope 11:00 Drug: Pepcid (famotidine) 20 mg Route: IVP; Site: Other; pope 11:00 Follow up: Response: No adverse reaction pope Disposition Summary: 08/08/21 13:32 Discharge Ordered Location: Home(08/08/21 13:32) [facility] Condition: Stable(08/08/21 13:32) ma2 Diagnosis - Abdominal pain, unspecified - with abdominal wall seroma sc2 Followup: [facility] - With: Manny Blanco MD - When: Tomorrow - Reason: If symptoms return, Continuance of care Discharge Instructions: - Discharge Summary Sheet ma2 - Abdominal Pain, Adult ma2 Forms: - Medication Reconciliation Form ma2 - Thank You Letter ma2 - Antibiotic Education ma2 - Prescription Opioid Use ma2 Prescriptions: - Diclofenac Sodium 75 mg Oral Tablet Sustained Release - take 1 tablet by ORAL route 2 times per day; 30 tablet; Refills: 0, Product ma2 Selection Permitted Signatures: Dispatcher [employer] Loyda Muniz RN RN Aylin Delarosa MD MD [facility] Gina-Ting Flannery RN RN Corrections: (The following items were deleted from the chart) 10:06 09:55 Home Meds: None; [facility] 12:33 12:17 Home ma2 ma2 12:33 12:17 Stable ma2 sc2 12:33 12:17 Upper abdominal pain, unspecified - with fluid pocket under abdominal wall ma2 ma2
--- NOTE | 2021-08-08 12:18 | ER ---
Nurse's Notes [facility] Name: Shanique Avelar Age: 25 yrs Sex: Female : 1995 Arrival Date: 08/08/2021 Time: 09:36 Bed 6 Private MD: Diagnosis: Abdominal pain, unspecified-with abdominal wall seroma Presentation: 08/08 09:51 Chief complaint: Patient states: feeling real weak, stomach feels like it's getting iw bigger and bigger and it's burning real bad , feels like a pouch of fluid on the outside of her abdomen , is also having dizziness , started a week ago and her abdomen has gotten bigger , had lipo and BBL at the beginning of month and has been having fluid build up since then. Coronavirus screen: At this time, the client does not indicate any symptoms associated with coronavirus-19. Ebola Screen: Patient negative for fever greater than or equal to 101.5 degrees Fahrenheit, and additional compatible Ebola Virus Disease symptoms Patient denies exposure to infectious person. Patient denies travel to an Ebola-affected area in the 21 days before illness onset. No symptoms or risks identified at this time. Initial Sepsis Screen: Does the patient meet any 2 criteria? No. Patient's initial sepsis screen is negative. Does the patient have a suspected source of infection? No. Patient's initial sepsis screen is negative. Risk Assessment: Do you want to hurt yourself or someone else? Patient reports no desire to harm self or others. Onset of symptoms was August 08, 2021. 09:51 Method Of Arrival: Ambulatory iw 09:51 Acuity: KYLEE 3 iw Triage Assessment: 10:05 General: Appears in no apparent distress. Behavior is calm, cooperative. Pain: pope Complains of pain in abdomen. Historical: - Allergies: 09:55 No Known Allergies; iw - Home Meds: 10:06 Keflex Oral [Active]; Tramadol Oral [Active]; Zofran Oral [Active]; pope - PMHx: 09:55 Anemia; Asthma; Heart Murmur; Hypertensive disorder; iw - PSHx: 09:55 dental surgery; Tonsillectomy; lipo with a BBL; iw - Immunization history:: Adult Immunizations. - Family history:: No immediate family members are acutely ill. - Social history:: Smoking status: Patient reports the use of cigarette tobacco products, smokes one-half pack cigarettes per day. Screenin:05 Abuse screen: Denies threats or abuse. Denies injuries from another. Nutritional pope screening: No deficits noted. Tuberculosis screening: No symptoms or risk factors identified. Fall Risk None identified. Assessment: 10:04 Pain: Complains of pain in abdomen. GI: Bowel sounds present X 4 quads. Abd is soft and pope non tender Reports nausea, Pain is 7 out of 10 on a pain scale. vomiting. Vital Signs: 09:51 BP 110 / 74; Pulse 93; Resp 16; Temp 97.9; Pulse Ox 98% on R/A; Weight 108.86 kg; iw Height 5 ft. 7 in. (170.18 cm); 09:51 Body Mass Index 37.59 (108.86 kg, 170.18 cm) iw ED Course: 09:36 Patient arrived in ED. ds1 09:55 Triage completed. iw 09:55 Arm band placed on. iw 10:00 Aylin Delarosa MD is Attending Physician. ma2 10:04 Ting Araujo, JEANNIE is Primary Nurse. pope 10:05 Patient has correct armband on for positive identification. Bed in low position. pope 10:05 No provider procedures requiring assistance completed. pope 11:57 CT Abd/Pelvis - IV Contrast Only In Process Unspecified. EDMS 12:16 Manny Blanco MD is Referral Physician. ma2 12:19 Inserted saline lock: 20 gauge in left EJ, using aseptic technique. pope 13:31 Manny Blanco MD is Referral Physician. ma2 Administered Medications: 10:58 Drug: Zofran (Ondansetron) 4 mg Route: IVP; Site: Other; pope 10:59 Follow up: Response: No adverse reaction pope 10:59 Drug: NS 0.9% 1000 ml Route: IV; Rate: 1 bolus; Site: Other; ppoe 11:00 Drug: Pepcid (famotidine) 20 mg Route: IVP; Site: Other; pope 11:00 Follow up: Response: No adverse reaction pope Medication: 10:05 VIS not applicable for this client. pope Outcome: 12:17 Discharge ordered by . soy 13:32 Discharge ordered by . soy 13:49 Patient left the ED. ss Signatures: Dispatcher [employer] Gertrude Loja ds1 Loyda Ashton RN RN Simran Stone RN RN Aylin Delarosa MD MD ma2 Ting Araujo RN RN pope Corrections: (The following items were deleted from the chart) 09:59 09:51 Chief complaint: Patient states: feeling real weak, stomach feels like it's iw getting bigger and bigger and it's burning real bad , feels like a pouch of fluid on the outside of her abdomen , is also having dizziness , started a week ago and her abdomen has gotten bigger iw 10:06 09:55 Home Meds: None; iw pope
[2021-08-08 13:54] VITALS: BP 110/74; TEMP 97.9; O2SAT 98
== END 2021-08-08 13:49 | disposition home or self-care (01) ==
LOC: ER 09:35
DX: K91.872 Postprocedural seroma of a digestive system organ or structure following a digestive system procedure (principal); I10 Essential (primary) hypertension; F17.210 Nicotine dependence, cigarettes, uncomplicated
CPT/HCPCS: 36415; 74177; 80053; 81003; 81025; 83690; 85025; 96374; 96375; 99283; J2405; J3490; J7030; Q9967

== ENCOUNTER 2021-10-14 08:35 | Emergency (ER) | payer SELFPAY ==
--- NOTE | 2021-10-14 09:05 | ER ---
Nurse's Notes [facility] Name: Shanique Avelar Age: 25 yrs Sex: Female : 1995 Arrival Date: 10/14/2021 Time: 08:36 Bed Waiting Private MD: Diagnosis: Viral infection, unspecified Presentation: 10/14 08:51 Chief complaint: Patient states: headache, weak , sore throat, eyes hurt, doesn't feel iw like her regular self , symptoms X 2 days. Coronavirus screen: Client presents with at least one sign or symptom that may indicate coronavirus-19. Ebola Screen: Patient negative for fever greater than or equal to 101.5 degrees Fahrenheit, and additional compatible Ebola Virus Disease symptoms Patient denies exposure to infectious person. Patient denies travel to an Ebola-affected area in the 21 days before illness onset. No symptoms or risks identified at this time. Initial Sepsis Screen: Does the patient meet any 2 criteria? No. Patient's initial sepsis screen is negative. Does the patient have a suspected source of infection? No. Patient's initial sepsis screen is negative. Risk Assessment: Do you want to hurt yourself or someone else? Patient reports no desire to harm self or others. Onset of symptoms was October 12, 2021. 08:51 Method Of Arrival: Ambulatory iw 08:51 Acuity: KYLEE 4 iw Triage Assessment: 09:00 General: Appears in no apparent distress. Behavior is calm, cooperative. iw Historical: - Allergies: 08:52 No Known Allergies; iw - PMHx: 08:52 Anemia; Asthma; Heart Murmur; Hypertensive disorder; iw - PSHx: 08:52 dental surgery; lipo with a BBL; Tonsillectomy; iw - Immunization history:: Adult Immunizations unknown. - Social history:: Smoking status: unknown. Screenin:00 Abuse screen: Denies threats or abuse. Denies injuries from another. Nutritional iw screening: No deficits noted. Tuberculosis screening: No symptoms or risk factors identified. Fall Risk None identified. Assessment: 09:00 General: Appears in no apparent distress. Behavior is calm, cooperative. General: iw Reports fever for feeling ill for 2-3 days. Pain: Complains of pain in body aches. Neuro: Level of Consciousness is awake, alert, obeys commands, Oriented to person, place, time, situation, Reports headache. Cardiovascular: Patient's skin is warm and dry. Respiratory: Respiratory effort is even, unlabored, Respiratory pattern is regular, symmetrical. Derm: Skin is intact, is healthy with good turgor. Musculoskeletal: Range of motion: intact in all extremities. Vital Signs: 08:51 BP 110 / 68; Pulse 98; Resp 18 S; Temp 97.7; Pulse Ox 100% on R/A; Weight 106.59 kg; iw Height 5 ft. 7 in. (170.18 cm); 08:51 Body Mass Index 36.80 (106.59 kg, 170.18 cm) iw ED Course: 08:36 Patient arrived in ED. am2 08:52 Triage completed. iw 08:52 Arm band placed on. iw 09:00 Patient has correct armband on for positive identification. iw 09:02 Nitish Red PA is PHCP. jr8 09:02 Gatito Anguiano MD is Attending Physician. jr8 09:13 Gatito Anguiano MD is Attending Physician. jr8 09:38 No provider procedures requiring assistance completed. Patient did not have IV access iw during this emergency room visit. 09:39 Loyda Ashton RN is Primary Nurse. iw Administered Medications: No medications were administered Medication: 09:00 VIS not applicable for this client. iw Outcome: 09:04 Discharge ordered by . jr8 09:38 Discharged to home ambulatory. iw 09:38 Condition: good 09:38 Discharge instructions given to patient, Instructed on Demonstrated understanding of 09:39 Patient left the ED. iw Signatures: Loyda Ashton RN RN iw Nitish Red PA PA jr8 Antionette Lobo am2 Corrections: (The following items were deleted from the chart) 10:12 08:51 Pulse 98bpm; Resp 18bpm; Spontaneous; Pulse Ox 100% RA; Temp 97.7F; 106.59 kg; iw Height 5 ft. 7 in.; BMI: 36.8; iw
--- NOTE | 2021-10-14 09:05 | EDPHYS ---
Physician Documentation [facility] Name: Shanique Avelar Age: 25 yrs Sex: Female : 1995 Arrival Date: 10/14/2021 Time: 08:36 Bed Waiting Private MD: ED Physician Gatito Anguiano HPI: 10/14 12:42 This 25 yrs old Black Female presents to ER via Ambulatory with complaints of General jr8 Weakness, Headache. 12:42 Patient complains of general weakness, cough, headache, fatigue for the past couple of jr8 days along with sore throat.. Onset: The symptoms/episode began/occurred gradually, 2 day(s) ago. Severity of symptoms: At their worst the symptoms were moderate in the emergency department the symptoms are unchanged. The patient has not experienced similar symptoms in the past. The patient has not recently seen a physician. Historical: - Allergies: 08:52 No Known Allergies; iw - PMHx: 08:52 Anemia; Asthma; Heart Murmur; Hypertensive disorder; iw - PSHx: 08:52 dental surgery; lipo with a BBL; Tonsillectomy; iw - Immunization history:: Adult Immunizations unknown. - Social history:: Smoking status: unknown. ROS: 12:42 Neck: Negative for injury, pain, and swelling, Cardiovascular: Negative for chest pain, jr8 palpitations, and edema, Abdomen/GI: Negative for abdominal pain, nausea, vomiting, diarrhea, and constipation, Back: Negative for injury and pain, MS/Extremity: Negative for injury and deformity, Skin: Negative for injury, rash, and discoloration. 12:42 Constitutional: Positive for chills, fatigue. 12:42 ENT: Positive for sore throat. 12:42 Respiratory: Positive for cough, Negative for shortness of breath, sputum production, wheezing. 12:42 Neuro: Positive for headache. Exam: 12:42 Constitutional: This is a well developed, well nourished patient who is awake, alert, jr8 and in no acute distress. Eyes: Pupils equal round and reactive to light, extra-ocular motions intact. Lids and lashes normal. Conjunctiva and sclera are non-icteric and not injected. Cornea within normal limits. Periorbital areas with no swelling, redness, or edema. ENT: Nares patent. No nasal discharge, no septal abnormalities noted. Tympanic membranes are normal and external auditory canals are clear. Oropharynx with no redness, swelling, or masses, exudates, or evidence of obstruction, uvula midline. Mucous membranes moist. Neck: Trachea midline, no thyromegaly or masses palpated, and no cervical lymphadenopathy. Supple, full range of motion without nuchal rigidity, or vertebral point tenderness. No Meningismus. Cardiovascular: Regular rate and rhythm with a normal S1 and S2. No gallops, murmurs, or rubs. Normal PMI, no JVD. No pulse deficits. Respiratory: Lungs have equal breath sounds bilaterally, clear to auscultation and percussion. No rales, rhonchi or wheezes noted. No increased work of breathing, no retractions or nasal flaring. Abdomen/GI: Soft, non-tender, with normal bowel sounds. No distension or tympany. No guarding or rebound. No evidence of tenderness throughout. Back: No spinal tenderness. No costovertebral tenderness. Full range of motion. Skin: Warm, dry with normal turgor. Normal color with no rashes, no lesions, and no evidence of cellulitis. MS/ Extremity: Pulses equal, no cyanosis. Neurovascular intact. Full, normal range of motion. Neuro: Awake and alert, GCS 15, oriented to person, place, time, and situation. Cranial nerves II-XII grossly intact. Motor strength 5/5 in all extremities. Sensory grossly intact. Cerebellar exam normal. Normal gait. Vital Signs: 08:51 BP 110 / 68; Pulse 98; Resp 18 S; Temp 97.7; Pulse Ox 100% on R/A; Weight 106.59 kg; iw Height 5 ft. 7 in. (170.18 cm); 08:51 Body Mass Index 36.80 (106.59 kg, 170.18 cm) iw MDM: 09:03 Data reviewed: vital signs, nurses notes, lab test result(s). Data interpreted: Pulse jr8 oximetry: on room air is 100 %. Interpretation: normal. Counseling: I had a detailed discussion with the patient and/or guardian regarding: the historical points, exam findings, and any diagnostic results supporting the discharge/admit diagnosis, lab results, the need for outpatient follow up, a family practitioner, to return to the emergency department if symptoms worsen or persist or if there are any questions or concerns that arise at home. 09:04 Patient medically screened. jr8 10/14 08:54 Order name: SARS-COV-2 RT PCR (Document "Date of Onset" if Symptomatic) iw 10/14 08:54 Order name: Strep iw 10/14 08:54 Order name: Flu iw Administered Medications: No medications were administered Disposition Summary: 10/14/21 09:04 Discharge Ordered Location: Home jr8 Problem: new jr8 Symptoms: have improved jr8 Condition: Stable jr8 Diagnosis - Viral infection, unspecified jr8 Followup: jr8 - With: Private Physician - When: 1 week - Reason: Recheck today's complaints, Continuance of care, Re-evaluation by your physician Discharge Instructions: - Discharge Summary Sheet jr8 - Viral Respiratory Infection jr8 - COVID-19 jr8 Forms: - Medication Reconciliation Form jr8 - Thank You Letter jr8 - Antibiotic Education jr8 - Prescription Opioid Use jr8 Prescriptions: - Zofran 4 mg Oral Tablet - take 1 tablet by ORAL route every 12 hours As needed; 20 tablet; Refills: 0, jr8 Product Selection Permitted - Tessalon Perles 100 mg Oral Capsule - take 1 capsule by ORAL route every 8 hours As needed; 15 capsule; Refills: 0, jr8 Product Selection Permitted Signatures: Dispatcher [employer] Loyda Muniz RN RN iw Nitish Red PA PA jr8
[2021-10-14 12:48] VITALS: TEMP 97.7; O2SAT 100
== END 2021-10-14 09:39 | disposition home or self-care (01) ==
LOC: ER 08:35
DX: B34.9 Viral infection, unspecified (principal); U07.1 COVID-19; R53.1 Weakness; R51.9 Headache, unspecified; R05.9 Cough, unspecified; J02.9 Acute pharyngitis, unspecified; J10.1 Influenza due to other identified influenza virus with other respiratory manifestations
CPT/HCPCS: 87070; 87081; 87804; 99281; U0003

== ENCOUNTER 2022-11-11 18:42 | Emergency (ER) | payer SELFPAY ==
--- OUTSIDE RECORDS SUMMARY | 2022-11-11 18:45 | XMS REPORT | Continuity of Care Document ---
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 3514) [id number] 03:12:37 Test Item Value Reference Range Interpretation Comments PTT (test code = 1403) 29.7 SECONDS 25.2-40.0 PROTHROMBIN TIME (PT)2021-07-02 03:12:37 Test Item Value Reference Range Interpretation Comments PROTHROMBIN TIME 14.1 SECONDS 12.5-14.7 (PT) (test code = 1402) INR (test code = 1.0 SEE BELOW CURRENT 84539) RECOMMENDATIONS ARE FOR AN INR OF 2 .0-3.0 FOR ALL PATIENT S ON VITAMIN K ANTAG ONISTS, EXCEPT THOSE WI TH PROSTHETIC HEAR T VALVES, FOR WHO M INR OF 2.5-3.5 IS RECOMMENDED. UN LESS OTHERWISE INDIC ATED, ALL TESTING PER FORMED ATCLINICAL PATH [employer] [place]. [address] [place] [address] [facility] DIRECTOR: NILDA GORDILLO M.D. CLIA NUMBER [id number] CAP ACCREDITATION N O. [id number] 04:05:52 Test Item Value Reference Range Interpretation Comments PTT (test code = 29.3 SECONDS 25.2-40.0 UNLESS OTH ERWISE 1403) INDICATED, ALL TESTING PERFORMED [facility] N[facility] PATHOLOG[facility] [address] [place] [address] [facility] CALL[facility]AN DIRECTOR: NILDA GORDILLO M.D. CLIA NUMBER [id number] CAP ACCREDITATION N O. [id number] HIV 1/2 4TH GEN, RFLX [id number] 04:37:11 Test Item Value Reference Range Interpretation Comments HIV 1/2 4TH GEN, RFLX CONF (test NON-REACTIVE NON-REACTIVE code = 3514) CULTURE, [id number] 10:12:10SPECIMEN NUMBER: [id number] CULTURE, URINE SPECIMEN NUMBER: [id number] SPECIMEN COMMENT: URINE SOURCE:URINE REPORT STATUS: FINAL FINAL REPORT: 05/11/2021 10-50,000 CFU/ML MIXED UROGENITAL FLORAHCG, [id number] 04:18:17 Test Item Value Reference Range Interpretation Comments HCG, QUANTITATIVE <5 MIU/ML SEE BELOW E XPECTED (test code = 2506) VALUES FO R HCG GST.AGE UNITS RANGE GST. AGE UNITS RANGE3 WEEKS LA U/ML 6-71 10 WEEKS M IU/ML 46,509-186,9774 WEEKS MIU/ML 10-750 1 2 WEEKS MIU/ML 27,832-2 10,6125 WEEKS MIU/ML 21 7-7,138 14 WEEKS MIU/M L 13,950-62,5306 WEEKS MIU/ML 158-31,7 95 15 WEEKS MIU/ML 12,039-70,9717 WEEKS MIU/ML 3,697-16 3,563 16 WEEKS MIU/ML 9,040-56,4518 W EEKS MIU/ML 32,065-1 49,571 17 WEEKS MIU/ML 8,175-55,8689 W EEKS MIU/ML 63,803-1 51,410 18 WEEKS MIU/ML 8,099-58,176MAL ES and NON- FE MALES . . . . . . . . M IU/ML 0-0BHPV-NSHJOEH KRYSTIAN FEMALES . . . . . . . . . . . . MIU/M L <=7 UNLESS OTHERWIS E INDICATED, ALL TESTING PERFORMED [facility] PATHOLOGY [facility], [facility] [address] [place] [id number] [place] [address] DIRECTOR: NILDA GORDILLO M.D. CLIA NUMBER [id number] CAP ACCREDITATION N O. [id number] COMPREHENSIVE METABOLIC [id number] 00:35:57 Test Item Value Reference Range Interpretation Comments GLUCOSE (test code = 108 MG/DL 70-99 H 2216) BUN (test code = 9 MG/DL 6-20 2207) CREATININE (test 0.88 MG/DL 0.60-1.30 code = 2214) eGFR (2020 CKD-EPI) 93 ML/MIN/1.73 >60 (test code = 59186) CALC BUN/CREAT (test 10 RATIO 6-28 code = 2235) SODIUM (test code = 142 MEQ/L 705-392 7802) POTASSIUM (test code 3.7 MEQ/L 3.5-5.4 = [...] (test code = 1.1 SEE BELOW CURRENT 32195) RECOMMENDATIONS ARE FOR AN INR OF 2 .0-3.0 FOR ALL PATIENT S ON VITAMIN K ANTAG ONISTS, EXCEPT THOSE WI TH PROSTHETIC HEAR T VALVES, FOR [facility] INR OF 2.5-3.5 IS RECOMMENDED. CBC W/AUTO DIFF WITH [id number] 02:45:06 Test Item Value Reference Range Interpretation [...] = 1036) NUCLEATED RBCS (test 0.0 /100 WBC'S See_Comment [Aut omated code = 1065) message] The sy stem which generated this [...] RBCS 0.00 K/UL 0.00-0.11 (test code = 74033)"
[2022-11-11 20:31] LABS: Absolute Lymphocytes (CBC) 3.2 K/uL (0.7-4.9); Hematocrit 38.8 % (36.0-45.0); Lymphocytes % 44.8 % (15.3-44.8); MCV 87.3 fL (80-100); Platelets 296 thou/uL (152-406); RBC Red Blood Cell Count 4.44 M/uL (3.86-4.86)
[2022-11-11 21:26] LABS: Phosphorus 3.7 mg/dL (2.5-4.9); Potassium 3.5 mEq/L (3.5-5.1); Thyroid Stimulating Hormone 2.4 uIU/mL (0.358-3.740); Troponin High Sensitivity 8.1 pg/mL (<58.9)
[2022-11-11 22:12] LABS: Ferritin 4.6 ng/mL (8-388)
[2022-11-11] MEDS ORDERED: DIPHENHYDRAMINE 50 MG/ML VIAL ONE (22:15)
[2022-11-11] MEDS ORDERED: KETOROLAC 30 MG/ML INJ ONE (22:16)
[2022-11-11 22:25] LABS: Specific Gravity 1.029 (1.005-1.030); Urine Bacteria None Seen /HPF (<20); Urine Bilirubin NEGATIVE (Negative); Urine Blood Negative (Negative); Urine Clarity Turbid (Clear); Urine Color Yellow (Yellow); Urine Glucose NEGATIVE (Negative); Urine Mucus Slight /HPF (None Seen); Urine Protein TRACE (Negative); Urine RBC <5 /HPF (None Seen); Urine Urobilinogen 1+ (Normal)
[2022-11-11 22:34] LABS: Specific Gravity 1.029 (1.005-1.030)
--- NOTE | 2022-11-11 22:36 | ER ---
Nurse's Notes [facility] Name: Shanique Avelar Age: 27 yrs Sex: Female : 1995 Arrival Date: 11/11/2022 Time: 18:42 Bed 10 Private MD: Diagnosis: Iron deficiency anemia, unspecified;Paresthesia of skin;Headache Presentation: 11/11 19:03 Chief complaint: Patient states: headache x1 week and yesterday pt states that her face as6 and arms started tingling. Coronavirus screen: At this time, the client does not indicate any symptoms associated with coronavirus-19. Ebola Screen: No symptoms or risks identified at this time. Initial Sepsis Screen: Does the patient meet any 2 criteria? No. Patient's initial sepsis screen is negative. Does the patient have a suspected source of infection? No. Patient's initial sepsis screen is negative. Risk Assessment: Do you want to hurt yourself or someone else? Patient reports no desire to harm self or others. Onset of symptoms was November 04, 2022. 19:03 Method Of Arrival: Ambulatory as6 19:03 Acuity: KYLEE 3 as6 Triage Assessment: 19:07 Pain: Complains of pain in head Quality of pain is described as aching. Neuro: Reports as6 headache. 22:53 Headache History: The patient has had previous headaches and this one is similar to kl previous episodes. General: Appears in no apparent distress. 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 - Social history:: Smoking status: Patient denies any tobacco usage or history of. Screenin:[address] [facility] ED Fall Risk Assessment (Adult) History of falling in the last 3 months, kl including since admission No falls in past 3 months (0 pts) Confusion or Disorientation No (0 pts) Intoxicated or Sedated No (0 pts) Impaired Gait No (0 pts) Mobility Assist Device Used No (0 pt) Altered Elimination No (0 pt). Abuse screen: Denies threats or abuse. Nutritional screening: No deficits noted. Tuberculosis screening: No symptoms or risk factors identified. Assessment: 22:43 General: Appears in no apparent distress. comfortable, Behavior is calm, cooperative. kl Pain: Complains of pain in head Pain currently is 3 out of 10 on a pain scale. Neuro: No deficits noted. Cardiovascular: No deficits noted. Respiratory: No deficits noted. GI: No deficits noted. No signs and/or symptoms were reported involving the gastrointestinal system. : No deficits noted. No signs and/or symptoms were reported regarding the genitourinary system. Vital Signs: 19:03 BP 111 / 74; Pulse 89; Resp 16 S; Temp 98.8(TE); Pulse Ox 100% on R/A; Weight 113.4 kg as6 (R); Height 5 ft. 7 in. (R); Pain 9/10; 22:52 BP 104 / 64; Pulse 70; Resp 15; Pulse Ox 97% on R/A; kl 19:03 Body Mass Index 39.16 (113.40 kg, 170.18 cm) as6 19:03 Pain Scale: Adult as6 ED Course: 18:45 Patient arrived in ED. mr 19:03 Lavern Delaney FNP-C is [facility]. snw 19:03 Gatito Anguiano MD is Attending Physician. snw 19:07 Triage completed. as6 19:08 Arm band placed on. as6 22:44 No provider procedures requiring assistance completed. kl 22:52 IV discontinued, intact, bleeding controlled, No redness/swelling at site. Pressure kl dressing applied. Administered Medications: 20:39 Drug: NS 0.9% IV 1000 ml Route: IV; Rate: 1 bolus; Site: right antecubital; kl 22:19 Drug: Ketorolac IVP 15 mg Route: IVP; Site: right forearm; kl 22:19 Drug: diphenhydrAMINE IVP 25 mg Route: IVP; Site: right forearm; kl 22:40 Drug: Diazepam PO 2 mg Route: PO; kl 22:52 Follow up: Response: No adverse reaction kl Outcome: 22:36 Discharge ordered by . snw 22:53 Discharged to home ambulatory. kl 22:53 Condition: improved 22:53 Discharge instructions given to patient, Instructed on discharge instructions, follow up and referral plans. medication usage, Demonstrated understanding of instructions, follow-up care, medications, Prescriptions given X 2. 22:53 Patient left the ED. diana Signatures: Blanca Giang RN RN kl Waters, Shelly, FIONA-C GREENHOUSE MANAGER-Yaritza Ordonez mr Aydin Gomez RN RN as6 Corrections: (The following items were deleted from the chart) 22:19 22:05 diphenhydrAMINE IVP 25 mg IVP in right antecubital diana ortiz
--- NOTE | 2022-11-11 22:37 | EDPHYS ---
Physician Documentation [facility] Name: Shanique Avelar Age: 27 yrs Sex: Female : 1995 Arrival Date: 11/11/2022 Time: 18:42 Bed 10 Private MD: ED Physician Gatito Anguiano HPI: 11/11 21:27 This 27 yrs old Black Female presents to ER via Ambulatory with complaints of Right snw side Numbness, Headache. 21:27 Onset: The symptoms/episode began/occurred 1 week(s) ago, and became persistent. snw Associated signs and symptoms: Pertinent negatives: earache, fever, seizure, vomiting. The patient has experienced similar episodes in the past, several times. The patient has not recently seen a physician. CODE OFFICIAL: 19:08 LMP 10/07/2022 as6 Historical: - Allergies: 19:07 No Known Allergies; as6 - PMHx: 19:07 Anemia; Asthma; Heart Murmur; Hypertensive disorder; as6 - PSHx: 19:07 Tonsillectomy; lipo with a BBL; dental surgery; as6 - Immunization history:: Client reports receiving the Cecilio \T\ Cecilio single-dose vaccine. - Social history:: Smoking status: Patient denies any tobacco usage or history of. ROS: 21:27 Eyes: Negative for injury, pain, redness, and discharge, ENT: Negative for injury, snw pain, and discharge, Neck: Negative for injury, pain, and swelling, Cardiovascular: Negative for chest pain, palpitations, and edema, Respiratory: Negative for shortness of breath, cough, wheezing, and pleuritic chest pain, Abdomen/GI: Negative for abdominal pain, nausea, vomiting, diarrhea, and constipation, Back: Negative for injury and pain, : Negative for injury, bleeding, discharge, and swelling, MS/Extremity: Negative for injury and deformity, Skin: Negative for injury, rash, and discoloration, Psych: Negative for depression, anxiety, suicide ideation, homicidal ideation, and hallucinations. 21:27 Constitutional: Positive for body aches, malaise. 21:27 Neuro: Positive for headache. Exam: 21:27 Constitutional: This is a well developed, well nourished patient who is awake, alert, snw and in no acute distress. Head/Face: Normocephalic, atraumatic. Eyes: Pupils equal round and reactive to light, extra-ocular motions intact. Lids and lashes normal. Conjunctiva and sclera are non-icteric and not injected. Cornea within normal limits. Periorbital areas with no swelling, redness, or edema. ENT: Nares patent. No nasal discharge, no septal abnormalities noted. Tympanic membranes are normal and external auditory canals are clear. Oropharynx with no redness, swelling, or masses, exudates, or evidence of obstruction, uvula midline. Mucous membranes moist. Neck: Trachea midline, no thyromegaly or masses palpated, and no cervical lymphadenopathy. Supple, full range of motion without nuchal rigidity, or vertebral point tenderness. No Meningismus. Chest/axilla: Normal chest wall appearance and motion. Nontender with no deformity. No lesions are appreciated. Cardiovascular: Regular rate and rhythm with a normal S1 and S2. No gallops, murmurs, or rubs. Normal PMI, no JVD. No pulse deficits. Respiratory: Lungs have equal breath sounds bilaterally, clear to auscultation and percussion. No rales, rhonchi or wheezes noted. No increased work of breathing, no retractions or nasal flaring. Abdomen/GI: Soft, non-tender, with normal bowel sounds. No distension or tympany. No guarding or rebound. No evidence of tenderness throughout. Back: No spinal tenderness. No costovertebral tenderness. Full range of motion. Skin: Warm, dry with normal turgor. Normal color with no rashes, no lesions, and no evidence of cellulitis. MS/ Extremity: Pulses equal, no cyanosis. Neurovascular intact. Full, normal range of motion. Neuro: Awake and alert, GCS 15, oriented to person, place, time, and situation. Cranial nerves II-XII grossly intact. Motor strength 5/5 in all extremities. Sensory grossly intact. Cerebellar exam normal. Normal gait. Psych: Awake, alert, with orientation to person, place and time. Behavior, mood, and affect are within normal limits. Vital Signs: 19:03 BP 111 / 74; Pulse 89; Resp 16 S; Temp 98.8(TE); Pulse Ox 100% on R/A; Weight 113.4 kg as6 (R); Height 5 ft. 7 in. (R); Pain 9/10; 22:52 BP 104 / 64; Pulse 70; Resp 15; Pulse Ox 97% on R/A; kl 19:03 Body Mass Index 39.16 (113.40 kg, 170.18 cm) as6 19:03 Pain Scale: Adult as6 MDM: 19:15 Patient medically screened. keith 21:33 Differential diagnosis: viral Infection, bacterial infection. Data reviewed: vital snw signs, nurses notes, lab test result(s). I considered the following discharge prescriptions or medication management in the emergency department Medications were administered in the Emergency Department. See MAR. Counseling: I had a detailed discussion with the patient and/or guardian regarding the historical points, exam findings, and any diagnostic results supporting the discharge/admit diagnosis, lab results, the need for outpatient follow up, for definitive care, to return to the emergency department if symptoms worsen or persist or if there are any questions or concerns that arise at home. Special discussion: Based on the history and exam findings, there is no indication for further emergent testing or inpatient evaluation. I discussed with the patient/guardian the need to see the primary care provider for further evaluation of the symptoms. 22:35 Response to treatment: the patient's symptoms have mildly improved after treatment. w 11/11 19:39 Order name: Basic Metabolic Panel; Complete Time: 22:14 snw 11/11 19:39 Order name: CBC with Diff; Complete Time: 20:33 snw 11/11 19:39 Order name: Troponin HS; Complete Time: 22:14 snw 11/11 19:39 Order name: Phosphorus; Complete Time: 22:14 snw 11/11 19:39 Order name: Magnesium; Complete Time: 22:14 snw 11/11 19:39 Order name: TS; Complete Time: 21:04 snw 11/11 19:39 Order name: TSH; Complete Time: 22:14 snw 11/11 19:39 Order name: Ferritin; Complete Time: 22:14 snw 11/11 19:39 Order name: Urine W/Microscopic (UAM); Complete Time: 22:26 snw 11/11 19:39 Order name: PREGU; Complete Time: 22:37 snw 11/11 19:39 Order name: EKG; Complete Time: 19:40 snw 11/11 19:39 Order name: EKG - Nurse/Tech; Complete Time: 21:01 snw 11/11 19:39 Order name: IV Saline Lock; Complete Time: 21:30 snw 11/11 19:39 Order name: Labs collected and sent; Complete Time: 21:30 snw EC:10 Rate is 81 beats/min. Rhythm is regular. QRS [place] is Normal. UT interval is normal. QRS snw interval is normal. QT interval is normal. No Q waves. Clinical impression: NSR w/ Non-specific ST/T Changes. Administered Medications: 20:39 Drug: NS 0.9% IV 1000 ml Route: IV; Rate: 1 bolus; Site: right antecubital; kl 22:19 Drug: Ketorolac IVP 15 mg Route: IVP; Site: right forearm; kl 22:19 Drug: diphenhydrAMINE IVP 25 mg Route: IVP; Site: right forearm; kl 22:40 Drug: Diazepam PO 2 mg Route: PO; kl 22:52 Follow up: Response: No adverse reaction kl Disposition Summary: 11/11/22 22:36 Discharge Ordered Location: Home snw Condition: Stable snw Diagnosis - Iron deficiency anemia, unspecified snw - Paresthesia of skin snw - Headache snw Followup: snw - With: Emergency Department - When: As needed - Reason: Worsening of condition Followup: snw - With: Private Physician - When: 2 - 3 days - Reason: Recheck today's complaints, Continuance of care, Re-evaluation by your physician Discharge Instructions: - Discharge Summary Sheet snw - Iron Deficiency Anemia, Adult snw - Iron-Rich Diet snw - General Headache Without Cause snw - Paresthesia snw Forms: - Work release form snw - Medication Reconciliation Form snw - Thank You Letter snw - Antibiotic Education snw - Prescription Opioid Use snw - Patient Portal Instructions snw - Leadership Thank You Letter snw Prescriptions: - orphenadrine citrate 100 mg Oral Tablet Sustained Release - take 1 tablet by ORAL route 2 times per day As needed; 20 tablet; Refills: 0, snw Product Selection Permitted - promethazine 25 mg Oral Tablet - take 1 tablet by ORAL route every 6 hours As needed; 20 tablet; Refills: 0, snw Product Selection Permitted Signatures: Dispatcher [employer] Blanca Martin RN RN kl Anderson, Corey, MD MD cha Waters Lavern, MANAGER STORAGE-C MANAGER STORAGE-Cs[employer] Aydin Gomez, RN RN as6
[2022-11-11] MEDS ORDERED: DIAZEPAM 2 MG TABLET ONE (22:52)
[2022-11-11 23:06] VITALS: TEMP 98.8
[2022-11-11 23:10] VITALS: BP 104/64; O2SAT 97
--- NOTE | 2022-11-12 15:21 | EKG ---
Test Date: 2022-11-11 Test Time: 20:05:12 Bobbin Stripper: PRASHANT MEASUREMENT RESULTS: Intervals: Rate: 81 WI: 198 QRSD: 92 QT: 368 QTc: 427 [place]: P: 55 WI: 198 QRS: 42 T: 44 INTERPRETIVE STATEMENTS: Normal sinus rhythm Normal ECG Compared to ECG 04/09/2021 15:45:57 First degree AV block no longer present Electronically Signed On 11-12-22 15:20:28 CDT by Cesar Jesus
== END 2022-11-11 22:53 | disposition home or self-care (01) ==
LOC: ER 18:42
DX: D50.9 Iron deficiency anemia, unspecified (principal); R20.2 Paresthesia of skin
CPT/HCPCS: 36415; 80048; 81001; 81025; 82728; 83735; 84100; 84443; 84484; 85025; 86850; 86900; 86901; 93005; 96374; 96375; 99284; J1200

== ENCOUNTER 2023-01-27 12:06 | Emergency (ER) | payer SELFPAY ==
--- OUTSIDE RECORDS SUMMARY | 2023-01-27 12:11 | XMS REPORT | Continuity of Care Document ---
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 [id number] CBC W/AUTO DIFF WITH [id number] 09:30:01 Test Item Value Reference Range Interpretation [...] RBCS TEST NOT 0.00-0.11 (test code = 23299) PERFORMED K/UL COMMENTS (test code = TEST NOT 1016) PERFORMED CULTURE, [id number] 09:41:58SPECIMEN NUMBER: [id number] CULTURE, URINE SPECIMEN NUMBER: [id number] SPECIMEN COMMENT: URINE SOURCE:URINE REPORT STATUS: FINAL FINAL REPORT: 07/03/2021 50-100,000 CFU/ML MIXED UROGENITAL FLORAHCG, [id number] 05:48:47 Test Item Value Reference Range Interpretation Comments HCG, QUALITATIVE (test code = 2507) NEGATIVE NEGATIVE COMPREHENSIVE METABOLIC [id number] 03:43:13 Test Item Value Reference Range Interpretation Comments GLUCOSE (test code = 96 MG/DL 70-99 2216) BUN (test code = 12 MG/DL -2207) CREATININE (test 0.79 MG/DL 0.60-1.30 code = 2214) eGFR (2020 CKD-EPI) 106 >60 (test code = 20000) ML/MIN/1.73 CALC BUN/CREAT (test 15 RATIO - code = 2235) SODIUM (test code = 141 MEQ/L 252-896 7949) POTASSIUM (test code 3.8 MEQ/L 3.5-5.4 = 2228) CHLORIDE (test code 105 MEQ/L 95-107 = 2215) CARBON DIOXIDE (test 22 MEQ/L 19-31 code [...] 5-40 2218) HIV 1/2 4TH GEN, RFLX [id number] 03:40:40 Test Item Value Reference Range Interpretation Comments HIV 1/2 4TH GEN, RFLX CONF (test NON-REACTIVE NON-REACTIVE code = 3514) [id number] 03:12:37 Test Item Value Reference Range Interpretation Comments PTT (test code = 1403) 29.7 SECONDS 25.2-40.0 PROTHROMBIN TIME (PT)2021-07-02 03:12:37 Test Item Value Reference Range Interpretation Comments PROTHROMBIN TIME 14.1 SECONDS 12.5-14.7 (PT) (test code = 1402) INR (test code = 1.0 SEE BELOW CURRENT 12828) RECOMMENDATIONS ARE FOR AN INR OF 2 .0-3.0 FOR ALL PATIENT S ON VITAMIN K ANTAG ONISTS, EXCEPT THOSE WI TH PROSTHETIC HEAR T VALVES, FOR WHO M INR OF 2.5-3.5 IS RECOMMENDED. UN LESS OTHERWISE INDIC ATED, ALL TESTING PER FORMED ATCLIN[facility] PATH [facility] [place]. [address] [place] [address] [employer] DIRECTOR: NILDA GORDILLO M.D. CLIA NUMBER [id number] CAP ACCREDITATION N O. [id number] 04:05:52 Test Item Value Reference Range Interpretation Comments PTT (test code = 29.3 SECONDS 25.2-40.0 UNLESS OTH ERWISE 1403) INDICATED, ALL TESTING PERFORMED [facility]. [address] [place] [address] SUKI CALLAHAN DIRECTOR: NILDA GORDILLO M.D. CLIA NUMBER [id number] CAP ACCREDITATION N O. [id number] HIV 1/2 4TH GEN, RFLX [id number] 04:37:11 Test Item Value Reference Range Interpretation Comments HIV 1/2 4TH GEN, RFLX CONF (test NON-REACTIVE NON-REACTIVE code = 3514) CULTURE, [id number] 10:12:10SPECIMEN NUMBER: [id number] CULTURE, URINE SPECIMEN NUMBER: [id number] SPECIMEN COMMENT: URINE SOURCE:URINE REPORT STATUS: FINAL FINAL REPORT: 05/11/2021 10-50,000 CFU/ML MIXED UROGENITAL FLORAHCG, [id number] 04:18:17 Test Item Value Reference Range Interpretation Comments HCG, QUANTITATIVE <5 MIU/ML SEE BELOW E XPECTED (test code = 2506) VALUES FO R HCG GST.AGE UNITS RANGE GST. AGE UNITS RANGE3 WEEKS DC U/ML 6-71 10 WEEKS M IU/ML 46,509-186,9774 WEEKS MIU/ML 10-750 1 2 WEEKS MIU/ML 27,832-2 10,6125 WEEKS MIU/ML 21 7-7,138 14 WEEKS MIU/ML 13,950-62,5306 WEEKS MIU/ML 158-31,7 95 15 WEEKS MIU/ML 12,039-70,9717 WEEKS MIU/ML 3,697-16 3,563 16 WEEKS MIU/ML 9,040-56,4518 W EEKS MIU/ML 32,065-1 49,571 17 WEEKS MIU/ML 8,175-55,8689 W EEKS MIU/ML 63,803-1 51,410 18 WEEKS MIU/ML 8,099-58,176MAL ES and NON- FE MALES . . . . . . . . M IU/ML 6-7GMQV-TMBXHPO KRYSTIAN FEMALES . . . . . . . . . . . . MIU/M L <=7 UNLESS OTHERWIS E INDICATED, ALL TESTING PERFORMED [facility] [place] [address] [facility] [place] [address] [facility] DIRECTOR: Yeyo DURANTIA NUMBER [id number] CAP ACCREDITATION N O. [id number] COMPREHENSIVE METABOLIC [id number] 00:35:57 Test Item Value Reference Range Interpretation Comments GLUCOSE (test code = 108 MG/DL 70-99 H 2216) BUN (test code = 9 MG/DL 6-20 2207) CREATININE (test 0.88 MG/DL 0.60-1.30 code = 2214) eGFR (2020 CKD-EPI) 93 ML/MIN/1.73 >60 (test code = 09882) CALC BUN/CREAT (test 10 RATIO 6-28 code = 2235) SODIUM (test code = 142 MEQ/L 686-510 1344) POTASSIUM (test code 3.7 MEQ/L 3.5-5.4 = [...] PHOSPHATASE 89 U/L 40-112 (test code = 2204) AST (test code = 11 U/L -40 2217) ALT (test code = 9 U/L 5-40 2218) PROTHROMBIN TIME (PT)2021-05-10 10:34:07 Test Item Value Reference Range Interpretation Comments PROTHROMBIN TIME 14.1 SECONDS 12.5-14.7 (PT) (test code = 1402) INR (test code = 1.1 SEE BELOW CURRENT 60208) RECOMMENDATIONS ARE FOR AN INR OF 2 .0-3.0 FOR ALL PATIENT S ON VITAMIN K ANTAG ONISTS, EXCEPT THOSE WI TH PROSTHETIC HEAR T VALVES, FOR WHO M INR OF 2.5-3.5 IS RECOMMENDED. CBC W/AUTO DIFF WITH [id number] 02:45:06 Test Item Value Reference Range Interpretation [...] RBCS 0.00 K/UL 0.00-0.11 (test code = 95842)"
--- NOTE | 2023-01-27 14:23 | ER ---
Nurse's Notes [facility] Name: Shanique Avelar Age: 27 yrs Sex: Female : 1995 Arrival Date: 01/27/2023 Time: 12:06 Bed 23 Private MD: Diagnosis: Presentation: 01/27 12:31 Coronavirus screen: Vaccine status: Patient reports receiving the 2nd dose of the covid kd3 vaccine. Ebola Screen: No symptoms or risks identified at this time. Initial Sepsis Screen: Does the patient meet any 2 criteria? No. Patient's initial sepsis screen is negative. Does the patient have a suspected source of infection? No. Patient's initial sepsis screen is negative. Risk Assessment: Do you want to hurt yourself or someone else? Patient reports no desire to harm self or others. Onset of symptoms was January 24, 2023. 12:31 Method Of Arrival: Ambulatory kd3 12:31 Acuity: KYLEE 3 kd3 12:32 Chief complaint: Patient states: My symptoms started 3 days ago with a headache, kd3 stomach pains and vomiting. I do not think i have had a fever, i just feel very nauseous. I haven't eaten anything out of the norm. I have vomited 3 times earlier today. Triage Assessment: 12:33 General: Appears in no apparent distress. Behavior is calm, cooperative. Pain: kd3 Complains of pain in right lower quadrant and left lower quadrant. GI: Reports lower abdominal pain, nausea, vomiting. Historical: - Allergies: 12:33 No Known Allergies; kd3 - PMHx: 12:33 Anemia; Asthma; Heart Murmur; Hypertensive disorder; kd3 - PSHx: 12:33 dental surgery; lipo with a BBL; Tonsillectomy; kd3 - Immunization history:: Adult Immunizations up to date. - Social history:: Smoking status: Patient denies any tobacco usage or history of. Vital Signs: 12:31 Pulse 72; Resp 16; Temp 98.4(TE); Pulse Ox 100% ; Weight 114.76 kg; Height 5 ft. 7 in. kd3 ; Pain 8/10; 12:31 Body Mass Index 39.62 (114.76 kg, 170.18 cm) kd3 12:31 Pain Scale: Adult kd3 ED Course: 12:07 Patient arrived in ED. rg4 12:11 Jessica Victor MD is Attending Physician. sp3 12:32 Triage completed. kd3 12:33 Arm band placed on left wrist. kd3 14:21 Nitish Red PA is PHCP. jr8 14:22 Jessica Victor MD is Attending Physician. jr8 Administered Medications: No medications were administered Outcome: 14:23 Patient left the ED. iw Signatures: Loyda Ashton RN RN iw Nitish Red PA PA jr8 Mima Chavez rg4 Jessica Victor MD MD sp3 Joanne Kulkarni RN RN kd3
[2023-01-27 14:49] VITALS: TEMP 98.4; O2SAT 100
== END 2023-01-27 14:23 | disposition left against medical advice (07) ==
LOC: ER 12:06
DX: Z53.21 Procedure and treatment not carried out due to patient leaving prior to being seen by health care provider (principal)
CPT/HCPCS: 99281

== ENCOUNTER 2023-01-28 11:27 | Emergency (ER) | payer SELFPAY ==
--- OUTSIDE RECORDS SUMMARY | 2023-01-28 11:32 | XMS REPORT | Continuity of Care Document ---
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 03:40:40 Test Item Value Reference Range Interpretation Comments HIV 1/2 4TH GEN, RFLX CONF (test NON-REACTIVE NON-REACTIVE code = 3514) [id number] 03:12:37 Test Item Value Reference Range Interpretation Comments PTT (test code = 1403) 29.7 SECONDS 25.2-40.0 PROTHROMBIN TIME (PT)2021-07-02 03:12:37 Test Item Value Reference Range Interpretation Comments PROTHROMBIN TIME 14.1 SECONDS 12.5-14.7 (PT) (test code = 1402) INR (test code = 1.0 SEE BELOW CURRENT 47974) RECOMMENDATIONS ARE FOR AN INR OF 2 .0-3.0 FOR ALL PATIENT S ON VITAMIN K ANTAG ONISTS, EXCEPT THOSE WI TH PROSTHETIC HEAR T VALVES, FOR WHO M INR OF 2.5-3.5 IS RECOMMENDED. UN LESS OTHERWISE INDIC ATED, ALL TESTING PER FORMED ATCLINICAL PATH OLOGY LAB[facility]ATORIES, I [place]. [address] [place] [address] SUKI CALLAHAN DIRECTOR: NILDA GORDILLO M.D. CLIA NUMBER [id number] CAP ACCREDITATION N O. [id number] 04:05:52 Test Item Value Reference Range Interpretation Comments PTT (test code = 29.3 SECONDS 25.2-40.0 UNLESS OT HERWISE 1403) INDICATED, ALL TESTING PERFORMED [facility] PATH[facility]. [address] [place] [address] SUKI CALLAHAN DIRECTOR: NILDA GORDILLO M.D. CLIA NUMBER [id number] CAP ACCREDITATION N O. [id number] HIV 1/2 4TH GEN, RFLX [id number] 04:37:11 Test Item Value Reference Range Interpretation Comments HIV 1/2 4TH GEN, RFLX CONF (test NON-REACTIVE NON-REACTIVE code = 3514) CULTURE, [id number] 10:12:10SPECIMEN NUMBER: [id number] CULTURE, URINE SPECIMEN NUMBER: [id number] SPECIMEN COMMENT: URINE SOURCE:URINE REPORT STATUS: FINAL FINAL REPORT: 05/11/2021 10-50,000 CFU/ML MIXED UROGENITAL FLORAHCG, [id number] 04:18:17 Test Item Value Reference Range Interpretation Comments HCG, QUANTITATIVE <5 MIU/ML SEE BELOW EXPECTED (test code = 2506) VALUES FO R HCG GST.AGE UNITS RANGE GST. AGE UNITS RANGE3 WEEKS PR U/ML 6-71 10 WEEKS M IU/ML [phone] [...] . . . . . M IU/ML 4-2IWKI-ZQOESET KRYSTIAN FEMALES . . . . . . . . . . . . MIU/M L <=7 UNLESS OTHERWIS E INDICATED, ALL TESTING PERFORMED [facility], [place]. [address] [place] [address] [facility] DIRECTOR: NILDA GORDILLO M.D. IA NUMBER [id number] CAP ACCREDITATION N O. [id number] COMPREHENSIVE METABOLIC [id number] 00:35:57 Test Item Value Reference Range Interpretation Comments GLUCOSE (test code = 108 MG/DL 70-99 H 2216) BUN (test code = 9 MG/DL 6-20 2207) CREATININE (test 0.88 MG/DL 0.60-1.30 code = 2214) eGFR (2020 CKD-EPI) 93 ML/MIN/1.73 >60 (test code = 35641) CALC BUN/CREAT (test 10 RATIO 6-28 code = 2235) SODIUM (test code = 142 MEQ/L 859-653 4033) POTASSIUM (test code 3.7 MEQ/L 3.5-5.4 = [...] (test code = 1.1 SEE BELOW CURRENT 12436) RECOMMENDATIONS ARE FOR AN INR OF 2 .0-3.0 FOR ALL PATIENT S ON VITAMIN K ANTAG ONISTS, EXCEPT THOSE WI TH PROSTHETIC HEAR T VALVES, FOR WHO M INR OF 2.5-3.5 IS RECOMMENDED. CBC W/AUTO DIFF WITH [id number] 02:45:06 Test Item Value Reference Range Interpretation [...] RBCS 0.00 K/UL 0.00-0.11 (test code = 67052)"
[2023-01-28 12:19] LABS: Specific Gravity > 1.030 (1.005-1.030)
[2023-01-28 12:23] LABS: Specific Gravity > 1.030 (1.005-1.030); Urine Bacteria None Seen /HPF (<20); Urine Bilirubin NEGATIVE (Negative); Urine Blood Negative (Negative); Urine Clarity Extremely Turbid (Clear); Urine Color Yellow (Yellow); Urine Glucose NEGATIVE (Negative); Urine Mucus 2+ /HPF (None Seen); Urine Protein TRACE (Negative); Urine RBC <5 /HPF (None Seen); Urine Urobilinogen Normal (Normal); Urine pH 5.5 (5.0-7.0)
--- NOTE | 2023-01-28 12:37 | EDPHYS ---
Physician Documentation [facility] Name: Shanique Avelar Age: 27 yrs Sex: Female : 1995 Arrival Date: 01/28/2023 Time: 11:27 Bed IW10 Private MD: ED Physician Geremias Shepherd HPI: 01/28 15:48 This 27 yrs old Black Female presents to ER via Ambulatory with complaints of sb4 Dizziness, Vomiting, Doesnt Feel Good. 15:48 patient reports headache, dizziness, and nausea/vomiting for about a week now. she sb4 denies any prior episodes. denies any abdominal pain or diarrhea. is unsure when last menstrual cycle was. no blurry vision, ataxia, numbness, tingling. no alleviating or aggravating factors. no other associated signs and symptoms. Historical: - Allergies: 11:52 No Known Allergies; iw - PMHx: 11:52 Anemia; Asthma; Heart Murmur; Hypertensive disorder; iw - Immunization history:: Client reports receiving the 1st dose of the Covid vaccine. - Social history:: Smoking status: Patient denies any tobacco usage or history of. ROS: 15:49 Constitutional: Negative for fever, chills, and weight loss, sb4 15:49 Abdomen/GI: Positive for nausea and vomiting, 15:49 Neuro: Positive for dizziness, headache, 15:49 All other systems are negative, Exam: 15:49 Constitutional: This is a well developed, well nourished patient who is awake, alert, sb4 and in no acute distress. Head/Face: Normocephalic, atraumatic. Eyes: Extra-ocular motions intact. Periorbital areas with no swelling, redness, or edema. ENT: Mucous membranes moist. Cardiovascular: Regular rate and rhythm with a normal S1 and S2. Respiratory: Lungs have equal breath sounds bilaterally, clear to auscultation and percussion. No rales, rhonchi or wheezes noted. No increased work of breathing, no retractions or nasal flaring. Abdomen/GI: Soft, non-tender, no distension. Skin: Warm, dry with normal turgor. Normal color with no rashes, no lesions, and no evidence of cellulitis. MS/ Extremity: Pulses equal, no cyanosis. Neurovascular intact. Full, normal range of motion. Neuro: Awake and alert, GCS 15, oriented to person, place, time, and situation. Motor strength 5/5 in all extremities. Sensory grossly intact. Vital Signs: 11:51 BP 114 / 88; Pulse 85; Resp 18; Temp 98.5; Pulse Ox 100% on R/A; Weight 113.4 kg; iw Height 5 ft. 7 in. ; Pain 8/10; 11:51 Body Mass Index 39.16 (113.40 kg, 170.18 cm) iw 11:51 Pain Scale: Adult iw MDM: 11:54 Patient medically screened. sb4 15:49 Differential diagnosis: cardiac arrhythmia, generalized weakness, hypovolemia, sb4 , vertigo. Data reviewed: vital signs, nurses notes, lab test result(s), and as a result, I will discharge patient. Test considered but Not performed: Other Details originally ordered head CT and labs but once I informed patient of positive test, she requested to be discharged with copy of results. Counseling: I had a detailed discussion with the patient and/or guardian regarding the historical points, exam findings, and any diagnostic results supporting the discharge/admit diagnosis, lab results, the need for outpatient follow up, an OB/Gyne specialist, to return to the emergency department if symptoms worsen or persist or if there are any questions or concerns that arise at home. 01/28 11:52 Order name: Test, Urine; Complete Time: 12:25 4 01/28 11:52 Order name: UDS; Complete Time: 12:40 sb4 01/28 11:52 Order name: Urinalysis w/ reflexes; Complete Time: 12:25 sb4 01/28 11:52 Order name: Flu sb4 01/28 11:52 Order name: SARS RAPID; Complete Time: 13:09 sb4 01/28 11:52 Order name: EKG; Complete Time: 11:52 sb4 01/28 11:52 Order name: EKG - Nurse/Tech sb4 01/28 11:52 Order name: IV Saline Lock sb4 01/28 11:52 Order name: Labs collected and sent sb4 01/28 11:52 Order name: NPO sb4 01/28 11:52 Order name: O2 Per Protocol sb4 01/28 11:52 Order name: O2 Sat Monitoring sb4 01/28 11:52 Order name: Orthostatics sb4 Administered Medications: 12:50 Not Given (Patient Refused): ns 0.9% 1000 ml IV at 1 bolus Per protocol; 1000 mL bolus jl7 12:50 Not Given (Patient Refused): ondansetron 4 mg IVP once; over 2 minutes jl7 Disposition: 16:05 Co-signature as Attending Physician, Geremias Shepherd MD I reviewed the patient's care rn provided by the Advanced Practice Provider and agree with the diagnosis and treatment plan. Chart complete. Disposition Summary: 01/28/23 12:36 Discharge Ordered Notes: Location: Home sb4 Problem: an ongoing problem sb4 Symptoms: are unchanged sb4 Condition: Stable sb4 Diagnosis - Vomiting of , unspecified sb4 - Dizziness and giddiness sb4 Followup: sb4 - With: Private Physician - When: Tomorrow - Reason: Further diagnostic work-up, Recheck today's complaints, Re-evaluation by your physician Discharge Instructions: - Discharge Summary Sheet sb4 - Morning Sickness, Gtip-gf-Mrxf sb4 Forms: - Medication Reconciliation Form sb4 - Thank You Letter sb4 - Antibiotic Education sb4 - Prescription Opioid Use sb4 - Patient Portal Instructions sb4 - Leadership Thank You Letter sb4 Signatures: Dispatcher [employer] Loyda Muniz RN RN iw Nieto, Roman, MD MD rn Leal, Jahala, RN RN jl7 Brown, Sophia, PA-C PA-C sb4 Corrections: (The following items were deleted from the chart) 12:32 11:52 Head Brain Wo Cont+CT.RAD.BRZ ordered. EDPA EDPA 12:50 11:52 Cardiac monitoring ordered. sb4 jl7 12:55 11:52 BASIC METABOLIC PANEL+C.LAB.BRZ ordered. EDPA EDMS 12:55 11:52 CBC+H.LAB.BRZ ordered. EDPA EDMS 12:55 11:52 HEPATIC FUNCTION+C.LAB.BRZ ordered. EDPA EDMS 12:55 11:52 MAGNESIUM+C.LAB.BRZ ordered. EDPA EDMS 12:55 11:52 PROTIME (+INR)+COAG.LAB.BRZ ordered. EDPA EDMS 12:55 11:52 PTT, ACTIVATED+COAG.LAB.BRZ ordered. EDPA EDMS 12:55 11:52 Troponin High Sensitivity+C.LAB.BRZ ordered. EDMS EDMS 11:52 Chest Single View+RAD.RAD.BRZ ordered. EDMS EDMS 12:30 Transvaginal Ob+US.RAD.BRZ ordered. EDMS EDMS
--- NOTE | 2023-01-28 12:37 | ER ---
Nurse's Notes [facility] Name: Shanique Avelar Age: 27 yrs Sex: Female : 1995 Arrival Date: 01/28/2023 Time: 11:27 Bed IW10 Private MD: Diagnosis: Vomiting of , unspecified;Dizziness and giddiness Presentation: 01/28 11:51 Chief complaint: Patient states: vomiting, dizzy, headache X 1 week, getting worse. iw Coronavirus screen: Client presents with at least one sign or symptom that may indicate coronavirus-19. Ebola Screen: Patient negative for fever greater than or equal to 101.5 degrees Fahrenheit, and additional compatible Ebola Virus Disease symptoms Patient denies exposure to infectious person. Patient denies travel to an Ebola-affected area in the 21 days before illness onset. No symptoms or risks identified at this time. Initial Sepsis Screen: Does the patient meet any 2 criteria? No. Patient's initial sepsis screen is negative. Does the patient have a suspected source of infection? No. Patient's initial sepsis screen is negative. Risk Assessment: Do you want to hurt yourself or someone else? Patient reports no desire to harm self or others. Onset of symptoms was January 21, 2023. 11:51 Method Of Arrival: Ambulatory iw 11:51 Acuity: KYLEE 3 iw Historical: - Allergies: 11:52 No Known Allergies; iw - PMHx: 11:52 Anemia; Asthma; Heart Murmur; Hypertensive disorder; iw - Immunization history:: Client reports receiving the 1st dose of the Covid vaccine. - Social history:: Smoking status: Patient denies any tobacco usage or history of. Assessment: 12:19 Reassessment: pt refused CT until test complete, placed back in lobby. iw 12:27 Reassessment: DELLA Manning informing pt of test results. jl7 Vital Signs: 11:51 BP 114 / 88; Pulse 85; Resp 18; Temp 98.5; Pulse Ox 100% on R/A; Weight 113.4 kg; iw Height 5 ft. 7 in. ; Pain 8/10; 11:51 Body Mass Index 39.16 (113.40 kg, 170.18 cm) iw 11:51 Pain Scale: Adult iw ED Course: 11:31 Patient arrived in ED. mg5 11:35 Brown, Charisma, PA-C is [facility]. sb4 11:35 Geremias Shepherd MD is Attending Physician. sb4 11:52 Triage completed. iw 11:52 Arm band placed on. iw Administered Medications: 12:50 Not Given (Patient Refused): ns 0.9% 1000 ml IV at 1 bolus Per protocol; 1000 mL bolus jl7 12:50 Not Given (Patient Refused): ondansetron 4 mg IVP once; over 2 minutes jl7 Outcome: 12:36 Discharge ordered by MD. sb4 13:10 Discharged to home ambulatory, jl7 13:10 Condition: stable 13:10 Discharge instructions given to patient, Instructed on discharge instructions, follow up and referral plans. Demonstrated understanding of instructions, follow-up care, Discharged by ERP 13:11 Patient left the ED. jl7 Signatures: Loyda Ashton, RN RN iw Héctor Yee RN RN jl7 Charisma Ya PA-C PA-C sb4 Yanira North mg5 Corrections: (The following items were deleted from the chart) 11:53 11:51 Pulse 85bpm; Resp 18bpm; Pulse Ox 100% RA; Temp 98.5F; 113.4 kg; Height 5 ft. 7 iw in.; BMI: 39.1; Pain 8/10, Adult; iw
[2023-01-28 12:40] LABS: Barbiturates NEGATIVE (NEGATIVE); Benzodiazepines NEGATIVE (NEGATIVE); Cocaine NEGATIVE (NEGATIVE); METHAMPHETAM NEGATIVE (NEGATIVE); Methadone NEGATIVE (NEGATIVE); Opiates NEGATIVE (NEGATIVE); Phencyclidine NEGATIVE (NEGATIVE); THC Cannibis NEGATIVE (NEGATIVE)
[2023-01-28 13:08] LABS: SARS-CoV-2 Antigen Rapid Res Negative (Negative)
[2023-01-28 13:20] VITALS: BP 114/88; TEMP 98.5; O2SAT 100
== END 2023-01-28 13:11 | disposition home or self-care (01) ==
LOC: ER 11:27
DX: R42 Dizziness and giddiness (principal); R11.10 Vomiting, unspecified; Z33.1 Pregnant state, incidental; Z11.52 Encounter for screening for COVID-19
CPT/HCPCS: 36415; 80307; 81001; 81025; 87804; 87811; 99282

== ENCOUNTER 2023-02-14 19:03 | Emergency (ER) | payer SELFPAY ==
--- OUTSIDE RECORDS SUMMARY | 2023-02-14 19:20 | XMS REPORT | Continuity of Care Document ---
:1995 Author Organization [facility] t Address [address] [place] [address] Care Team Providers Name Role Phone Unavailable Unavailable Unavailable Problems This patient has no known problems. Allergies, Adverse Reactions, Alerts This patient has no known allergies or adverse reactions. Medications This patient has no known medications. Procedures This patient has no known procedures. Results Test Description Test Time Test Comments Results Result Comments Source MICROSCOPIC URINALYSIS 2021-07-17 02:14:14 Test Item Value Reference Range Interpretation Comme nts WHITE BLOOD CELLS (test code = 0-5 /HPF 0-5 1513) RED BLOOD CELLS (test code = 0-2 /HPF 0-5 1514) EPITHELIAL CELLS (test code = 0-5 /HPF 0-10 98852) BACTERIA (test code = 1515) NONE SEEN NONE SEEN CASTS, HYALINE (test code = NONE SEEN NONE-TRACE UNLESS OTHERWISE INDICATED, ALL 1517) TESTING PERFORM ED ATCLINICAL PATHOLOGY [employer] [employer] [address] [place] [address] LABORATORY DIRE CTOR: NILDA GORDILLO M.D. CLIA NUMBER [id number] [place]. [id number] CULTURE, [id number] 11:52:32SPECIMEN NUMBER: [id number] CULTURE, URINE SPECIMEN NUMBER: [id number] SPECIMEN COMMENT: URINE SOURCE:URINE REPORT STATUS: FINAL FINAL REPORT: 07/15/2021 50-100,000 CFU/ML MIXED UROGENITAL FREDY UNLESS O THERWISE INDICATED, ALL TESTING PERFORMED ATCLINICAL PATHOLOGY [employer] [employer] [address] [place] [address] FONDANT COOKER: NILDA GORDILLO M.D. CLIA NUMBER [id number] [place]. [id number] W/AUTO DIFF WITH [id number] 02:16:29 Test Item Value Reference Range Interpretation [...] message] code = 1065) WBC'S The system [email or web address] generated this result transmitted ref erence range: [...] 0.00-0.11 UNLESS O THERWISE (test code = 68012) INDICATE D, ALL TESTING PERFORM ED ATCLINICAL PATH OLOGY [facility], [facility] [place]. [address] [place] [address] [facility] DIRECTOR: NILDA GORDILLO M.D. CLIA NUMBER [id number] CAP ACCREDITATION N O. [id number] CBC W/AUTO DIFF WITH [id number] 09:30:01 Test Item Value Reference Range Interpretation [...] RBCS TEST NOT 0.00-0.11 (test code = 42350) PERFORMED K/UL COMMENTS (test code = TEST NOT 1016) PERFORMED CULTURE, [id number] 09:41:58SPECIMEN NUMBER: [id number] CULTURE, URINE SPECIMEN NUMBER: [id number] SPECIMEN COMMENT: URINE SOURCE: URINE REPORT STATUS: FINAL FINAL REPORT: 07/03/2021 50-100,000 CFU/ML MIXED UROGENITAL FLORAHCG, [id number] 05:48:47 Test Item Value Reference Range Interpretation Comments HCG, QUALITATIVE (test code = 2507) NEGATIVE NEGATIVE COMPREHENSIVE METABOLIC [id number] 03:43:13 Test Item Value Reference Range Interpretation Comments GLUCOSE (test code = 96 MG/DL 70-99 2216) BUN (test code = 12 MG/DL 09-07) CREATININE (test 0.79 MG/DL 0.60-1.30 code = 2214) eGFR (2020 CKD-EPI) 106 >60 (test code = 97947) ML/MIN/1.73 CALC BUN/CREAT (test 15 RATIO - code = 2235) SODIUM (test code = 141 MEQ/L 763-599 3167) POTASSIUM (test code 3.8 MEQ/L 3.5-5.4 = 2227) CHLORIDE (test code 105 MEQ/L 95-107 = 2215) CARBON DIOXIDE (test 22 MEQ/L 19-31 code = 220) CALCIUM (test code = 9.9 MG/DL 8.5-10.5 2208) PROTEIN, TOTAL (test 8.3 G/DL 6.1-8.3 code = 222) ALBUMIN (test code = 4.9 G/DL 3.5-5.2 2200) CALC GLOBULIN (test 3.4 G/DL 1.9-3.7 code = 2240) CALC A/G RATIO (test 1.4 RATIO 1.0-2.6 code = 223) BILIRUBIN, TOTAL 0.3 MG/DL See_Comment [Automated message] [...] 5-40 2218) HIV 1/2 4TH GEN, RFLX [id number] 03:40:40 Test Item Value Reference Range Interpretation Comments HIV 1/2 4TH GEN, RFLX CONF (test NON-REACTIVE NON-REACTIVE code = 3514) [id number] 03:12:37 Test Item Value Reference Range Interpretation Comments PTT (test code = 1403) 29.7 SECONDS 25.2-40.0 PROTHROMBIN TIME (PT)2021-07-02 03:12:37 Test Item Value Reference Range Interpretation Comments PROTHROMBIN TIME 14.1 SECONDS 12.5-14.7 (PT) (test code = 1402) INR (test code = 1.0 SEE BELOW CURRENT 78620) RECOMMENDATIONS ARE FOR AN INR OF 2 .0-3.0 FOR ALL PATIENT S ON VITAMIN K ANTAG ONISTS, EXCEPT THOSE WI TH PROSTHETIC HEAR T VALVES, FOR WHO M INR OF 2.5-3.5 IS RECOMMENDED. U NLESS OTHERWISE INDIC ATED, ALL TESTING PER FORMED ATCLINICAL PATH OLOGY LABORATORIES, I [place]. [address] [place] [address] SUKI CALLAHAN DIRECTOR: NILDA GORDILLO M.D. CLIA NUMBER [id number] CAP ACCREDITATION N O. [id number] 04:05:52 Test Item Value Reference Range Interpretation Comments PTT (test code = 29.3 SECONDS 25.2-40.0 UNLESS OTH ERWISE 1403) INDICATED, ALL TESTING PERFORMED ATCLI NICAL PATHOLOGY [facility], [facility] [address] [place] [address] SUKI CALLAHAN DIRECTOR: NILDA GORDILLO M.D. CLIA NUMBER [id number] 03 CAP ACCREDITATION N O. [id number] HIV 1/2 4TH GEN, RFLX [id number] 04:37:11 Test Item Value Reference Range Interpretation Comments HIV 1/2 4TH GEN, RFLX CONF (test NON-REACTIVE NON-REACTIVE code = 3514) CULTURE, [id number] 10:12:10SPECIMEN NUMBER: [id number] CULTURE, URINE SPECIMEN NUMBER: [id number] SPECIMEN COMMENT: URINE SOURCE:URINE REPORT STATUS: FINAL FINAL REPORT: 05/11/2021 10-50,000 CFU/ML MIXED UROGENITAL FLORAHCG, [id number] 04:18:17 Test Item Value Reference Range Interpretation Comments HCG, QUANTITATIVE <5 MIU/ML SEE BELOW E XPECTED (test code = 2506) VALUES FO R HCG GST.AGE UNITS RANGE GST. AGE UNITS RANGE3 WEEKS NH U/ML 6-71 10 WEEKS M IU/ML [id number] [...] . . . . . M IU/ML 9-7NFDT-PMJTPBP KRYSTIAN FEMALES . . . . . . . . . . . . MIU/M L <=7 UNLESS OTHERWIS E INDICATED, ALL TESTING PERFORMED [facility], [facility]. [address] [place], [place] [address] [place] [address] DIRECTOR: NILDA GORDILLO M.D. CLIA NUMBER [id number] CAP ACCREDITATION N O. [id number] COMPREHENSIVE METABOLIC [id number] 00:35:57 Test Item Value Reference Range Interpretation Comments GLUCOSE (test code = 108 MG/DL 70-99 H 2216) BUN (test code = 9 MG/DL 6-20 2207) CREATININE (test 0.88 MG/DL 0.60-1.30 code = 2214) eGFR (2020 CKD-EPI) 93 ML/MIN/1.73 >60 (test code = 23797) CALC BUN/CREAT (test 10 RATIO 6-28 code = 2235) SODIUM (test code = 142 MEQ/L 089-922 8241) POTASSIUM (test code 3.7 MEQ/L 3.5-5.4 = 2228) CHLORIDE (test code [...] 2204) AST (test code = 11 U/L 9-40 2217) ALT (test code = 9 U/L 5-40 2218) PROTHROMBIN TIME (PT)2021-05-10 10:34:07 Test Item Value Reference Range Interpretation Comments PROTHROMBIN TIME 14.1 SECONDS 12.5-14.7 (PT) (test code = 1402) INR (test code = 1.1 SEE BELOW CURRENT 98174) RECOMMENDATIONS ARE FOR AN INR OF 2 .0-3.0 FOR ALL PATIENT S ON VITAMIN K ANTAG ONISTS, EXCEPT THOSE WI TH PROSTHETIC HEAR T VALVES, FOR WHO M INR OF 2.5-3.5 IS RECOMMENDED. CBC W/AUTO DIFF WITH [id number] 02:45:06 Test Item Value Reference Range Interpretation [...] RBCS 0.00 K/UL 0.00-0.11 (test code = 92176)
--- NOTE | 2023-02-14 21:09 | EDPHYS ---
Physician Documentation [facility] Name: Shanique Avelar Age: 27 yrs Sex: Female : 1995 Arrival Date: 02/14/2023 Time: 19:03 Bed DX4 Private MD: ED Physician Alejo Smith HPI: 02/14 19:57 This 27 yrs old Black Female presents to ER via Ambulatory with complaints of Abdominal snw Pain, 12 Weeks , Numbness. 19:57 The patient presents with pt stated she had cough, congestion x 2 days in triage when snw she brought her 4 children to be seen. . Historical: - Allergies: 19:16 NKA; mb9 - Home Meds: 19:16 None [Active]; mb9 - PMHx: 19:16 Anemia; Asthma; Heart Murmur; Hypertensive disorder; mb9 - PSHx: 19:16 dental surgery; lipo with a BBL; Tonsillectomy; mb9 - Immunization history:: Adult Immunizations up to date. - Social history:: Smoking status: Patient denies any tobacco usage or history of. ROS: 19:55 Constitutional: Negative for fever, chills, and weight loss, Eyes: Negative for injury, snw pain, redness, and discharge, ENT: Negative for injury, pain, and discharge, Neck: Negative for injury, pain, and swelling, Cardiovascular: Negative for chest pain, palpitations, and edema, Respiratory: Negative for shortness of breath, wheezing, and pleuritic chest pain, +cough Abdomen/GI: Negative for abdominal pain, nausea, vomiting, diarrhea, and constipation, Back: Negative for injury and pain, : Negative for injury, bleeding, discharge, and swelling, MS/Extremity: Negative for injury and deformity, Skin: Negative for injury, rash, and discoloration, Neuro: Negative for headache, weakness, numbness, tingling, and seizure, Psych: Negative for depression, anxiety, suicide ideation, homicidal ideation, and hallucinations, Exam: 19:53 Constitutional: This is a well developed, well nourished patient who is awake, alert, snw and in no acute distress. Head/Face: Normocephalic, atraumatic. Eyes: Pupils equal round and reactive to light, extra-ocular motions intact. Lids and lashes normal. Conjunctiva and sclera are non-icteric and not injected. Cornea within normal limits. Periorbital areas with no swelling, redness, or edema. ENT: Nares patent. No nasal discharge, no septal abnormalities noted. Tympanic membranes are normal and external auditory canals are clear. Oropharynx with no redness, swelling, or masses, exudates, or evidence of obstruction, uvula midline. Mucous membranes moist. Neck: Trachea midline, no thyromegaly or masses palpated, and no cervical lymphadenopathy. Supple, full range of motion without nuchal rigidity, or vertebral point tenderness. No Meningismus. Chest/axilla: Normal chest wall appearance and motion. Nontender with no deformity. No lesions are appreciated. Cardiovascular: Regular rate and rhythm with a normal S1 and S2. No gallops, murmurs, or rubs. Normal PMI, no JVD. No pulse deficits. 19:53 Abdomen/GI: Soft, non-tender, with normal bowel sounds. No distension or tympany. No guarding or rebound. No evidence of tenderness throughout. Back: No spinal tenderness. No costovertebral tenderness. Full range of motion. Skin: Warm, dry with normal turgor. Normal color with no rashes, no lesions, and no evidence of cellulitis. MS/ Extremity: Pulses equal, no cyanosis. Neurovascular intact. Full, normal range of motion. Neuro: Awake and alert, GCS 15, oriented to person, place, time, and situation. Cranial nerves II-XII grossly intact. Motor strength 5/5 in all extremities. Sensory grossly intact. Cerebellar exam normal. Normal gait. Psych: Awake, alert, with orientation to person, place and time. Behavior, mood, and affect are within normal limits. 19:53 Respiratory: the patient does not display signs of respiratory distress, Respirations: normal, Breath sounds: are clear throughout, reports cough, Vital Signs: 19:14 BP 117 / 78; Pulse 80; Resp 18; Temp 97.9; Pulse Ox 100% ; Weight 99.79 kg; Height 5 mb9 ft. 7 in. ; 19:14 Body Mass Index 34.46 (99.79 kg, 170.18 cm) mb9 MDM: 19:15 Patient medically screened. cp 19:56 Differential diagnosis: URI, flu, covid, Pt demands US to evaluate and was snw abusive to writer technical publications. 20:55 Transition of care: After a detail discussion of the patient's case, care is snw transferred to [facility]. 21:06 ED course: pt threw a fit and was abusive to nurses and to me because she wanted an snw ultrasound that she did not believe she would be getting. 21:07 Data reviewed: vital signs, nurses notes. Counseling: I had a detailed discussion with snw the patient and/or guardian regarding the historical points, exam findings, and any diagnostic results supporting the discharge/admit diagnosis, to return to the emergency department if symptoms worsen or persist or if there are any questions or concerns that arise at home. 02/14 19:53 Order name: NPO; Complete Time: 21:07 snw Administered Medications: No medications were administered Disposition: 22:05 Co-signature as Attending Physician, Alejo Smith MD I reviewed the patient's care rt provided by the Advanced Practice Provider and agree with the diagnosis and treatment plan. Disposition Summary: 02/14/23 21:08 Discharge Ordered Notes: Location: Home snw Condition: Stable snw Diagnosis - Acute upper respiratory infection, unspecified snw - Abdominal pain, unspecified snw - state, incidental snw Followup: snw - With: Emergency Department - When: As needed - Reason: Worsening of condition Followup: snw - With: Private Physician - When: 2 - 3 days - Reason: Recheck today's complaints, Continuance of care, Re-evaluation by your physician Forms: - Medication Reconciliation Form snw - Thank You Letter snw - Antibiotic Education snw - Prescription Opioid Use snw - Patient Portal Instructions snw - Leadership Thank You Letter snw Signatures: Dispatcher [employer] EDMS Lavern Delaney, TIE TAPE MACHINE OPERATOR-C TIE TAPE MACHINE OPERATOR-Csnw Gatito Courtney PA PA cp Breneman, Mary Beth, RN RN mb9 Alejo Smith MD MD rt Corrections: (The following items were deleted from the chart) 21: 19:53 IV Saline Lock ordered. snw jb4 : 19:53 Labs collected and sent ordered. snw jb4
--- NOTE | 2023-02-14 21:09 | ER ---
Nurse's Notes [facility] Name: Shanique Avelar Age: 27 yrs Sex: Female : 1995 Arrival Date: 02/14/2023 Time: 19:03 Bed DX4 Private MD: Diagnosis: Acute upper respiratory infection, unspecified;Abdominal pain, unspecified; state, incidental Presentation: 02/14 19:14 Chief complaint: Patient states: "I have right sided numbness and tingling from the top mb9 of my head, down. It started 1 month ago. My head hurts really bad. I have cramping that's been going on for 2 days". Coronavirus screen: Vaccine status: Patient reports receiving the 2nd dose of the covid vaccine. Ebola Screen: No symptoms or risks identified at this time. Initial Sepsis Screen: Does the patient meet any 2 criteria? No. Patient's initial sepsis screen is negative. Does the patient have a suspected source of infection? No. Patient's initial sepsis screen is negative. Risk Assessment: Do you want to hurt yourself or someone else? Patient reports no desire to harm self or others. Onset of symptoms was February 14, 2023. 19:14 Method Of Arrival: Ambulatory mb9 19:14 Acuity: KYLEE 3 mb9 Triage Assessment: 19:16 General: Appears in no apparent distress. Behavior is calm, cooperative. Pain: mb9 Complains of pain in abdomen. Neuro: Level of Consciousness is awake, alert, obeys commands, Oriented to person, place, time, situation, Appropriate for age. Cardiovascular: Patient's skin is warm and dry. Respiratory: Airway is patent Respiratory effort is even, unlabored, Respiratory pattern is regular, symmetrical. GI: Reports cramping. : Denies vaginal bleeding. Derm: Skin is pink, warm \\T\\ dry. Historical: - Allergies: 19:16 NKA; mb9 - Home Meds: 19:16 None [Active]; mb9 - PMHx: 19:16 Anemia; Asthma; Heart Murmur; Hypertensive disorder; mb9 - PSHx: 19:16 dental surgery; lipo with a BBL; Tonsillectomy; mb9 - Immunization history:: Adult Immunizations up to date. - Social history:: Smoking status: Patient denies any tobacco usage or history of. Screenin:07 [facility] ED Fall Risk Assessment (Adult) History of falling in the last 3 months, jb4 including since admission No falls in past 3 months (0 pts) Confusion or Disorientation No (0 pts) Score/Fall Risk Level 0 - 2 = Low Risk Oriented to surroundings, Maintained a safe environment. Abuse screen: Denies threats or abuse. Nutritional screening: No deficits noted. Tuberculosis screening: No symptoms or risk factors identified. Assessment: 19:20 Reassessment: JULIÁN Delaney in triage room assessing pt. mb9 19:37 Reassessment: Pt requesting ultrasound. ERP notified. Pt slamming doors and cursing at 9 staff. Pt informed about wait time and the ERP placing orders. 21:05 Reassessment: Pt enters triage rm stating, "you're a fucking cunt." Pt cursing in lobby mb9 and leaving. 21:07 Reassessment: Attempted to establish IV access. While discharging pt's children, jb4 provider came to pt to discuss plan of care. Pt was reassured that the charge nurse was coming to attempt ultra sound IV. Upon speaking with the ER provider pt became angry, snatched the discharge forms from her significant other and slammed it on the bedside stand. Yelling " Don't sign my goddamned kids names on that paper. They don't want to do shit for me. Lets fucking go!". Vital Signs: 19:14 BP 117 / 78; Pulse 80; Resp 18; Temp 97.9; Pulse Ox 100% ; Weight 99.79 kg; Height 5 mb9 ft. 7 in. ; 19:14 Body Mass Index 34.46 (99.79 kg, 170.18 cm) mb9 ED Course: 19:09 Patient arrived in ED. rg4 19:15 Gatito Courtney PA is PHCP. cp 19:15 Alejo Smith MD is Attending Physician. cp 19:16 Triage completed. mb9 19:16 Arm band placed on. mb9 19:34 Lavern Delaney FNP-C is PHCP. cp 20:45 Missed attempt(s): 20 gauge in right antecubital area. jb4 20:45 No provider procedures requiring assistance completed. jb4 21:07 Patient has correct armband on for positive identification. jb4 21:14 Patient did not have IV access during this emergency room visit. jb4 Administered Medications: No medications were administered Outcome: 21:08 Discharge ordered by . marshal 21:14 Discharged to home with family, jb4 21:14 Condition: stable 21:14 Discharge instructions given to Pt was given discharge information by ER provider, left prior to signing discharge papers. 21:14 Patient left the ED. jb4 Signatures: Lavern Delaney, SECURITY AND COMPLIANCE PROJECT MANAGER-C SECURITY AND COMPLIANCE PROJECT MANAGER-Csnw Gatito Courtney PA PA cp Garcia, Rubi rg4 Manny Campo, RN RN jb4 Yaritza Cohen, RN RN mb9 Corrections: (The following items were deleted from the chart) 19:17 19:14 Pulse 80bpm; Resp 18bpm; Pulse Ox 100%; Temp 97.9F; 99.79 kg; Height 5 ft. 7 in.; mb9 BMI: 34.4; mb9 19:40 19:37 Reassessment: Pt requesting ultrasound. ERP notified mb9 mb9 21:01 19:37 Reassessment: Pt requesting ultrasound. ERP notified. Pt slamming doors and mb9 cursing at staff. mb9
[2023-02-14 21:27] VITALS: BP 117/78; TEMP 97.9; O2SAT 100
== END 2023-02-14 21:14 | disposition home or self-care (01) ==
LOC: ER 19:03
DX: J06.9 Acute upper respiratory infection, unspecified (principal); R10.9 Unspecified abdominal pain; Z33.1 Pregnant state, incidental; I10 Essential (primary) hypertension; D64.9 Anemia, unspecified; J45.909 Unspecified asthma, uncomplicated
CPT/HCPCS: 99282

== ENCOUNTER → 2023-04-06 | Emergency (ER) | payer SELFPAY ==
[~2023-04-06] MED LIST: ACETAMINOPHEN 500 MG TAB ONE; DIPHENHYDRAMINE 50 MG/ML VIAL ONE; METOCLOPRAMIDE 10 MG/2mL INJ ONE; NA CHLORIDE 0.9% 1,000 ML ONE
--- OUTSIDE RECORDS SUMMARY | 2023-04-06 13:52 | XMS REPORT | Continuity of Care Document ---
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 relative to patient's use of biotin. [id number] 19:15:00* Test Item Value Reference Range Interpretation Comme nts POCT PREG (test code = 1605) Negative On board controls acceptable with C Line (test code = 3574) Yes POCT PREG LOT # (test code = 3575) [id number] POCT PREG TEST DATE ( test code = 3576) [id number] Lab Interpretation (test cod e = 88920-4) Normal [facility]. METABOLIC PANEL (55722)2023-02-15 18:56:56* Test Item Value Reference Range Interpretation Comme nts NA (test code = 6136179443) 139 mmol/L 135-145 K (test code = 3538056293) 3.5 mmol/L 3.5-5.0 CL (test code = 6921776521) 107 mmol/L 98-108 CO2 TOTAL (test code = 6115997021) 24 mmol/L 23-31 AGAP (test code = 5766934428) 8 2-16 BUN (test code = 0811403992) 8 mg/dL 7-23 GLUCOSE (test code = 7754312499) 65 mg/dL 70-110 L CREATININE (test code = 6729291781) 0.64 mg/dL 0.50-1.04 TOTAL BILI (test code = 8826508477) 0.6 mg/dL 0.1-1.1 CALCIUM (test code = 8608998389) 9.4 mg/dL 8.6-10.6 T PROTEIN (test code = 9005945080) 8.4 g/dL 6.3-8.2 H ALBUMIN (test code = 0524002079) 4.5 g/dL 3.5-5.0 ALK PHOS (test code = 4264211258) 62 U/L 34-122 ALTv (test code = 1742-6) 13 U/L 5-35 AST(SGOT) (test code = 9066921703) 23 U/L 13-40 eGFR (test code = 40799-9) 123.6 mL/min/1.73m2 CKD-EPI eGFR (2020). Assuming creatinine has been stable day-to-day for at least three months, the eGFR indicates Category G1 (>= 90 mL/min/1.73 m2) Lab Interpretation (test code = 56797-7) Abnormal [facility] WITH [id number] 18:46:33* Test Item Value Reference Range Interpretation Comme nts WBC (test code = 6690-2) 6.45 See_Comment [Automated [employer]] The system which generated this result transmitted reference range: 4.30 - 11.10 10*3/?L. The reference range was not used to interpret this result as normal/abnormal. RBC (test code = 789-8) 4.57 See_Comment [Automated [employer]] The system which generated this result transmitted reference range: 3.93 - 5.25 10*6/?L. The reference range was not used to interpret this result as normal/abnormal. HGB (test code = 718-7) 13.2 g/dL 11.6-15.0 HCT (test code = 4544-3) 41.0 % 35.7-45.2 MCV (test code = 787-2) 89.7 fL 80.6-95.5 MCH (test code = 785-6) 28.9 pg 25.9-32.8 MCHC (test code = 786-4) 32.2 g/dL 31.6-35.1 RDW-SD (test code = 18865-7) 43.9 fL 39.0-49.9 RDW-CV (test code = 788-0) 13.4 % 12.0-15.5 PLT (test code = 777-3) 277 See_Comment [Automated messa ge] The system which generated this result transmitted reference range: 166 - 358 10*3/?L. The reference range was not used to interpret this result as normal/abnormal. MPV (test code = 33726-9) 9.4 fL 9.5-12.9 L NRBC/100 WBC (test code = 0165085292) 0.0 See_Comment [Automated [employer] ssage] The system which generated this result transmitted reference range: 0.0 - 10.0 /100 WBCs. The reference range was not used to interpret this result as normal/abnormal. NRBC x10^3 (test code = 8395639021) See_Comment [Automated [employer] [place] ge] The system which generated this result transmitted reference range: 10*3/?L. The reference range was not used to interpret this result as normal/abnormal. GRAN MAT (NEUT) % (test code = 770-8) 59.9 % IMM GRAN % (test code = 3083488719) 0.30 % LYMPH % (test code = 736-9) 31.0 % MONO % (test code = 5905-5) 5.9 % EOS % (test code = 713-8) 2.6 % BASO % (test code = 706-2) 0.3 % GRAN MAT x10^3(ANC) (test code = 7883449065) 3.86 10*3/uL 1.88-7.09 IMM GRAN x10^3 (test code = 2615384854) 0.00-0.06 LYMPH x10^3 (test code = 731-0) 2.00 10*3/uL 1.32-3.29 MONO x10^3 (test code = 742-7) 0.38 10*3/uL 0.33-0.92 EOS x10^3 (test code = 711-2) 0.17 10*3/uL 0.03-0.39 BASO x10^3 (test code = 704-7) 0.01-0.07 Lab Interpretation (test code = 04651-2) Abnormal [facility] [id number] 06:27:00* Test Item Value Reference Range Interpretation Comme nts POCT PREG (test code = 1605) Negative On board controls acceptable with C Line (test code = 3574) Yes POCT PREG LOT # (test code = 3852) [id number] POCT PREG TEST DATE ( test code = 3576) Lab Interpretation (test cod e = 82907-9) Normal [facility]. METABOLIC PANEL (74689)2021-09-23 22:04:16* Test Item Value Reference Range Interpretation Comme nts NA (test code = 2425134127) 139 mmol/L 135-145 K (test code = 2973070285) 4.1 mmol/L 3.5-5.0 CL (test code = 9572702979) 106 mmol/L 98-108 CO2 TOTAL (test code = 1703997631) 24 mmol/L 23-31 AGAP (test code = 3613962423) 2-16 BUN (test code = 5791281089) 12 mg/dL 7-23 GLUCOSE (test code = 4012400020) 109 mg/dL 70-110 CREATININE (test code = 1898511837) 0.74 mg/dL 0.50-1.04 TOTAL BILI (test code = 8615920224) 0.2 mg/dL 0.1-1.1 CALCIUM (test code = 6918547209) 9.0 mg/dL 8.6-10.6 T PROTEIN (test code = 8988050659) 7.0 g/dL 6.3-8.2 ALBUMIN (test code = 2216569289) 4.0 g/dL 3.5-5.0 ALK PHOS (test code = 5420154321) 67 U/L 34-122 ALTv (test code = 1742-6) 13 U/L 5-35 AST(SGOT) (test code = 4064987281) 15 U/L 13-40 eGFR (test code = 2372096538) mL/min/1.73m2 BRENDA (test code = BRENDA) Association [...] imaging tests). [facility] 22:04:16* Test Item Value Reference Range Interpretation Comme nts LIPASE (test code = 0721977145) 165 U/L 0-220 Lab Interpretation (test cod e = 41607-7) Normal [facility] [id number] 21:50:54* Test Item Value Reference Range Interpretation Comme nts WBC (test code = 6690-2) See_Comment [Automated [employer]fire] The system which generated this result transmitted reference range: 4.30 - 11.10 10*3/?L. The reference range was not used to interpret this result as normal/abnormal. RBC (test code = 789-8) See_Comment [Automated [employer]] The system which generated this result transmitted reference range: 3.93 - 5.25 10*6/?L. The reference range was not used to interpret this result as normal/abnormal. HGB (test code = 718-7) 11.1 g/dL 11.6-15.0 L HCT (test code = 4544-3) 35.6 % 35.7-45.2 L MCV (test code = 787-2) 85.6 fL 80.6-95.5 MCH (test code = 785-6) 26.7 pg 25.9-32.8 MCHC (test code = 786-4) 31.2 g/dL 31.6-35.1 L RDW-SD (test code = 20785-8) 46.8 fL 39.0-49.9 RDW-CV (test code = 788-0) 14.8 % 12.0-15.5 PLT (test code = 777-3) See_Comment [Automated messa ge] The system which generated this result transmitted reference range: 166 - 358 10*3/?L. The reference range was not used to interpret this result as normal/abnormal. MPV (test code = 37806-5) 9.9 fL 9.5-12.9 NRBC/100 WBC (test code = 8251696611) See_Comment [Automated [employer] ssage] The system which generated this result transmitted reference range: 0.0 - 10.0 /100 WBCs. The reference range was not used to interpret this result as normal/abnormal. NRBC x10^3 (test code = 9437183025) <0.01 See_Comment [Automated messa ge] The system which generated this result transmitted reference range: 10*3/?L. The reference range was not used to interpret this result as normal/abnormal. GRAN MAT (NEUT) % (test code = 770-8) 47.1 % IMM GRAN % (test code = 2264187692) 0.20 % LYMPH % (test code = 736-9) 40.2 % MONO % (test code = 5905-5) 6.5 % EOS % (test code = 713-8) 5.7 % BASO % (test code = 706-2) 0.3 % GRAN MAT x10^3(ANC) (test code = 1056384620) 2.89 10*3/uL 1.88-7.09 IMM GRAN x10^3 (test code = 6958202898) <0.03 0.00-0.06 LYMPH x10^3 (test code = 731-0) 2.47 10*3/uL 1.32-3.29 MONO x10^3 (test code = 742-7) 0.40 10*3/uL 0.33-0.92 EOS x10^3 (test code = 711-2) 0.35 10*3/uL 0.03-0.39 BASO x10^3 (test code = 704-7) <0.03 0.01-0.07 Lab Interpretation (test code = 99909-3) Abnormal [facility] [id number] 21:15:00* Test Item Value Reference Range Interpretation Comme nts POCT PREG (test code = 1605) negative On board controls acceptable with C Line (test code = 3574) present POCT PREG LOT # (test code = 3575) [id number] POCT PREG TEST DATE ( test code = 3576) 01/18/2023 Lab Interpretation (test cod e = 49523-0) Normal [facility] [id number] 02:14:14* Test Item Value Reference Range Interpretation Comme nts WHITE BLOOD CELLS (test code = 1513) 0-5 /HPF 0-5 RED BLOOD CELLS (test code = 1514) 0-2 /HPF 0-5 EPITHELIAL CELLS (test code = 41275) 0-5 /HPF 0-10 BACTERIA (test code = 1515) NONE SEEN NONE SEEN CASTS, HYALINE (test code = 1517) NONE SEEN NONE-TRACE UNLESS OTHERWISE INDICATED, ALL TESTING PERFORMED [facility] [address] [place], [place] [address] CIRCULAR SAW OPERATOR: NILDA GORDILLO M.D. CLIA NUMBER [id number] [place]. [id number] CULTURE, [id number] 11:52:32SPECIMEN NUMBER: [id number] CULTURE, URINE SPECIMEN NUMBER: [id number] SPECIMEN COMMENT: URINE SOURCE: URINE REPORT STATUS: FINAL FINAL REPORT: 07/15/2021 50-100,000 CFU/ML MIXED UROGENITAL FREDY UNLESS OTHERWISE INDICATED, ALL TESTING PERFORMED [facility] [address] [place] [address] CIRCULAR SAW OPERATOR: NILDA GORDILLO M.D. CLIA NUMBER [id number] CAP ACCREDITATIONNO. [id number] W/AUTO DIFF WITH [id number] 02:16:29* Test Item Value Reference Range Interpretation Comme nts WBC (test code = 1001) 5.9 K/UL 3.5-11.0 RBC (test code = 1002) 4.27 M/UL 3.80-5.40 HEMOGLOBIN (test code = 1003) 11.6 G/DL 11.5-15.5 HEMATOCRIT (test code = 1004) 35.2 % 34.0-45.0 MCV (test code = 1005) 82.4 fL 80.0-99.0 MCH (test code = 1006) 27.2 PG 25.0-33.0 MCHC (test code = 1007) 33.0 G/DL 31.0-36.0 RDW (test code = 1038) 14.5 % 11.5-15.0 NEUTROPHILS (test code = 1008) 55.6 % LYMPHOCYTES (test code = 1010) 34.5 % MONOCYTES (test code = 1011) 6.3 % EOSINOPHILS (test code = 1012) 3.1 % BASOPHILS (test code = 1013) 0.3 % IMMATURE GRANULOCYTES (test code = 1036) 0.2 % NUCLEATED RBCS (test code = 1065) 0.0 /100 WBC'S See_Comment [Automated message] The system which generated this result transmitted reference range: 0.0. The reference range was not used to interpret this result as normal/abnormal. PLATELET COUNT (test code = 1015) 265 K/UL 130-400 ABSOLUTE NEUTROPHILS (test code = 1066) 3.25 K/UL 1.50-7.50 ABSOLUTE LYMPHOCYTES (test code = 1067) 2.02 K/UL 1.00-4.00 ABSOLUTE MONOCYTES (test code = 1068) 0.37 K/UL 0.20-1.00 ABSOLUTE EOSINOPHILS (test code = 1040) 0.18 K/UL 0.00-0.50 ABSOLUTE BASOPHILS (test code = 1069) 0.02 K/UL 0.00-0.20 ABS IMMATURE GRANULOCYTES (test code = 1020) 0.01 K/UL 0.00-0.10 ABS NUCLEATED RBCS (test code = 62249) 0.00 K/UL 0.00-0.11 UNLESS OTHER MORA INDICATED, ALL TESTING PERFORMED [facility] [address] [place] [address] CIRCULAR SAW OPERATOR: NILDA GORDILLO M.D. CLIA NUMBER [id number] [place]. [id number] CBC W/AUTO DIFF WITH [id number] 09:30:01* Test Item Value Reference Range Interpretation Comme nts WBC (test code = 1001) TEST NOT PERFORMED K/UL 3.5-11.0 Unable to perform testing due to a laboratory error.Charges adjusted as applicable. RBC (test code = 1002) TEST NOT PERFORMED M/UL 3.80-5.40 HEMOGLOBIN (test code = 1003) TEST NOT PERFORMED G/DL 11.5-15.5 HEMATOCRIT (test code = 1004) TEST NOT PERFORMED % 34.0-45.0 MCV (test code = 1005) TEST NOT PERFORMED fL 80.0-99.0 MCH (test code = 1006) TEST NOT PERFORMED PG 25.0-33.0 MCHC (test code = 1007) TEST NOT PERFORMED G/DL 31.0-36.0 RDW (test code = 1038) TEST NOT PERFORMED % 11.5-15.0 NEUTROPHILS (test code = 1008) TEST NOT PERFORMED % BANDS (test code = 1009) TEST NOT PERFORMED % 0.0-8.0 LYMPHOCYTES (test code = 1010) TEST NOT PERFORMED % MONOCYTES (test code = 1011) TEST NOT PERFORMED % EOSINOPHILS (test code = 1012) TEST NOT PERFORMED % BASOPHILS (test code = 1013) TEST NOT PERFORMED % IMMATURE GRANULOCYTES (test code = 1036) TEST NOT PERFORMED % METAMYELOCYTES (test code = 1061) TEST NOT PERFORMED % See_Comment [Automated message] The system which generated this result transmitted reference range: 0.0. The reference range was not used to interpret this result as normal/abnormal. MYELOCYTES (test code = 1062) TEST NOT PERFORMED % See_Comment [Automated message] The system which generated this result transmitted reference range: 0.0. The reference range was not used to interpret this result as normal/abnormal. PROMYELOCYTES (test code = 1063) TEST NOT PERFORMED % See_Comment [Automated message] The system which generated this result transmitted reference range: 0.0. The reference range was not used to interpret this result as normal/abnormal. BLASTS (test code = 1064) TEST NOT PERFORMED % See_Comment [Automated message] The system which generated this result transmitted reference range: 0.0. The reference range was not used to interpret this result as normal/abnormal. NUCLEATED RBCS (test code = 1065) TEST NOT PERFORMED /100 WBC'S See_Comment [Automated message] The system which generated this result transmitted reference range: 0.0. The reference range was not used to interpret this result as normal/abnormal. PLATELET COUNT (test code = 1015) TEST NOT PERFORMED K/UL 130-400 ABSOLUTE NEUTROPHILS (test code = 1066) TEST NOT PERFORMED K/UL 1.50-7.50 ABSOLUTE LYMPHOCYTES (test code = 1067) TEST NOT PERFORMED K/UL 1.00-4.00 ABSOLUTE MONOCYTES (test code = 1068) TEST NOT PERFORMED K/UL 0.20-1.00 ABSOLUTE EOSINOPHILS (test code = 1040) TEST NOT PERFORMED K/UL 0.00-0.50 ABSOLUTE BASOPHILS (test code = 1069) TEST NOT PERFORMED K/UL 0.00-0.20 ABS IMMATURE GRANULOCYTES (test code = 1020) TEST NOT PERFORMED K/UL 0.00-0.10 ABS NUCLEATED RBCS (test code = 73488) TEST NOT PERFORMED K/UL 0.00-0.11 COMMENTS (test code = 1016) TEST NOT PERFORMED CULTURE, [id number] 09:41:58SPECIMEN NUMBER: [id number] CULTURE, URINE SPECIMEN NUMBER: [id number] SPECIMEN COMMENT: URINE SOURCE: URINE REPORT STATUS: FINAL FINAL REPORT: 07/03/2021 50-100,000 CFU/ML MIXED UROGENITAL FLORAHCG, [id number] 05:48:47* Test Item Value Reference Range Interpretation Comme nts HCG, QUALITATIVE (test code = 2507) NEGATIVE NEGATIVE COMPREHENSIVE METABOLIC [id number] 03:43:13* Test Item Value Reference Range Interpretation Comme nts GLUCOSE (test code = 2217) 96 MG/DL 70-99 BUN (test code = 2208) 12 MG/DL 6-20 CREATININE (test code = 2214) 0.79 MG/DL 0.60-1.30 eGFR (2020 CKD-EPI) (test code = 23608) 106 ML/MIN/1.73 >60 CALC BUN/CREAT (test code = 2235) 15 RATIO 6-28 SODIUM (test code = 223) 141 MEQ/L 133-146 POTASSIUM (test code = 2228) 3.8 MEQ/L 3.5-5.4 CHLORIDE (test code = 2215) 105 MEQ/L 95-107 CARBON DIOXIDE (test code = 2206) 22 MEQ/L 19-31 CALCIUM (test code = 2209) 9.9 MG/DL 8.5-10.5 PROTEIN, TOTAL (test code = 2229) 8.3 G/DL 6.1-8.3 ALBUMIN (test code = 2201) 4.9 G/DL 3.5-5.2 CALC GLOBULIN (test code = 2240) 3.4 G/DL 1.9-3.7 CALC A/G RATIO (test code = 223) 1.4 RATIO 1.0-2.6 BILIRUBIN, TOTAL (test code = 7) 0.3 MG/DL See_Comment [Automated me ssage] The system which generated this result transmitted reference range: <=1.2. The reference range was not used to interpret this result as normal/abnormal. ALKALINE PHOSPHATASE (test code = 2204) 117 U/L 40-112 H AST (test code = 2218) 10 U/L 9-40 ALT (test code = 221) 7 U/L 5-40 HIV 1/2 4TH GEN, RFLX [id number] 03:40:40* Test Item Value Reference Range Interpretation Comme nts HIV 1/2 4TH GEN, RFLX CONF ( test code = 3514) NON-REACTIVE NON-REACTIVE [id number] 03:12:37* Test Item Value Reference Range Interpretation Comme nts PTT (test code = 1403) 29.7 SECONDS 25.2-40.0 PROTHROMBIN TIME (PT)2021-07-02 03:12:37* Test Item Value Reference Range Interpretation Comme nts PROTHROMBIN TIME (PT) (test code = 1402) 14.1 SECONDS 12.5-14.7 INR (test code = 36420) 1.0 SEE BELOW CURRENT RECOMMENDATIONS ARE FOR AN INR OF 2.0-3.0 FOR ALL PATIENTS ON VITAMIN K ANTAGONISTS, EXCEPT THOSE WITH PROSTHETIC HEART VALVES, FOR WHOM INR OF 2.5-3.5 IS RECOMMENDED. UNLESS OTHERWISE INDICATED, ALL TESTING PERFORMED [facility] [address] [place] [address] 16465 CIRCULAR SAW OPERATOR: NILDA GORDILLO M.D. CLIA NUMBER [id number] [place]. [id number] 04:05:52* Test Item Value Reference Range Interpretation Comme nts PTT (test code = 1403) 29.3 SECONDS 25.2-40.0 UNLESS OTHERWISE INDICATED, ALL TESTING PERFORMED [facility] [address] [place] [address] 34396 CIRCULAR SAW OPERATOR: NILDA GORDILLO M.D. CLIA NUMBER [id number] [place]. [id number] HIV 1/2 4TH GEN, RFLX [id number] 04:37:11* Test Item Value Reference Range Interpretation Comme nts HIV 1/2 4TH GEN, RFLX CONF ( test code = 3514) NON-REACTIVE NON-REACTIVE CULTURE, [id number] 10:12:10SPECIMEN NUMBER: [id number] CULTURE, URINE SPECIMEN NUMBER: [id number] SPECIMEN COMMENT: URINE SOURCE: URINE REPORT STATUS: FINAL FINAL REPORT: 05/11/2021 10-50,000 CFU/ML MIXED UROGENITAL FLORAHCG, [id number] 04:18:17* Test Item Value Reference Range Interpretation Comme nts HCG, QUANTITATIVE (test code = 2506) <5 MIU/ML SEE BELOW EXPEC ZEHRA VALUES FOR HCG GST.AGE UNITS RANGE GST. AGE UNITS RANGE3 WEEKS MIU/ML 6-71 10 WEEKS MIU/ML 46,509-186,9774 WEEKS MIU/ML 10-750 12 WEEKS MIU/ML 27,832-210,6125 WEEKS MIU/ML 217-7,138 14 WEEKS MIU/ML 13,950-62,5306 WEEKS MIU/ML 158-31,795 15 WEEKS MIU/ML 12,039-70,9717 WEEKS MIU/ML 3,697-163,563 16 WEEKS MIU/ML 9,040-56,4518 WEEKS MIU/ML 32,065-149,571 17 WEEKS MIU/ML 8,175-55,8689 WEEKS MIU/ML 63,803-151,410 18 WEEKS MIU/ML 8,099-58,176MALES and NON- FEMALES . . . . . . . . MIU/ML 0-7SQAB-EYQVOCZTVN FEMALES . . . . . . . . . . . . MIU/ML <=7 UNLESS OTHERWISE INDICATED, ALL TESTING PERFORMED [facility] [address] [place] [address] 19146 CIRCULAR SAW OPERATOR: NILDA GORDILLO M.D. [place] NUMBER [id number] [place]. [id number] COMPREHENSIVE METABOLIC [id number] 00:35:57* Test Item Value Reference Range Interpretation Comme nts GLUCOSE (test code = 2216) 108 MG/DL 70-99 H BUN (test code = 2207) 9 MG/DL 6-20 CREATININE (test code = 221) 0.88 MG/DL 0.60-1.30 eGFR (2020 CKD-EPI) (test code = 42650) 93 ML/MIN/1.73 >60 CALC BUN/CREAT (test code = 2235) 10 RATIO 6-28 SODIUM (test code = 223) 142 MEQ/L 133-146 POTASSIUM (test code = 2228) 3.7 MEQ/L 3.5-5.4 CHLORIDE (test code = 2214) 105 MEQ/L 95-107 CARBON DIOXIDE (test code = 2206) 23 MEQ/L 19-31 CALCIUM (test code = 2209) 9.2 MG/DL 8.5-10.5 PROTEIN, TOTAL (test code = 222) 7.3 G/DL 6.1-8.3 ALBUMIN (test code = 2201) 4.1 G/DL 3.5-5.2 CALC GLOBULIN (test code = 2240) 3.2 G/DL 1.9-3.7 CALC A/G RATIO (test code = 223) 1.3 RATIO 1.0-2.6 BILIRUBIN, TOTAL (test code = 220) <0.2 MG/DL See_Comment [Automated me ssage] The system which generated this result transmitted reference range: <=1.2. The reference range was not used to interpret this result as normal/abnormal. ALKALINE PHOSPHATASE (test code = 220) 89 U/L 40-112 AST (test code = 2218) 11 U/L 9-40 ALT (test code = 2219) 9 U/L 5-40 PROTHROMBIN TIME (PT)2021-05-10 10:34:07* Test Item Value Reference Range Interpretation Comme nts PROTHROMBIN TIME (PT) (test code = 1402) 14.1 SECONDS 12.5-14.7 INR (test code = 49675) 1.1 SEE BELOW CURRENT RECOMMENDATIONS ARE FOR AN INR OF 2.0-3.0 FOR ALL PATIENTS ON VITAMIN K ANTAGONISTS, EXCEPT THOSE WITH PROSTHETIC HEART VALVES, FOR WHOM INR OF 2.5-3.5 IS RECOMMENDED. CBC W/AUTO DIFF WITH [id number] 02:45:06* Test Item Value Reference Range Interpretation Comme nts WBC (test code = 1001) 3.7 K/UL 3.5-11.0 RBC (test code = 1002) 4.36 M/UL 3.80-5.40 HEMOGLOBIN (test code = 1003) 11.3 G/DL 11.5-15.5 L HEMATOCRIT (test code = 1004) 36.4 % 34.0-45.0 MCV (test code = 1005) 83.5 fL 80.0-99.0 MCH (test code = 1006) 25.9 PG 25.0-33.0 MCHC (test code = 1007) 31.0 G/DL 31.0-36.0 RDW (test code = 1038) 14.8 % 11.5-15.0 NEUTROPHILS (test code = 1008) 40.5 % LYMPHOCYTES (test code = 1010) 45.1 % MONOCYTES (test code = 1011) 10.9 % EOSINOPHILS (test code = 1012) 3.0 % BASOPHILS (test code = 1013) 0.5 % IMMATURE GRANULOCYTES (test code = 1036) 0.0 % NUCLEATED RBCS (test code = 1065) 0.0 /100 WBC'S See_Comment [Automated [employer] [place] ge] The system which generated this result transmitted reference range: 0.0. The reference range was not used to interpret this result as normal/abnormal. PLATELET COUNT (test code = 1015) 247 K/UL 130-400 ABSOLUTE NEUTROPHILS (test code = 1066) 1.49 K/UL 1.50-7.50 L ABSOLUTE LYMPHOCYTES (test code = 1067) 1.66 K/UL 1.00-4.00 ABSOLUTE MONOCYTES (test code = 1068) 0.40 K/UL 0.20-1.00 ABSOLUTE EOSINOPHILS (test code = 1040) 0.11 K/UL 0.00-0.50 ABSOLUTE BASOPHILS (test code = 1069) 0.02 K/UL 0.00-0.20 ABS IMMATURE GRANULOCYTES (test code = 1020) 0.00 K/UL 0.00-0.10 ABS NUCLEATED RBCS (test code = 29176) 0.00 K/UL 0.00-0.11 Notes Date/Time Note Provider Source 2022-11-20 02:43:01 HQIdvolk1Oefvd0FfIPR VCnML264rqPM2 D2KhfNpPNblOgNQfaBXvHuqkTeWIKmB37 11-12-01T02:43:01 Pt given printed and verbal discharge instructions regarding chest pain and paresthesiaPt verbalized understanding of instructions, pt awake alert oriented, resp reg unlabored, skin w/d, color appropriate for race, moves all ext well,pt encouraged to follow up with pcp Advised to seek medical attention for new/prolonged/worsening of symptomsNo adverse reaction to meds given in ER noted upon dischargePIV d'cd, dressing to site, catheter in tact.Awake, alert oriented, resp reg unlabored, skin w/d, pt leaving amb with steady gait, in no apparent distress 05260-9Jvzafikxo department OtdaRD9130-25-93C20:43:41Emergenc y department NoteTXT1.2.840.099910.1.13.104.2. 7.2.551550|[id number] for patient [id number] A Diaz RN[address] Dsrb[id number] 464XYJOGIRMWVEUKNBTYGXUMZ5006-94- 02T02:43:411.2.840.024800.1.72.3. 15|1.2.840.511878.1.13.104.2.7.2. [id number] Chitra Maher RN [facility] 2022-11-20 00:56:21 VhDscAfmrPIhg9UVT5Ob ca5g7UpCWQtER CGmxtmW+WMjt8aRGssCQYH4ntg94P3l73 11-12-01T00:56:21 Pt had multiple IV sticks with various nurses. 3rd [facility] IV trained RN attempting access at this time. 18966-1Xiguspzan department DprfSC8564-10-36P96:57:02[facility] NoteTXT1.2.840.345596.1.13.104.2. 7.2.914533|[id number] for patient [id number] R Shehadeh RN[id number] 346ZXGAHIBSWWJSEGDWOOIRRY8591-12- 02T00:57:021.2.840.165277.1.72.3. 15|1.2.840.397275.1.13.104.2.7.2. [id number] Antionette Valera RN [facility] 2022-11-19 22:44:50 jG2j4SAk9tbfwnOFovEC ZQDgT/oNT6Kam uzx0mTQHVURh4V3WQ0w++UOQr3CUgOC83 11-12-00T22:44:50 Chest pain , sob, weakness, right side body numbness that started 4 days ago 73019-3Msnyxcivh department Triage tmwtTB0845-92-32M65:45:23[facility] department Triage noteTXT1.2.840.258841.1.13.104.2. 7.2.928303|[id number] for patient uzew32291-4Xgfqxiznu department [id number] J Hoot RN[id number] 192KEEZODIGLVOOQDIPALPBGE5730-91- 01T22:45:231.2.840.259615.1.72.3. 15|1.2.840.701132.1.13.104.2.7.2. [id number] Stacey Espino RN [facility]"
--- NOTE | 2023-04-06 14:16 | RAD REPORT ---
EXAM DESCRIPTION: CT - Head Brain Wo Cont - 04/06/2023 2:05 pm CLINICAL HISTORY: Syncope;Pain Headache, drowsiness COMPARISON: <Comparisons> TECHNIQUE: All CT scans are performed using dose optimization technique as appropriate and may inclu de automated exposure control or mA/KV adjustment according to patient size. FINDINGS: No intracranial hemorrhage, hydrocephalus or extra-axial fluid collection.No areas of brai n edema or evidence of midline shift. The paranasal sinuses and mastoids are clear. The calvarium is intact. IMPRESSION: No acute intracranial abnormality.
--- NOTE | 2023-04-06 14:41 | RAD REPORT ---
EXAM DESCRIPTION: US - 1St Trimest Single 1St Fetus - 04/06/2023 2:28 pm CLINICAL HISTORY: ABD CRAMPING, COMPARISON: <Comparisons> FINDINGS: Single fetus is noted within a gestational sac. The shape of the sac is within normal limi ts for gestational age. Estimated age is 14 weeks 1 day.. Estimated date of delivery is 024. Heart rate is 155 BPM.. Placenta is anterior. The maternal adnexa and ovaries are within normal limits. Normal Doppler blood flow was demonstrated to both ovaries. IMPRESSION: Single live early intrauterine fetus with estimated gestational age of 14 weeks 1 day, E DD 10/04/2023. No unusual or unexpected finding.
[2023-04-06 15:19] LABS: Specific Gravity 1.025 (1.005-1.030)
[2023-04-06 15:35] LABS: Specific Gravity 1.028 (1.005-1.030); Urine Bacteria <20 /HPF (<20); Urine Bilirubin NEGATIVE (Negative); Urine Blood Negative (Negative); Urine Clarity Extremely Turbid (Clear); Urine Color Yellow (Yellow); Urine Crystals Unidentified Few /HPF (None Seen); Urine Glucose NEGATIVE (Negative); Urine Mucus 2+ /HPF (None Seen); Urine Protein 1+ (Negative); Urine RBC <5 /HPF (None Seen); Urine Urobilinogen 2+ (Normal); Urine WBC Clump Rare /HPF (None Seen); Urine pH 7.5 (5.0-7.0)
[2023-04-06 16:10] LABS: Absolute Lymphocytes (CBC) 1.8 K/uL (0.7-4.9); Hematocrit 34.5 % (36.0-45.0); Lymphocytes % 24.8 % (15.3-44.8); Platelets 272 thou/uL (152-406); RBC Red Blood Cell Count 3.88 M/uL (3.86-4.86)
[2023-04-06 16:40] LABS: Potassium 3.5 mEq/L (3.5-5.1)
--- NOTE | 2023-04-06 17:27 | EDPHYS ---
Physician Documentation [facility] Name: Shanique Avelar Age: 27 yrs Sex: Female : 1995 Arrival Date: 04/06/2023 Time: 13:49 Bed 14 Private MD: ED Physician Geremias Shepherd HPI: 04/06 14:06 This 27 yrs old Black Female presents to ER via EMS with complaints of headache, kb syncope, lower abd pain. 14:06 Patient is a 28-year-old female who presents for headache that began upon waking this kb morning and syncopal episode that happened just prior to arrival. States her head feels heavy, like it is full of water. Reports lower abdominal pain after the syncopal episode. States she is 14 weeks 3 days . G7, . LMP 12/27/2022. Denies vaginal bleeding or discharge. Patient reports she has had fluid on her brain in the past.. 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 - Social history:: Smoking status: Patient denies any tobacco usage or history of. ROS: 14:08 Constitutional: Negative for fever, chills, and weight loss, kb 14:08 Abdomen/GI: Positive for abdominal pain, Negative for nausea, vomiting, and diarrhea, 14:08 Neuro: Positive for headache, syncope, 14:08 All other systems are negative, Exam: 14:08 Constitutional: This is a well developed, well nourished patient who is awake, alert, kb and in no acute distress. Head/Face: Normocephalic, atraumatic. Eyes: Pupils equal round and reactive to light, extra-ocular motions intact. Lids and lashes normal. Conjunctiva and sclera are non-icteric and not injected. Cornea within normal limits. Periorbital areas with no swelling, redness, or edema. ENT: Moist Mucous membranes Cardiovascular: Regular rate Respiratory: Respirations even and unlabored. No increased work of breathing. Talking in full sentences Skin: Warm, dry with normal turgor. Normal color. MS/ Extremity: Pulses equal, no cyanosis. Neurovascular intact. Full, normal range of motion. Neuro: Awake and alert, GCS 15, oriented to person, place, time, and situation. Moves all extremities. Normal gait. 14:08 Abdomen/GI: Inspection: obese Bowel sounds: normal, Palpation: soft, in all quadrants, moderate abdominal tenderness, in the right lower quadrant and left lower quadrant, Vital Signs: 13:58 BP 122 / 85; Pulse 88; Resp 16; Pulse Ox 97% on R/A; Weight 112.04 kg; Height 5 ft. 7 cm10 in. ; 15:30 BP 113 / 70; Pulse 80; Resp 18; Pulse Ox 96% on R/A; ld1 16:38 BP 118 / 69; Pulse 81; Resp 18; Pulse Ox 99% on R/A; ld1 13:58 Body Mass Index 38.69 (112.04 kg, 170.18 cm) cm10 MDM: 13:56 Patient medically screened. kb 14:09 Data reviewed: vital signs, nurses notes. kb 17:23 Differential Diagnosis: , vasovagal episode, migraine. Historians other than felton the Patient: EMS: [facility]. Counseling: I had a detailed discussion with the patient and/or guardian regarding the historical points, exam findings, and any diagnostic results supporting the discharge/admit diagnosis, lab results, radiology results, the need for outpatient follow up, a neurologist, an OB/Gyne specialist, to return to the emergency department if symptoms worsen or persist or if there are any questions or concerns that arise at home. ED course: Pt has a history of migraines, has been here for them in the past. This migraine is similar and pt states she normally takes Excedrin for them, but is unable due to . Pt educated to follow up with OB and neurology. Pt has no neuro deficits, palpitations, chest pain. Verbal understanding received. . 04/06 13:57 Order name: Abo/rh Typing; Complete Time: 16:45 kb 04/06 13:57 Order name: Basic Metabolic Panel; Complete Time: 16:45 kb 04/06 13:57 Order name: CBC with Diff; Complete Time: 16:16 kb 04/06 13:57 Order name: Test, Urine; Complete Time: 15:26 kb 04/06 13:57 Order name: Quantitative Hcg; Complete Time: 16:45 kb 04/06 13:57 Order name: Urinalysis w/ reflexes; Complete Time: 15:49 kb 04/06 13:57 Order name: CT Head Brain wo Cont; Complete Time: 14:16 kb 04/06 14:24 Order name: 1St Trimest Single 1St Fetus; Complete Time: 14:42 EDMS 04/06 13:57 Order name: IV Saline Lock; Complete Time: 16:01 kb 04/06 13:57 Order name: Labs collected and sent; Complete Time: 16:01 kb 04/06 13:57 Order name: NPO; Complete Time: 14:47 kb 04/06 15:42 Order name: Labs - recollect needed: recollect green top; Complete Time: 16:00 mv Administered Medications: 14:56 Drug: Acetaminophen PO 1000 mg PO once Route: PO; ld1 16:00 Drug: NS 0.9% IV 1000 ml IV at 1000 ml once Route: IV; Rate: 1000 ml; Site: left cm10 antecubital; 17:14 Drug: diphenhydrAMINE IVP 12.5 mg IVP once Route: IVP; Site: left antecubital; ld1 17:14 Drug: metoCLOPramide IVP 10 mg IVP once; over 1 to 2 minutes Route: IVP; Site: left ld1 antecubital; Disposition Summary: 04/06/23 17:26 Discharge Ordered Notes: Location: Home kb Condition: Stable kb Diagnosis - Headache kb Followup: kb - With: Emergency Department - When: As needed - Reason: Worsening of condition Followup: kb - With: Private Physician - When: 2 - 3 days - Reason: Recheck today's complaints, Continuance of care, Re-evaluation by your physician Discharge Instructions: - Discharge Summary Sheet kb - General Headache Without Cause kb - Migraine Headache kb Forms: - Medication Reconciliation Form kb - Thank You Letter kb - Antibiotic Education kb - Prescription Opioid Use kb - Patient Portal Instructions kb - Leadership Thank You Letter kb - Family Work Release ld1 Signatures: Dispatcher [employer] EDWendie Christianson FNP-C FNP-Tania Molina, RN RN ld1 Sabrina Salas RN RN cm10 Carolyn Forman Corrections: (The following items were deleted from the chart) 14:24 13:58 Transvaginal Ob+US.RAD.BRZ ordered. EDMS EDMS
--- NOTE | 2023-04-06 17:27 | ER ---
Nurse's Notes [facility] Name: Shanique Avelar Age: 27 yrs Sex: Female : 1995 Arrival Date: 04/06/2023 Time: 13:49 Bed 14 Private MD: Diagnosis: Headache Presentation: 04/06 13:58 Chief complaint: EMS states: Called to patients home for syncope. EMS reports that pt cm10 had a headache that began around 1300 and proceeded to have an unwitnessed syncopal episode. EMS states that they were called at 1322. Pt complaining of lower abdominal pain. Pt approximately 14 weeks . OB: [facility]. Coronavirus screen: Vaccine status: Patient reports receiving the 2nd dose of the covid vaccine. Client denies travel out of the [place] in the last 14 days. Ebola Screen: Patient denies travel to an Ebola-affected area in the 21 days before illness onset. No symptoms or risks identified at this time. Initial Sepsis Screen: Does the patient meet any 2 criteria? No. Patient's initial sepsis screen is negative. Does the patient have a suspected source of infection? No. Patient's initial sepsis screen is negative. Risk Assessment: Do you want to hurt yourself or someone else? Patient reports no desire to harm self or others. Onset of symptoms was April 06, 2023. 13:58 Method Of Arrival: EMS: [facility]10 13:58 Acuity: KYLEE 3 cm10 Triage Assessment: 14:02 General: Appears in no apparent distress. comfortable, Behavior is calm, cooperative. cm10 Pain: Complains of pain in abdomen. EENT: No deficits noted. No signs and/or symptoms were reported regarding the EENT system. Neuro: No deficits noted. Level of Consciousness is awake, alert, obeys commands, Oriented to person, place, time, situation, Reports headache a syncopal episode. Cardiovascular: No deficits noted. Patient's skin is warm and dry. Respiratory: No deficits noted. Airway is patent Respiratory effort is even, unlabored, Respiratory pattern is regular, symmetrical. GI: No deficits noted. No signs and/or symptoms were reported involving the gastrointestinal system. : No deficits noted. No signs and/or symptoms were reported regarding the genitourinary system. :. Derm: No deficits noted. Skin is intact, Skin is pink, warm \T\ dry. Musculoskeletal: No deficits noted. No signs and/or symptoms reported regarding the musculoskeletal system. Range of motion: intact in all extremities. 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 - Social history:: Smoking status: Patient denies any tobacco usage or history of. Screenin:32 [facility] ED Fall Risk Assessment (Adult) History of falling in the last 3 months, ld1 including since admission No falls in past 3 months (0 pts). Abuse screen: Denies threats or abuse. Denies injuries from another. Nutritional screening: No deficits noted. Tuberculosis screening: No symptoms or risk factors identified. Assessment: 15:32 General: Appears in no apparent distress. comfortable, Behavior is calm, cooperative, ld1 appropriate for age. Pain: Denies pain. Neuro: Level of Consciousness is awake, alert, obeys commands, Oriented to person, place, time, situation. Cardiovascular: Capillary refill < 3 seconds Patient's skin is warm and dry. Respiratory: Airway is patent Respiratory effort is even, unlabored. GI: Abdomen is round non-distended. : No signs and/or symptoms were reported regarding the genitourinary system. EENT: No signs and/or symptoms were reported regarding the EENT system. Derm: No signs and/or symptoms reported regarding the dermatologic system. Musculoskeletal: No signs and/or symptoms reported regarding the musculoskeletal system. Vital Signs: 13:58 BP 122 / 85; Pulse 88; Resp 16; Pulse Ox 97% on R/A; Weight 112.04 kg; Height 5 ft. 7 cm10 in. ; 15:30 BP 113 / 70; Pulse 80; Resp 18; Pulse Ox 96% on R/A; ld1 16:38 BP 118 / 69; Pulse 81; Resp 18; Pulse Ox 99% on R/A; ld1 13:58 Body Mass Index 38.69 (112.04 kg, 170.18 cm) cm10 ED Course: 13:51 Patient arrived in ED. mv 13:56 [facility] kb 13:56 Geremias Shepherd MD is Attending Physician. kb 14:00 Triage completed. cm10 14:01 Arm band placed on. cm10 14:06 CT Head Brain wo Cont In Process Unspecified. EDMS 14:30 1St Trimest Single 1St Fetus In Process Unspecified. EDMS 15:14 Tania Ly, RN is Primary Nurse. ld1 15:14 Urinalysis w/ reflexes Sent. ld1 15:32 Patient has correct armband on for positive identification. Placed in gown. Bed in low ld1 position. Call light in reach. Side rails up X2. playground monitor on. Pulse ox on. NIBP on. Door closed. Noise minimized. Warm blanket given. 15:32 No provider procedures requiring assistance completed. Missed attempt(s): 20 gauge in ld1 right antecubital area. 16:01 Inserted saline lock: 20 gauge in left antecubital area, using aseptic technique. Blood cm10 collected. US IV Accessed peripheral vein via ultrasound, utilizing dynamic ultrasound technique Blood collected. 18:21 IV discontinued, intact, bleeding controlled, No redness/swelling at site. ld1 Administered Medications: 14:56 Drug: Acetaminophen PO 1000 mg PO once Route: PO; ld1 16:00 Drug: NS 0.9% IV 1000 ml IV at 1000 ml once Route: IV; Rate: 1000 ml; Site: left cm10 antecubital; 17:14 Drug: diphenhydrAMINE IVP 12.5 mg IVP once Route: IVP; Site: left antecubital; ld1 17:14 Drug: metoCLOPramide IVP 10 mg IVP once; over 1 to 2 minutes Route: IVP; Site: left ld1 antecubital; Medication: 18:21 VIS not applicable for this client. ld1 Outcome: 17:26 Discharge ordered by . kb 18:21 Discharged to home ambulatory, with family, ld1 18:21 Condition: stable 18:21 Discharge instructions given to patient, Instructed on discharge instructions, follow up and referral plans. Demonstrated understanding of instructions, follow-up care, 18:21 Patient left the ED. ld1 Signatures: Dispatcher [employer] EDMS Wendie Carpio, BARREL CLEANER-C BARREL CLEANER-Tania Molina RN RN ld1 Sabrina Salas RN RN cm10 Carolyn Forman Corrections: (The following items were deleted from the chart) 14:01 13:58 BP 122 / 85; Pulse 16bpm; Resp 88bpm; Pulse Ox 97% RA; 112.04 kg; Height 5 ft. 7 cm10 in.; BMI: 38.6; cm10 16:05 16:01 Inserted saline lock: 20 gauge in left antecubital area, using aseptic technique. cm10 Blood collected. US IV cm10
[2023-04-06 20:37] VITALS: BP 118/69; O2SAT 99
== END ==
LOC: ER 13:49
DX: O26.892 Other specified pregnancy related conditions, second trimester (principal); R51.9 Headache, unspecified; Z3A.14 14 weeks gestation of pregnancy
CPT/HCPCS: 36415; 70450; 76801; 80048; 81001; 81025; 84702; 85025; 86900; 86901; J1200; J2765; J7030

== ENCOUNTER → 2023-05-18 | Emergency (ER) | payer SELFPAY ==
--- OUTSIDE RECORDS SUMMARY | 2023-05-18 20:49 | XMS REPORT | Continuity of Care Document ---
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 signs or symptoms, regardless of her Pap test result. An alternate report format containing images or consolidated prior Pap history is available as applicable. HPV HIGH RISK WITH GENOTYPE, [id number] 16:02:00* Test Item Value Reference Range Interpretation Comme nts HPV HIGH RISK INTERP (test code = 45520) POSITIVE NEGATIVE A HPV 16 (test code = 28634) NEGATIVE HPV 18 (test code = 98928) NEGATIVE HPV, HR, OTHER GENOTYPES (test code = 50143) POSITIVE A Testing methodol ogy is real-time PCR utilizing hydrolysis probes with the [employer] 4800 system. The test individually detects genotypes 16 and 18, as well as the other 12 high risk types (31,33,35,39,45,51,52,56 ,58,59,66,68). The expected result is negative. A negative result does not rule out the presence of HPV not included in the genotype set, a low level of infection or specimen sampling error. UNLESS OTHERWISE INDICATED, ALL TESTING PERFORMED AT [facility] [address] [place] [address] BANK COMPLIANCE OFFICER: Yeyo DICKIA NUMBER [id number] [facility] [place]. [id number] VAGINAL PATHOGENS DNA [id number] 13:48:25* Test Item Value Reference Range Interpretation Comme nts SHARI SPECIES (test code = 10593) NEGATIVE NEGATIVE G. VAGINALIS (test code = 83810) POSITIVE NEGATIVE A T. VAGINALIS (test code = ) NEGATIVE NEGATIVE Note: The BD [employer] irm VPIII Microbial Identification Testis a DNA probe test intended for use in the detectionand identification of Shari species, Gardnerellavaginalis and Trichomonas vaginalis nucleic acid. MATERNAL AFP FOR NTD [id number] 12:22:55* Test Item Value Reference Range Interpretation Comme nts INTERPRETATION (test code = 478968) SCREEN NEGATIVE Neural tube defect risk (test code = 99118) 1:45515 Neural tube defect interpretation (test code = 82744) (NOTE) --- NORMAL - NOT AT INCREASED RISK --- The AFP results indicate a risk for neural tube defect less than or equal to that of the general population. (A normal result is defined as an Adjusted AFP M.O.M. of less than 2.50 for non-diabetics and less than 2.0 for diabetics). The gestation age was based upon Ultrasound Examination. Note that this is a screening test only. Normal results are not a guarantee of a normal . DATE OF (test code = 2660) 1995 MATERNAL WEIGHT (test code = 2657) 253 LBS INITIAL/REPEAT (test code = 321098) INITIAL FAMILY HISTORY OF NTD (test code = 099292) NO INSULIN DEP. DIABETIC (test code = 2659) NO RACE (test code = 2658) BLACK SMOKER? (test code = 852825) NO NUMBER OF GESTATIONS (test code = 28040) 1 GESTATIONAL AGE (test code = 2656) 16.4 WEEKS DETERMINED BY: (test code = 2654) US DATE OF SONOGRAM (test code = 62305) 03/31/2023 GESTATIONAL AGE AT SONO (test code = 2653) 13.4 WEEKS ADJUST AFP M.O.M. (test code = 2661) 0.79 M.O.M. AFP (test code = 56946) 23.9 NG/ML GLUCOSE 1 HR POST 50 [id number] 07:50:22* Test Item Value Reference Range Interpretation Comme nts GLUCOSE 1 HR POST 50 GM (mehul t code = 2005) 139 MG/DL <140 DRUG ABUSE SCREEN 10 REFLEX [id number] 07:38:58* Test Item Value Reference Range Interpretation Comme nts AMPHETAMINES (test code = 3201) NEGATIVE NEGATIVE BARBITURATES (test code = 3202) NEGATIVE NEGATIVE BENZODIAZEPINES (test code = 3203) NEGATIVE NEGATIVE CANNABINOIDS (test code = 3204) NEGATIVE NEGATIVE COCAINE METABOLITE (test code = 3205) NEGATIVE NEGATIVE OPIATES (test code = 3209) NEGATIVE NEGATIVE OXYCODONE (test code = 35264) NEGATIVE NEGATIVE PHENCYCLIDINE (test code = 3210) NEGATIVE NEGATIVE METHADONE (test code = 3207) NEGATIVE NEGATIVE BUPRENORPHINE (test code = 10576) NEGATIVE NEGATIVE SOURCE (test code = 921736) URINE SEE BELOW FO R THRESHOLDS AND IMPORTANT METHOD NOTES ANALYTE SCREENING CUTOFF CONFIRMATORY CUTOFF AMPHETAMINES 500 NG/ML 100 NG/MLBARBITURATES 200 NG/ML 100 NG/MLBENZODIAZEPINES 200 NG/ML 100 NG/MLCANNABINOIDS (THC) 20 NG/ML 15 NG/MLCOCAINE METABOLITES 150 NG/ML 100 NG/MLOPIATE METABOLITES 300 NG/ML 100 NG/MLOXYCODONE 100 NG/ML 100 NG/MLPHENCYCLIDINE (PCP) 25 NG/ML 25 NG/MLMETHADONE 300 NG/ML 100 NG/MLBUPRENORPHINE 5 NG/ML 5 NG/ML NOTE: Screening methodology is qualitative Enzyme Immunoassay.The screening method may be less sensitive for certain medicationsincluding clonazepam and lorazepam in the benzodiazepine assay andtramadol or fentanyl in the opiate assay, amongst others. Patientcompliance, hydration status, timing and dose of medications, drugabsorption and specimen quality may affect screening assay.For clinical discrepancies, consider directed testing for specificcompounds or contact the laboratory within [facility] for confirmatory testing. This test is specified for medicalpurposes only. It is not valid for forensic use. UNLESS OTHERWISE INDICATED, ALL TESTING PERFORMED AT [facility] [address] [place] [address] BANK COMPLIANCE OFFICER: BREA RIVERS M.D. CLIA NUMBER [id number] [place]. [id number] DRUG SCREEN, SERUM, NO [id number] 09:54:58* Test Item Value Reference Range Interpretation Comme nts AMPHETAMINES (test code = 82150) TEST NOT PERFORMED Unable to perform testing, specimen not received.Charge s adjusted as applicable. BARBITURATES (test code = 32751) TEST NOT PERFORMED BENZODIAZEPINES (test code = 21749) TEST NOT PERFORMED COCAINE METABOLITE (test code = 45446) TEST NOT PERFORMED METHADONE (test code = 64602) TEST NOT PERFORMED OPIATES (test code = 040080) TEST NOT PERFORMED PHENCYCLIDINE (test code = 603308) TEST NOT PERFORMED PROPOXYPHENE (test code = 039212) TEST NOT PERFORMED THC (CANNABIS) (test code = 328998) TEST NOT PERFORMED ETHANOL (test code = 045151) TEST NOT PERFORMED T. PALLIDUM - [id number] 11:53:06* Test Item Value Reference Range Interpretation Comme nts T. PALLIDUM - PA (test code = 92213) REACTIVE NON-REACTIVE A UNLESS OTHER MORA INDICATED, ALL TESTING PERFORMED AT [facility] [address] [place] [address] BANK COMPLIANCE OFFICER: BREA RIVERS M.D. CLIA NUMBER [id number] [place]. [id number] 11:19:37* Test Item Value Reference Range Interpretation Comme nts PTT (test code = 1403) TEST NOT PERFORMED SECONDS 25.2-40.0 PROTHROMBIN TIME (PT)2023-04-13 11:19:37* Test Item Value Reference Range Interpretation Comme nts PROTHROMBIN TIME (PT) (test code = 1402) TEST NOT PERFORMED SECONDS 12.5-14.7 Unable to perform testing, specimen not received.Charges adjusted as applicable. INR (test code = 08876) TEST NOT PERFORMED SEE BELOW CURRENT RECOMMENDATIONS ARE FOR AN INR OF 2.0-3.0 FOR ALL PATIENTS ON VITAMIN K ANTAGONISTS, EXCEPT THOSE WITH PROSTHETIC HEART VALVES, FOR WHOM INR OF 2.5-3.5 IS RECOMMENDED. HEMOGLOBIN [id number] 16:38:02* Test Item Value Reference Range Interpretation Comme nts HEMOGLOBIN A1 (test code = 2575) 97.2 % 95.0-98.5 HEMOGLOBIN A2 (test code = 2576) 2.8 % 1.6-3.7 HEMOGLOBIN F () (test code = 2722) 0.0 % 0.0-2.0 HEMOGLOBIN S (test code = 2724) NONE % NONE DETECTED HEMOGLOBIN C (test code = 2726) NONE % NONE DETECTED OTHER HEMOGLOBIN VARIANT (test code = 35555) NONE DETEC % NONE DETECTED PATHOLOGIST'S INTERPRETATION (test code = 2577) (NOTE) NO ABNORMAL HEMOGLOBINS IDENTIFIED. BREA RIVERS M.D. OBSTETRIC PANEL + [id number] 01:33:01* Test Item Value Reference Range Interpretation Comments WBC (test code = 1001) 7.8 K/UL 3.5-11.0 RBC (test code = 1002) 3.78 M/UL 3.80-5.40 L HEMOGLOBIN (test code = 1003) 11.1 G/DL 11.5-15.5 L HEMATOCRIT (test code = 1004) 33.8 % 34.0-45.0 L MCV (test code = 1005) 89.4 fL 80.0-99.0 MCH (test code = 1006) 29.4 PG 25.0-33.0 MCHC (test code = 1007) 32.8 G/DL 31.0-36.0 RDW (test code = 1038) 13.2 % 11.5-15.0 NEUTROPHILS (test code = 1008) 65.3 % LYMPHOCYTES (test code = 1010) 24.8 % MONOCYTES (test code = 1011) 5.1 % EOSINOPHILS (test code = 1012) 4.2 % BASOPHILS (test code = 1013) 0.3 % IMMATURE GRANULOCYTES (test code = 1036) 0.3 % NUCLEATED RBCS (test code = 1065) 0.0 /100 WBC'S See_Comment [Automated message] The system which generated this result transmitted reference range: 0.0. The reference range was not used to interpret this result as normal/abnormal. PLATELET COUNT (test code = 1015) 292 K/UL 130-400 ABSOLUTE NEUTROPHILS (test code = 1066) 5.09 K/UL 1.50-7.50 ABSOLUTE LYMPHOCYTES (test code = 1067) 1.93 K/UL 1.00-4.00 ABSOLUTE MONOCYTES (test code = 1068) 0.40 K/UL 0.20-1.00 ABSOLUTE EOSINOPHILS (test code = 1040) 0.33 K/UL 0.00-0.50 ABSOLUTE BASOPHILS (test code = 1069) 0.02 K/UL 0.00-0.20 ABS IMMATURE GRANULOCYTES (test code = 1020) 0.02 K/UL 0.00-0.10 ABS NUCLEATED RBCS (test code = 41107) 0.00 K/UL 0.00-0.11 BLOOD TYPE AND RH (test code = 3901) B POSITIVE A HISTORICAL REC ORD CHECK FOR PREVIOUS RESULTS IS NOT PERFORMED.THESE RESULTS SHOULD BE CORRELATED WITH RESULTS OF PRIOR BLOODTYPING AND ANTIBODY SCREEN STUDIES. ANTIBODY SCREEN (test code = 3902) NEGATIVE NEGATIVE A HISTORICAL REC ORD CHECK FOR PREVIOUS RESULTS IS NOT PERFORMED.THESE RESULTS SHOULD BE CORRELATED WITH RESULTS OF PRIOR BLOODTYPING AND ANTIBODY SCREEN STUDIES. RUBELLA ANTIBODY SCREEN (test code = 4600) 65 IU/ML SEE BELOW RUBELLA IgG INTERP (test code = 30187) REACTIVE REACTIVE INTERPRETATION UNITS RANGE NON-REACTIVE/NON-IMMUNE IU/ML <10 REACTIVE/IMMUNE IU/ML >=10 HEPATITIS B SURF AG (test code = 2739) NON-REACTIVE NON-REACTIVE RPR (test code = 22155) REACTIVE NON-REACTIVE A SCREENING RPR RE ACTIVE. SEE BELOW FOR REFLEX TP-PA RPR TITER (test code = 3500) 1:1 TITER NOT INDIC. H NOTE: Specimen i s RPR reactive, undiluted using automated imageanalysis method. For weakly reactive samples, if clinical suspicionof syphilis is low, consider repeat RPR testing in 14 days.For all others, correlate with treponema-specific antibody testing(e.g. treponema pallidum-particle agglutination, CPL Code 4581).Biologic false positive results may be associated with autoimmunedisease (including systemic lupus erythematosus), infectiousmononucleosis or other viral syndromes, malaria, leprosy, pregnancyand recent immunization, amongst others. HIV 1/2 4TH GEN, RFLX CONF (test code = 3514) NON-REACTIVE NON-REACTIVE HEPATITIS PANEL, [id number] 01:33:01* Test Item Value Reference Range Interpretation Comme nts HEPATITIS A IgM (test code = 34873) NON-REACTIVE NON-REACTIVE HEPATITIS B CORE IgM (test code = 4644) NON-REACTIVE NON-REACTIVE HEPATITIS B SURF AG (test code = 2739) NON-REACTIVE NON-REACTIVE HEPATITIS C ANTIBODY (test code = 4675) NON-REACTIVE NON-REACTIVE INTERPRETATION HEPATITIS A: (test code = 2552) (NOTE) Hepatitis A serology shows no evidence of acute hepatitis A. INTERPRETATION HEPATITIS B: (test code = 61238) (NOTE) Hepatitis B serology shows no evidence of acute hepatitis B andno indication of exposure to hepatitis B virus in the previous immanuel eight months. INTERPRETATION HEPATITIS C: (test code = 87010) (NOTE) Hepatitis C serology shows no evidence of exposure to hepatitisC virus at this time. It can take up to 12 months after exposure tothe hepatitis C virus for antibodies to become detectable in the blood in certain patients. VARICELLA ZOSTER [id number] 12:43:34* Test Item Value Reference Range Interpretation Comme [facility] VARICELLA ZOSTER IgG (test code = 32359) 106 INDEX SEE BELOW L INTERPRETATI ON VZV IgG NEGATIVE . . . . . . . . . . . . INDEX <135 EQUIVOCAL. . . . . . . . . . . . INDEX 135-164 NOTE: CONSIDER RETESTING IN A CLINICALLY SUITABLE PERIOD OF TIME, NO SOONER THAN 1-2 WEEKS. POSITIVE . . . . . . . . . . . . INDEX >=165 CULTURE, [id number] 08:51:37SPECIMEN NUMBER: [id number] CULTURE, URINE SPECIMEN NUMBER: [id number] SPECIMEN COMMENT: URINE SOURCE: URINE REPORT STATUS: FINAL FINAL REPORT: 04/11/2023 <10,000 CFU/ML UROGENITAL FREDY PRESENT NO COMMON PATHOGENSCOMPREHENSIVE METABOLIC [id number] 00:28:23* Test Item Value Reference Range Interpretation Comme [facility] GLUCOSE (test code = 2217) 114 MG/DL 70-99 H BUN (test code = 2208) 7 MG/DL 6-20 CREATININE (test code = 2214) 0.57 MG/DL 0.60-1.30 L eGFR (2020 CKD-EPI) (test code = 01556) 127 ML/MIN/1.73 >60 CALC BUN/CREAT (test code = 2234) 12 RATIO 6-28 SODIUM (test code = 2230) 139 MEQ/L 133-146 POTASSIUM (test code = 2227) 3.7 MEQ/L 3.5-5.4 CHLORIDE (test code = 2214) 103 MEQ/L 95-107 CARBON DIOXIDE (test code = 2205) 19 MEQ/L 19-31 CALCIUM (test code = 2208) 9.0 MG/DL 8.5-10.5 PROTEIN, TOTAL (test code = 2228) 6.6 G/DL 6.1-8.3 ALBUMIN (test code = 2200) 3.5 G/DL 3.5-5.2 CALC GLOBULIN (test code = 2239) 3.1 G/DL 1.9-3.7 CALC A/G RATIO (test code = 2233) 1.1 RATIO 1.0-2.6 BILIRUBIN, TOTAL (test code = 2206) <0.2 MG/DL <=1.2 ALKALINE PHOSPHATASE (test code = 2203) 80 U/L 40-112 AST (test code = 2217) 12 U/L 9-40 ALT (test code = 2218) 6 U/L 5-40 HCG, [id number] 00:28:05* Test Item Value Reference Range Interpretation Comme nts HCG, QUANTITATIVE (test code = 2506) [address]69[address] MIU/ML SEE BELOW EXPECTED VALUES FOR HCG GST.AGE UNITS RANGE GST. [...] . . . . . . MIU/ML 5-7YTGV-GMJFOKUZZV FEMALES . . . . . . . . . . . . MIU/ML <=7 CREATININE, URINE, 24 [id number] 02:40:10* Test Item Value Reference Range Interpretation Comme nts CREATININE, URINE, CONC. (test code = 2071) 397.9 MG/DL NOT ESTAB CREATININE, URINE, 24 HR (test code = 2109) 2.2 GM/24 HOURS 1.0-2.0 H TOTAL URINE VOLUME (test cod e = 2055) 550 ML 500-3500 PROTEIN, URINE, 24 [id number] 02:40:10* Test Item Value Reference Range Interpretation Comme nts PROTEIN, URINE, CONC. (test code = 2103) 17 MG/DL NOT ESTAB PROTEIN, URINE 24 HR (test code = 2059) 94 MG/24 HOURS 0-150 TOTAL URINE VOLUME (test code = 2055) 550 ML 500-3500 UNLESS OTHERWISE INDICATED, ALL TESTING PERFORMED AT [facility] [address] [place] [address] BANK COMPLIANCE OFFICER: BREA RIVERS M.D. CLIA NUMBER [id number] [facility] [place]. [id number] GONORRHEA, NAAT, [id number] 12:27:38* Test Item Value Reference Range Interpretation Comme nts GONORRHEA, NAAT, URINE (test code = 63802) NEGATIVE NEGATIVE Testing is perfo rmed with Armida KASSIE 6800/8800 systems usingreal-time polymerase chain reaction (PCR) method. A negative result does not exclude low level infection, specimensampling error, or collection error. CHLAMYDIA, NAAT, [id number] 12:27:38* Test Item Value Reference Range Interpretation Comme nts CHLAMYDIA, NAAT, URINE (test code = 80510) POSITIVE NEGATIVE A Testing is perfo rmed with Armida KASSIE 6800/8800 systems usingreal-time polymerase chain reaction (PCR) method. UNLESS OTHERWISE INDICATED, ALL TESTING PERFORMED AT [facility] [address] [place] [address] BANK COMPLIANCE OFFICER: BREA RIVERS M.D. CLIA NUMBER [id number] [facility] [place]. [id number] TOTAL BETA HCG [id number] 19:43:17* Test Item Value Reference Range Interpretation Comme nts BETA HCG (test code = 6181469621) 86466.00 See_Comment [Automated BrandBoardsa ge] The system which generated this result transmitted reference range: Non- female and male patients: <5 mIU/mL. The reference range was not used to interpret this result as normal/abnormal. BRENDA (test code = BRENDA) Gestational Age ?Range (mIU/mL) 1-10 ?Weeks ?29-72838263-61 Weeks ?16628-30520544-81 Weeks ?5306-00474987-58 Weeks ?3241-320642 Biotin has been reported to cause a negative bias, interpret results relative to patient's use of biotin. [id number] 19:15:00* Test Item Value Reference Range Interpretation Comme nts POCT PREG (test code = 1605) Negative On board controls acceptable with C Line (test code = 3574) Yes POCT PREG LOT # (test code = 3575) [id number] POCT PREG TEST DATE ( test code = 3576) [id number] Lab Interpretation (test cod e = 83519-9) Normal [facility]. METABOLIC PANEL (94373)2023-02-15 18:56:56* Test Item Value Reference Range Interpretation Comme nts NA (test code = 5451917624) 139 mmol/L 135-145 K (test code = 1210056662) 3.5 mmol/L 3.5-5.0 CL (test code = 7660046046) 107 mmol/L 98-108 CO2 TOTAL (test code = 0291566930) 24 mmol/L 23-31 AGAP (test code = 3571422178) 8 2-16 BUN (test code = 4300659528) 8 mg/dL 7-23 GLUCOSE (test code = 3928522083) 65 mg/dL 70-110 L CREATININE (test code = 4520930892) 0.64 mg/dL 0.50-1.04 TOTAL BILI (test code = 7911146586) 0.6 mg/dL 0.1-1.1 CALCIUM (test code = 4916687550) 9.4 mg/dL 8.6-10.6 T PROTEIN (test code = 4685407445) 8.4 g/dL 6.3-8.2 H ALBUMIN (test code = 1122454688) 4.5 g/dL 3.5-5.0 ALK PHOS (test code = 6539748018) 62 U/L 34-122 ALTv (test code = 1742-6) 13 U/L 5-35 AST(SGOT) (test code = 0504155183) 23 U/L 13-40 eGFR (test code = 73607-5) 123.6 mL/min/1.73m2 CKD-EPI eGFR (2020). Assuming creatinine has been stable day-to-day for at least three months, the eGFR indicates Category G1 (>= 90 mL/min/1.73 m2) Lab Interpretation (test code = 61360-2) Abnormal [facility] WITH [id number] 18:46:33* Test Item Value Reference Range Interpretation Comme nts WBC (test code = 6690-2) 6.45 See_Comment [Automated [employer]Lab] The system which generated this result transmitted reference range: 4.30 - 11.10 10*3/?L. The reference range was not used to interpret this result as normal/abnormal. RBC (test code = 789-8) 4.57 See_Comment [Automated [employer]] The system which generated this result transmitted [...] 32.2 g/dL 31.6-35.1 RDW-SD (test code = 73450-2) 43.9 fL 39.0-49.9 RDW-CV (test code = 788-0) 13.4 % 12.0-15.5 PLT (test code = 777-3) 277 See_Comment [Automated messa ge] The system which generated this result transmitted reference range: 166 - 358 10*3/?L. The reference range was not used to interpret this result as normal/abnormal. MPV (test code = 98801-8) 9.4 fL 9.5-12.9 L NRBC/100 WBC (test code = 9499876441) 0.0 See_Comment [Automated me ssage] The system which generated this result transmitted reference range: 0.0 - 10.0 /100 WBCs. The reference range was not used to interpret this result as normal/abnormal. NRBC x10^3 (test code = 6169916794) See_Comment [Automated messa ge] The system which generated this result transmitted reference range: 10*3/?L. The reference range was not used to interpret this result as normal/abnormal. GRAN MAT (NEUT) % (test code = 770-8) 59.9 % IMM GRAN % (test code = [id number]) 0.30 % LYMPH % (test code = 736-9) 31.0 % MONO % (test code = 5905-5) 5.9 % EOS % (test code = 713-8) 2.6 % BASO % (test code = 706-2) 0.3 % GRAN MAT x10^3(ANC) (test code = 9803408778) 3.86 10*3/uL 1.88-7.09 IMM GRAN x10^3 (test code = [id number]) 0.00-0.06 LYMPH x10^3 (test code = 731-0) 2.00 10*3/uL 1.32-3.29 MONO x10^3 (test code = 742-7) 0.38 10*3/uL 0.33-0.92 EOS x10^3 (test code = 711-2) 0.17 10*3/uL 0.03-0.39 BASO x10^3 (test code = 704-7) 0.01-0.07 Lab Interpretation (test code = 05641-5) [id number] Test Item Value Reference Range Interpretation Comme nts POCT PREG (test code = 1605) Negative On board controls acceptable with C Line (test code = 3574) Yes POCT PREG LOT # (test code = 3575) [id number] POCT PREG TEST DATE ( test code = 3576) Lab Interpretation (test cod e = 40174-9) [facility] (75750)2021-09-23 22:04:16* Test Item Value Reference Range Interpretation Comme nts NA (test code = 7584819980) 139 mmol/L 135-145 K (test code = 2285646105) 4.1 mmol/L 3.5-5.0 CL (test code = 2204547096) 106 mmol/L 98-108 CO2 TOTAL (test code = 1414750877) 24 mmol/L 23-31 AGAP (test code = 9301504693) 2-16 BUN (test code = 0998515146) 12 mg/dL 7-23 GLUCOSE (test code = 0204327623) 109 mg/dL 70-110 CREATININE (test code = 8022597061) 0.74 mg/dL 0.50-1.04 TOTAL BILI (test code = 0417276380) 0.2 mg/dL 0.1-1.1 CALCIUM (test code = 8947951199) 9.0 mg/dL 8.6-10.6 T PROTEIN (test code = 8930514965) 7.0 g/dL 6.3-8.2 ALBUMIN (test code = 2045042404) 4.0 g/dL 3.5-5.0 ALK PHOS (test code = 1596221289) 67 U/L 34-122 ALTv (test code = 1742-6) 13 U/L 5-35 AST(SGOT) (test code = 5897666283) 15 U/L 13-40 eGFR (test code = 3464506423) mL/min/1.73m2 BRENDA (test code = BRENDA) Association [...] or urine or abnormalities in imaging tests). [facility]04:16* Test Item Value Reference Range Interpretation Comme nts LIPASE (test code = 5798702220) 165 U/L 0-220 Lab Interpretation (test cod e = 10800-5) [facility] [id number] 21:50:54* Test Item Value Reference Range Interpretation Comme nts WBC (test code = 6690-2) See_Comment [Automated [employer]] The system which generated this result transmitted reference range: 4.30 - 11.10 10*3/?L. The reference range was not used to interpret this result as normal/abnormal. RBC (test code = 789-8) See_Comment [Automated [employer]] The system which generated this result transmitted [...] g/dL 31.6-35.1 L RDW-SD (test code = 29889-8) 46.8 fL 39.0-49.9 RDW-CV (test code = 788-0) 14.8 % 12.0-15.5 PLT (test code = 777-3) See_Comment [Automated [employer] ge] The system which generated this result transmitted reference range: 166 - 358 10*3/?L. The reference range was not used to interpret this result as normal/abnormal. MPV (test code = 61295-2) 9.9 fL 9.5-12.9 NRBC/100 WBC (test code = 2271536126) See_Comment [Automated mysportgroup ssage] The system which generated this result transmitted reference range: 0.0 - 10.0 /100 WBCs. The reference range was not used to interpret this result as normal/abnormal. NRBC x10^3 (test code = 9839930820) <0.01 See_Comment [Automated [employer] ge] The system which generated this result transmitted reference range: 10*3/?L. The reference range was not used to interpret this result as normal/abnormal. GRAN MAT (NEUT) % (test code = 770-8) 47.1 % IMM GRAN % (test code = 1062151697) 0.20 % LYMPH % (test code = 736-9) 40.2 % MONO % (test code = 5905-5) 6.5 % EOS % (test code = 713-8) 5.7 % BASO % (test code = 706-2) 0.3 % GRAN MAT x10^3(ANC) (test code = 3851276729) 2.89 10*3/uL 1.88-7.09 IMM GRAN x10^3 (test code = 0343464016) <0.03 0.00-0.06 LYMPH x10^3 (test code = 731-0) 2.47 10*3/uL 1.32-3.29 MONO x10^3 (test code = 742-7) 0.40 10*3/uL 0.33-0.92 EOS x10^3 (test code = 711-2) 0.35 10*3/uL 0.03-0.39 BASO x10^3 (test code = 704-7) <0.03 0.01-0.07 Lab Interpretation (test code = 45874-6) [facility]normal [facility] [id number] 21:15:00* Test Item Value Reference Range Interpretation Comme nts POCT PREG (test code = 1605) negative On board controls acceptable with C Line (test code = 3574) present POCT PREG LOT # (test code = 3575) [id number] POCT PREG TEST DATE ( test code = 3576) 01/18/2023 Lab Interpretation (test cod e = 95706-2) Normal [facility] HospitalMICROSCOPIC [id number] 02:14:14* Test Item Value Reference Range Interpretation Comme nts WHITE BLOOD CELLS (test code = 1513) 0-5 /HPF 0-5 RED BLOOD CELLS (test code = 1514) 0-2 /HPF 0-5 EPITHELIAL CELLS (test code = 39855) 0-5 /HPF 0-10 BACTERIA (test code = 1515) NONE SEEN NONE SEEN CASTS, HYALINE (test code = 1517) NONE SEEN NONE-TRACE UNLESS OTHERWISE INDICATED, ALL TESTING PERFORMED [facility] [address] [place] [address] BANK COMPLIANCE OFFICER: NILDA GORDILLO M.D. CLIA NUMBER [id number] [place]. [id number] CULTURE, [id number] 11:52:32SPECIMEN NUMBER: [id number] CULTURE, URINE SPECIMEN NUMBER: [id number] SPECIMEN COMMENT: URINE SOURCE: URINE REPORT STATUS: FINAL FINAL REPORT: 07/15/2021 50-100,000 CFU/ML MIXED UROGENITAL FREDY UNLESS OTHERWISE INDICATED, ALL TESTING PERFORMED [facility] [address] [place] [address] BANK COMPLIANCE OFFICER: NILDA GORDILLO M.D. CLIA NUMBER [id number] CAP ACCREDITATIONNO. [id number] W/AUTO DIFF WITH [id number] 02:16:29* Test Item Value Reference Range Interpretation [...] 0.00-0.10 ABS NUCLEATED RBCS (test code = 86028) 0.00 K/UL 0.00-0.11 UNLESS OTHER MORA INDICATED, ALL TESTING PERFORMED [facility] [address] [place] [address] BANK COMPLIANCE OFFICER: NILDA GORDILLO M.D. CLIA NUMBER [id number] [facility] [place]. [id number] CBC W/AUTO DIFF WITH [id number] 09:30:01* Test Item Value Reference Range Interpretation [...] 0.00-0.10 ABS NUCLEATED RBCS (test code = 43693) TEST NOT PERFORMED K/UL 0.00-0.11 COMMENTS (test code = 1016) TEST NOT PERFORMED CULTURE, [id number] 09:41:58SPECIMEN NUMBER: [id number] CULTURE, URINE SPECIMEN NUMBER: [id number] SPECIMEN COMMENT: URINE SOURCE: URINE REPORT STATUS: FINAL FINAL REPORT: 07/03/2021 50-100,000 CFU/ML MIXED UROGENITAL FLORAHCG, [id number] 05:48:47* Test Item Value Reference Range Interpretation Comme nts HCG, QUALITATIVE (test code = 2507) NEGATIVE NEGATIVE COMPREHENSIVE METABOLIC [id number] 03:43:13* Test Item Value Reference Range Interpretation Comme nts GLUCOSE (test code = 2217) 96 MG/DL 70-99 BUN (test code = 8) 12 MG/DL 6-20 CREATININE (test code = 2214) 0.79 MG/DL 0.60-1.30 eGFR (2020 CKD-EPI) (test code = 92938) 106 ML/MIN/1.73 >60 CALC BUN/CREAT (test code = 2235) 15 RATIO 6-28 SODIUM (test code = 2231) 141 MEQ/L 133-146 POTASSIUM (test code = 2228) 3.8 MEQ/L 3.5-5.4 CHLORIDE (test code = 5) 105 MEQ/L 95-107 CARBON DIOXIDE (test code = 2205) 22 MEQ/L 19-31 CALCIUM (test code = 2208) 9.9 MG/DL 8.5-10.5 PROTEIN, TOTAL (test code = 2228) 8.3 G/DL 6.1-8.3 ALBUMIN (test code = 2200) 4.9 G/DL 3.5-5.2 CALC GLOBULIN (test code = 0) 3.4 G/DL 1.9-3.7 CALC A/G RATIO (test code = 2233) 1.4 RATIO 1.0-2.6 BILIRUBIN, TOTAL (test code = 2206) 0.3 MG/DL See_Comment [Automated me ssage] The system which generated this result transmitted reference range: <=1.2. The reference range was not used to interpret this result as normal/abnormal. ALKALINE PHOSPHATASE (test code = 2203) 117 U/L 40-112 H AST (test code = 8) 10 U/L 9-40 ALT (test code = 2219) 7 U/L 5-40 HIV 1/2 4TH GEN, RFLX [id number] 03:40:40* Test Item Value Reference Range Interpretation Comme nts HIV 1/2 4TH GEN, RFLX CONF ( test code = 3514) NON-REACTIVE NON-REACTIVE [id number] 03:12:37* Test Item Value Reference Range Interpretation Comme [facility] PTT (test code = 1403) 29.7 SECONDS 25.2-40.0 PROTHROMBIN TIME (PT)2021-07-02 03:12:37* Test Item Value Reference Range Interpretation Comme [facility] PROTHROMBIN TIME (PT) (test code = 1402) 14.1 SECONDS 12.5-14.7 INR (test code = 81706) 1.0 SEE BELOW CURRENT RECOMMENDATIONS ARE FOR AN INR OF 2.0-3.0 FOR ALL PATIENTS ON VITAMIN K ANTAGONISTS, EXCEPT THOSE WITH PROSTHETIC HEART VALVES, FOR WHOM INR OF 2.5-3.5 IS RECOMMENDED. UNLESS OTHERWISE INDICATED, ALL TESTING PERFORMED [facility] [address] [place] [address] BANK COMPLIANCE OFFICER: NILDA GORDILLO M.D. CLIA NUMBER [id number] [place]. [id number] 04:05:52* Test Item Value Reference Range Interpretation Comme nts PTT (test code = 1403) 29.3 SECONDS 25.2-40.0 UNLESS OTHERWISE INDICATED, ALL TESTING PERFORMED [facility] [employer], [facility]. [address] [place] [address] BANK COMPLIANCE OFFICER: NILDA GORDILLO M.D. CLIA NUMBER [id number] [place]. [id number] HIV 1/2 4TH GEN, RFLX [id number] 04:37:11* Test Item Value Reference Range Interpretation Comme nts HIV 1/2 4TH GEN, RFLX CONF ( test code = 3514) NON-REACTIVE NON-REACTIVE CULTURE, [id number] 10:12:10SPECIMEN NUMBER: [id number] CULTURE, URINE SPECIMEN NUMBER: [id number] SPECIMEN COMMENT: URINE SOURCE: URINE REPORT STATUS: FINAL FINAL REPORT: 05/11/2021 10-50,000 CFU/ML MIXED UROGENITAL FLORAHCG, [id number] 04:18:17* Test Item Value Reference Range Interpretation [...] . . . . . . MIU/ML 7-1LBJI-MTLMOVFLNW FEMALES . . . . . . . . . . . . MIU/ML <=7 UNLESS OTHERWISE INDICATED, ALL TESTING PERFORMED [facility] [employer] [address] [place] [address] BANK COMPLIANCE OFFICER: NILDA GORDILLO M.D. [place] NUMBER [id number] [facility] [place]. [id number] COMPREHENSIVE METABOLIC [id number] 00:35:57* Test Item Value Reference Range Interpretation Comme nts GLUCOSE (test code = 2217) 108 MG/DL 70-99 H BUN (test code = 2208) 9 MG/DL 6-20 CREATININE (test code = 2214) 0.88 MG/DL 0.60-1.30 eGFR (2020 CKD-EPI) (test code = 94925) 93 ML/MIN/1.73 >60 CALC BUN/CREAT (test code = 2235) 10 RATIO 6-28 SODIUM (test code = 223) 142 MEQ/L 133-146 POTASSIUM (test code = 2228) 3.7 MEQ/L 3.5-5.4 CHLORIDE (test code = 2215) 105 MEQ/L 95-107 CARBON DIOXIDE (test code = 2206) 23 MEQ/L 19-31 CALCIUM (test code = 2209) 9.2 MG/DL 8.5-10.5 PROTEIN, TOTAL (test code = 2229) 7.3 G/DL 6.1-8.3 ALBUMIN (test code = 2201) 4.1 G/DL 3.5-5.2 CALC GLOBULIN (test code = 2240) 3.2 G/DL 1.9-3.7 CALC A/G RATIO (test code = 2234) 1.3 RATIO 1.0-2.6 BILIRUBIN, TOTAL (test code = 2207) <0.2 MG/DL See_Comment [Automated me ssage] The system which generated this result transmitted reference range: <=1.2. The reference range was not used to interpret this result as normal/abnormal. ALKALINE PHOSPHATASE (test code = 2204) 89 U/L 40-112 AST (test code = 2218) 11 U/L 9-40 ALT (test code = 2219) 9 U/L 5-40 PROTHROMBIN TIME (PT)2021-05-10 10:34:07* Test Item Value Reference Range Interpretation Comme nts PROTHROMBIN TIME (PT) (test code = 1402) 14.1 SECONDS 12.5-14.7 INR (test code = 91059) 1.1 SEE BELOW CURRENT RECOMMENDATIONS ARE FOR AN INR OF 2.0-3.0 FOR ALL PATIENTS ON VITAMIN K ANTAGONISTS, EXCEPT THOSE WITH PROSTHETIC HEART VALVES, FOR WHOM INR OF 2.5-3.5 IS RECOMMENDED. CBC W/AUTO DIFF WITH [id number] 02:45:06* Test Item Value Reference Range Interpretation [...] = 1065) 0.0 /100 WBC'S See_Comment [Automated messa ge] The system which [...] 0.00-0.10 ABS NUCLEATED RBCS (test code = 28300) 0.00 K/UL 0.00-0.11 Notes Date/Time Note Provider Source 2022-11-20 02:43:01 FQGtlhpl9Cjfzi2LfBYI FZlDF711wvQK8 M8GvnNuVRwhZyQDvzWDdIeawZnORDcE02 11-12-01T02:43:01 Pt given printed and verbal discharge [...] with steady gait, in no apparent distress 22799-8Ttfkhpsxx department ZbasUD7782-80-61S26:43:41Emergen y department NoteTXT1.2.840.063663.1.13.104.2. 7.2.815486|[id number] for patient sfur77561-5GlxwFL863978766Dhqdbyd A Diaz RN[address] EgltSucvkouluLpidltpvnNYAB6254614 818BMEKIEEQLLKUCITQPOIGPA2231-49- 02T02:43:411.2.840.648067.1.72.3. 15|1.2.840.451848.1.13.104.2.7.2. [id number] Chitra Maher RN [facility] 2022-11-20 00:56:21 KiSeyJttgHFax7YPR1Cb cd7y1FmKVKcOD CGmxtmW+GVzh2vUQeuHGXK3jxb83T4a43 11-12-01T00:56:21 Pt had multiple IV sticks with various nurses. 3rd [facility] IV trained RN attempting access at this time. 67754-7Qsreebuft department DwjiQR6778-07-39H79:57:02[facility] NoteTXT1.2.840.643215.1.13.104.2. 7.2.961969|[id number] for patient frgy98254-0MtlwOE773744358Eyswyr R Shehadeh RN[address] 981KFQOWXUQTUGVFMVBLSKXSE0246-67- 02T00:57:021.2.840.339684.1.72.3. 15|1.2.840.195111.1.13.104.2.7.2. [id number] Antionette Valera RN [facility] 2022-11-19 22:44:50 iG5l2OYn8slhyqLEcyMI ZQDgT/iBI9Yth kvm8cHFFYBAa4P8IJ8u++MZKg8FGkQL21 11-12-00T22:44:50 Chest pain , sob, weakness, right side body numbness that started 4 days ago 93379-4Mhcpcylhe department Triage zvbvDS3753-64-87F29:45:23[facility] Triage noteTXT1.2.840.353452.1.13.104.2. 7.2.664873|[id number] for patient cmbd23061-8Mwoacsiet department KjroAY693180421Ywoiuz J Hoot RN[address]TXTX[address] 995WCXTRZDMVCSDEHOSCNKIPE4962-48- 01T22:45:231.2.840.010414.1.72.3. 15|1.2.840.179541.1.13.104.2.7.2. [id number] Stacey Espino RN [facility]"
[2023-05-18 21:26] LABS: Calcium Oxalate Crystals- Ur Few /HPF (None Seen); Specific Gravity > 1.030 (1.005-1.030); Urine Bacteria <20 /HPF (<20); Urine Bilirubin NEGATIVE (Negative); Urine Blood Negative (Negative); Urine Clarity Turbid (Clear); Urine Color Yellow (Yellow); Urine Crystals Unidentified Few /HPF (None Seen); Urine Glucose NEGATIVE (Negative); Urine Mucus 1+ /HPF (None Seen); Urine Protein TRACE (Negative); Urine RBC 21-50 /HPF (None Seen); Urine Urobilinogen 1+ (Normal)
--- NOTE | 2023-05-18 21:36 | RAD REPORT ---
EXAM DESCRIPTION: US - OB Limited - 05/18/2023 9:19 pm CLINICAL HISTORY: ABD PAIN COMPARISON: OBSTETRICAL LIMITED dated 09/09/2013 FINDINGS: A single gestational sac is seen within the uterus. The shape of the sac is within normal limits for gestational age. Within the sac is a single fetus with estimated gestational age of 21 wee ks 1 day, SANDRA 09/27/2023. Heart rate is 150 BPM. Anterior placenta noted. Amniotic fluid volume grossly normal The maternal adnexa are within normal limits. Both ovaries obscured by bowel gas. IMPRESSION: Single live early intrauterine fetus with estimated gestational age of 21 weeks 1 day, E DD 09/27/2023.
[2023-05-18 21:40] LABS: Absolute Lymphocytes (CBC) 2.1 K/uL (0.7-4.9); Hematocrit 31.6 % (36.0-45.0); Lymphocytes % 23.7 % (15.3-44.8); MCV 87.9 fL (80-100); MPV 6.8 fL (7.6-11.3); Platelets 297 thou/uL (152-406); RBC Red Blood Cell Count 3.59 M/uL (3.86-4.86)
[2023-05-18 22:21] LABS: Albumin 2.6 g/dL (3.4-5.0); Bilirubin Total 0.1 mg/dL (0.2-1.0); Potassium 3.5 mEq/L (3.5-5.1); Protein, Total 6.9 g/dL (6.4-8.2)
--- NOTE | 2023-05-18 22:31 | ER ---
Nurse's Notes [facility] Name: Shanique Avelar Age: 27 yrs Sex: Female : 1995 Arrival Date: 05/18/2023 Time: 20:44 Bed 4 Private MD: Diagnosis: Abdominal pain, unspecified;21 weeks gestation of Presentation: 05/18 21:23 Chief complaint: Patient states: Having bad lower abdominal pain and my stomach keeps vc1 getting tight. Coronavirus screen: At this time, the client does not indicate any symptoms associated with coronavirus-19. Ebola Screen: Patient negative for fever greater than or equal to 101.5 degrees Fahrenheit, and additional compatible Ebola Virus Disease symptoms Patient denies exposure to infectious person. Patient denies travel to an Ebola-affected area in the 21 days before illness onset. No symptoms or risks identified at this time. Risk Assessment: Do you want to hurt yourself or someone else? Patient reports no desire to harm self or others. Onset of symptoms was May 18, 2023. 21:23 Method Of Arrival: Ambulatory vc1 21:23 Acuity: KYLEE 3 vc1 22:37 Initial Sepsis Screen: Does the patient meet any 2 criteria? No. Patient's initial tm6 sepsis screen is negative. Does the patient have a suspected source of infection? No. Patient's initial sepsis screen is negative. 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 - Social history:: Smoking status: Patient denies any tobacco usage or history of. Screenin:30 [facility] ED Fall Risk Assessment (Adult) History of falling in the last 3 months, tm6 including since admission No falls in past 3 months (0 pts) Confusion or Disorientation No (0 pts) Intoxicated or Sedated No (0 pts) Impaired Gait No (0 pts) Mobility Assist Device Used No (0 pt) Altered Elimination No (0 pt) Score/Fall Risk Level 0 - 2 = Low Risk Oriented to surroundings, Maintained a safe environment. Abuse screen: Denies threats or abuse. Denies injuries from another. Nutritional screening: No deficits noted. Tuberculosis screening: No symptoms or risk factors identified. Assessment: 21:30 General: Appears uncomfortable, Behavior is calm, cooperative. Pain: Complains of pain tm6 in suprapubic area Pain radiates to lumbar area, low back area, left low back and right low back Pain currently is 10 out of 10 on a pain scale. Quality of pain is described as crampy, Pain began 2-3 days ago. Neuro: Level of Consciousness is awake, alert, obeys commands, Oriented to person, place, time, situation. Cardiovascular: Capillary refill < 3 seconds Patient's skin is warm and dry. Respiratory: Airway is patent Respiratory effort is even, unlabored, Respiratory pattern is regular, symmetrical. GI: Bowel sounds present X 4 quads. Abd is soft and non tender X 4 quads. : No signs and/or symptoms were reported regarding the genitourinary system. EENT: No signs and/or symptoms were reported regarding the EENT system. Derm: No signs and/or symptoms reported regarding the dermatologic system. Musculoskeletal: Reports pain in suprapubic area since a few days ago. 22:31 Reassessment: Patient appears in no apparent distress at this time. Patient and/or tm6 family updated on plan of care and expected duration. Pain level reassessed. Patient is alert, oriented x 3, equal unlabored respirations, skin warm/dry/pink. Vital Signs: 21:23 Temp 97.6; Weight 117.03 kg; Height 5 ft. 7 in. ; Pain 7/10; vc1 21:29 BP 115 / 83; Pulse 93; Resp 19; Temp 97.5(TE); Pulse Ox 97% on R/A; Height 5 ft. 7 in. tm6 ; Pain 10/10; 22:31 BP 105 / 79; Pulse 82; Resp 19; Pulse Ox 100% ; Pain 0/10; tm6 22:36 Temp 97.3(TE); tm6 21:23 Body Mass Index 40.41 (117.03 kg, 170.18 cm) vc1 21:23 Pain Scale: Adult vc1 21:29 Pain Scale: Adult tm6 22:31 Pain Scale: Adult tm6 ED Course: 20:45 Patient arrived in ED. jj6 20:46 Dwain Miranda MD is Attending Physician. sp4 20:53 Wendie Carpio FNP-C is [facility]. kb 21:21 US OB Limited In Process Unspecified. EDMS 21:24 Triage completed. vc1 21:29 Sola Hurd, RN is Primary Nurse. tm6 21:30 Patient has correct armband on for positive identification. Bed in low position. Side tm6 rails up X 1. Provided Education on: plan of care. Client placed on continuous cardiac and pulse oximetry monitoring. NIBP monitoring applied. Pulse ox on. NIBP on. Door closed. Noise minimized. Lights dimmed. Warm blanket given. 21:30 Arm band placed on right wrist. tm6 21:30 Inserted saline lock: 22 gauge in right antecubital area, using aseptic technique. tm6 22:36 No provider procedures requiring assistance completed. IV discontinued, intact, tm6 bleeding controlled, No redness/swelling at site. Pressure dressing applied. Administered Medications: No medications were administered Medication: 21:30 VIS not applicable for this client. tm6 Outcome: 22:31 Discharge ordered by . kb 22:37 Discharged to home ambulatory, with family, tm6 22:37 Condition: stable 22:37 Discharge instructions given to patient, Instructed on discharge instructions, follow up and referral plans. Demonstrated understanding of instructions, follow-up care, 22:37 Patient left the ED. tm6 Signatures: Dispatcher [employer] [facility] Wendie Carpio FNP-C FNP-Ckb Jeffries, Jennifer jj6 Patt Barakat RN RN vc1 Dwain Miranda MD MD sp4 Sola Hurd RN RN tm6
--- NOTE | 2023-05-18 22:31 | EDPHYS ---
Physician Documentation [facility] Name: Shanique Avelar Age: 27 yrs Sex: Female : 1995 Arrival Date: 05/18/2023 Time: 20:44 Bed 4 Private MD: ED Physician Dwain Miranda HPI: 05/18 20:47 This 27 yrs old Black Female presents to ER via Unassigned with complaints of EST 20 sp4 WKS GESTATION, Abdominal Pain, Nausea. 22:22 Patient is a 27-year-old female who is approximately 20 weeks and presents for kb lower abdominal pain that started 3 days ago. Denies urinary symptoms, vaginal bleeding or discharge, nausea, vomiting, diarrhea. Denies fever. States she has an appointment with her OB tomorrow but she was bringing in her daughter's to be checked for sore throat so she decided to get checked out here tonight. LMP 12/27/2022. A2. 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 - Social history:: Smoking status: Patient denies any tobacco usage or history of. ROS: 22:22 Constitutional: Negative for fever, chills, and weight loss, kb 22:22 Abdomen/GI: Positive for abdominal pain, Negative for nausea, vomiting, and diarrhea, 22:22 All other systems are negative, Exam: 22:22 Constitutional: This is a well developed, well nourished patient who is awake, alert, kb and in no acute distress. Head/Face: Normocephalic, atraumatic. ENT: Moist Mucous membranes Cardiovascular: Regular rate Respiratory: Respirations even and unlabored. No increased work of breathing. Talking in full sentences Abdomen/GI: Soft, non-tender. No distention Skin: Warm, dry with normal turgor. Normal color. MS/ Extremity: Pulses equal, no cyanosis. Neurovascular intact. Full, normal range of motion. Neuro: Awake and alert, GCS 15, oriented to person, place, time, and situation. Moves all extremities. Normal gait. Vital Signs: 21:23 Temp 97.6; Weight 117.03 kg; Height 5 ft. 7 in. ; Pain 7/10; vc1 21:29 BP 115 / 83; Pulse 93; Resp 19; Temp 97.5(TE); Pulse Ox 97% on R/A; Height 5 ft. 7 in. tm6 ; Pain 10/10; 22:31 BP 105 / 79; Pulse 82; Resp 19; Pulse Ox 100% ; Pain 0/10; tm6 22:36 Temp 97.3(TE); tm6 21:23 Body Mass Index 40.41 (117.03 kg, 170.18 cm) vc1 21:23 Pain Scale: Adult vc1 21:29 Pain Scale: Adult tm6 22:31 Pain Scale: Adult tm6 MDM: 20:49 Patient medically screened. sp4 22:22 Differential diagnosis: eric willingham, threatened , abd pain in . Data kb reviewed: vital signs, nurses notes. Counseling: I had a detailed discussion with the patient and/or guardian regarding the historical points, exam findings, and any diagnostic results supporting the discharge/admit diagnosis, lab results, radiology results, the need for outpatient follow up, an OB/Gyne specialist, to return to the emergency department if symptoms worsen or persist or if there are any questions or concerns that arise at home. 22:31 ED course: pt has appt with OB in the morning and will keep appt. felton 05/18 20:48 Order name: CBC with Diff; Complete Time: 21:50 sp4 05/18 20:48 Order name: CMP; Complete Time: 22:22 sp4 05/18 20:48 Order name: Lipase; Complete Time: 22:22 sp4 05/18 20:48 Order name: Urinalysis w/ reflexes; Complete Time: 21:30 sp4 05/18 20:48 Order name: Abo/rh Typing sp4 05/18 20:48 Order name: HCG-Quantitative; Complete Time: 22:22 sp4 05/18 20:48 Order name: US OB Limited; Complete Time: 21:42 sp4 05/18 20:48 Order name: IV Saline Lock; Complete Time: 21:32 sp4 05/18 20:48 Order name: Labs collected and sent; Complete Time: 21:32 sp4 Administered Medications: No medications were administered Disposition: 23:56 Co-signature as Attending Physician, Dwain Miranda MD I agree with the assessment sp4 and plan of care. I reviewed the patient's care provided by the Advanced Practice Provider and agree with the diagnosis and treatment plan. Disposition Summary: 05/18/23 22:31 Discharge Ordered Notes: Location: Home kb Condition: Stable kb Diagnosis - Abdominal pain, unspecified kb - 21 weeks gestation of kb Followup: kb - With: Emergency Department - When: As needed - Reason: Worsening of condition Followup: kb - With: Private Physician - When: 2 - 3 days - Reason: Recheck today's complaints, Continuance of care, Re-evaluation by your physician Discharge Instructions: - Discharge Summary Sheet kb - Abdominal Pain During kb Forms: - Medication Reconciliation Form kb - Thank You Letter kb - Antibiotic Education kb - Prescription Opioid Use kb - Patient Portal Instructions kb - Leadership Thank You Letter kb Signatures: Dispatcher [employer] EDWendie Christianson, FIONA-C CABIN SUPERVISOR-Patt Baxter RN RN vc1 Dwain Miranda MD MD sp4 Corrections: (The following items were deleted from the chart) 22:24 22:22 Patient is a 27-year-old female who is approximately 20 weeks and kb presents for lower abdominal pain that started 3 days ago. Denies urinary symptoms, vaginal bleeding or discharge, nausea, vomiting, diarrhea. Denies fever. States she has an appointment with her OB tomorrow but she was bringing in her daughter's to be checked for sore throat so she decided to get checked out here tonight.. kb
[2023-05-18 23:32] VITALS: BP 105/79; TEMP 97.3; O2SAT 100
== END ==
LOC: ER 20:44
DX: O26.892 Other specified pregnancy related conditions, second trimester (principal); Z3A.21 21 weeks gestation of pregnancy
CPT/HCPCS: 36415; 76815; 80053; 81001; 83690; 84702; 85025; 86900; 86901

== ENCOUNTER 2024-06-12 12:12 | Emergency (ER) | payer OTHER, SELFPAY ==
--- OUTSIDE RECORDS SUMMARY | 2024-06-12 12:19 | XMS REPORT | Continuity of Care Document ---
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 patient has an abnormal Pap test which requires correlationwith any available histologic data you may have in your records(current or future follow-up cervical biopsies, endocervicalcurettage specimens, or cone biopsies). When this information isavailable, please forward a copy to [facility]. Thank you. LAY OUT WORKER: (test code = 8101) Padmini Miramontes PATHOLOGIST INTERPRETATION BY: (test code = 8122) Diana Machado LOCATION: (test code = 55677) (NOTE) Specimens proces sed and interpreted at [facility], [address] [place] [address], , CLIA: [id number] CPT: (test code = 8140) (NOTE) 52837, 06242 UNL ESS OTHERWISE INDICATED, COMPUTER AIDED AND LAY OUT WORKER SCREENING PERFORMED. The Pap test is a screening test with an inherent, but low probability of error. Your patient should be reminded to consult you immediately if she experiences any suspicious signs or symptoms, regardless of her Pap test result. An alternate report format containing images or consolidated prior Pap history is available as applicable. HPV HIGH RISK WITH GENOTYPE, [id number] 16:02:00* Test Item Value Reference Range Interpretation Comme nts HPV HIGH RISK INTERP (test code = 66162) POSITIVE NEGATIVE A HPV 16 (test code = 70182) NEGATIVE HPV 18 (test code = 28880) NEGATIVE HPV, HR, OTHER GENOTYPES (test code = 96082) POSITIVE A Testing methodol ogy is real-time PCR utilizing hydrolysis probes with the Armida Doni 4800 system. The test individually detects genotypes 16 and 18, as well as the other 12 high risk types (31,33,35,39,45,51,52,56 ,58,59,66,68). The expected result is negative. A negative result does not rule out the presence of HPV not included in the genotype set, a low level of infection or specimen sampling error. UNLESS OTHERWISE INDICATED, ALL TESTING PERFORMED AT [facility] [address] [place] [address] MASH FILTER CLOTH CHANGER: BREA RIVERS M.D. PILI NUMBER [id number] [facility] [place]. [id number] VAGINAL PATHOGENS DNA [id number] 13:48:25* Test Item Value Reference Range Interpretation Comme nts STAN SPECIES (test code = 97012) NEGATIVE NEGATIVE G. VAGINALIS (test code = ) POSITIVE NEGATIVE A T. VAGINALIS (test code = ) NEGATIVE NEGATIVE Note: The BD [facility] irm VPIII Microbial Identification Testis a DNA probe test intended for use in the detectionand identification of Stan species, Gardnerellavaginalis and Trichomonas vaginalis nucleic acid. MATERNAL AFP FOR NTD [id number] 12:22:55* Test Item Value Reference Range Interpretation Comme nts INTERPRETATION (test code = 578100) SCREEN NEGATIVE Neural tube defect risk (test code = 23990) 1:54843 Neural tube defect interpretation (test code = 70281) (NOTE) --- NORMAL - NOT AT INCREASED [...] 2657) 253 LBS INITIAL/REPEAT (test code = 014859) INITIAL FAMILY HISTORY OF NTD (test code = 608883) NO INSULIN DEP. DIABETIC (test code = 2659) NO RACE (test code = 2658) BLACK SMOKER? (test code = 357351) NO NUMBER OF GESTATIONS (test code = 13542) 1 GESTATIONAL AGE (test code = 2656) 16.4 WEEKS DETERMINED BY: (test code = 2654) US DATE OF SONOGRAM (test code = 92742) 03/31/2023 GESTATIONAL AGE AT SONO (test code = 2653) 13.4 WEEKS ADJUST AFP M.O.M. (test code = 2661) 0.79 M.O.M. AFP (test code = 39010) 23.9 NG/ML GLUCOSE 1 HR POST 50 [id number] 07:50:22* Test Item Value Reference Range Interpretation Comme nts GLUCOSE 1 HR POST 50 GM (mehul t code = 2005) 139 MG/DL <140 DRUG ABUSE SCREEN 10 REFLEX [id number] 07:38:58* Test Item Value Reference Range Interpretation Comme nts AMPHETAMINES (test code = 3201) NEGATIVE NEGATIVE BARBITURATES (test code = 3202) NEGATIVE NEGATIVE BENZODIAZEPINES (test code = 3203) NEGATIVE NEGATIVE CANNABINOIDS (test code = 3204) NEGATIVE NEGATIVE COCAINE METABOLITE (test code = 3205) NEGATIVE NEGATIVE OPIATES (test code = 3209) NEGATIVE NEGATIVE OXYCODONE (test code = 01105) NEGATIVE NEGATIVE PHENCYCLIDINE (test code = 3210) NEGATIVE NEGATIVE METHADONE (test code = 3207) NEGATIVE NEGATIVE BUPRENORPHINE (test code = 49930) NEGATIVE NEGATIVE SOURCE (test code = 971409) URINE SEE BELOW FO R THRESHOLDS AND [...] for specificcompounds or contact the laboratory within specimen stability toforward for confirmatory testing. This test is specified for medicalpurposes only. It is not valid for forensic use. UNLESS OTHERWISE INDICATED, ALL TESTING PERFORMED AT [facility] [address] [place] [address] MASH FILTER CLOTH CHANGER: BREA RIVERS M.D. CLIA NUMBER [id number] [place]. [id number] DRUG SCREEN, SERUM, NO [id number] 09:54:58* Test Item Value Reference Range Interpretation Comme nts AMPHETAMINES (test code = 27231) TEST NOT PERFORMED Unable to perform testing, specimen not received.Charge s adjusted as applicable. BARBITURATES (test code = 73000) TEST NOT PERFORMED BENZODIAZEPINES (test code = 46592) TEST NOT PERFORMED COCAINE METABOLITE (test code = 43579) TEST NOT PERFORMED METHADONE (test code = 63107) TEST NOT PERFORMED OPIATES (test code = 275997) TEST NOT PERFORMED PHENCYCLIDINE (test code = 148500) TEST NOT PERFORMED PROPOXYPHENE (test code = 773592) TEST NOT PERFORMED THC (CANNABIS) (test code = 022038) TEST NOT PERFORMED ETHANOL (test code = 062152) TEST NOT PERFORMED T. PALLIDUM - [id number] 11:53:06* Test Item Value Reference Range Interpretation Comme nts T. PALLIDUM - PA (test code = 46441) REACTIVE NON-REACTIVE A UNLESS OTHER MORA INDICATED, ALL TESTING PERFORMED AT [facility] [address] [place] [address] MASH FILTER CLOTH CHANGER: BREA RIVERS M.D. CLIA NUMBER [id number] [place]. [id number] PROTHROMBIN TIME (PT)2023-04-13 11:19:37* Test Item Value Reference Range Interpretation Comme nts PROTHROMBIN TIME (PT) (test code = 1402) TEST NOT PERFORMED SECONDS 12.5-14.7 Unable to perform testing, specimen not received.Charges adjusted as applicable. INR (test code = 22430) TEST NOT PERFORMED SEE BELOW CURRENT RECOMMENDATIONS ARE FOR AN INR OF 2.0-3.0 FOR ALL PATIENTS ON VITAMIN K ANTAGONISTS, EXCEPT THOSE WITH PROSTHETIC HEART VALVES, FOR WHOM INR OF 2.5-3.5 IS RECOMMENDED. [id number] 11:19:37* Test Item Value Reference Range Interpretation Comme nts PTT (test code = 1403) TEST NOT PERFORMED SECONDS 25.2-40.0 HEMOGLOBIN [id number] 16:38:02* Test Item Value Reference Range Interpretation Comme nts HEMOGLOBIN A1 (test code = 2575) 97.2 % 95.0-98.5 HEMOGLOBIN A2 (test code = 2576) 2.8 % 1.6-3.7 HEMOGLOBIN F () (test code = 2722) 0.0 % 0.0-2.0 HEMOGLOBIN S (test code = 2724) NONE % NONE DETECTED HEMOGLOBIN C (test code = 2726) NONE % NONE DETECTED OTHER HEMOGLOBIN VARIANT (test code = 03606) NONE DETEC % NONE DETECTED PATHOLOGIST'S INTERPRETATION (test code = 2577) (NOTE) NO ABNORMAL HEMOGLOBINS IDENTIFIED. BREA RIVERS M.D. OBSTETRIC PANEL + [id number] 01:33:01* Test Item Value Reference Range Interpretation [...] 0.00-0.10 ABS NUCLEATED RBCS (test code = 08630) 0.00 K/UL 0.00-0.11 BLOOD TYPE AND RH [...] BELOW RUBELLA IgG INTERP (test code = 45888) REACTIVE REACTIVE INTERPRETATION U NITS RANGE NON-REACTIVE/NON-IMMUNE IU/ML <10 REACTIVE/IMMUNE IU/ML >=10 HEPATITIS B SURF AG (test code = 2739) NON-REACTIVE NON-REACTIVE RPR (test code = 79905) REACTIVE NON-REACTIVE A SCREENING RPR RE ACTIVE. [...] code = 3514) NON-REACTIVE NON-REACTIVE HEPATITIS PANEL, [id number] 01:33:01* Test Item Value Reference Range Interpretation Comme nts HEPATITIS A IgM (test code = 26104) NON-REACTIVE NON-REACTIVE HEPATITIS B CORE IgM (test code = 4644) NON-REACTIVE NON-REACTIVE HEPATITIS B SURF AG (test code = 2739) NON-REACTIVE NON-REACTIVE HEPATITIS C ANTIBODY (test code = 4675) NON-REACTIVE NON-REACTIVE INTERPRETATION HEPATITIS A: (test code = 2552) (NOTE) Hepatitis A serology shows no evidence of acute hepatitis A. INTERPRETATION HEPATITIS B: (test code = 61614) (NOTE) Hepatitis B serology shows no evidence of acute hepatitis B andno indication of exposure to hepatitis B virus in the previous immanuel eight months. INTERPRETATION HEPATITIS C: (test code = 01689) (NOTE) Hepatitis C serology shows no evidence of exposure to hepatitisC virus at this time. It can take up to 12 months after exposure tothe hepatitis C virus for antibodies to become detectable in the blood in certain patients. VARICELLA ZOSTER [id number] 12:43:34* Test Item Value Reference Range Interpretation Comme nts VARICELLA ZOSTER IgG (test code = 86172) 106 INDEX SEE BELOW L INTERPRETATI ON [...] . . . . INDEX >=165 CULTURE, [id number] 08:51:37SPECIMEN NUMBER: [id number] CULTURE, URINE SPECIMEN NUMBER: [id number] SPECIMEN COMMENT: URINE SOURCE: URINE REPORT STATUS: FINAL FINAL REPORT: 04/11/2023 <10,000 CFU/ML UROGENITAL FREDY PRESENT NO COMMON PATHOGENSCOMPREHENSIVE METABOLIC [id number] 00:28:23* Test Item Value Reference Range Interpretation Comme nts GLUCOSE (test code = 2217) 114 MG/DL 70-99 H BUN (test code = 2208) 7 MG/DL 6-20 CREATININE (test code = 2214) 0.57 MG/DL 0.60-1.30 L eGFR (2020 CKD-EPI) (test code = 96274) 127 ML/MIN/1.73 >60 CALC BUN/CREAT (test code = 2235) 12 RATIO 6-28 SODIUM (test code = 223) 139 MEQ/L 133-146 POTASSIUM (test code = [...] code = 2218) 6 U/L 5-40 HCG, [id number] 00:28:05* Test Item Value Reference Range Interpretation Comme nts HCG, QUANTITATIVE (test code = 2506) 66717 MIU/ML SEE BELOW EXPECTED VALUES FOR HCG [...] . . . . . . MIU/ML 7-8NIFQ-JBTDSKEWPA FEMALES . . . . . . . . . . . . MIU/ML <=7 CREATININE, URINE, 24 [id number] 02:40:10* Test Item Value Reference Range Interpretation Comme nts CREATININE, URINE, CONC. (test code = 2071) 397.9 MG/DL NOT ESTAB CREATININE, URINE, 24 HR (test code = 2109) 2.2 GM/24 HOURS 1.0-2.0 H TOTAL URINE VOLUME (test cod e = 2055) 550 ML 500-3500 PROTEIN, URINE, 24 [id number] 02:40:10* Test Item Value Reference Range Interpretation Comme nts PROTEIN, URINE, CONC. (test code = 2103) 17 MG/DL NOT ESTAB PROTEIN, URINE 24 HR (test code = 2059) 94 MG/24 HOURS 0-150 TOTAL URINE VOLUME (test code = 2055) 550 ML 500-3500 UNLESS OTHERWISE INDICATED, ALL TESTING PERFORMED AT [facility] [address] [place] [address] MASH FILTER CLOTH CHANGER: BREA RIVERS M.D. CLIA NUMBER [id number] [place]. [id number] GONORRHEA, NAAT, [id number] 12:27:38* Test Item Value Reference Range Interpretation Comme nts GONORRHEA, NAAT, URINE (test code = 16042) NEGATIVE NEGATIVE Testing is perfo rmed with Armida DONI 6800/8800 systems usingreal-time polymerase chain reaction (PCR) method. A negative result does not exclude low level infection, specimensampling error, or collection error. CHLAMYDIA, NAAT, [id number] 12:27:38* Test Item Value Reference Range Interpretation Comme nts CHLAMYDIA, NAAT, URINE (test code = 47344) POSITIVE NEGATIVE A Testing is perfo rmed with Armida DONI 6800/8800 systems usingreal-time polymerase chain reaction (PCR) method. UNLESS OTHERWISE INDICATED, ALL TESTING PERFORMED AT [facility] [address] [place] [address] MASH FILTER CLOTH CHANGER: BREA RIVERS M.D. CLIA NUMBER [id number] [place]. [id number] TOTAL BETA HCG [id number] 19:43:17* Test Item Value Reference Range Interpretation Comme nts BETA HCG (test code = 3379302420) 45936.00 See_Comment [Automated Ofuza ge] The system which generated this result transmitted reference range: Non- female and male patients: <5 mIU/mL. The reference range was not used to interpret this result as normal/abnormal. BRENDA (test code = BRENDA) Gestational Age ?Range (mIU/mL) 1-10 ?Weeks ?90-23187121-52 Weeks ?94970-80022747-02 Weeks ?2555-69488574-04 Weeks ?7573-473360 Biotin has been reported to cause a negative bias, interpret results relative to patient's use of biotin. [facility] [id number] 19:15:00* Test Item Value Reference Range Interpretation Comme nts POCT PREG (test code = 1605) Negative On board controls acceptable with C Line (test code = 3574) Yes POCT PREG LOT # (test code = 3575) [id number] POCT PREG TEST DATE ( test code = 3576) [id number] Lab Interpretation (test cod e = 35789-7) Normal [facility]. METABOLIC PANEL (71287)2023-02-15 18:56:56* Test Item Value Reference Range Interpretation Comme nts NA (test code = 3443806267) 139 mmol/L 135-145 K (test code = 7461877534) 3.5 mmol/L 3.5-5.0 CL (test code = 4441749750) 107 mmol/L 98-108 CO2 TOTAL (test code = 9149784619) 24 mmol/L 23-31 AGAP (test code = 1430662741) 8 2-16 BUN (test code = 4599213442) 8 mg/dL 7-23 GLUCOSE (test code = 2611850946) 65 mg/dL 70-110 L CREATININE (test code = 4104465790) 0.64 mg/dL 0.50-1.04 TOTAL BILI (test code = 1274565729) 0.6 mg/dL 0.1-1.1 CALCIUM (test code = 9350974811) 9.4 mg/dL 8.6-10.6 T PROTEIN (test code = 0145834027) 8.4 g/dL 6.3-8.2 H ALBUMIN (test code = 0823944204) 4.5 g/dL 3.5-5.0 ALK PHOS (test code = 3770365170) 62 U/L 34-122 ALTv (test code = 1742-6) 13 U/L 5-35 AST(SGOT) (test code = 1907360566) 23 U/L 13-40 eGFR (test code = 33685-1) 123.6 mL/min/1.73m2 CKD-EPI eGFR (2020). Assuming creatinine has been stable day-to-day for at least three months, the eGFR indicates Category G1 (>= 90 mL/min/1.73 m2) Lab Interpretation (test code = 74158-5) Abnormal [facility] WITH [id number] 18:46:33* Test Item Value Reference Range Interpretation Comme nts WBC (test code = 6690-2) 6.45 See_Comment [Automated Capstory] The system which generated this result transmitted reference range: 4.30 - 11.10 10*3/?L. The reference range was not used to interpret this result as normal/abnormal. RBC (test code = 789-8) 4.57 See_Comment [Automated Capstory] The system which generated this result transmitted [...] 32.2 g/dL 31.6-35.1 RDW-SD (test code = 63324-9) 43.9 fL 39.0-49.9 RDW-CV (test code = 788-0) 13.4 % 12.0-15.5 PLT (test code = 777-3) 277 See_Comment [Automated messa ge] The system which generated this result transmitted reference range: 166 - 358 10*3/?L. The reference range was not used to interpret this result as normal/abnormal. MPV (test code = 56801-7) 9.4 fL 9.5-12.9 L NRBC/100 WBC (test code = 7973859984) 0.0 See_Comment [Automated Station X ssage] The system which generated this result transmitted reference range: 0.0 - 10.0 /100 WBCs. The reference range was not used to interpret this result as normal/abnormal. NRBC x10^3 (test code = 6206715365) See_Comment [Automated messa ge] The system which generated this result transmitted reference range: 10*3/?L. The reference range was not used to interpret this result as normal/abnormal. GRAN MAT (NEUT) % (test code = 770-8) 59.9 % IMM GRAN % (test code = 0550251031) 0.30 % LYMPH % (test code = 736-9) 31.0 % MONO % (test code = 5905-5) 5.9 % EOS % (test code = 713-8) 2.6 % BASO % (test code = 706-2) 0.3 % GRAN MAT x10^3(ANC) (test code = 5510688795) 3.86 10*3/uL 1.88-7.09 IMM GRAN x10^3 (test code = 0492001692) 0.00-0.06 LYMPH x10^3 (test code = 731-0) 2.00 10*3/uL 1.32-3.29 MONO x10^3 (test code = 742-7) 0.38 10*3/uL 0.33-0.92 EOS x10^3 (test code = 711-2) 0.17 10*3/uL 0.03-0.39 BASO x10^3 (test code = 704-7) 0.01-0.07 Lab Interpretation (test code = 29859-5) Abnormal [facility] [id number] 06:27:00* Test Item Value Reference Range Interpretation Comme nts POCT PREG (test code = 1605) Negative On board controls acceptable with C Line (test code = 3574) Yes POCT PREG LOT # (test code = 5359) [id number] POCT PREG TEST DATE ( test code = 3576) Lab Interpretation (test cod e = 76928-7) [facility] METABOLIC PANEL (31730)2021-09-23 22:04:16* Test Item Value Reference Range Interpretation Comme nts NA (test code = 9734337100) 139 mmol/L 135-145 K (test code = 9481860201) 4.1 mmol/L 3.5-5.0 CL (test code = 9253251225) 106 mmol/L 98-108 CO2 TOTAL (test code = 8212154709) 24 mmol/L 23-31 AGAP (test code = 7151263918) 2-16 BUN (test code = 8575848216) 12 mg/dL 7-23 GLUCOSE (test code = 5319844021) 109 mg/dL 70-110 CREATININE (test code = 6739144544) 0.74 mg/dL 0.50-1.04 TOTAL BILI (test code = 9093883914) 0.2 mg/dL 0.1-1.1 CALCIUM (test code = 8497179620) 9.0 mg/dL 8.6-10.6 T PROTEIN (test code = 6788625720) 7.0 g/dL 6.3-8.2 ALBUMIN (test code = 4919655487) 4.0 g/dL 3.5-5.0 ALK PHOS (test code = 3439715325) 67 U/L 34-122 ALTv (test code = 1742-6) 13 U/L 5-35 AST(SGOT) (test code = 4213626177) 15 U/L 13-40 eGFR (test code = 4100849333) mL/min/1.73m2 BRENDA (test code = BRENDA) Association [...] or urine or abnormalities in imaging tests). [facility] 22:04:16* Test Item Value Reference Range Interpretation Comme nts LIPASE (test code = 7192138600) 165 U/L 0-220 Lab Interpretation (test cod e = 21874-0) [facility] [id number] 21:50:54* Test Item Value Reference Range Interpretation Comme nts WBC (test code = 6690-2) See_Comment [Automated Capstory] The system which generated this result transmitted reference range: 4.30 - 11.10 10*3/?L. The reference range was not used to interpret this result as normal/abnormal. RBC (test code = 789-8) See_Comment [Automated Capstory] The system which generated this result transmitted [...] g/dL 31.6-35.1 L RDW-SD (test code = 65748-0) 46.8 fL 39.0-49.9 RDW-CV (test code = 788-0) 14.8 % 12.0-15.5 PLT (test code = 777-3) See_Comment [Automated messa ge] The system which generated this result transmitted reference range: 166 - 358 10*3/?L. The reference range was not used to interpret this result as normal/abnormal. MPV (test code = 01858-0) 9.9 fL 9.5-12.9 NRBC/100 WBC (test code = 1891390739) See_Comment [Automated Station X ssage] The system which generated this result transmitted reference range: 0.0 - 10.0 /100 WBCs. The reference range was not used to interpret this result as normal/abnormal. NRBC x10^3 (test code = 0115578864) <0.01 See_Comment [Automated messa ge] The system which generated this result transmitted reference range: 10*3/?L. The reference range was not used to interpret this result as normal/abnormal. GRAN MAT (NEUT) % (test code = 770-8) 47.1 % IMM GRAN % (test code = 0674877274) 0.20 % LYMPH % (test code = 736-9) 40.2 % MONO % (test code = 5905-5) 6.5 % EOS % (test code = 713-8) 5.7 % BASO % (test code = 706-2) 0.3 % GRAN MAT x10^3(ANC) (test code = 7386362650) 2.89 10*3/uL 1.88-7.09 IMM GRAN x10^3 (test code = 5983334457) <0.03 0.00-0.06 LYMPH x10^3 (test code = 731-0) 2.47 10*3/uL 1.32-3.29 MONO x10^3 (test code = 742-7) 0.40 10*3/uL 0.33-0.92 EOS x10^3 (test code = 711-2) 0.35 10*3/uL 0.03-0.39 BASO x10^3 (test code = 704-7) <0.03 0.01-0.07 Lab Interpretation (test code = 24266-8) [facility]normal [facility] [id number] 21:15:00* Test Item Value Reference Range Interpretation Comme nts POCT PREG (test code = 1605) negative On board controls acceptable with C Line (test code = 3574) present POCT PREG LOT # (test code = 3575) [id number] POCT PREG TEST DATE ( test code = 3576) 01/18/2023 Lab Interpretation (test cod e = 90361-2) [facility] [id number] 02:14:14* Test Item Value Reference Range Interpretation Comme nts WHITE BLOOD CELLS (test code = 1513) 0-5 /HPF 0-5 RED BLOOD CELLS (test code = 1514) 0-2 /HPF 0-5 EPITHELIAL CELLS (test code = 28334) 0-5 /HPF 0-10 BACTERIA (test code = 1515) NONE SEEN NONE SEEN CASTS, HYALINE (test code = 1517) NONE SEEN NONE-TRACE UNLESS OTHERWISE INDICATED, ALL TESTING PERFORMED [facility] [address] [place], [place] [id number] MASH FILTER CLOTH CHANGER: NILDA GORDILLO M.D. CLIA NUMBER [id number] [place]. [id number] CULTURE, [id number] 11:52:32SPECIMEN NUMBER: [id number] CULTURE, URINE SPECIMEN NUMBER: [id number] SPECIMEN COMMENT: URINE SOURCE: URINE REPORT STATUS: FINAL FINAL REPORT: 07/15/2021 50-100,000 CFU/ML MIXED UROGENITAL FREDY UNLESS OTHERWISE INDICATED, ALL TESTING PERFORMED [facility] [address] [place] [address] MASH FILTER CLOTH CHANGER: NILDA GORDILLO M.D. CLIA NUMBER [id number] CAP ACCREDITATIONNO. [id number] W/AUTO DIFF WITH [id number] 02:16:29* Test Item Value Reference Range Interpretation [...] 0.00-0.10 ABS NUCLEATED RBCS (test code = 13666) 0.00 K/UL 0.00-0.11 UNLESS OTHER MORA INDICATED, [facility] [address] [place] [id number] [employer] CHANGER: NILDA GORDILLO M.D. CLIA NUMBER [id number] [place]. [id number] CBC W/AUTO DIFF WITH [id number] 09:30:01* Test Item Value Reference Range Interpretation [...] 0.00-0.10 ABS NUCLEATED RBCS (test code = 24692) TEST NOT PERFORMED K/UL 0.00-0.11 COMMENTS (test code = 1016) TEST NOT PERFORMED CULTURE, [id number] 09:41:58SPECIMEN NUMBER: [id number] CULTURE, URINE SPECIMEN NUMBER: [id number] SPECIMEN COMMENT: URINE SOURCE: URINE REPORT STATUS: FINAL FINAL REPORT: 07/03/2021 50-100,000 CFU/ML MIXED UROGENITAL FLORAHCG, [id number] 05:48:47* Test Item Value Reference Range Interpretation Comme nts HCG, QUALITATIVE (test code = 2507) NEGATIVE NEGATIVE COMPREHENSIVE METABOLIC [id number] 03:43:13* Test Item Value Reference Range Interpretation Comme nts GLUCOSE (test code = 2217) 96 MG/DL 70-99 BUN (test code = 2208) 12 MG/DL 6-20 CREATININE (test code = 2214) 0.79 MG/DL 0.60-1.30 eGFR (2020 CKD-EPI) (test code = 72384) 106 ML/MIN/1.73 >60 CALC BUN/CREAT (test code = 2235) 15 RATIO 6-28 SODIUM (test code = 223) 141 MEQ/L 133-146 POTASSIUM (test code = 2228) 3.8 MEQ/L 3.5-5.4 CHLORIDE (test code = 2215) 105 MEQ/L 95-107 CARBON DIOXIDE (test code = 2206) 22 MEQ/L 19-31 CALCIUM (test code = 2208) 9.9 MG/DL 8.5-10.5 PROTEIN, TOTAL (test code = 222) 8.3 G/DL 6.1-8.3 ALBUMIN (test code = 1) 4.9 G/DL 3.5-5.2 CALC GLOBULIN (test code [...] U/L 5-40 HIV 1/2 4TH GEN, RFLX [id number] 03:40:40* Test Item Value Reference Range Interpretation Comme nts HIV 1/2 4TH GEN, RFLX CONF ( test code = 3514) NON-REACTIVE NON-REACTIVE [id number] 03:12:37* Test Item Value Reference Range Interpretation Comme nts PTT (test code = 1403) 29.7 SECONDS 25.2-40.0 PROTHROMBIN TIME (PT)2021-07-02 03:12:37* Test Item Value Reference Range Interpretation Comme nts PROTHROMBIN TIME (PT) (test code = 1402) 14.1 SECONDS 12.5-14.7 INR (test code = 65689) 1.0 SEE BELOW CURRENT RECOMMENDATIONS ARE FOR AN INR OF 2.0-3.0 FOR ALL PATIENTS ON VITAMIN K ANTAGONISTS, EXCEPT THOSE WITH PROSTHETIC HEART VALVES, FOR WHOM INR OF 2.5-3.5 IS RECOMMENDED. UNLESS OTHERWISE INDICATED, ALL TESTING PERFORMED [facility] [address] [place] [address] MASH FILTER CLOTH CHANGER: NILDA GORDILLO M.D. CLIA NUMBER [id number] [facility] [place]. [id number] 04:05:52* Test Item Value Reference Range Interpretation Comme nts PTT (test code = 1403) 29.3 SECONDS 25.2-40.0 UNLESS OTHERWISE INDICATED, ALL TESTING PERFORMED [facility] [address] [place] [address] MASH FILTER CLOTH CHANGER: NILDA GORDILLO M.D. CLIA NUMBER [id number] [place] [id number] HIV 1/2 4TH GEN, RFLX [id number] 04:37:11* Test Item Value Reference Range Interpretation Comme nts HIV 1/2 4TH GEN, RFLX CONF ( test code = 3514) NON-REACTIVE NON-REACTIVE CULTURE, [id number] 10:12:10SPECIMEN NUMBER: [id number] CULTURE, URINE SPECIMEN NUMBER: [id number] SPECIMEN COMMENT: URINE SOURCE: URINE REPORT STATUS: FINAL FINAL REPORT: 05/11/2021 10-50,000 CFU/ML MIXED UROGENITAL FLORAHCG, [id number] 04:18:17* Test Item Value Reference Range Interpretation [...] . . . . . . MIU/ML [id number] FEMALES . . . . . . . . . . . . MIU/ML <=7 UNLESS OTHERWISE INDICATED, ALL TESTING PERFORMED [facility] [address] [place] [address] MASH FILTER CLOTH CHANGER: NILDA GORDILLO M.D. [place] NUMBER [id number] [facility] [place]. [id number] COMPREHENSIVE METABOLIC [id number] 00:35:57* Test Item Value Reference Range Interpretation Comme nts GLUCOSE (test code = 2216) 108 MG/DL 70-99 H BUN (test code = 2207) 9 MG/DL 6-20 CREATININE (test code = 221) 0.88 MG/DL 0.60-1.30 eGFR (2020 CKD-EPI) (test code = 36506) 93 ML/MIN/1.73 >60 CALC BUN/CREAT (test code = 2235) 10 RATIO 6-28 SODIUM (test code = 223) 142 MEQ/L 133-146 POTASSIUM (test code = 2228) 3.7 MEQ/L 3.5-5.4 CHLORIDE (test code = 221) 105 MEQ/L 95-107 CARBON DIOXIDE (test code [...] 14.1 SECONDS 12.5-14.7 INR (test code = 57152) 1.1 SEE BELOW CURRENT RECOMMENDATIONS ARE FOR AN INR OF 2.0-3.0 FOR ALL PATIENTS ON VITAMIN K ANTAGONISTS, EXCEPT THOSE WITH PROSTHETIC HEART VALVES, FOR WHOM INR OF 2.5-3.5 IS RECOMMENDED. CBC W/AUTO DIFF WITH [id number] 02:45:06* Test Item Value Reference Range Interpretation [...] = 1065) 0.0 /100 WBC'S See_Comment [Automated Ofuza ge] The system which generated this result [...] 0.00-0.10 ABS NUCLEATED RBCS (test code = 95411) 0.00 K/UL 0.00-0.11 Notes Date/Time Note Provider Source 2023-05-25 16:54:48 Pt brought in by [facility] with c/o contractions that started yesterday but have continued to get worse. EMS states contractions are 2-3mins apart lasting 45sec to 1min. Pt is 23wks, A2. Pt provider at [facility]. 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 Pt given printed and verbal discharge instructions regarding chest pain and paresthesia Pt verbalized understanding of instructions, pt awake alert oriented, resp reg unlabored, skin w/d, color appropriate for race, moves all ext well,pt encouraged to follow up with pcp Advised to seek medical attention for new/prolonged/worsening of symptoms No adverse reaction to meds given in ER noted upon discharge PIV d'cd, dressing to site, catheter in tact. Awake, alert oriented, resp reg unlabored, skin w/d, pt leaving amb with steady gait, in no apparent distress Chitra Maher RN [facility] 2022-11-20 00:56:21 Formatting of this n ote might be different from the original. Pt had multiple IV sticks with various nurses. 3rd [employer] IV trained RN attempting access at this time. Antionette Valera RN [facility] 2022-11-19 22:44:50 Formatting of this n ote might be different from the original. Chest pain , sob, weakness, right side body numbness that started 4 days ago Stacey Espino RN [facility]"
[2024-06-12 13:32] LABS: Specific Gravity > 1.030 (1.005-1.030)
[2024-06-12 13:34] LABS: Specific Gravity > 1.030 (1.005-1.030); Urine Bacteria <20 /HPF (<20); Urine Bilirubin NEGATIVE (Negative); Urine Blood Negative (Negative); Urine Clarity Extremely Turbid (Clear); Urine Color Yellow (Yellow); Urine Culture Reflex Order NOT NEEDED; Urine Glucose NEGATIVE (Negative); Urine Ketones NEGATIVE (Negative); Urine Microscopic Reflex YN ORDER UMIC; Urine Mucus 2+ /HPF (None Seen); Urine Nitrite NEGATIVE (Negative); Urine Protein TRACE (Negative); Urine RBC <5 /HPF (None Seen); Urine Urobilinogen 1+ (Normal); Urine WBC None Seen /HPF (<5)
[2024-06-12] MEDS ORDERED: ONDANSETRON 4 MG/2 ML VIAL ONE (13:35)
[2024-06-12] MEDS ORDERED: NA CHLORIDE 0.9% 1,000 ML ONE (13:36)
[2024-06-12 14:12] LABS: Absolute Basophils 0.1 K/uL (0-0.5); Absolute Eosinophils 0.3 K/uL (0-0.5); Absolute Lymphocytes (CBC) 2.5 K/uL (0.7-4.9); Absolute Monocytes 0.7 K/uL (0.1-1.3); Absolute Neutrophil 5.7 K/uL (1.8-8.0); Basophils % 0.9 % (0-1.3); Eosinophils % 3.7 % (0-4.4); Hematocrit 37.2 % (36.0-45.0); Hemoglobin 12.4 g/dL (12.0-15.0); Lymphocytes % 27.4 % (15.3-44.8); MCH 28.5 pg (27.0-35.0); MCHC 33.3 g/dL (32.0-36.0); MCV 85.6 fL (80-100); MPV 8.9 fL (7.6-11.3); Monocytes % 7.5 % (3.3-12.3); Neutrophils % 60.5 % (41.7-73.7); Nucleated Red Blood Cells % 0.1 % (0-0); Platelets 246 thou/uL (152-406); RBC Red Blood Cell Count 4.34 M/uL (3.86-4.86); Red Cell Distribution Width 15.2 % (12.1-15.2)
[2024-06-12 14:21] LABS: AST/SGOT 26 U/L (15-37); Albumin 3.1 g/dL (3.4-5.0); Albumin/Globulin Ratio 0.7 (1.1-1.8); Alkaline Phosphatase 85 U/L (45-117); Anion Gap 10.2 mEq/L (5.0-15.0); BUN Blood Urea Nitrogen 8 mg/dL (7-18); Bicarbonate 23 mEq/L (21-32); Bilirubin Total 0.4 mg/dL (0.2-1.0); Globulin 4.6 g/dL (2.3-3.5); Glomerular Filtration Rate 120 ml/min (=/>90); Glucose Level 88 mg/dL (74-106); Lipase 23 U/L (13-75); Potassium 4.2 mEq/L (3.5-5.1); Protein, Total 7.7 g/dL (6.4-8.2); Sodium Level 135 mEq/L (136-145)
[2024-06-12 14:31] LABS: ALT/SGPT < 14 U/L (13-56)
--- NOTE | 2024-06-12 14:35 | ER ---
Nurse's Notes [facility] Name: Shanique Avelar Age: 28 yrs Sex: Female : 1995 Arrival Date: 06/12/2024 Time: 12:12 Bed 9 Private MD: Diagnosis: Encounter for test, result positive Presentation: 06/12 13:20 Chief complaint: Patient states: n/v abd pain X 1 month. Coronavirus screen: At this iw time, the client does not indicate any symptoms associated with coronavirus-19. Ebola Screen: No symptoms or risks identified at this time. Initial Sepsis Screen: Does the patient meet any 2 criteria? No. Patient's initial sepsis screen is negative. Does the patient have a suspected source of infection? No. Patient's initial sepsis screen is negative. Risk Assessment: Do you want to hurt yourself or someone else? Patient reports no desire to harm self or others. Onset of symptoms was April 2024. 13:20 Method Of Arrival: Ambulatory iw 13:20 Acuity: KYLEE 3 iw Triage Assessment: 13:15 General: Appears in no apparent distress. obese, Behavior is appropriate for age. Pain: bp Complains of pain in abdomen. EENT: No deficits noted. Neuro: No deficits noted. Cardiovascular: No deficits noted. Respiratory: No deficits noted. GI: Reports nausea, vomiting. : No signs and/or symptoms were reported regarding the genitourinary system. Derm: No deficits noted. Musculoskeletal: No deficits noted. Historical: - Allergies: 13:27 NKA; iw - PMHx: 13:27 Anemia; Asthma; Heart Murmur; Hypertensive disorder; iw - PSHx: 13:27 dental surgery; lipo with a BBL; Tonsillectomy; iw - Immunization history:: Adult Immunizations up to date. - Infectious Disease History:: Denies. - Family history:: not pertinent. - Hospitalizations: : No recent hospitalization is reported. - Social history:: Smoking status: unknown. Screenin:25 [facility] ED Fall Risk Assessment (Adult) History of falling in the last 3 months, iw including since admission No falls in past 3 months (0 pts) Confusion or Disorientation No (0 pts) Intoxicated or Sedated No (0 pts) Impaired Gait No (0 pts) Mobility Assist Device Used No (0 pt) Altered Elimination No (0 pt) Score/Fall Risk Level 0 - 2 = Low Risk Oriented to surroundings, Maintained a safe environment. Abuse screen: Denies threats or abuse. Denies injuries from another. Nutritional screening: No deficits noted. Tuberculosis screening: No symptoms or risk factors identified. Assessment: 13:20 General: Appears in no apparent distress. Behavior is calm, cooperative. Pain: iw Complains of pain in abdomen. Neuro: Level of Consciousness is awake, alert, obeys commands, Oriented to person, place, time, situation, Moves all extremities. Full function. GI: Abdomen is non-distended. GI: Reports lower abdominal pain, nausea, vomiting. Derm: Skin is intact, is healthy with good turgor. Musculoskeletal: Range of motion: intact in all extremities. 14:58 Reassessment: DC ON HOLD FOR IVF. bp Vital Signs: 13:35 BP 120 / 70; Pulse 79; Resp 16; Temp 98.1; Pulse Ox 98% on R/A; Weight 106.59 kg; iw Height 5 ft. 7 in. ; 13:35 Body Mass Index 36.81 (106.59 kg, 170.18 cm) iw ED Course: 12:24 Patient arrived in ED. al6 12:41 Geremias Shepherd MD is Attending Physician. rn 13:15 Arm band placed on. bp 13:20 Test, Urine Sent. bc6 13:20 Urinalysis w/ reflexes Sent. bc6 13:21 Triage completed. iw 13:27 Loyda Ashton, RN is Primary Nurse. iw 14:05 Missed attempt(s): 20 gauge in right antecubital area. Bleeding controlled, band aid iw applied, catheter tip intact. 14:25 Patient has correct armband on for positive identification. iw 16:13 No provider procedures requiring assistance completed. IV discontinued, intact, bp bleeding controlled, No redness/swelling at site. Pressure dressing applied. 16:13 Provided Education on: na. bp Administered Medications: 14:11 Drug: Ondansetron IVP 4 mg IVP once; over 2 minutes Route: IVP; Site: left antecubital; bp 16:13 Follow up: Response: No adverse reaction bp 14:11 Drug: NS 0.9% IV 1000 ml IV at 1 bolus Per protocol; to be given as a bolus over 60 bp minutes Route: IV; Rate: 1 bolus; Site: left antecubital; 16:13 Follow up: IV Status: Completed infusion bp Medication: 16:13 VIS not applicable for this client. bp Outcome: 14:34 Discharge ordered by . rn 16:13 Discharged to home ambulatory, bp 16:13 Condition: stable 16:13 Discharge instructions given to patient, Instructed on discharge instructions, follow up and referral plans. Demonstrated understanding of instructions, follow-up care, 16:14 Patient left the ED. bp Signatures: Loyda Ashton, RN Geremias Tsang MD MD rn Peltier, Brian, JEANNIE RN bp Lauryn Garcia6 Emani Gomez al6
--- NOTE | 2024-06-12 14:35 | EDPHYS ---
Physician Documentation [facility] Name: Shanique Avelar Age: 28 yrs Sex: Female : 1995 Arrival Date: 06/12/2024 Time: 12:12 Bed 9 Private MD: ED Physician Geremias Shepherd HPI: 06/12 13:14 This 28 yrs old Black Female presents to ER via Unassigned with complaints of rn Vomiting/Diarrhea, Abdominal Pain. 13:14 The patient presents to the emergency department with nausea, vomiting, diarrhea, rn abdominal pain. Onset: The symptoms/episode began/occurred 1 month(s) ago. Possible causes: unknown. Severity of symptoms: At their worst the symptoms were mild in the emergency department the symptoms are unchanged. The patient has not experienced similar symptoms in the past. Patient reports approximately 1 month of nausea/vomiting/diarrhea with lower abdominal cramping. Has not taken a test. No fever or chills. No hematemesis or blood in stool.. Historical: - Allergies: 13:27 NKA; iw - PMHx: 13:27 Anemia; Asthma; Heart Murmur; Hypertensive disorder; iw - PSHx: 13:27 dental surgery; lipo with a BBL; Tonsillectomy; iw - Immunization history:: Adult Immunizations up to date. - Infectious Disease History:: Denies. - Family history:: not pertinent. - Hospitalizations: : No recent hospitalization is reported. - Social history:: Smoking status: unknown. ROS: 13:14 Constitutional: Negative for fever, chills, and weight loss, Cardiovascular: Negative rn for chest pain, palpitations, and edema, Respiratory: Negative for shortness of breath, cough, wheezing, and pleuritic chest pain, Abdomen/GI: Positive for abdominal cramping with vomiting and diarrhea Back: Negative for injury and pain, : Negative for injury, bleeding, discharge, and swelling, MS/Extremity: Negative for injury and deformity, Neuro: Negative for headache, weakness, numbness, tingling, and seizure, Exam: 13:14 Constitutional: This is a well developed, well nourished patient who is awake, alert, rn and in no acute distress. Spitting into emesis bag Cardiovascular: Regular rate and rhythm. No pulse deficits. Respiratory: No increased work of breathing, no retractions or nasal flaring. Abdomen/GI: Soft, nontender, nondistended, no peritoneal signs MS/ Extremity: Pulses equal, no cyanosis. Neuro: Awake and alert, GCS 15 Vital Signs: 13:35 BP 120 / 70; Pulse 79; Resp 16; Temp 98.1; Pulse Ox 98% on R/A; Weight 106.59 kg; iw Height 5 ft. 7 in. ; 13:35 Body Mass Index 36.81 (106.59 kg, 170.18 cm) iw MDM: 12:41 Medical Screening Exam initiated rn 14:33 Differential diagnosis: viral gastroenteritis, gastroenteritis, . Data rn reviewed: vital signs, nurses notes, lab test result(s), and as a result, I will discharge patient. Counseling: I had a detailed discussion with the patient and/or guardian regarding the historical points, exam findings, and any diagnostic results supporting the discharge/admit diagnosis, lab results, the need for outpatient follow up, to return to the emergency department if symptoms worsen or persist or if there are any questions or concerns that arise at home. Special discussion: I discussed with the patient/guardian in detail that at this point there is no indication for admission to the hospital. It is understood, however, that if the symptoms persist or worsen the patient needs to return immediately for re-evaluation. Based on the history and exam findings, there is no indication for further emergent testing or inpatient evaluation. I discussed with the patient/guardian the need to see the OB Gyne specialist for further evaluation of the symptoms. ED course: Urine is positive. Makes sense with patient reporting 1 month of nausea and vomiting. Denies any vaginal bleeding or leakage of fluid. Recommend vitamins, cessation of smoking and OB follow-up.. 06/12 13:00 Order name: CBC with Diff; Complete Time: 14:19 rn 06/12 13:00 Order name: CMP; Complete Time: 14:32 rn 06/12 13:00 Order name: Lipase; Complete Time: 14:32 rn 06/12 13:00 Order name: Test, Urine; Complete Time: 13:51 rn 06/12 13:00 Order name: Urinalysis w/ reflexes; Complete Time: 13:51 rn 06/12 13:00 Order name: IV Saline Lock; Complete Time: 13:39 rn 06/12 13:00 Order name: Labs collected and sent; Complete Time: 13:55 rn Administered Medications: 14:11 Drug: Ondansetron IVP 4 mg IVP once; over 2 minutes Route: IVP; Site: left antecubital; bp 16:13 Follow up: Response: No adverse reaction bp 14:11 Drug: NS 0.9% IV 1000 ml IV at 1 bolus Per protocol; to be given as a bolus over 60 bp minutes Route: IV; Rate: 1 bolus; Site: left antecubital; 16:13 Follow up: IV Status: Completed infusion bp Disposition Summary: 06/12/24 14:34 Discharge Ordered Notes: Location: Home rn Problem: new rn Symptoms: have improved rn Condition: Stable rn Diagnosis - Encounter for test, result positive rn Followup: rn - With: Private Physician - When: As needed - Reason: Recheck today's complaints, Re-evaluation by your physician Discharge Instructions: - Discharge Summary Sheet rn - First Trimester of rn Forms: - Medication Reconciliation Form rn - Antibiotic rn house supervisor - Prescription Opioid Use rn - Patient Portal Instructions rn - Leadership Thank You Letter rn Signatures: Dispatcher [employer] Loyda Muniz RN RN iw Nieto, Roman, MD MD rn Peltier, Brian, RN RN bp Corrections: (The following items were deleted from the chart) 13:01 13:01 CBC+H.LAB.BRZ ordered. EDMS EDMS 13:01 13:01 COMPREHENSIVE METABOLIC PANEL+C.LAB.BRZ ordered. EDMS EDMS 13:01 13:01 LIPASE+C.LAB.BRZ ordered. EDMS EDMS 13:01 13:01 Test, Urine+UC.LAB.BRZ ordered. EDMS EDMS 13:01 13:01 Urinalysis+U.LAB.BRZ ordered. EDMS EDMS 13:01 13:01 Abdomen Pelvis W Con+CT.RAD.BRZ ordered. EDMS EDMS
[2024-06-12 16:34] VITALS: BP 120/70; TEMP 98.1; O2SAT 98
== END 2024-06-12 16:14 | disposition home or self-care (01) ==
LOC: ER 12:12
DX: Z32.01 Encounter for pregnancy test, result positive (principal)
CPT/HCPCS: 36415; 80053; 81001; 81025; 83690; 85025; 96361; 96374; 99284; J2405; J7030

== ENCOUNTER 2024-07-19 17:59 | Emergency (ER) | payer OTHER ==
--- OUTSIDE RECORDS SUMMARY | 2024-07-19 18:06 | XMS REPORT | Continuity of Care Document ---
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 FOR NTD [id number] 12:22:55* Test Item Value Reference Range Interpretation Comme nts INTERPRETATION (test code = 468188) SCREEN NEGATIVE Neural tube defect risk (test code = 38924) 1:62991 Neural tube defect interpretation (test code = 59216) (NOTE) --- NORMAL - NOT AT INCREASED [...] 2657) 253 LBS INITIAL/REPEAT (test code = 847098) INITIAL FAMILY HISTORY OF NTD (test code = 809090) NO INSULIN DEP. DIABETIC (test code = 2659) NO RACE (test code = 2658) BLACK SMOKER? (test code = 755847) NO NUMBER OF GESTATIONS (test code = 97740) 1 GESTATIONAL AGE (test code = 2656) 16.4 WEEKS DETERMINED BY: (test code = 2654) US DATE OF SONOGRAM (test code = 35585) 03/31/[birth year]23 GESTATIONAL AGE AT SONO (test code = 2653) 13.4 WEEKS ADJUST AFP M.O.M. (test code = 2661) 0.79 M.O.M. AFP (test code = 24454) 23.9 NG/ML GLUCOSE 1 HR POST 50 [id number] 07:50:22* Test Item Value Reference Range Interpretation Comme nts GLUCOSE 1 HR POST 50 GM (mehul t code = 2005) 139 MG/DL <140 DRUG ABUSE SCREEN 10 REFLEX [id number] 07:38:58* Test Item Value Reference Range Interpretation Comme nts AMPHETAMINES (test code = 3201) NEGATIVE NEGATIVE BARBITURATES (test code = 3202) NEGATIVE NEGATIVE BENZODIAZEPINES (test code = 3203) NEGATIVE NEGATIVE CANNABINOIDS (test code = 3204) NEGATIVE NEGATIVE COCAINE METABOLITE (test code = 3205) NEGATIVE NEGATIVE OPIATES (test code = 3209) NEGATIVE NEGATIVE OXYCODONE (test code = 72111) NEGATIVE NEGATIVE PHENCYCLIDINE (test code = 3210) NEGATIVE NEGATIVE METHADONE (test code = 3207) NEGATIVE NEGATIVE BUPRENORPHINE (test code = 17256) NEGATIVE NEGATIVE SOURCE (test code = 569960) URINE SEE BELOW FO R THRESHOLDS AND [...] TESTING PERFORMED AT [facility] [address] [place] [address] [employer]: BREA RIVERS M.D. CLIA NUMBER [id number] [place]. [id number] DRUG SCREEN, SERUM, NO [id number] 09:54:58* Test Item Value Reference Range Interpretation Comme nts AMPHETAMINES (test code = 14446) TEST NOT PERFORMED Unable to perform testing, specimen not received.Charge s adjusted as applicable. BARBITURATES (test code = 12053) TEST NOT PERFORMED BENZODIAZEPINES (test code = 13646) TEST NOT PERFORMED COCAINE METABOLITE (test code = 68261) TEST NOT PERFORMED METHADONE (test code = 29893) TEST NOT PERFORMED OPIATES (test code = 449164) TEST NOT PERFORMED PHENCYCLIDINE (test code = 013639) TEST NOT PERFORMED PROPOXYPHENE (test code = 393359) TEST NOT PERFORMED THC (CANNABIS) (test code = 800333) TEST NOT PERFORMED ETHANOL (test code = 727315) TEST NOT PERFORMED T. PALLIDUM - [id number] 11:53:06* Test Item Value Reference Range Interpretation Comme nts T. PALLIDUM - PA (test code = 21743) REACTIVE NON-REACTIVE A UNLESS OTHER MORA INDICATED, ALL TESTING PERFORMED AT [facility] [address] [place] [address] [employer]: BREA RIVERS M.D. CLIA NUMBER [id number] [place]. [id number] 11:19:37* Test Item Value Reference Range Interpretation Comme nts PTT (test code = 1403) TEST NOT PERFORMED SECONDS 25.2-40.0 PROTHROMBIN TIME (PT)2023-04-13 11:19:37* Test Item Value Reference Range Interpretation Comme nts PROTHROMBIN TIME (PT) (test code = 1402) TEST NOT PERFORMED SECONDS 12.5-14.7 Unable to perform testing, specimen not received.Charges adjusted as applicable. INR (test code = 86139) TEST NOT PERFORMED SEE BELOW CURRENT RECOMMENDATIONS ARE FOR AN INR OF 2.0-3.0 FOR ALL PATIENTS ON VITAMIN K ANTAGONISTS, EXCEPT THOSE WITH PROSTHETIC HEART VALVES, FOR WHOM INR OF 2.5-3.5 IS RECOMMENDED. HEMOGLOBIN [id number] 16:38:02* Test Item Value Reference Range Interpretation Comme nts HEMOGLOBIN A1 (test code = 2575) 97.2 % 95.0-98.5 HEMOGLOBIN A2 (test code = 2576) 2.8 % 1.6-3.7 HEMOGLOBIN F () (test code = 2722) 0.0 % 0.0-2.0 HEMOGLOBIN S (test code = 2724) NONE % NONE DETECTED HEMOGLOBIN C (test code = 2726) NONE % NONE DETECTED OTHER HEMOGLOBIN VARIANT (test code = 02124) NONE DETEC % NONE DETECTED PATHOLOGIST'S INTERPRETATION (test code = 2577) (NOTE) NO ABNORMAL HEMOGLOBINS IDENTIFIED. BREA RIVERS M.D. OBSTETRIC PANEL + [id number] 01:33:01* Test Item Value Reference Range Interpretation [...] 0.00-0.10 ABS NUCLEATED RBCS (test code = 00015) 0.00 K/UL 0.00-0.11 BLOOD TYPE AND RH [...] BELOW RUBELLA IgG INTERP (test code = 28749) REACTIVE REACTIVE INTERPRETATION UNITS RANGE NON-REACTIVE/NON-IMMUNE IU/ML <10 REACTIVE/IMMUNE IU/ML >=10 HEPATITIS B SURF AG (test code = 2739) NON-REACTIVE NON-REACTIVE RPR (test code = 37247) REACTIVE NON-REACTIVE A SCREENING RPR RE ACTIVE. [...] code = 3514) NON-REACTIVE NON-REACTIVE HEPATITIS PANEL, [id number] 01:33:01* Test Item Value Reference Range Interpretation Comme nts HEPATITIS A IgM (test code = 82969) NON-REACTIVE NON-REACTIVE HEPATITIS B CORE IgM (test code = 4644) NON-REACTIVE NON-REACTIVE HEPATITIS B SURF AG (test code = 2739) NON-REACTIVE NON-REACTIVE HEPATITIS C ANTIBODY (test code = 4675) NON-REACTIVE NON-REACTIVE INTERPRETATION HEPATITIS A: (test code = 2552) (NOTE) Hepatitis A serology shows no evidence of acute hepatitis A. INTERPRETATION HEPATITIS B: (test code = 70437) (NOTE) Hepatitis B serology shows no evidence of acute hepatitis B andno indication of exposure to hepatitis B virus in the previous immanuel eight months. INTERPRETATION HEPATITIS C: (test code = 69737) (NOTE) Hepatitis C serology shows no evidence of exposure to hepatitisC virus at this time. It can take up to 12 months after exposure tothe hepatitis C virus for antibodies to become detectable in the blood in certain patients. VARICELLA ZOSTER [id number] 12:43:34* Test Item Value Reference Range Interpretation Comme nts VARICELLA ZOSTER IgG (test code = 35538) 106 INDEX SEE BELOW L INTERPRETATI ON [...] . . . . INDEX >=165 CULTURE, [id number] 08:51:37SPECIMEN NUMBER: [id number] CULTURE, URINE SPECIMEN NUMBER: [id number] SPECIMEN COMMENT: URINE SOURCE: URINE REPORT STATUS: FINAL FINAL REPORT: 04/11/2023 <10,000 CFU/ML UROGENITAL FREDY PRESENT NO COMMON PATHOGENSCOMPREHENSIVE METABOLIC [id number] 00:28:23* Test Item Value Reference Range Interpretation Comme nts GLUCOSE (test code = 2217) 114 MG/DL 70-99 H BUN (test code = 2208) 7 MG/DL 6-20 CREATININE (test code = 2214) 0.57 MG/DL 0.60-1.30 L eGFR (2020 CKD-EPI) (test code = 47143) 127 ML/MIN/1.73 >60 CALC BUN/CREAT (test code = 2235) 12 RATIO 6-28 SODIUM (test code = 2231) 139 MEQ/L 133-146 POTASSIUM (test code = 2227) 3.7 MEQ/L 3.5-5.4 CHLORIDE (test code = 5) 103 MEQ/L 95-107 CARBON DIOXIDE (test code [...] code = 2218) 6 U/L 5-40 HCG, [id number] 00:28:05* Test Item Value Reference Range Interpretation Comme nts HCG, QUANTITATIVE (test code = 2506) 40117 MIU/ML SEE BELOW EXPECTED VALUES FOR HCG [...] . . . . . . MIU/ML 1-8KDGZ-[id number] FEMALES . . . . . . . . . . . . MIU/ML <=7 CREATININE, URINE, 24 [id number] 02:40:10* Test Item Value Reference Range Interpretation Comme nts CREATININE, URINE, CONC. (test code = 2071) 397.9 MG/DL NOT ESTAB CREATININE, URINE, 24 HR (test code = 2109) 2.2 GM/24 HOURS 1.0-2.0 H TOTAL URINE VOLUME (test cod e = 2055) 550 ML 500-3500 PROTEIN, URINE, 24 [id number] 02:40:10* Test Item Value Reference Range Interpretation Comme nts PROTEIN, URINE, CONC. (test code = 2103) 17 MG/DL NOT ESTAB PROTEIN, URINE 24 HR (test code = 2059) 94 MG/24 HOURS 0-150 TOTAL URINE VOLUME (test code = 2055) 550 ML 500-3500 UNLESS OTHERWISE INDICATED, ALL TESTING PERFORMED AT [facility] [address] [place] [address] [employer] COOK: RBEA RIVERS M.D. CLIA NUMBER [id number] [place]. [id number] GONORRHEA, NAAT, [id number] 12:27:38* Test Item Value Reference Range Interpretation Comme nts GONORRHEA, NAAT, URINE (test code = 15277) NEGATIVE NEGATIVE Testing is perfo rmed with Armida DONI 6800/8800 systems usingreal-time polymerase chain reaction (PCR) method. A negative result does not exclude low level infection, specimensampling error, or collection error. CHLAMYDIA, NAAT, [id number] 12:27:38* Test Item Value Reference Range Interpretation Comme nts CHLAMYDIA, NAAT, URINE (test code = 74957) POSITIVE NEGATIVE A Testing is perfo rmed with [employer] DONI 6800/8800 systems usingreal-time polymerase chain reaction (PCR) method. UNLESS OTHERWISE INDICATED, ALL TESTING PERFORMED AT [facility] [address] [place] [address] [employer] COOK: BREA RIVERS M.D. CLIA NUMBER [id number] [place]. [id number] TOTAL BETA HCG [id number] 19:43:17* Test Item Value Reference Range Interpretation Comme nts BETA HCG (test code = 2169423690) 92402.00 See_Comment [Automated [employer]] The system which generated this result transmitted reference range: Non- female and male patients: <5 mIU/mL. The reference range was not used to interpret this result as normal/abnormal. BRENDA (test code = BRENDA) Gestational Age ?Range (mIU/mL) 1-10 ?Weeks ?29-46231402-78 Weeks ?52628-94730338-16 Weeks ?0523-14439818-80 Weeks ?0979-232889 Biotin has been reported to cause a negative bias, interpret results relative to patient's use of biotin. [facility] [id number] 19:15:00* Test Item Value Reference Range Interpretation Comme nts POCT PREG (test code = 1605) Negative On board controls acceptable with C Line (test code = 3574) Yes POCT PREG LOT # (test code = 3575) [id number] POCT PREG TEST DATE ( test code = 3576) [id number] Lab Interpretation (test cod e = 55105-7) Normal [facility]. METABOLIC PANEL (77387)2023-02-15 18:56:56* Test Item Value Reference Range Interpretation Comme nts NA (test code = 8255620256) 139 mmol/L 135-145 K (test code = 8375947798) 3.5 mmol/L 3.5-5.0 CL (test code = 5412371076) 107 mmol/L 98-108 CO2 TOTAL (test code = 0555605022) 24 mmol/L 23-31 AGAP (test code = 9116466571) 8 2-16 BUN (test code = 8564583996) 8 mg/dL 7-23 GLUCOSE (test code = 6012948450) 65 mg/dL 70-110 L CREATININE (test code = 8798294941) 0.64 mg/dL 0.50-1.04 TOTAL BILI (test code = 2099342644) 0.6 mg/dL 0.1-1.1 CALCIUM (test code = 5574835124) 9.4 mg/dL 8.6-10.6 T PROTEIN (test code = 0711213449) 8.4 g/dL 6.3-8.2 H ALBUMIN (test code = 9251067449) 4.5 g/dL 3.5-5.0 ALK PHOS (test code = 5286288217) 62 U/L 34-122 ALTv (test code = 1742-6) 13 U/L 5-35 AST(SGOT) (test code = 6405184482) 23 U/L 13-40 eGFR (test code = 55611-8) 123.6 mL/min/1.73m2 CKD-EPI eGFR (2020). Assuming creatinine has been stable day-to-day for at least three months, the eGFR indicates Category G1 (>= 90 mL/min/1.73 m2) Lab Interpretation (test code = 91417-6) Abnormal [facility] WITH [id number] 18:46:33* Test Item Value Reference Range Interpretation Comme nts WBC (test code = 6690-2) 6.45 See_Comment [Automated [employer]] The system which generated this result transmitted reference range: 4.30 - 11.10 10*3/?L. The reference range was not used to interpret this result as normal/abnormal. RBC (test code = 789-8) 4.57 See_Comment [Automated [employer]] The system which generated this result transmitted [...] 32.2 g/dL 31.6-35.1 RDW-SD (test code = 58944-5) 43.9 fL 39.0-49.9 RDW-CV (test code = 788-0) 13.4 % 12.0-15.5 PLT (test code = 777-3) 277 See_Comment [Automated messa ge] The system which generated this result transmitted reference range: 166 - 358 10*3/?L. The reference range was not used to interpret this result as normal/abnormal. MPV (test code = 80160-9) 9.4 fL 9.5-12.9 L NRBC/100 WBC (test code = 1367081995) 0.0 See_Comment [Automated [email or web address] ssage] The system which generated this result transmitted reference range: 0.0 - 10.0 /100 WBCs. The reference range was not used to interpret this result as normal/abnormal. NRBC x10^3 (test code = 9578199817) See_Comment [Automated messa ge] The system which generated this result transmitted reference range: 10*3/?L. The reference range was not used to interpret this result as normal/abnormal. GRAN MAT (NEUT) % (test code = 770-8) 59.9 % IMM GRAN % (test code = 5681485717) 0.30 % LYMPH % (test code = 736-9) 31.0 % MONO % (test code = 5905-5) 5.9 % EOS % (test code = 713-8) 2.6 % BASO % (test code = 706-2) 0.3 % GRAN MAT x10^3(ANC) (test code = 0338524689) 3.86 10*3/uL 1.88-7.09 IMM GRAN x10^3 (test code = 0010396491) 0.00-0.06 LYMPH x10^3 (test code = 731-0) 2.00 10*3/uL 1.32-3.29 MONO x10^3 (test code = 742-7) 0.38 10*3/uL 0.33-0.92 EOS x10^3 (test code = 711-2) 0.17 10*3/uL 0.03-0.39 BASO x10^3 (test code = 704-7) 0.01-0.07 Lab Interpretation (test code = 54762-7) Abnormal [facility] [id number] 06:27:00* Test Item Value Reference Range Interpretation Comme nts POCT PREG (test code = 1605) Negative On board controls acceptable with C Line (test code = 3574) Yes POCT PREG LOT # (test code = 6139) [id number] POCT PREG TEST DATE ( test code = 3576) Lab Interpretation (test cod e = 32165-2) Normal [facility] METABOLIC PANEL (50016)2021-09-23 22:04:16* Test Item Value Reference Range Interpretation Comme nts NA (test code = 5633385247) 139 mmol/L 135-145 K (test code = 1928513300) 4.1 mmol/L 3.5-5.0 CL (test code = 7726167643) 106 mmol/L 98-108 CO2 TOTAL (test code = 9942102778) 24 mmol/L 23-31 AGAP (test code = 2091862234) 2-16 BUN (test code = 1932763932) 12 mg/dL 7-23 GLUCOSE (test code = 3138208115) 109 mg/dL 70-110 CREATININE (test code = 8209725935) 0.74 mg/dL 0.50-1.04 TOTAL BILI (test code = 3984097153) 0.2 mg/dL 0.1-1.1 CALCIUM (test code = 8720812371) 9.0 mg/dL 8.6-10.6 T PROTEIN (test code = 1895355771) 7.0 g/dL 6.3-8.2 ALBUMIN (test code = 2343588846) 4.0 g/dL 3.5-5.0 ALK PHOS (test code = 1230764572) 67 U/L 34-122 ALTv (test code = 1742-6) 13 U/L 5-35 AST(SGOT) (test code = 7785286161) 15 U/L 13-40 eGFR (test code = 7138170237) mL/min/1.73m2 BREDNA (test code = BRENDA) Association of Glomerular [...] or urine or abnormalities in imaging tests). [facility] 22:04:16* Test Item Value Reference Range Interpretation Comme nts LIPASE (test code = 0271606289) 165 U/L 0-220 Lab Interpretation (test cod e = 78605-4) Normal [facility] WITH [id number] 21:50:54* Test Item Value Reference Range Interpretation Comme nts WBC (test code = 6690-2) See_Comment [Automated [employer]] The system which generated this result transmitted reference range: 4.30 - 11.10 10*3/?L. The reference range was not used to interpret this result as normal/abnormal. RBC (test code = 789-8) See_Comment [Automated [employer]] The system which generated this result transmitted [...] g/dL 31.6-35.1 L RDW-SD (test code = 27033-4) 46.8 fL 39.0-49.9 RDW-CV (test code = 788-0) 14.8 % 12.0-15.5 PLT (test code = 777-3) See_Comment [Automated messa ge] The system which generated this result transmitted reference range: 166 - 358 10*3/?L. The reference range was not used to interpret this result as normal/abnormal. MPV (test code = 65885-3) 9.9 fL 9.5-12.9 NRBC/100 WBC (test code = 9003151124) See_Comment [Automated [email or web address] ssage] The system which generated this result transmitted reference range: 0.0 - 10.0 /100 WBCs. The reference range was not used to interpret this result as normal/abnormal. NRBC x10^3 (test code = 3447659843) <0.01 See_Comment [Automated messa ge] The system which generated this result transmitted reference range: 10*3/?L. The reference range was not used to interpret this result as normal/abnormal. GRAN MAT (NEUT) % (test code = 770-8) 47.1 % IMM GRAN % (test code = 2184307602) 0.20 % LYMPH % (test code = 736-9) 40.2 % MONO % (test code = 5905-5) 6.5 % EOS % (test code = 713-8) 5.7 % BASO % (test code = 706-2) 0.3 % GRAN MAT x10^3(ANC) (test code = 8207734458) 2.89 10*3/uL 1.88-7.09 IMM GRAN x10^3 (test code = 6652696607) <0.03 0.00-0.06 LYMPH x10^3 (test code = 731-0) 2.47 10*3/uL 1.32-3.29 MONO x10^3 (test code = 742-7) 0.40 10*3/uL 0.33-0.92 EOS x10^3 (test code = 711-2) 0.35 10*3/uL 0.03-0.39 BASO x10^3 (test code = 704-7) <0.03 0.01-0.07 Lab Interpretation (test code = 15328-9) Abnormal [facility] [id number] 21:15:00* Test Item Value Reference Range Interpretation Comme nts POCT PREG (test code = 1605) negative On board controls acceptable with C Line (test code = 3574) present POCT PREG LOT # (test code = 3575) [id number] POCT PREG TEST DATE ( test code = 3576) 01/18/2023 Lab Interpretation (test cod e = 88748-7) Normal [facility] [id number] 02:14:14* Test Item Value Reference Range Interpretation Comme nts WHITE BLOOD CELLS (test code = 1513) 0-5 /HPF 0-5 RED BLOOD CELLS (test code = 1514) 0-2 /HPF 0-5 EPITHELIAL CELLS (test code = 43409) 0-5 /HPF 0-10 BACTERIA (test code = 1515) NONE SEEN NONE SEEN CASTS, HYALINE (test code = 1517) NONE SEEN NONE-TRACE UNLESS OTHERWISE INDICATED, ALL TESTING PERFORMED [facility] [address] [place], [place] [address] [employer] COOK: NILDA GORDILLO M.D. CLIA NUMBER [id number] [place]. [id number] CULTURE, [id number] 11:52:32SPECIMEN NUMBER: [id number] CULTURE, URINE SPECIMEN NUMBER: [id number] SPECIMEN COMMENT: URINE SOURCE: URINE REPORT STATUS: FINAL FINAL REPORT: 07/15/2021 50-100,000 CFU/ML MIXED UROGENITAL FREDY UNLESS OTHERWISE INDICATED, ALL TESTING PERFORMED [facility] [address] [place] [address] [employer]: NILDA GORDILLO M.D. CLIA NUMBER [id number] CAP ACCREDITATIONNO. [id number] W/AUTO DIFF WITH [id number] 02:16:29* Test Item Value Reference Range Interpretation [...] 0.00-0.10 ABS NUCLEATED RBCS (test code = 45154) 0.00 K/UL 0.00-0.11 UNLESS OTHER MORA INDICATED, ALL TESTING PERFORMED ATCLINICAL PATHOLOGY [facility] [address] [place] [address], [place] [address] [employer]OOK: NILDA GORDILLO M.D. CLIA NUMBER [id number] [place]. [id number] CBC W/AUTO DIFF WITH [id number] 09:30:01* Test Item Value Reference Range Interpretation [...] 0.00-0.10 ABS NUCLEATED RBCS (test code = 27888) TEST NOT PERFORMED K/UL 0.00-0.11 COMMENTS (test code = 1016) TEST NOT PERFORMED CULTURE, [id number] 09:41:58SPECIMEN NUMBER: [id number] CULTURE, URINE SPECIMEN NUMBER: [id number] SPECIMEN COMMENT: URINE SOURCE: URINE REPORT STATUS: FINAL FINAL REPORT: 07/03/2021 50-100,000 CFU/ML MIXED UROGENITAL FLORAHCG, [id number] 05:48:47* Test Item Value Reference Range Interpretation Comme nts HCG, QUALITATIVE (test code = 2507) NEGATIVE NEGATIVE COMPREHENSIVE METABOLIC [id number] 03:43:13* Test Item Value Reference Range Interpretation Comme nts GLUCOSE (test code = 2217) 96 MG/DL 70-99 BUN (test code = 2208) 12 MG/DL 6-20 CREATININE (test code = 2214) 0.79 MG/DL 0.60-1.30 eGFR (2020 CKD-EPI) (test code = 04924) 106 ML/MIN/1.73 >60 CALC BUN/CREAT (test code = 2235) 15 RATIO 6-28 SODIUM (test code = 223) 141 MEQ/L 133-146 POTASSIUM (test code = 2228) 3.8 MEQ/L 3.5-5.4 CHLORIDE (test code = 2215) 105 MEQ/L 95-107 CARBON DIOXIDE (test code = 2206) 22 MEQ/L 19-31 CALCIUM (test code = 220) 9.9 MG/DL 8.5-10.5 PROTEIN, TOTAL (test code = 222) 8.3 G/DL 6.1-8.3 ALBUMIN (test code = 1) 4.9 G/DL 3.5-5.2 CALC GLOBULIN (test code = 2240) 3.4 G/DL 1.9-3.7 CALC A/G RATIO (test code = 2234) 1.4 RATIO 1.0-2.6 BILIRUBIN, TOTAL (test code [...] U/L 5-40 HIV 1/2 4TH GEN, RFLX [id number] 03:40:40* Test Item Value Reference Range Interpretation Comme nts HIV 1/2 4TH GEN, RFLX CONF ( test code = 3514) NON-REACTIVE NON-REACTIVE [id number] 03:12:37* Test Item Value Reference Range Interpretation Comme nts PTT (test code = 1403) 29.7 SECONDS 25.2-40.0 PROTHROMBIN TIME (PT)2021-07-02 03:12:37* Test Item Value Reference Range Interpretation Comme nts PROTHROMBIN TIME (PT) (test code = 1402) 14.1 SECONDS 12.5-14.7 INR (test code = 57777) 1.0 SEE BELOW CURRENT RECOMMENDATIONS ARE FOR AN INR OF 2.0-3.0 FOR ALL PATIENTS ON VITAMIN K ANTAGONISTS, EXCEPT THOSE WITH PROSTHETIC HEART VALVES, FOR WHOM INR OF 2.5-3.5 IS RECOMMENDED. UNLESS OTHERWISE INDICATED, ALL TESTING PERFORMED [facility] [address] [place] [address] [employer] COOK: NILDA GORDILLO M.D. CLIA NUMBER [id number] [facility] [place]. [id number] 04:05:52* Test Item Value Reference Range Interpretation Comme nts PTT (test code = 1403) 29.3 SECONDS 25.2-40.0 UNLESS OTHERWISE INDICATED, ALL TESTING PERFORMED [facility] [address] [place] [address] [employer]OOK: NILDA GORDILLO M.D. CLIA NUMBER [id number] [place]. [id number] HIV 1/2 4TH GEN, RFLX [id number] 04:37:11* Test Item Value Reference Range Interpretation Comme nts HIV 1/2 4TH GEN, RFLX CONF ( test code = 3514) NON-REACTIVE NON-REACTIVE CULTURE, [id number] 10:12:10SPECIMEN NUMBER: [id number] CULTURE, URINE SPECIMEN NUMBER: [id number] SPECIMEN COMMENT: URINE SOURCE: URINE REPORT STATUS: FINAL FINAL REPORT: 05/11/2021 10-50,000 CFU/ML MIXED UROGENITAL FLORAHCG, [id number] 04:18:17* Test Item Value Reference Range Interpretation [...] . . . . . . MIU/ML [id number] FEMALES . . . . . . . . . . . . MIU/ML <=7 UNLESS OTHERWISE INDICATED, ALL TESTING PERFORMED [facility] [address] [place] [address] [employer]: NILDA GORDILLO M.D. [place] NUMBER [id number] [facility] [place]. [id number] COMPREHENSIVE METABOLIC [id number] 00:35:57* Test Item Value Reference Range Interpretation Comme nts GLUCOSE (test code = 2216) 108 MG/DL 70-99 H BUN (test code = 2207) 9 MG/DL 6-20 CREATININE (test code = 221) 0.88 MG/DL 0.60-1.30 eGFR (2020 CKD-EPI) (test code = 47139) 93 ML/MIN/1.73 >60 CALC BUN/CREAT (test code = 5) 10 RATIO 6-28 SODIUM (test code = 223) 142 MEQ/L 133-146 POTASSIUM (test code = 2228) 3.7 MEQ/L 3.5-5.4 CHLORIDE (test code = 2214) 105 MEQ/L 95-107 CARBON DIOXIDE (test code = 2205) 23 MEQ/L 19-31 CALCIUM (test code = 2209) 9.2 MG/DL 8.5-10.5 PROTEIN, TOTAL (test code = 222) 7.3 G/DL 6.1-8.3 ALBUMIN (test code = 2201) 4.1 G/DL 3.5-5.2 CALC GLOBULIN (test code = 2240) 3.2 G/DL 1.9-3.7 CALC A/G RATIO (test code = 223) 1.3 RATIO 1.0-2.6 BILIRUBIN, TOTAL (test code = 2206) <0.2 MG/DL See_Comment [Automated me ssage] The system which generated this result transmitted reference range: <=1.2. The reference range was not used to interpret this result as normal/abnormal. ALKALINE PHOSPHATASE (test code = 2203) 89 U/L 40-112 AST (test code = 2218) 11 U/L 9-40 ALT (test code = 2219) 9 U/L 5-40 PROTHROMBIN TIME (PT)2021-05-10 10:34:07* Test Item Value Reference Range Interpretation Comme nts PROTHROMBIN TIME (PT) (test code = 1402) 14.1 SECONDS 12.5-14.7 INR (test code = 15052) 1.1 SEE BELOW CURRENT RECOMMENDATIONS ARE FOR AN INR OF 2.0-3.0 FOR ALL PATIENTS ON VITAMIN K ANTAGONISTS, EXCEPT THOSE WITH PROSTHETIC HEART VALVES, FOR WHOM INR OF 2.5-3.5 IS RECOMMENDED. CBC W/AUTO DIFF WITH [id number] 02:45:06* Test Item Value Reference Range Interpretation [...] = 1065) 0.0 /100 WBC'S See_Comment [Automated [employer] ge] The system which generated this result [...] 0.00-0.10 ABS NUCLEATED RBCS (test code = 87336) 0.00 K/UL 0.00-0.11 Notes Date/Time Note Provider Source 2023-05-25 16:54:48 Pt brought in by [facility] with c/o contractions that started yesterday but have continued to get worse. EMS states contractions are 2-3mins apart lasting 45sec to 1min. Pt is 23wks, A2. Pt provider at [facility]. Due date 10/03/2023 F RELAY TESTER Nely Bryson RN [facility] 2022-11-20 02:43:01 Formatting of this n [...] in no apparent distress Chitra Maher RN [facility] 2022-11-20 00:56:21 Formatting of this n ote might be different from the original. Pt had multiple IV sticks with various nurses. 3rd [facility] IV trained RN attempting access at this time. Antionette Valera RN [facility] 2022-11-19 22:44:50 Formatting of this n ote might be different from the original. Chest pain , sob, weakness, right side body numbness that started 4 days ago Stacey Espino RN [facility]"
--- NOTE | 2024-07-19 19:52 | RAD REPORT ---
EXAM:OB Limited . CLINICAL HISTORY: with abdominal pain. ABD CRAMPING, TECHNIQUE: Limited OB ultrasound performed. FINDINGS: Limited examination submitted from the emergency room. Single live intrauterine gestation is identifi ed with estimated gestational age 13 weeks 4 days. Heart rate 154 BPM. position is variable. Amniotic fluid volume is subjectively normal. Placenta appears posteriorly and may cover the internal os. Cervix appears closed measuring 4 cm in length. IMPRESSION: No acute abnormality detected. Single live intrauterine gestation is present. Placenta previa may be present, however this often resolves itself with continued uterine expansion. Recommend follow-up obstetrical sonogram mid second trimester.
[2024-07-19 22:39] LABS: Specific Gravity 1.025 (1.005-1.030)
[2024-07-19 22:44] LABS: Absolute Eosinophils 0.3 K/uL (0-0.5); Absolute Lymphocytes (CBC) 2.4 K/uL (0.7-4.9); Absolute Monocytes 0.5 K/uL (0.1-1.3); Absolute Neutrophil 5.4 K/uL (1.8-8.0); Basophils % 0.6 % (0-1.3); Eosinophils % 3.2 % (0-4.4); Hematocrit 33.8 % (36.0-45.0); Hemoglobin 11.2 g/dL (12.0-15.0); Lymphocytes % 27.7 % (15.3-44.8); MCH 27.7 pg (27.0-35.0); MCHC 33.2 g/dL (32.0-36.0); MCV 83.2 fL (80-100); MPV 6.9 fL (7.6-11.3); Monocytes % 6.3 % (3.3-12.3); Neutrophils % 62.2 % (41.7-73.7); Nucleated Red Blood Cells % 0.1 % (0-0); Platelets 301 thou/uL (152-406); RBC Red Blood Cell Count 4.06 M/uL (3.86-4.86); Red Cell Distribution Width 15.1 % (12.1-15.2)
[2024-07-19 23:26] LABS: Anion Gap 10.7 mEq/L (5.0-15.0); Potassium 3.7 mEq/L (3.5-5.1)
--- NOTE | 2024-07-19 23:45 | ER ---
Nurse's Notes [facility] Name: Shanique Avelar Age: 28 yrs Sex: Female : 1995 Arrival Date: 07/19/2024 Time: 17:59 Bed DX3 Private MD: Diagnosis: Threatened ;Placenta previa specified as without hemorrhage, first trimester Presentation: 07/19 19:20 Chief complaint: Patient states: I FELL YESTERDAY AND I AM 16 WEEKS . AFTER THE ha1 FALL HAVING VAGINAL BLEEDING AND PELVIC CRAMPING. Coronavirus screen: Client denies travel out of the [place] in the last 14 days. Ebola Screen: No symptoms or risks identified at this time. Initial Sepsis Screen: Does the patient meet any 2 criteria? No. Patient's initial sepsis screen is negative. Does the patient have a suspected source of infection? No. Patient's initial sepsis screen is negative. Risk Assessment: Do you want to hurt yourself or someone else? Patient reports no desire to harm self or others. Onset of symptoms was July 19, 2024. 19:20 Method Of Arrival: Ambulatory ha1 19:20 Acuity: KYLEE 3 ha1 23:56 Care prior to arrival: None. Mechanism of Injury: No Mechanism of Injury. Trauma event kl details: Injury occurred in the [facility]. Triage Assessment: 19:24 General: Appears uncomfortable, Behavior is calm, cooperative. Pain: Complains of pain ha1 in pelvis. Respiratory: Airway is patent Respiratory effort is even, unlabored, Respiratory pattern is regular, symmetrical. : Reports vaginal bleeding that is moderate flow. VP: 19:30 8, Full Term 5, Premature 2, Living 7, unknown cp 23:57 8, Full Term 7, Premature 2, 0, Living 7, unknown kl Historical: - Allergies: 19:24 NKA; ha1 - PMHx: 19:24 Anemia; Asthma; Heart Murmur; Hypertensive disorder; ha1 - PSHx: 19:24 dental surgery; lipo with a BBL; Tonsillectomy; ha1 - Immunization history:: Adult Immunizations up to date. - Infectious Disease History:: Denies. - Social history:: Smoking status: Patient denies any tobacco usage or history of. Screenin:52 Abuse screen: Denies threats or abuse. Tuberculosis screening: No symptoms or risk kl factors identified. 23:55 [facility] ED Fall Risk Assessment (Adult) History of falling in the last 3 months, kl including since admission Yes- single mechanical fall (1 pt) Confusion or Disorientation No (0 pts) Intoxicated or Sedated No (0 pts) Impaired Gait No (0 pts) Mobility Assist Device Used No (0 pt) Altered Elimination No (0 pt) Score/Fall Risk Level 0 - 2 = Low Risk Oriented to surroundings, Maintained a safe environment. Primary Survey: 23:55 NO uncontrolled hemorrhage observed. Breathing/Chest: Spontaneous respiratory effort, kl equal unlabored respirations, breath sounds clear bilaterally, regular pattern, symmetrical chest rise and fall. Circulation: No external hemorrhage present. Regular and strong central pulse, skin warm/dry/normal color. Disability Pupils are equal, round, reactive to light and accommodation. Exposure/Environment: A warming method has been applied: A warm blanket has been provided to the patient. Reassessment Breathing: Spontaneous respiratory effort, equal unlabored respirations, breath sounds clear bilaterally, regular pattern with symmetrical chest rise and fall. Circulation: No external hemorrhage noted. Regular and strong central pulse, skin warm/dry/normal color. Disability: Pupils Pupils are equal, round, reactive to light and accomodation. Alert. Secondary Survey: 23:52 HEENT: No deficits noted. Gastrointestinal: No deficits noted. : No deficits noted. kl Musculoskeletal: No deficits noted. Assessment: 07/18 23:30 Reassessment: Patient appears in no apparent distress at this time. Patient and/or kl family updated on plan of care and expected duration. Pain level reassessed. Patient is alert, oriented x 3, equal unlabored respirations, skin warm/dry/pink. 07/19 22:34 Reassessment: Patient and/or family updated on plan of care and expected duration. Pain ha1 level reassessed. Patient is alert, oriented x 3, equal unlabored respirations, skin warm/dry/pink. Vital Signs: 19:20 BP 131 / 82; Pulse 103; Resp 18 S; Temp 98.4(O); Pulse Ox 100% ; Weight 113.4 kg; ha1 Height 5 ft. 7 in. ; Pain 8/10; 19:20 Body Mass Index 39.16 (113.40 kg, 170.18 cm) ha1 19:20 Pain Scale: Adult ha1 Arturo Coma Score: 23:56 Eye Response: spontaneous(4). Motor Response: obeys commands(6). Verbal Response: kl oriented(5). Total: 15. Trauma Score (Adult): 23:55 Eye Response: spontaneous(1); Verbal Response: oriented(1); Motor Response: obeys kl commands(2); Systolic BP: > 89 mm Hg(4); Respiratory Rate: 10 to 29 per min(4); [place] Score: 15; Trauma Score: 12 ED Course: 18:02 Patient arrived in ED. im 19:18 Gatiot Anguiano MD is Attending Physician. [facility] 19:24 Triage completed. ha1 19:36 Gatito Courtney PA is PHCP. cp 19:44 US OB Limited In Process Unspecified. EDCA 22:33 Abo/rh Typing Sent. ha1 22:33 Basic Metabolic Panel Sent. ha1 22:33 CBC with Diff Sent. ha1 22:33 Test, Urine Sent. ha1 22:33 Quantitative Hcg Sent. ha1 22:33 Inserted saline lock: 20 gauge in left antecubital area, using aseptic technique. Blood ha1 collected. Flushed with 10 mL NS Accessed peripheral vein via ultrasound, utilizing dynamic ultrasound technique. 23:53 Patient has correct armband on for positive identification. kl 23:55 IV discontinued, intact, bleeding controlled, No redness/swelling at site. Pressure kl dressing applied. 23:56 No provider procedures requiring assistance completed. kl Administered Medications: 21:55 CANCELLED (Physician Discretion): ns 0.9% 1000 ml IV at 1000 ml once; to be given as a kl bolus over 60 minutes 21:55 Not Given (Patient Refused): [id number] mg PO once kl Outcome: 23:45 Discharge ordered by . cp 23:55 Discharged to home ambulatory, kl 23:55 Condition: good 23:55 Patient's length of stay in the Emergency Department was greater than 2 hours. 23:56 Discharge instructions given to patient, Instructed on discharge instructions, follow kl up and referral plans. Demonstrated understanding of instructions, follow-up care, 23:57 Patient left the ED. kl Signatures: Dispatcher [employer] EDCA Blanca Giang RN RN kl Anderson, Corey, MD MD cha Page, Corey, PA PA cp Ayala, Heidy RN RN ha1 Marisel Rosales im
--- NOTE | 2024-07-19 23:45 | EDPHYS ---
Physician Documentation [facility] Name: Shanique Avelar Age: 28 yrs Sex: Female : 1995 Arrival Date: 07/19/2024 Time: 17:59 Bed DX3 Private MD: ED Physician Gatito Anguiano HPI: 07/19 19:30 This 28 yrs old Black Female presents to ER via Ambulatory with complaints of Fall cp Injury, 16 weeks , Vaginal Bleeding. 19:30 The patient presents to the emergency department with abdominal pain, of the right cp lower quadrant and left lower quadrant, that started yesterday, described as crampy, vaginal bleeding, that is light. The estimated gestational age is 16 weeks. course: care: none, Ultrasound: the patient has not had an ultrasound. Previous pregnancies: in previous pregnancies patient has had vaginal delivery. TOTER: 19:30 8, Full Term 5, Premature 2, Living 7, unknown cp 23:57 8, Full Term 7, Premature 2, 0, Living 7, unknown kl Historical: - Allergies: 19:24 NKA; ha1 - PMHx: 19:24 Anemia; Asthma; Heart Murmur; Hypertensive disorder; ha1 - PSHx: 19:24 dental surgery; lipo with a BBL; Tonsillectomy; ha1 - Immunization history:: Adult Immunizations up to date. - Infectious Disease History:: Denies. - Social history:: Smoking status: Patient denies any tobacco usage or history of. ROS: 19:33 Abdomen/GI: Positive for abdominal cramps, Negative for nausea, vomiting, and diarrhea, cp 19:33 Eyes: Negative for injury, pain, redness, and discharge, cp 19:33 Constitutional: Negative for body aches, chills, fever, 19:33 Respiratory: Negative for cough, shortness of breath, wheezing, 19:33 Back: Negative for pain at rest, pain with movement, 19:33 : Positive for vaginal bleeding, 19:33 Neuro: Negative for altered mental status, 19:33 All other systems are negative, Exam: 19:35 Constitutional: The patient appears in no acute distress, alert, awake, non-toxic, well cp developed, well nourished, obese, 19:35 Head/Face: Normocephalic, atraumatic. cp 19:35 Eyes: Periorbital structures: appear normal, Conjunctiva: normal, no exudate, no injection, Sclera: no appreciated abnormality, Lids and lashes: appear normal, bilaterally, 19:35 ENT: External ear(s): are unremarkable, Nose: is normal, Mouth: Lips: moist, Oral mucosa: moist, Posterior pharynx: Airway: no evidence of obstruction, patent, 19:35 Chest/axilla: Inspection: normal, 19:35 Cardiovascular: Rate: tachycardic, 19:35 Respiratory: the patient does not display signs of respiratory distress, Respirations: normal, no use of accessory muscles, no retractions, labored breathing, is not present, Breath sounds: are clear throughout, no decreased breath sounds, no stridor, no wheezing, 19:35 Abdomen/GI: Inspection: obese Bowel sounds: active, all quadrants, Palpation: soft, in all quadrants, mild abdominal tenderness, in the right lower quadrant and left lower quadrant, rebound tenderness, is not appreciated, involuntary guarding, is not appreciated, 19:35 Back: pain, is absent, ROM is normal, Vital Signs: 19:20 BP 131 / 82; Pulse 103; Resp 18 S; Temp 98.4(O); Pulse Ox 100% ; Weight 113.4 kg; ha1 Height 5 ft. 7 in. ; Pain 8/10; 19:20 Body Mass Index 39.16 (113.40 kg, 170.18 cm) ha1 19:20 Pain Scale: Adult ha1 [place] Coma Score: 23:56 Eye Response: spontaneous(4). Motor Response: obeys commands(6). Verbal Response: kl oriented(5). Total: 15. Trauma Score (Adult): 23:55 Eye Response: spontaneous(1); Verbal Response: oriented(1); Motor Response: obeys kl commands(2); Systolic BP: > 89 mm Hg(4); Respiratory Rate: 10 to 29 per min(4); Arturo Score: 15; Trauma Score: 12 MDM: 19:18 Medical Screening Exam initiated keith 22:00 Differential diagnosis: STD, ectopic . cp 23:45 Data reviewed: vital signs, nurses notes, lab test result(s), radiologic studies, cp ultrasound, and as a result, I will discharge patient. 23:45 Counseling: I had a detailed discussion with the patient and/or guardian regarding the cp historical points, exam findings, and any diagnostic results supporting the discharge/admit diagnosis, lab results, radiology results, the need for outpatient follow up, for definitive care, an OB/Gyne specialist, to return to the emergency department if symptoms worsen or persist or if there are any questions or concerns that arise at home. 23:45 Response to treatment: the patient's symptoms have mildly improved after treatment, and cp as a result, I will discharge patient. 07/19 19:19 Order name: Abo/rh Typing; Complete Time: 23:39 [facility] 07/19 19:19 Order name: Basic Metabolic Panel; Complete Time: 23:38 [facility] 07/19 23:38 Interpretation: Normal except: GLUC 121. 07/19 19:19 Order name: CBC with Diff; Complete Time: 23:05 [facility] 07/19 23:06 Interpretation: Normal except: HGB 11.2; HCT 33.8; MPV 6.9. 07/19 19:19 Order name: Test, Urine; Complete Time: 23:05 [facility] 07/19 19:19 Order name: Quantitative Hcg; Complete Time: 23:38 [facility] 07/19 23:38 Interpretation: Reviewed. 07/19 19:19 Order name: US OB Limited; Complete Time: 21:25 [facility] 07/19 21:28 Interpretation: Report reviewed. 07/19 19:19 Order name: IV Saline Lock; Complete Time: 22:33 [facility] 07/19 19:19 Order name: Labs collected and sent; Complete Time: 22:33 [facility] 07/19 19:19 Order name: NPO; Complete Time: 22:33 [facility] Administered Medications: 21:55 CANCELLED (Physician Discretion): ns 0.9% 1000 ml IV at 1000 ml once; to be given as a kl bolus over 60 minutes 21:55 Not Given (Patient Refused): [id number] mg PO once kl Disposition Summary: 07/19/24 23:45 Discharge Ordered Notes: Location: Home cp Problem: new cp Symptoms: have improved cp Condition: Stable cp Diagnosis - Threatened cp - Placenta previa specified as without hemorrhage, first trimester cp Followup: cp - With: Private Physician - When: 1 week - Reason: Recheck today's complaints Discharge Instructions: - Discharge Summary Sheet cp - Placenta Previa cp - Care cp - Threatened Miscarriage cp - Vaginal Bleeding During , First Trimester cp - First Trimester of cp - Activity Restriction During cp Forms: - Medication Reconciliation Form cp - Antibiotic Education cp - Prescription Opioid Use cp - Patient Portal Instructions cp - Leadership Thank You Letter cp Addendum: 07/22/2024 22:46 Co-signature as Attending Physician, Gatito Anguiano MD I agree with the assessment and c pope plan of care. Signatures: Dispatcher [employer] Gatito Tabares MD MD cha Page, Corey, PA PA cp Maria Guadalupe Palacios, RN RN ha1 Blanca Giang RN kl Corrections: (The following items were deleted from the chart) 07/19 19:19 19:19 ABO/RH TYPING+BB.LAB.BRZ ordered. EDMS EDMS 19:19 19:19 BASIC METABOLIC PANEL+C.LAB.BRZ ordered. EDMS EDMS 19:19 19:19 CBC+H.LAB.BRZ ordered. EDMS EDMS 19:19 19:19 Test, Urine+UC.LAB.BRZ ordered. EDMS EDMS 19:19 19:19 QUANTITATIVE HCG+C.LAB.BRZ ordered. EDMS EDMS 19:19 19:19 OB Limited+US.RAD.BRZ ordered. EDMS EDMS 21:55 19:19 NS 0.9% IV 1000 ml IV at 1000 ml once; to be given as a bolus over 60 minutes kl ordered. keith
[2024-07-20 00:13] VITALS: BP 131/82; TEMP 98.4; O2SAT 100
== END 2024-07-19 23:57 | disposition home or self-care (01) ==
LOC: ER 17:59
DX: O20.0 Threatened abortion (principal); O44.02 Complete placenta previa NOS or without hemorrhage, second trimester; Z3A.16 16 weeks gestation of pregnancy
CPT/HCPCS: 36415; 76815; 80048; 81025; 84702; 85025; 86900; 86901; 99284